=== PATIENT | female | born 1955 | race Caucasian/White ===

== ENCOUNTER → 2020-11-04 08:04 | Outpatient (BNVA) | payer OTHER, SELFPAY | PROVIDERS: PCP Internal Medicine; Visit Provider Internal Medicine Endocrinology, Diabetes & Metabolism | DX: E11.9 Type 2 diabetes mellitus without complications (principal); Z79.4 Long term (current) use of insulin; E04.2 Nontoxic multinodular goiter; E78.5 Hyperlipidemia, unspecified; I10 Essential (primary) hypertension; E66.01 Morbid (severe) obesity due to excess calories | CPT/HCPCS: 82947 ==

== ENCOUNTER 2020-12-05 07:59 | Outpatient (REF) | payer OTHER, SELFPAY ==
[2020-12-10 02:32] LABS: HPV mRNA E6/E7 rflx Not Detected (Not Detected)
== END 2020-12-05 08:00 | disposition home or self-care (01) ==
LOC: HO.LAB 07:59
PROVIDERS: PCP Internal Medicine; Visit Provider Advanced Practice Midwife
DX: Z01.419 Encounter for gynecological examination (general) (routine) without abnormal findings (principal)
CPT/HCPCS: 36415; 87624; 88142

== ENCOUNTER 2021-04-21 13:00 | Outpatient (REF) | payer OTHER, SELFPAY ==
--- NOTE | ~2021-04-21 | US_ITS ---
EXAMINATION: US THYROID CLINICAL INFORMATION: Nontoxic multinodular goiter. COMPARISON: Thyroid ultrasound 09/11/2019 and 11/25/2017. Ultrasound-guided thyroid biopsy 10/18/2014. TECHNIQUE: Linear transducer grayscale and color Doppler examination with attention to the region of the thyroid. FINDINGS: SIZE: Measurements of the thyroid lobes and nodules are given in sagittal, anteroposterior and transverse dimensions respectively. Right Thyroid Lobe: 3.7 x 1.4 x 1.9 cm, volume 4.9 mL. Previously 4.3 x 1.7 x 1.7 cm, volume 6.5 mL. Parenchyma: The gland echotexture is homogeneous. Thyroid vascularity is normal. Left Thyroid Lobe: 4.3 x 1.9 x 1.6 cm, volume 7.2 mL. Previously 4.9 x 1.9 x 1.8 cm, volume 8.8 mL. Parenchyma: The gland echotexture is homogeneous. Thyroid vascularity is normal. Isthmus: 0.4 cm in maximum AP dimension. Previously 0.4 cm. Estimated total number of nodules greater than or equal to 1 cm: 2. There are multiple small colloid cysts in both lobes. Hand Launderer nodules are described as follows: 1. Location: Right lower pole. Size: 1.1 x 0.6 x 0.9 cm, volume 0.3 mL. Previously: 1.2 x 0.6 x 1.0 cm, volume 0.4 mL. Nodule characteristics: Composition: Solid/almost completely solid (2). Echogenicity: Hypoechoic (2). Shape: Not taller than wide (0). Margins: Smooth (0). Echogenic Foci: Comet-tail artifacts (0). ACR TI-RADS total points: 4 ACR TI-RADS category: 4 Size from prior: No significant change. Appearance from prior: No significant change. 2. Location: Right mid pole. Size: 0.6 x 0.4 x 0.5 cm, volume 0.1 mL. Previously: 0.5 x 0.3 x 0.4 cm, volume 0.03 mL. Nodule characteristics: Composition: Mixed cystic and solid (1). Echogenicity: Hypoechoic (2). Shape: Not taller than wide (0). Margins: Smooth (0). Echogenic Foci: Comet-tail artifacts (0). ACR TI-RADS total points: 3. ACR TI-RADS category: 3 Size from prior: No significant change. Appearance from prior: No significant change. 3. Location: Left mid pole. Size: 1.6 x 0.9 x 1.0 cm, volume 0.7 mL. Previously: 1.2 x 0.9 x 1.1 cm, volume 0.6 mL. Nodule characteristics: Composition: Mixed cystic and solid (1). Echogenicity: Hypoechoic (2). Shape: Not taller than wide (0). Margins: Smooth (0). Echogenic Foci: None (0). ACR TI-RADS total points: 3 ACR TI-RADS category: 3 Size from prior: No significant change. Appearance from prior: No significant change. 4. Location: Left mid pole. Size: 0.5 x 0.3 x 0.3 cm, volume 0.02 mL. Previously: 0.4 x 0.5 x 0.3 cm, volume 0.03 mL. Nodule characteristics: Composition: Solid (2). Echogenicity: Hypoechoic (2). Shape: Not taller than wide (0). Margins: Smooth (0). Echogenic Foci: None (0). ACR TI-RADS total points: 4 ACR TI-RADS category: 4 Size from prior: No significant change. Appearance from prior: No significant change. NODES: No lymphadenopathy is seen in the tissue surrounding the thyroid gland. US/US thyroid IMPRESSION: 1. Thyroid size and nodularity similar to prior exam. 2. Largest nodule right 1.1 cm TI-RADS 4. Largest nodule left 1.6 cm TI-RADS 3. ACR TI-RADS RECOMMENDATION REFERENCE: Ultrasound-guided fine-needle aspiration, followup ultrasound, no further follow up. * TR3 (3 points): FNA if more than or equal to 2.5 cm in maximum dimension, followup ultrasound in 1, 3 and 5 years if 1.5 to 2.4 cm in maximum dimension. No follow up if below 1.5 cm. * TR4 (4-6 points): FNA if more than or equal to 1.5 cm in maximum dimension, followup ultrasound in 1, 2, 3 and 5 years if 1 to 1.4 cm in maximum dimension. No follow up if below 1 cm.
== END 2021-04-21 13:01 | disposition home or self-care (01) ==
LOC: HO.US 13:00
PROVIDERS: Visit Provider Internal Medicine Endocrinology, Diabetes & Metabolism
DX: E04.2 Nontoxic multinodular goiter (principal)
CPT/HCPCS: 76536

== ENCOUNTER 2021-04-22 09:03 | Outpatient (REF) | payer OTHER, SELFPAY ==
[2021-04-22 11:58] LABS: Alanine Aminotransferase 22 U/L (0-31); Albumin Level 3.6 g/dL (3.5-5.0); Alkaline Phosphatase 81 U/L (39-117); Anion Gap 17 (12-20); Aspartate Amino Transferase 32 U/L (5-31); Bilirubin Total 0.7 mg/dL (0.0-1.0); Blood Urea Nitrogen 21 mg/dL (9-16); Calcium 9.2 mg/dL (8.4-10.2); Carbon Dioxide 20 mmol/L (22-29); Chloride 101 mmol/L (96-108); Cholesterol 137 mg/dL; Estimated Glomerular Filt Rate 60; Glucose Fasting 196 mg/dL (60-99); HDL Cholesterol 40 mg/dL; LDL Cholesterol Calculated 75 mg/dl; Potassium 4.4 mmol/L (3.3-5.1); Sodium 134 mmol/L (135-145); Triglycerides 114 mg/dL
[2021-04-22 12:22] LABS: Free T4 (Free Thyroxine) 1.08 ng/dL (0.71-1.85); Thyroid Stimulating Hormone 1.91 uIU/mL (0.32-4.0)
[2021-04-22 12:35] LABS: Vitamin B12 279 pg/mL (200-900)
[2021-04-22 13:22] LABS: Creatinine Urine 229.81 mg/dL
[2021-04-23 08:36] LABS: LDL Cholesterol Direct 75 mg/dL (<100)
== END 2021-04-22 09:04 | disposition home or self-care (01) ==
LOC: HO.LAB 09:03
PROVIDERS: PCP Internal Medicine; Referring Provider Internal Medicine; Visit Provider Internal Medicine Endocrinology, Diabetes & Metabolism
DX: E11.65 Type 2 diabetes mellitus with hyperglycemia (principal); Z79.4 Long term (current) use of insulin; E04.2 Nontoxic multinodular goiter; E78.5 Hyperlipidemia, unspecified; I10 Essential (primary) hypertension; E66.01 Morbid (severe) obesity due to excess calories; Z68.42 Body mass index [BMI] 45.0-49.9, adult
CPT/HCPCS: 36415; 80053; 80061; 82043; 82607; 82947; 83721; 84439; 84443

== ENCOUNTER 2021-05-01 08:37 | Outpatient (REF) | payer OTHER, SELFPAY ==
--- NOTE | 2021-05-01 09:16 | PM.OP ---
Brief Operative Note Date of Service: 05/01/21 Pre-op diagnosis: NONTOXIC MULTINODULAR GOITER Post-op diagnosis: same Procedure: This procedure was explained to the patient. Alternatives, risks and benefits were discussed. Written consent was obtained. After sterile preparation of the skin, fine-needle aspiration biopsy of left mid pole thyroid nodule size 1.6 x 0.9 x 1.0 cm was performed under direct ultrasound guidance to confirm accurate needle placement. Three passes were performed with 27 gauge needles. Sample was submitted to cytology, initial cytology reading was adequate. 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 Patient tolerated procedure well. Aftercare instructions were provided. Impression: uncomplicated fine-needle aspiration biopsy of left mid pole thyroid nodule under direct ultrasound guidance. Surgeon: Jenae Almaraz MD Anesthesia: local (Lidocaine 1 % 1 ml) Was an Editorial Assistant used for this Procedure?: No Estimated blood loss (mL): 0 Condition: stable Disposition: same day
[2021-05-01] MEDS: Lidocaine HCl 1 % MPF 5 ML VIAL SUBCUT (10:18)
== END 2021-05-01 08:38 | disposition home or self-care (01) ==
LOC: HO.US 08:37
PROVIDERS: Visit Provider Internal Medicine Endocrinology, Diabetes & Metabolism
DX: E04.2 Nontoxic multinodular goiter (principal)
CPT/HCPCS: 10005; 88172; 88173; 88177

== ENCOUNTER → 2021-05-21 14:18 | Outpatient (BNVA) | payer OTHER, SELFPAY | PROVIDERS: PCP Internal Medicine; Visit Provider Internal Medicine Endocrinology, Diabetes & Metabolism | DX: E11.65 Type 2 diabetes mellitus with hyperglycemia (principal); E04.2 Nontoxic multinodular goiter; E78.5 Hyperlipidemia, unspecified; E66.01 Morbid (severe) obesity due to excess calories; I10 Essential (primary) hypertension; Z79.4 Long term (current) use of insulin | CPT/HCPCS: 82947 ==

== ENCOUNTER 2021-12-15 11:40 | Outpatient (REF) | payer OTHER, SELFPAY ==
[2021-12-15 12:08] LABS: MANUAL DIFF FLAG NO
[2021-12-15 12:14] LABS: Basophils Absolute Auto 0.1 X10*3/uL (0.0-0.2); Basophils Percent Auto 0.7 % (0-2); Eosinophils Absolute Auto 0.6 X10*3/uL (0.0-0.4); Eosinophils Percent Auto 5.4 % (0-4); Hematocrit 36.5 % (37.0-47.0); Imm Gran Abs Auto 0.04 X10*3/uL (0.00-0.03); Imm Gran Pct Auto 0.4 % (0.0-0.4); Lymphocytes Absolute Auto 2.7 X10*3/uL (1.2-4.9); Lymphocytes Percent Auto 25.9 % (20-40); Mean Corpuscular HGB Conc 32.9 g/dl (31.0-35.0); Mean Corpuscular Hemoglobin 29.1 pg (27.0-33.0); Mean Corpuscular Volume 88.4 fL (80.0-98.0); Mean Platelet Volume 9.2 fL (9.4-12.3); Monocytes Absolute Auto 0.6 X10*3/uL (0.1-1.2); Monocytes Percent Auto 5.5 % (2-11); Neutrophils Absolute Auto 6.4 x10*3/uL (2.0-8.3); Neutrophils Percent Auto 62.1 % (45-73); Platelet Count 461 X10*3/uL (160-400); Red Blood Count 4.13 X10*6/uL (4.20-5.50); Red Cell Distribution Width 13.9 % (11.0-16.0); White Blood Count 10.4 X10*3/uL (4.8-10.8)
[2021-12-15 12:33] LABS: Estimated Average Glucose 126 mg/dL
[2021-12-15 12:40] LABS: Alanine Aminotransferase 14 U/L (0-31); Albumin Level 3.8 g/dL (3.5-5.0); Alkaline Phosphatase 83 U/L (39-117); Anion Gap 14 (12-20); Aspartate Amino Transferase 20 U/L (5-31); Bilirubin Total 0.5 mg/dL (0.0-1.0); Blood Urea Nitrogen 17 mg/dL (9-16); Calcium 9.9 mg/dL (8.4-10.2); Carbon Dioxide 28 mmol/L (22-29); Chloride 102 mmol/L (96-108); Cholesterol 164 mg/dL; Estimated Glomerular Filt Rate > 60; Glucose Fasting 109 mg/dL (60-99); HDL Cholesterol 41 mg/dL; LDL Cholesterol Calculated 103 mg/dl; Potassium 4.2 mmol/L (3.3-5.1); Sodium 140 mmol/L (135-145); Total Protein 7.5 g/dL (6.5-8.0); Triglycerides 100 mg/dL
[2021-12-15 13:00] LABS: Thyroid Stimulating Hormone 2.02 uIU/mL (0.32-4.0)
[2021-12-15 16:07] LABS: Creatinine Urine 71.92 mg/dL; Microalbum/Creatinine Ratio Ur 126.5 ug/mg cr
== END 2021-12-15 11:41 | disposition home or self-care (01) ==
LOC: HO.LAB 11:40
PROVIDERS: PCP Internal Medicine; Visit Provider Internal Medicine
DX: Z00.00 Encounter for general adult medical examination without abnormal findings (principal); E11.65 Type 2 diabetes mellitus with hyperglycemia; Z13.0 Encounter for screening for diseases of the blood and blood-forming organs and certain disorders involving the immune mechanism
CPT/HCPCS: 36415; 80053; 80061; 82043; 83036; 84443; 85025

== ENCOUNTER 2021-12-29 12:28 | Outpatient (REF) | payer OTHER, SELFPAY ==
--- NOTE | ~2021-12-29 | XR_ITS ---
EXAMINATION: XR KNEES, BILATERAL CLINICAL INFORMATION: Pain in unspecified area of the knee. COMPARISON: Previous x-rays most recent 2018 and 2019 TECHNIQUE: Standing AP, lateral and sunrise view of both knees, FINDINGS: LEFT: Bone alignment is normal. No fracture or dislocation is seen. There is arthritis at the medial femoral tibial and patellofemoral joints with joint space narrowing and osteophyte formation. There is a small joint effusion. RIGHT: Bone alignment is normal. There is severe tricompartment arthritis with joint space narrowing and osteophyte formation. There is a joint effusion. There is an osteophyte at the quadriceps tendon insertion to the patella. XR/XR knee RT 2V IMPRESSION: Bilateral arthritis, right greater than left.
--- NOTE | ~2021-12-29 | XR_ITS ---
EXAMINATION: XR KNEES, BILATERAL CLINICAL INFORMATION: Pain in unspecified area of the knee. COMPARISON: Previous x-rays most recent 2018 and 2019 TECHNIQUE: Standing AP, lateral and sunrise view of both knees, FINDINGS: LEFT: Bone alignment is normal. No fracture or dislocation is seen. There is arthritis at the medial femoral tibial and patellofemoral joints with joint space narrowing and osteophyte formation. There is a small joint effusion. RIGHT: Bone alignment is normal. There is severe tricompartment arthritis with joint space narrowing and osteophyte formation. There is a joint effusion. There is an osteophyte at the quadriceps tendon insertion to the patella. XR/XR knee standing BI IMPRESSION: Bilateral arthritis, right greater than left.
--- NOTE | ~2021-12-29 | XR_ITS ---
EXAMINATION: XR KNEES, BILATERAL CLINICAL INFORMATION: Pain in unspecified area of the knee. COMPARISON: Previous x-rays most recent 2018 and 2019 TECHNIQUE: Standing AP, lateral and sunrise view of both knees, FINDINGS: LEFT: Bone alignment is normal. No fracture or dislocation is seen. There is arthritis at the medial femoral tibial and patellofemoral joints with joint space narrowing and osteophyte formation. There is a small joint effusion. RIGHT: Bone alignment is normal. There is severe tricompartment arthritis with joint space narrowing and osteophyte formation. There is a joint effusion. There is an osteophyte at the quadriceps tendon insertion to the patella. XR/XR knee LT 2V IMPRESSION: Bilateral arthritis, right greater than left.
== END 2021-12-29 12:29 | disposition home or self-care (01) ==
LOC: HO.HOSX 12:28
PROVIDERS: Visit Provider Orthopaedic Surgery
DX: M17.0 Bilateral primary osteoarthritis of knee (principal); E11.69 Type 2 diabetes mellitus with other specified complication; E66.01 Morbid (severe) obesity due to excess calories
CPT/HCPCS: 73560; 73565; J1100

== ENCOUNTER → 2022-01-07 08:08 | Outpatient (BNVA) | payer OTHER, SELFPAY | PROVIDERS: PCP Internal Medicine; Visit Provider Advanced Practice Midwife ==

== ENCOUNTER → 2022-02-03 14:23 | Outpatient (BNVA) | payer OTHER, SELFPAY | PROVIDERS: PCP Internal Medicine | DX: N32.81 Overactive bladder (principal); R32 Unspecified urinary incontinence | CPT/HCPCS: 51798 ==

== ENCOUNTER 2022-02-12 07:41 | Outpatient (REF) | payer OTHER, SELFPAY ==
--- NOTE | ~2022-02-12 | MM_ITS ---
EXAMINATION: MM SCREENING DIGITAL BREAST TOMOSYNTHESIS, BILATERAL CLINICAL INFORMATION: Screening. Asymptomatic. The lifetime risk of breast cancer based on the Tyrer-Cuzick Model is 12%. COMPARISON: Mammography: 12/31/2018, 12/14/2016, 12/07/2015 TECHNIQUE: Digital breast tomosynthesis is performed in both the craniocaudal and mediolateral oblique views along with computer-aided detection (CAD). Synthesized 2D images are generated from the tomosynthesis. Additional exaggerated left CC and left MLO views are provided. FINDINGS: There are scattered areas of fibroglandular density (ACR BI-RADS breast composition Category b). There are no significant masses, abnormal calcifications, or other abnormalities. Parenchymal pattern is similar to prior studies. No developing density. There is a dermal lesion overlying upper left breast on MLO view. MM/MM tomosynthesis screening BI IMPRESSION: No mammographic evidence of malignancy. ASSESSMENT: BI-RADS 2: Benign RECOMMENDATION: Routine annual mammography screening. This patient's information was entered into a reminder system with a target due date for their next mammogram.
== END 2022-02-12 07:42 | disposition home or self-care (01) ==
LOC: HO.MAMMO 07:41
PROVIDERS: PCP Internal Medicine; Visit Provider Advanced Practice Midwife
DX: Z12.31 Encounter for screening mammogram for malignant neoplasm of breast (principal)
CPT/HCPCS: 77063; 77067

== ENCOUNTER 2022-08-17 14:43 | Outpatient (REF) | payer OTHER, SELFPAY ==
--- NOTE | ~2022-08-17 | US_ITS ---
EXAMINATION: US THYROID CLINICAL INFORMATION: Nontoxic multinodular goiter. COMPARISON: Ultrasound soft tissue head/neck thyroid dated 04/21/2021 and 09/11/2019. TECHNIQUE: Linear transducer grayscale and color Doppler examination with attention to the region of the thyroid. FINDINGS: SIZE: Measurements of the thyroid lobes and nodules are given in sagittal, anteroposterior and transverse dimensions respectively. Right Thyroid Lobe: 4.4 x 2.2 x 0.2 cm, volume 10.6 mL. Previously 3.7 x 1.4 x 1.9 cm, volume 4.9 mL. Parenchyma: The gland echotexture is homogeneous. Thyroid vascularity is normal. Left Thyroid Lobe: 4.4 x 1.9 x 2.2 cm, volume 9.6 mL. Previously 4.3 x 1.9 x 1.6 cm, volume 7.2 mL. Parenchyma: The gland echotexture is homogeneous. Thyroid vascularity is normal. Isthmus: 0.4 cm in maximum AP dimension. Previously 0.4 cm. Estimated total number of nodules greater than or equal to 1 cm: 2. Animal [facility] Clerk nodules are described as follows: 1. Location: Left inferior. Size: 1.5 x 0.9 x 1.3 cm, volume 0.7 mL. Previously: 1.6 x 0.9 x 1.1 cm, volume 0.7 mL. Nodule characteristics: Composition: Mixed cystic and solid (1). Echogenicity: Cannot be determined (1). Shape: Not taller than wide (0). Margins: Smooth (0). Echogenic Foci: None (0). ACR TI-RADS total points: 2 Previous: 6 ACR TI-RADS category: 2 Previous: 5 Significant change in size (>/= 20% in 2 dimensions and minimal increase of 2 mm or 50% or greater increase in volume): None Change in features: None Change in ACR TI-RADS risk category: Improved 2. Location: Left inferior. Size: 0.6 x 0.4 x 0.4 cm, volume 0.05 mL. Previously: Not measured on the previous study. Nodule characteristics: Composition: Solid (2). Echogenicity: Hypoechoic (2). Shape: Not taller than wide (0). Margins: Ill-defined (0). Echogenic Foci: None (0). ACR TI-RADS total points: 4 ACR TI-RADS category: 4 3. Location: Right inferior. Size: 1.2 x 0.5 x 0.9 cm, volume 0.3 mL. Previously: 1.2 x 0.6 x 1.0 cm, volume 0.3 mL. Nodule characteristics: Composition: Solid/almost completely solid (2). Echogenicity: Hypoechoic (2). Shape: Not taller than wide (0). Margins: Smooth (0). Echogenic Foci: Punctate echogenic foci (3). ACR TI-RADS total points: 7 Previous: 5 ACR TI-RADS category: 5 Previous: 4 Significant change in size (>/= 20% in 2 dimensions and minimal increase of 2 mm or 50% or greater increase in volume): None Change in features: None Change in ACR TI-RADS risk category: Minimal change 4. Location: Right mid. Size: 0.5 x 0.4 x 0.5 cm, volume 0.06 mL. Previously: Not measured on the previous study. Nodule characteristics: Composition: Solid/almost completely solid (2). Echogenicity: Hyperechoic (1). Shape: Not taller than wide (0). Margins: Ill-defined (0). Echogenic Foci: None (0). ACR TI-RADS total points: 3 ACR TI-RADS category: 3 5. Location: Right mid medial. Size: 0.6 x 0.4 x 0.6 cm, volume 0.07 mL. Previously: Not measured on the previous study. Nodule characteristics: Composition: Solid/almost completely solid (2). Echogenicity: Hyperechoic (1). Shape: Not taller than wide (0). Margins: Smooth (0). Echogenic Foci: None (0). ACR TI-RADS total points: 3 ACR TI-RADS category: 3 NODES: There is a 1.4 x 0.5 x 1.1 cm lymph node lateral to upper right thyroid lobe. It has an echogenic medulla. US/US thyroid IMPRESSION: 1. Enlarged thyroid gland with multiple nodules which are stable. 2. Solitary right neck lymph node with an echogenic medulla, appears normal. ACR TI-RADS RECOMMENDATION REFERENCE: Ultrasound-guided fine-needle aspiration, followup ultrasound, no further follow up. * TR1 (0 point) and TR 2 (2 points): No FNA or follow up * TR3 (3 points): FNA if more than or equal to 2.5 cm in maximum dimension, followup ultrasound in 1, 3 and 5 years if 1.5 to 2.4 cm in maximum dimension. * TR4 (4-6 points): FNA if more than or equal to 1.5 cm in maximum dimension, followup ultrasound in 1, 2, 3 and 5 years if 1 to 1.4 cm in maximum dimension. * TR5 (more than or equal to 7 points): FNA if more than or equal to 1 cm in maximum dimension, followup ultrasound every year for 5 years if 0.5 to 0.9 cm in maximum dimension. * TR3, TR4 or TR5 nodules that are below the size threshold for follow up receive no follow up.
== END 2022-08-17 14:44 | disposition home or self-care (01) ==
LOC: HO.US 14:43
PROVIDERS: Visit Provider Internal Medicine Endocrinology, Diabetes & Metabolism
DX: E04.2 Nontoxic multinodular goiter (principal)
CPT/HCPCS: 76536

== ENCOUNTER 2022-09-02 09:29 | Outpatient (REF) | payer OTHER, SELFPAY ==
[2022-09-02 10:47] LABS: Estimated Average Glucose 108 mg/dL; Hemoglobin A1c % 5.4 %
[2022-09-02 11:12] LABS: Cholesterol 141 mg/dL; Glucose Fasting 77 mg/dL (60-99); HDL Cholesterol 37 mg/dL; LDL Cholesterol Calculated 83 mg/dl; Triglycerides 107 mg/dL
== END 2022-09-02 09:30 | disposition home or self-care (01) ==
LOC: HO.LAB 09:29
PROVIDERS: PCP Internal Medicine; Visit Provider Internal Medicine
DX: Z00.00 Encounter for general adult medical examination without abnormal findings (principal); E11.65 Type 2 diabetes mellitus with hyperglycemia
CPT/HCPCS: 36415; 80061; 82947; 83036

== ENCOUNTER → 2022-09-03 08:55 | Outpatient (BNVA) | payer OTHER, SELFPAY | PROVIDERS: PCP Internal Medicine; Visit Provider Internal Medicine Endocrinology, Diabetes & Metabolism | DX: E11.65 Type 2 diabetes mellitus with hyperglycemia (principal); E04.2 Nontoxic multinodular goiter | CPT/HCPCS: 82947 ==

== ENCOUNTER 2023-01-06 08:50 | Outpatient (REF) | payer OTHER, SELFPAY ==
[2023-01-06 10:35] LABS: MANUAL DIFF FLAG NO
[2023-01-06 10:43] LABS: Basophils Absolute Auto 0.1 X10*3/uL (0.0-0.2); Basophils Percent Auto 0.7 % (0-2); Eosinophils Absolute Auto 0.6 X10*3/uL (0.0-0.4); Eosinophils Percent Auto 6.1 % (0-4); Hematocrit 37.9 % (37.0-47.0); Hemoglobin 12.4 g/dl (12.0-16.0); Imm Gran Abs Auto 0.04 X10*3/uL (0.00-0.03); Imm Gran Pct Auto 0.4 % (0.0-0.4); Lymphocytes Percent Auto 18.9 % (20-40); Mean Corpuscular HGB Conc 32.7 g/dl (31.0-35.0); Mean Corpuscular Volume 85.6 fL (80.0-98.0); Mean Platelet Volume 10.9 fL (9.4-12.3); Monocytes Absolute Auto 0.4 X10*3/uL (0.1-1.2); Monocytes Percent Auto 4.2 % (2-11); Neutrophils Absolute Auto 7.2 x10*3/uL (2.0-8.3); Neutrophils Percent Auto 69.7 % (45-73); Platelet Count 155 X10*3/uL (160-400); Red Blood Count 4.43 X10*6/uL (4.20-5.50); Red Cell Distribution Width 13.7 % (11.0-16.0); White Blood Count 10.3 X10*3/uL (4.8-10.8)
[2023-01-06 11:37] LABS: Estimated Average Glucose 140 mg/dL; Hemoglobin A1C 150.9097 umol/L; Hemoglobin A1c % 6.5 %
[2023-01-06 11:52] LABS: Creatinine Urine 107.25 mg/dL; Microalbum/Creatinine Ratio Ur 20.5 ug/mg cr
[2023-01-06 12:04] LABS: Alanine Aminotransferase 22 U/L (0-31); Albumin Level 3.7 g/dL (3.5-5.0); Alkaline Phosphatase 81 U/L (39-117); Anion Gap 18 (12-20); Aspartate Amino Transferase 34 U/L (5-31); Bilirubin Total 0.6 mg/dL (0.0-1.0); Blood Urea Nitrogen 23 mg/dL (9-16); Calcium 9.5 mg/dL (8.4-10.2); Carbon Dioxide 24 mmol/L (22-29); Chloride 101 mmol/L (96-108); Estimated Glomerular Filt Rate 59; Glucose Fasting 154 mg/dL (60-99); Potassium 4.2 mmol/L (3.3-5.1); Sodium 139 mmol/L (135-145); Total Protein 6.9 g/dL (6.5-8.0)
[2023-01-06 15:57] LABS: Thyroid Stimulating Hormone 1.95 uIU/mL (0.32-4.0)
== END 2023-01-06 08:51 | disposition home or self-care (01) ==
LOC: HO.10HDL 08:50
PROVIDERS: Absent Provider Internal Medicine Endocrinology, Diabetes & Metabolism; Visit Provider Internal Medicine
DX: E11.69 Type 2 diabetes mellitus with other specified complication (principal); E03.9 Hypothyroidism, unspecified; E66.01 Morbid (severe) obesity due to excess calories; N28.9 Disorder of kidney and ureter, unspecified; D64.9 Anemia, unspecified; E11.65 Type 2 diabetes mellitus with hyperglycemia
CPT/HCPCS: 36415; 80053; 82043; 83036; 84443; 85025

== ENCOUNTER → 2023-01-07 07:49 | Outpatient (BNVA) | payer OTHER, SELFPAY | PROVIDERS: PCP Internal Medicine; Visit Provider Internal Medicine Endocrinology, Diabetes & Metabolism | DX: E11.65 Type 2 diabetes mellitus with hyperglycemia (principal); E04.2 Nontoxic multinodular goiter | CPT/HCPCS: 82947 ==

== ENCOUNTER → 2023-01-11 07:56 | Outpatient (BNVA) | payer OTHER, SELFPAY | PROVIDERS: PCP Internal Medicine; Visit Provider Advanced Practice Midwife | DX: Z13.89 Encounter for screening for other disorder (principal) ==

== ENCOUNTER 2023-02-19 07:20 | Outpatient (REF) | payer OTHER, SELFPAY ==
--- NOTE | ~2023-02-19 | MM_ITS ---
EXAMINATION: MM SCREENING DIGITAL BREAST TOMOSYNTHESIS, BILATERAL CLINICAL INFORMATION: Screening. Asymptomatic. Family history breast cancer, mother. The lifetime risk of breast cancer based on the Tyrer-Cuzick Model is 11%. COMPARISON: Mammography 02/12/2022, 12/31/2018, 12/14/2016. There is TECHNIQUE: Digital breast tomosynthesis is performed in both the craniocaudal and mediolateral oblique views along with computer-aided detection (CAD). Synthesized 2D images are generated from the tomosynthesis. FINDINGS: There are scattered areas of fibroglandular density (ACR BI-RADS breast composition Category b). Parenchymal pattern is similar to prior exams and there is no developing density or interval architectural abnormality. The axilla and skin contours are unremarkable. There are some scattered punctate benign round calcifications in each breast. Some loosely grouped round calcifications are present mid lower inner right breast since prior exams. Patient will be recalled in order to obtain magnification views to fully characterize probable incidental calcifications. MM/MM tomosynthesis screening BI IMPRESSION: Right: -Loosely grouped round calcifications mid lower inner quadrant. Left: -No significant changes from prior exam. ASSESSMENT: BI-RADS 0: Incomplete - Need Additional Imaging Evaluation RECOMMENDATION: 1. Additional views right breast (magnification CC, magnification LM). 2. Radiology department staff will contact the patient for additional imaging. This patient's information was entered into a reminder system with a target due date for their next mammogram.
== END 2023-02-19 07:21 | disposition home or self-care (01) ==
LOC: HO.MAMMO 07:20
PROVIDERS: PCP Internal Medicine; Visit Provider Internal Medicine
DX: Z12.31 Encounter for screening mammogram for malignant neoplasm of breast (principal)
CPT/HCPCS: 77063; 77067

== ENCOUNTER 2023-02-25 14:19 | Outpatient (REF) | payer OTHER, SELFPAY ==
--- NOTE | ~2023-02-25 | MM_ITS ---
EXAMINATION: MM DIAGNOSTIC DIGITAL MAMMOGRAPHY, RIGHT CLINICAL INFORMATION: Recall from screening for loosely grouped calcifications mid lower inner right breast. Family history breast cancer, mother. TC score 11%. COMPARISON: Prior mammography exams, most recent 02/19/2023. TECHNIQUE: Digital mammography is performed in the following views: Magnification right CC, magnification right ML. FINDINGS: There are scattered areas of fibroglandular density (ACR BI-RADS breast composition Category b). The magnification views show a few loosely grouped probable benign calcifications in the area for follow-up. Calcifications will be reassessed again in 6 months to include magnification views. Results are discussed with the patient at time of visit. MM/MM added views RT IMPRESSION: Probable benign calcifications mid lower inner right breast. ASSESSMENT: BI-RADS 3: Probably Benign RECOMMENDATION: Diagnostic right mammography in 6 months. This patient's information was entered into a reminder system with a target due date for their next mammogram.
== END 2023-02-25 14:20 | disposition home or self-care (01) ==
LOC: HO.MAMMO 14:19
PROVIDERS: PCP Internal Medicine; Visit Provider Advanced Practice Midwife
DX: R92.1 Mammographic calcification found on diagnostic imaging of breast (principal)
CPT/HCPCS: 77065

== ENCOUNTER → 2023-04-05 09:53 | Outpatient (BNVA) | payer OTHER, SELFPAY | PROVIDERS: PCP Internal Medicine; Visit Provider Nurse Practitioner Family ==

== ENCOUNTER 2023-06-07 06:12 | Outpatient (REF) | payer OTHER, SELFPAY | END 2023-06-07 06:13 | disposition home or self-care (01) | LOC: HO.LAB 06:12 | PROVIDERS: PCP Internal Medicine; Visit Provider Internal Medicine | DX: E03.9 Hypothyroidism, unspecified (principal); E11.65 Type 2 diabetes mellitus with hyperglycemia; I10 Essential (primary) hypertension; E78.5 Hyperlipidemia, unspecified | CPT/HCPCS: 36415; 80061; 82947; 83036; 84443 ==

== ENCOUNTER 2023-06-09 08:37 | Outpatient (AMB) | payer OTHER, SELFPAY ==
--- NOTE | 2023-06-09 08:43 | A.OFFPC_ITS ---
Vital Signs 06/09/23 08:44 Height 5 ft 2 in Weight 258 lb 4 oz BMI 47.2 BP 132/70 Blood Pressure Location Lt brachial Position Sitting Pulse 65 Pulse Source Pulse Oximeter Pulse Oximetry (%) 97 Oxygen Delivery Method Room Air Intake Visit Reasons: 3mth f/u Child Welfare Caseworker Required: No Accompanied by: Self / Same As Patient Allergies Sulfa (Sulfonamide Antibiotics) [Sulfa (Sulfonamides)] Allergy (Mild, Verified 06/09/23 08:45) RASH cephalexin [From KEFLEX] Allergy (Unknown, Verified 06/09/23 08:45) RASH clavulanic acid [Augmentin] Allergy (Unknown, Verified 06/09/23 08:45) vaginal irritation amoxicillin [From Augmentin] Adverse Reaction (Mild, Verified 06/09/23 08:45) VAGINAL IRRITATION Medication List - Last Reconciled 06/09/23 by Behzad Arzola MD amlodipine 10 mg PO DAILY ammonium lactate 12% appl topical aspirin (Adult Aspirin Regimen) 81 mg PO DAILY blood sugar diagnostic ([employer] Ver[employer] test strips) As directed 3 times a day blood-glucose meter ([employer] Verio Flex Meter) As directed hydrochlorothiazide 25 mg PO DAILY ibuprofen 800 mg PO TID insulin glargine 45 units (0.45 mL) subcut DAILY 30 days lancets ([employer] Delica Lancets) As directed 3 times a day lisinopril 20 mg PO DAILY metformin 1,000 mg PO BID omega-3 fatty acids 1,000 mg PO DAILY oxybutynin chloride ER 10 mg PO DAILY 90 days pen needle, diabetic Twice a day pravastatin 10 mg PO BEDTIME Tobacco use date assessed: 06/09/23 Fall risk assessment: No Falls in past year Last assessed Fall Risk: 06/09/23 Dental Screening Dental Screen Date: 06/09/23 Did you have a dental visit in the last 12 months?: No Did you have a dental problem in the last 6 months where you did not have access to dental care?: No Was dental information given to patient?: No HPI 3mth f/u HPI Details HTN DM and hyperlipidemia; stable; A1C fine 7.0 [facility] Medical History Diabetes type 2, controlled Diabetes type 2, uncontrolled Dyslipidemia Hypertension rn long term care (current) use of insulin Morbid obesity Non-toxic multinodular goiter OAB (overactive bladder) Obesity Osteoarthritis Type 2 diabetes mellitus with morbid obesity Urinary Incontinence Surgical History History of section Family History Father Lung cancer Mother Breast cancer Social History Household Members: Children Housing: House Alcohol intake: current Alcohol intake frequency: holidays/special occasions only Patient Tobacco Use Status: Never used Tobacco e-Cigarette/Vaping Use: Never Used Second Hand Smoke Exposure: No service: No Current occupational status: employed Cognitive needs: No Hearing needs: Yes Vision needs: Yes Questionnaire PHQ-9 Over the last 2 weeks, how often have you been bothered by any of the following problems? 1. Little interest or pleasure in doing things: not at all 2. Feeling down, depressed, or hopeless: not at all 3. Trouble falling or staying asleep, or sleeping too much: not at all 4. Feeling tired or having little energy: not at all 5. Poor appetite or overeating: not at all 6. Feeling bad about yourself - or that you are a failure or have let yourself or your family down: not at all 7. Trouble concentrating on things, such as reading the newspaper or watching television: not at all 8. Moving or speaking so slowly that other people could have noticed. Or the opposite - being so fidgety or restless that you have been moving around a lot more than usual: not at all 9. Thoughts that you would be better off or of hurting yourself in some w ay: not at all Total score: 0 Depression Screening Interpretation: Negative [id number] - PHQ-9 Billing: Yes Source: Developed by Drs. Destin Buck, Sara Lam, Gil Keating and colleagues, with an educational garcía from [employer]. Thrive Questionnaire Date Thrive assessed: 06/09/23 I am a: Patient What is your living situation today?: I have a steady place to live Within the past 12 months, did the food you bought not last and you didn't have the money to get more?: Never true Within the past 12 months, did you worry whether your food would run out before you got money to buy more?: Never true Do you have trouble paying for medicines?: No Do you have trouble getting transportation to medical appointments?: No Do you have trouble paying your heating and electricity bill?: No Do you have trouble taking care of your child, family member or friend?: No Do you have trouble with day-to-day activities such as bathing, preparing meals, shopping, managing finances, etc.?: No Are you currently unemployed and looking for a job?: No Are you interested in more education?: No Please select the resources that you would like help with: None Currently or been in a relationship where the following occur: no concerns reported AUDIT C Alcohol Use Questionnaire (AUDIT-C) 1. How often do you have a drink containing alcohol?: Monthly or less 2. How many drinks containing alcohol do you have on a typical day when you are drinking?: 1 or 2 3. How often do you have six or more drinks on one occasion?: Never Total Score: 1 Score Reviewed/Action Taken: Yes JET-7 AMB Questionnaire JET-7 Date JET - 7 assessed: 06/09/23 Feeling nervous, anxious, or on edge: 0 = Not at all Not being able to stop or control worryin = Not at all Worrying too much about different things: 0 = Not at all Trouble relaxin = Not at all Being so restless that it is hard to sit still: 0 = Not at all Becoming easily annoyed or irritable: 0 = Not at all Feeling afraid as if something awful might happen: 0 = Not at all Total JET-7 score (0-4 normal; 5-9 mild; 10-14 moderate; 15-21 severe): 0 Source: Developed by Drs. Destin Buck, Sara Lam, Gil Keating and colleagues, with an educational garcía from [employer]. JET-7 Assessment Billing JET-7 Assessment Tool: JET-7 Assessment 01311 Review of Systems Const Denies chills, Denies headache(s) and Denies weight loss ENT Denies headache(s) Card Denies chest pain, Denies syncope, Denies irregular heart rhythm and Denies dyspnea Resp Denies chest congestion, Denies cough and Denies dyspnea GI Denies abdominal pain, Denies change in stool character, Denies nausea and Denies vomiting Musc Denies deformity and Denies joint swelling Neuro Denies syncope and Denies headache(s) Physical exam (Primary Care) Vital Signs: Last Vital Signs Pulse 65 06/09/23 08:44 BP 132/70 06/09/23 08:44 Pulse Ox 97 06/09/23 08:44 Oxygen Delivery Method Room Air 06/09/23 08:44 BMI result Body Mass Index 47.2 morbid obesity BMI Assessment/Plan discussion: High BMI High, discussed plan: lifestyle, weight reduction, dietary and physical activity Tobacco/Smoking Status: Tobacco use Status Tobacco use date assessed 06/09/23 06/09/23 08:50 Patient Tobacco Use Status Never used Tobacco 06/09/23 08:50 e-Cigarette/Vaping Use Never Used 06/09/23 08:50 PHQ-9: PHQ-9 Score PHQ-9: Total score 0 06/09/23 08:50 Depression Screening Interpretation: Negative Thrive Assessment: Date of Thrive Assessment Date Thrive assessed 06/09/23 06/09/23 08:50 Currently or been in a relationship where the following occur: no concerns reported Const General: cooperative, comfortable and no acute distress Resp Effort & Inspection: normal respiratory effort Auscultation: clear to auscultation bilaterally Percussion: percussion normal Cardio Jugular venous distension: no JVD Rate: regular rate Rhythm: regular rhythm GI Inspection: Yes normal to inspection Assessment and Plan Assessment & Plan (1) Type 2 diabetes mellitus with morbid obesity: Code(s): E11.69 - Type 2 diabetes mellitus with other specified complication; E66.01 - Morbid (severe) obesity due to excess calories Plan: stable; same rx; do labs (2) Hypertension: Code(s): I10 - Essential (primary) hypertension Qualifiers: Hypertension type: essential hypertension Qualified Code(s): I10 - Essential (primary) hypertension Plan: stable; same rx (3) Dyslipidemia: Code(s): E78.5 - Hyperlipidemia, unspecified Plan: stable; same rx Coding Level of Care Code Est Pt Level 4 (89461) Diagnoses Type 2 diabetes mellitus with morbid obesity E11.69; E66.01 Hypertension I10 Hypertension type: essential hypertension Dyslipidemia E78.5 Additional Codes JET-7 Assessment Billing - JET-7 Assessment Tool: JET-7 Assessment [id number] ([id number])
[2023-06-09 08:44] VITALS: BP 132/70; PULSE 65; O2SAT 97; BMI 47.2
== END 2023-06-09 09:02 | disposition home or self-care (01) ==
PROVIDERS: PCP Internal Medicine; Visit Provider Internal Medicine
DX: E11.69 Type 2 diabetes mellitus with other specified complication (principal); E66.01 Morbid (severe) obesity due to excess calories; I10 Essential (primary) hypertension; Z68.42 Body mass index [BMI] 45.0-49.9, adult; E78.5 Hyperlipidemia, unspecified
CPT/HCPCS: 99214

== ENCOUNTER 2023-08-31 13:45 | Outpatient (REF) | payer OTHER, SELFPAY ==
--- NOTE | ~2023-08-31 | MM_ITS ---
EXAMINATION: MM DIAGNOSTIC DIGITAL BREAST TOMOSYNTHESIS, RIGHT CLINICAL INFORMATION: 6 month follow-up probably benign calcifications lower inner right breast, middle to anterior one third. COMPARISON: Mammography: 02/19/2023, and 02/25/2023. TECHNIQUE: Digital right breast tomosynthesis is performed in both the craniocaudal and mediolateral oblique views along with computer-aided detection (CAD). Synthesized 2D images are generated from the tomosynthesis. In addition, 2-D spot magnification right CC and mediolateral views were obtained. FINDINGS: There are scattered areas of fibroglandular density (ACR BI-RADS breast composition Category b). There are approximately 5 loosely grouped calcifications in the slightly lower medial right breast, mid to anterior one third, which have a punctate morphology and number approximately 6. There has been no aggressive change in the appearance. There are no additional new calcifications. These remain probably benign. No additional suspicious findings in the right breast. Parenchymal pattern is stable from priors. MM/MM tomosynthesis diagnostic RT IMPRESSION: There are no significant changes from the prior study. Probably benign right breast calcifications are unchanged. Recommend six-month interval follow-up diagnostic mammography right breast with standard magnification views when the patient is due for bilateral screening. ASSESSMENT: BI-RADS BI-RADS 3 - Probably benign finding(s) - 6 month follow-up suggested RECOMMENDATION: 6 Month F/U Results were provided to the patient at time of visit by the technologist. This patient's information was entered into a reminder system with a target due date for their next mammogram.
== END 2023-08-31 13:46 | disposition home or self-care (01) ==
LOC: HO.MAMMO 13:45
PROVIDERS: PCP Internal Medicine; Visit Provider Internal Medicine
DX: R92.1 Mammographic calcification found on diagnostic imaging of breast (principal)
CPT/HCPCS: 77061; 77065

== ENCOUNTER → 2023-08-31 14:00 | Outpatient (BNV) | payer OTHER, SELFPAY | PROVIDERS: PCP Internal Medicine; Visit Provider Radiology Diagnostic Radiology | DX: R92.1 Mammographic calcification found on diagnostic imaging of breast (principal) | CPT/HCPCS: 77061; 77065 ==

== ENCOUNTER 2023-09-10 07:58 | Outpatient (AMB) | payer OTHER, SELFPAY ==
[2023-09-10 08:35] VITALS: BP 144/62; PULSE 80; O2SAT 99; BMI 49.0
--- NOTE | 2023-09-10 08:35 | A.OFFPC_ITS ---
Vital Signs 09/10/23 08:35 Height 5 ft 2 in Weight 268 lb BMI 49.0 BP 144/62 H Blood Pressure Location Lt brachial Position Sitting Pulse 80 Pulse Source Pulse Oximeter Pulse Oximetry (%) 99 Oxygen Delivery Method Room Air Intake Visit Reasons: 3mth f/u Allergies Sulfa (Sulfonamide Antibiotics) [Sulfa (Sulfonamides)] Allergy (Mild, Verified 09/10/23 08:35) RASH cephalexin [From KEFLEX] Allergy (Unknown, Verified 09/10/23 08:35) RASH clavulanic acid [Augmentin] Allergy (Unknown, Verified 09/10/23 08:35) vaginal irritation amoxicillin [From Augmentin] Adverse Reaction (Mild, Verified 09/10/23 08:35) VAGINAL IRRITATION Medication List - Last Reconciled 09/10/23 by Behzad Arzola MD amlodipine 10 mg PO DAILY ammonium lactate 12% appl topical aspirin (Adult Aspirin Regimen) 81 mg PO DAILY blood sugar diagnostic (Next [employer] LivingTouch Verio test strips) As directed 3 times a day blood-glucose meter ([employer] Verio Flex Meter) As directed hydrochlorothiazide 25 mg PO DAILY ibuprofen 800 mg PO TID insulin glargine 45 units (0.45 mL) subcut DAILY 30 days lancets (Next Step LivingTouch Delica Lancets) As directed 3 times a day lisinopril 20 mg PO DAILY metformin 1,000 mg PO BID omega-3 fatty acids 1,000 mg PO DAILY oxybutynin chloride ER 10 mg PO DAILY 90 days pen needle, diabetic Twice a day pravastatin 10 mg PO BEDTIME Tobacco use date assessed: 06/09/23 Fall risk assessment: 1 Fall in past year Last assessed Fall Risk: 09/10/23 Dental Screening Dental Screen Date: 09/10/23 Did you have a dental visit in the last 12 months?: No Did you have a dental problem in the last 6 months where you did not have access to dental care?: No Was dental information given to patient?: Patient has dentist HPI 3mth f/u HPI Details DM HTN and hyperlip;has gained weight PFSH Medical History Urinary Incontinence OAB (overactive bladder) Type 2 diabetes mellitus with morbid obesity Obesity Diabetes type 2, uncontrolled Osteoarthritis Morbid obesity Hypertension Dyslipidemia Non-toxic multinodular goiter correction (current) use of insulin Diabetes type 2, controlled Surgical History History of section Family History Father Lung cancer Mother Breast cancer Social History Household Members: Children Housing: House Alcohol intake: current Alcohol intake frequency: holidays/special occasions only Patient Tobacco Use Status: Never used Tobacco e-Cigarette/Vaping Use: Never Used Second Hand Smoke Exposure: No service: No Current occupational status: employed Cognitive needs: Yes Hearing needs: Yes Vision needs: Yes Questionnaire PHQ-9 Over the last 2 weeks, how often have you been bothered by any of the following problems? 1. Little interest or pleasure in doing things: not at all 2. Feeling down, depressed, or hopeless: not at all 3. Trouble falling or staying asleep, or sleeping too much: not at all 4. Feeling tired or having little energy: not at all 5. Poor appetite or overeating: not at all 6. Feeling bad about yourself - or that you are a failure or have let yourself or your family down: not at all 7. Trouble concentrating on things, such as reading the newspaper or watching television: not at all 8. Moving or speaking so slowly that other people could have noticed. Or the opposite - being so fidgety or restless that you have been moving around a lot more than usual: not at all 9. Thoughts that you would be better off or of hurting yourself in some way: not at all Total score: 0 Depression Screening Interpretation: Negative Depression Screening Done: Yes 50220 - PHQ-9 Billing: Yes Source: Developed by Drs. Destin Buck, Sara Lam, Gil Keating and colleagues, with an educational garcía from [employer]. Thrive Questionnaire Date Thrive assessed: 06/09/23 JET-7 AMB Questionnaire JET-7 Date JET - 7 assessed: 06/09/23 Source: Developed by Drs. Destin Buck, Sara Lam, Gil Keating and colleagues, with an educational garcía from [employer]. Review of Systems Const Denies chills, Denies headache(s) and Denies weight loss ENT Denies headache(s) Card Denies chest pain, Denies syncope, Denies irregular heart rhythm and Denies dyspnea Resp Denies chest congestion, Denies cough and Denies dyspnea GI Denies abdominal pain, Denies change in stool character, Denies nausea and Denies vomiting Musc Denies deformity and Denies joint swelling Neuro Denies syncope and Denies headache(s) Physical exam (Primary Care) Vital Signs: Last Vital Signs Pulse 80 09/10/23 08:35 BP 144/62 H 09/10/23 08:35 Pulse Ox 99 09/10/23 08:35 Oxygen Delivery Method Room Air 09/10/23 08:35 BMI result Body Mass Index 49.0 Tobacco/Smoking Status: Tobacco use Status Tobacco use date assessed 06/09/23 09/10/23 08:36 Patient Tobacco Use Status Never used Tobacco 09/10/23 08:36 e-Cigarette/Vaping Use Never Used 09/10/23 08:36 PHQ-9: PHQ-9 Score PHQ-9: Total score 0 09/10/23 08:36 Depression Screening Interpretation: Negative Thrive Assessment: Date of Thrive Assessment Date Thrive assessed 06/09/23 09/10/23 08:36 Const General: cooperative, comfortable, no acute distress and alert Neck Neck: Yes no lymphadenopathy Thyroid: Thyroid normal Resp Effort & Inspection: normal respiratory effort Auscultation: clear to auscultation bilaterally Percussion: percussion normal Cardio Jugular venous distension: no JVD Palpation: normal PMI Rate: regular rate Rhythm: regular rhythm Heart sounds: S1 normal heart sound present and S2 normal heart sound present GI Inspection: Yes normal to inspection Palpation (GI): No hepatosplenomegaly present Skin General skin exam: no rashes or lesions noted Extrem General: Yes no clubbing, cyanosis or edema Assessment and Plan Assessment & Plan (1) Type 2 diabetes mellitus with morbid obesity: Code(s): E11.69 - Type 2 diabetes mellitus with other specified complication; E66.01 - Morbid (severe) obesity due to excess calories Plan: same rx; lose weight (2) Hypertension: Code(s): I10 - Essential (primary) hypertension Qualifiers: Hypertension type: essential hypertension Qualified Code(s): I10 - Essential (primary) hypertension Plan: stable; same rx (3) Dyslipidemia: Code(s): E78.5 - Hyperlipidemia, unspecified Plan: stable; same rx Coding Level of Care Code Est Pt Level 4 (62710) Diagnoses Type 2 diabetes mellitus with morbid obesity E11.69; E66.01 Essential hypertension I10 Hypertension type: essential hypertension Dyslipidemia E78.5
== END 2023-09-10 08:49 | disposition home or self-care (01) ==
PROVIDERS: PCP Internal Medicine; Visit Provider Internal Medicine
DX: E11.69 Type 2 diabetes mellitus with other specified complication (principal); E66.01 Morbid (severe) obesity due to excess calories; Z68.42 Body mass index [BMI] 45.0-49.9, adult; E78.5 Hyperlipidemia, unspecified
CPT/HCPCS: 99214

== ENCOUNTER 2023-09-10 08:59 | Outpatient (REF) | payer OTHER, SELFPAY ==
[2023-09-10 11:30] LABS: Estimated Average Glucose 217 mg/dL; Hemoglobin A1c % 9.2 % (<6.0)
[2023-09-10 12:15] LABS: Cholesterol 124 mg/dL (<200); Glucose Fasting 157 mg/dL (60-99); HDL Cholesterol 37 mg/dL (>40); LDL Cholesterol Calculated 69 mg/dL (<100); Triglycerides 94 mg/dL (<150)
== END 2023-09-10 09:00 | disposition home or self-care (01) ==
LOC: HO.LAB 08:59
PROVIDERS: PCP Internal Medicine; Visit Provider Internal Medicine
DX: E78.5 Hyperlipidemia, unspecified (principal); I10 Essential (primary) hypertension; E11.69 Type 2 diabetes mellitus with other specified complication; E11.65 Type 2 diabetes mellitus with hyperglycemia; E66.01 Morbid (severe) obesity due to excess calories
CPT/HCPCS: 36415; 80061; 82947; 83036

== ENCOUNTER 2023-12-15 08:52 | Outpatient (AMB) | payer OTHER, SELFPAY ==
[2023-12-15 08:55] VITALS: BP 148/70; PULSE 98; O2SAT 82; BMI 47.9
--- NOTE | 2023-12-15 08:55 | A.OFFPC_ITS ---
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 Required per policy Accompanied by: Self / Same As Patient Allergies Sulfa (Sulfonamide Antibiotics) [Sulfa (Sulfonamides)] Allergy (Mild, Verified 12/15/23 08:56) RASH cephalexin [From KEFLEX] Allergy (Unknown, Verified 12/15/23 08:56) RASH clavulanic acid [Augmentin] Allergy (Unknown, Verified 12/15/23 08:56) vaginal irritation amoxicillin [From Augmentin] Adverse Reaction (Mild, Verified 12/15/23 08:56) VAGINAL IRRITATION Medication List - Last Reconciled 12/15/23 by Behzad Arzola MD amlodipine 10 mg PO DAILY ammonium lactate 12% appl topical aspirin (Adult Aspirin Regimen) 81 mg PO DAILY blood sugar diagnostic ([employer] Verio test strips) As directed 3 times a day blood-glucose meter ([employer] Verio Flex Meter) As directed hydrochlorothiazide 25 mg PO DAILY ibuprofen 800 mg PO TID insulin glargine 45 units (0.45 mL) subcut DAILY 30 days lancets ([employer]Touch Delica Lancets) As directed 3 times a day lisinopril 20 mg PO DAILY metformin 1,000 mg PO BID omega-3 fatty acids 1,000 mg PO DAILY oxybutynin chloride ER 10 mg PO DAILY 90 days pen needle, diabetic Twice a day pravastatin 10 mg PO BEDTIME Tobacco use date assessed: 12/15/23 Fall risk assessment: No Falls in past year Last assessed Fall Risk: 12/15/23 Dental Screening Dental Screen Date: 12/15/23 Did you have a dental visit in the last 12 months?: No Did you have a dental problem in the last 6 months where you did not have access to dental care?: No Was dental information given to patient?: Patient has dentist HPI Annual exam HPI Details DM HTN and hyperlip; was seeing endo, but she was discharged; unfortunately her insurance will not cover some of the meds they put her on so she stopped them and A1C over 9 PFSH Medical History (Updated 12/15/23 @ 09:22 by Behzad Arzola MD) Physical exam Urinary Incontinence OAB (overactive bladder) Type 2 diabetes mellitus with morbid obesity Obesity Diabetes type 2, uncontrolled Osteoarthritis Morbid obesity Hypertension Dyslipidemia Non-toxic multinodular goiter 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 1. Little interest or pleasure in doing things: not at all 2. Feeling down, depressed, or hopeless: not at all 3. Trouble falling or staying asleep, or sleeping too much: not at all 4. Feeling tired or having little energy: not at all 5. Poor appetite or overeating: not at all 6. Feeling bad about yourself - or that you are a failure or have let yourself or your family down: not at all 7. Trouble concentrating on things, such as reading the newspaper or watching television: not at all 8. Moving or speaking so slowly that other people could have noticed. Or the opposite - being so fidgety or restless that you have been moving around a lot more than usual: not at all 9. Thoughts that you would be better off or of hurting yourself in some way: not at all Total score: 0 Depression Screening Interpretation: Negative Depression Screening Done: Yes 18722 - PHQ-9 Billing: Yes Source: Developed by Drs. Destin Buck, Sara Lam, Gil Keating and colleagues, with an educational garcía from [employer]. Thrive Questionnaire Date Thrive assessed: 12/15/23 I am a: Patient What is your living situation today?: I have a steady place to live Within the past 12 months, did the food you bought not last and you didn't have the money to get more?: Never true Within the past 12 months, did you worry whether your food would run out before you got money to buy more?: Never true Do you have trouble paying for medicines?: No Do you have trouble getting transportation to medical appointments?: No Do you have trouble paying your heating and electricity bill?: No Do you have trouble taking care of your child, family member or friend?: No Do you have trouble with day-to-day activities such as bathing, preparing meals, shopping, managing finances, etc.?: No Are you currently unemployed and looking for a job?: No Are you interested in more education?: No Please select the resources that you would like help with: None AUDIT C Alcohol Use Questionnaire (AUDIT-C) 1. How often do you have a drink containing alcohol?: Monthly or less 2. How many drinks containing alcohol do you have on a typical day when you are drinking?: 1 or 2 3. How often do you have six or more drinks on one occasion?: Never Total Score: 1 Score Reviewed/Action Taken: Yes JET-7 AMB Questionnaire JET-7 Date JET - 7 assessed: 12/15/23 Feeling nervous, anxious, or on edge: 0 = Not at all Not being able to stop or control worryin = Not at all Worrying too much about different things: 0 = Not at all Trouble relaxin = Not at all Being so restless that it is hard to sit still: 0 = Not at all Becoming easily annoyed or irritable: 0 = Not at all Feeling afraid as if something awful might happen: 0 = Not at all Total JET-7 score (0-4 normal; 5-9 mild; 10-14 moderate; 15-21 severe): 0 Source: Developed by Drs. Destin Buck, Sara Lam, Gil Keating and colleagues, with an educational garcía from [employer]. JET-7 Assessment Billing JET-7 Assessment Tool: JET-7 Assessment 02408 Review of Systems Const Denies chills, Denies fatigue, Denies headache(s) and Denies weight loss Eyes Denies change in vision, Denies diplopia and Denies eye pain ENT Denies vertigo, Denies dizziness, Denies headache(s) and Denies nasal discharge Card Denies chest pain, Denies rapid heart rate and Denies dyspnea on exertion Resp Denies chest congestion, Denies cough, Denies pain with cough and Denies dyspnea on exertion GI Denies abdominal pain, Denies hematochezia and Denies change in bowel habits Musc Denies myalgias, Denies arthralgias and Denies joint swelling Skin/Breast Denies lesions and Denies unusual bruising Neuro Denies vertigo, Denies dizziness, Denies headache(s) and Denies focal weakness Endo Denies fatigue Physical exam (Primary Care) Vital Signs: Last Vital Signs Pulse 98 12/15/23 08:55 BP 148/70 H 12/15/23 08:55 Pulse Ox 82 L 12/15/23 08:55 Oxygen Delivery Method Room Air 12/15/23 08:55 BMI result Body Mass Index 47.9 Tobacco/Smoking Status: Tobacco use Status Tobacco use date assessed 12/15/23 12/15/23 08:57 Patient Tobacco Use Status Never used Tobacco 12/15/23 08:57 e-Cigarette/Vaping Use Never Used 12/15/23 08:57 PHQ-9: PHQ-9 Score PHQ-9: Total score 0 12/15/23 08:57 Depression Screening Interpretation: Negative Thrive Assessment: Date of Thrive Assessment Date Thrive assessed 12/15/23 12/15/23 08:57 Const General: cooperative, healthy appearing and no acute distress Orientation/consciousness: oriented to person, oriented to place and oriented to time [facility] Head: Yes normal to inspection, Yes normocephalic and Yes atraumatic Mouth: Normal oral and palatal mucosa present and tongue normal Throat: Yes posterior oropharynx normal and Yes uvula midline Eyes General: appearance normal, both eyes and all related structures Neck Neck: Yes normal visual inspection, Yes full ROM and Yes no lymphadenopathy Thyroid: Thyroid normal Carotids: normal carotid upstroke Chest Chest palpation & inspection: normal inspection of the chest Resp Effort & Inspection: normal respiratory effort and able to speak in complete sentences Auscultation: clear to auscultation bilaterally Cardio Jugular venous distension: no JVD Palpation: normal PMI Rate: regular rate Rhythm: regular rhythm Heart sounds: S1 normal heart sound present and S2 normal heart sound present GI Inspection: Yes normal to inspection Palpation (GI): Soft to palpation and No hepatosplenomegaly present Auscultation: normal bowel sounds General: Yes no CVA tenderness Back/Spine/Pelvis Back: no CVA tenderness Skin General skin exam: no rashes or lesions noted Neuro General: oriented to person, oriented to place and oriented to time Extrem General: Yes normal to inspection and Yes full ROM Assessment and Plan Assessment & Plan (1) Physical exam: Code(s): Z00.00 - Encounter for general adult medical examination without abnormal findings Plan: do labs (2) Type 2 diabetes mellitus with morbid obesity: Code(s): E11.69 - Type 2 diabetes mellitus with other specified complication; E66.01 - Morbid (severe) obesity due to excess calories Plan: ref back to endo (3) Hypertension: Code(s): I10 - Essential (primary) hypertension Qualifiers: Hypertension type: essential hypertension Qualified Code(s): I10 - Essential (primary) hypertension Plan: stable; same rx (4) Dyslipidemia: Code(s): E78.5 - Hyperlipidemia, unspecified Plan: stable; same rx Coding Level of Care Code Est Pt Prev Care >65y(24233) Diagnoses Physical exam Z00.00 Type 2 diabetes mellitus with morbid obesity E11.69; E66.01 Essential hypertension I10 Hypertension type: essential hypertension Dyslipidemia E78.5 Additional Codes JET-7 Assessment Billing - JET-7 Assessment Tool: JET-7 Assessment 22144 ([id number])
== END 2023-12-15 09:21 | disposition home or self-care (01) ==
PROVIDERS: Visit Provider Internal Medicine
DX: Z00.00 Encounter for general adult medical examination without abnormal findings (principal); E11.69 Type 2 diabetes mellitus with other specified complication; E66.01 Morbid (severe) obesity due to excess calories; Z68.42 Body mass index [BMI] 45.0-49.9, adult; I10 Essential (primary) hypertension; E78.5 Hyperlipidemia, unspecified
CPT/HCPCS: 99397

== ENCOUNTER 2024-02-15 07:48 | Outpatient (AMB) | payer OTHER, SELFPAY ==
--- NOTE | 2024-02-15 07:55 | MHC.OFFVIS ---
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 Present (Laila) Allergies Sulfa (Sulfonamide Antibiotics) [Sulfa (Sulfonamides)] Allergy (Mild, Verified 02/15/24 07:57) RASH cephalexin [From KEFLEX] Allergy (Unknown, Verified 02/15/24 07:57) RASH clavulanic acid [Augmentin] Allergy (Unknown, Verified 02/15/24 07:57) vaginal irritation empagliflozin [From Jardiance] Adverse Reaction (Intermediate, Verified 02/15/24 08:04) Rash amoxicillin [From Augmentin] Adverse Reaction (Mild, Verified 02/15/24 07:57) VAGINAL IRRITATION Post menopausal: Yes HPI HPI Comments History of Present Illness Details She is a postmenopausal woman 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 She is doing well with no concerns. Attempting to eat a healthy diet with calcium and vitamin D, no regular exercise. Currently not sexually active, x19yrs. Denies any irritation. Last pap smear; 2020. Last mammogram; 2022. Colonoscopy is UTD. Denies family history ovarian or colon cancer. Family history breast cancer-mother. 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 Diabetes type 2, controlled Surgical History History of section Family History Father Lung cancer Mother Breast cancer Social History Household Members: Children Housing: House Alcohol intake: current Alcohol intake frequency: holidays/special occasions only Patient Tobacco Use Status: Never used Tobacco e-Cigarette/Vaping Use: Never Used Second Hand Smoke Exposure: No service: No Current occupational status: employed Cognitive needs: Yes Hearing needs: Yes Vision needs: Yes Female Reproductive History Menstrual Menopause type: natural Total pregnancies: 2 Full term: 2 Number of Living Children: 2 Date of last pap smear: 12/05/20 (neg pap and hpv) Date of Mammogram: 02/19/23 (Birad 0) Review of Systems Const All systems reviewed & are unremarkable except as noted in HPI and below Reports as per HPI Eyes Reports no additional complaints ENT Reports no additional complaints Card Reports no additional complaints Resp Reports no additional complaints GI Reports as per HPI and Reports no additional complaints Reports as per HPI Musc Reports no additional complaints Skin/Breast Reports as per HPI Neuro Reports no additional complaints Psych Reports no additional complaints Endo Reports no additional complaints [place]/Lymph Reports no additional complaints Aller/Immun Reports no additional complaints Physical Exam Vital Signs: Last Vital Signs BP 140/70 H 02/15/24 07:57 BMI result Body Mass Index 47.7 Const General: cooperative, healthy appearing, no acute distress, well developed and alert Orientation/consciousness: patient oriented x3 HEENT Head: Yes normal to inspection Eyes General: appearance normal, both eyes and all related structures Neck Neck: Yes normal visual inspection Thyroid: Thyroid normal Chest Chest palpation & inspection: normal inspection of the chest and other (no puckering, dimpling, peau de orange, retraction, discharge, masses) Breast/axilla inspection: normal inspection of the breasts Breast/axilla palpation: normal palpation of the breasts Resp Effort & Inspection: normal respiratory effort GI Inspection: Yes normal to inspection and Yes obesity Palpation (GI): Soft to palpation Rectal Exam - Female: deferred General: Yes bladder normal to palpation External Female Exam: normal external appearance and normal appearance of the urethra Speculum Exam - Vagina: normal appearance of the vagina, normal palpation and normal vaginal discharge Speculum Exam - Cervix: normal appearance of the cervix and normal palpation Bimanual exam- vagina & uterus: normal bimanual exam, normal palpation, uterine size normal, bladder normal to palpation, normal palpation and non-tender Bimanual Exam- Adnexa, other: no masses Skin General skin exam: no rashes or lesions noted Rashes: no rashes Neuro General: patient oriented x3 Cognition (Neuro): normal cognition Extrem General: Yes normal to inspection Psych Attitude: cooperative Thought process: Normal thought process present Assessment & Plan Assessment & Plan (1) Well woman exam with routine gynecological exam: Code(s): Z01.419 - Encounter for gynecological examination (general) (routine) without abnormal findings Plan: Discussed: Current recommendations for pap smears per ASCCP guidelines. Breast awareness, periodic self breast exams and yearly mammogram. Maintain a healthy lifestyle, well balanced diet including Calcium 1,200 mg and Vitamin D 600 IU daily, and routine exercise as tolerated. Contact the office with any postmenopausal bleeding. Patient verbalizes understanding and agrees to the plan of care. She was given opportunity to ask questions and all questions were answered to the best of my ability. 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 This note is constructed using voice recognition software. While every effort has been made to ensure accuracy, tourist home keeper errors may have been included. Coding Level of Care Code Est Pt Prev Care >65y(21371) Diagnoses Well woman exam with routine gynecological exam Z01.419
[2024-02-15 07:57] VITALS: BP 140/70; BMI 47.7
== END 2024-02-15 08:24 | disposition home or self-care (01) ==
PROVIDERS: PCP Internal Medicine; Visit Provider Advanced Practice Midwife
DX: Z01.419 Encounter for gynecological examination (general) (routine) without abnormal findings (principal)
CPT/HCPCS: 99397

== ENCOUNTER → 2024-02-15 07:48 | Outpatient (BNVA) | payer OTHER, SELFPAY | PROVIDERS: PCP Internal Medicine; Visit Provider Advanced Practice Midwife ==

== ENCOUNTER 2024-03-06 10:52 | Outpatient (REF) | payer OTHER, SELFPAY ==
--- NOTE | ~2024-03-06 | MM_ITS ---
EXAMINATION: MM DIAGNOSTIC DIGITAL BREAST TOMOSYNTHESIS, BILATERAL CLINICAL INFORMATION: 6 month follow-up probably benign calcifications right breast lower inner quadrant, middle to anterior one third. Patient also due for bilateral screening. COMPARISON: Mammography: 08/31/2023, 02/25/2023, 02/19/2023 (BI-RADS 0), and 02/12/2022. TECHNIQUE: Digital breast tomosynthesis is performed in both the craniocaudal and mediolateral oblique views along with computer-aided detection (CAD). Synthesized 2D images are generated from the tomosynthesis. In addition to standard views, full-field 3-D right mediolateral view was obtained, as well as 2-D spot magnification right CC and LM views. FINDINGS: There are scattered areas of fibroglandular density (ACR BI-RADS breast composition Category b). There are approximately 6-7 loosely grouped calcifications in the slightly lower medial right breast, mid to anterior one third, which have a rounded morphology with mild pleomorphism, without suspicious distribution. There are 1-2 more calcifications seen on the CC projection, with the new calcifications possibly previously obscured by motion. No significant change in number or morphology seen on the ML projections. No casting or linear forms seen. On the CC, there is mild pleomorphism, although the group is taking on more of a dystrophic appearance rather than aggressive appearance. These remain probably benign. One-year follow-up recommended. Otherwise, there are no suspicious masses, suspicious grouped calcifications, or areas of architectural distortion in either breast. The parenchymal pattern is stable from prior exams. There are no skin or axillary changes. MM/MM tomosynthesis diagnostic BI IMPRESSION: There are no findings suspicious for malignancy in either breast. Calcifications in the right breast lower inner quadrant remain probably benign, and 12 month follow-up diagnostic right mammography to include standard magnification views recommended when the patient returns for bilateral screening. ASSESSMENT: BI-RADS BI-RADS 3 - Probably benign finding(s) - 12 month follow-up suggested RECOMMENDATION: 12 month diagnostic follow up Results were provided to the patient at time of visit by the technologist. This patient's information was entered into a reminder system with a target due date for their next mammogram.
== END 2024-03-06 10:53 | disposition home or self-care (01) ==
LOC: HO.MAMMO 10:52
PROVIDERS: PCP Internal Medicine; Visit Provider Internal Medicine
DX: R92.1 Mammographic calcification found on diagnostic imaging of breast (principal)
CPT/HCPCS: 77062; 77066

== ENCOUNTER → 2024-03-06 11:00 | Outpatient (BNV) | payer OTHER, SELFPAY | PROVIDERS: PCP Internal Medicine; Visit Provider Radiology Diagnostic Radiology | DX: R92.1 Mammographic calcification found on diagnostic imaging of breast (principal) | CPT/HCPCS: 77062; 77066 ==

== ENCOUNTER 2024-03-17 08:18 | Outpatient (AMB) | payer OTHER, SELFPAY ==
--- NOTE | 2024-03-17 08:26 | A.OFFPC_ITS ---
Vital Signs 03/17/24 08:28 Height 5 ft 2 in Weight 258 lb 2 oz BMI 47.2 BP 120/68 Blood Pressure Location Lt brachial Position Sitting Pulse 72 Pulse Source Pulse Oximeter Pulse Oximetry (%) 97 Oxygen Delivery Method Room Air Intake Visit Reasons: 3mth f/u Intake Note: Patient is here to follow up on DM, HTN, Dyslipidemia. [employer] Required: No Call Out Clerk: Not Required per policy Accompanied by: Self / Same As Patient Allergies Sulfa (Sulfonamide Antibiotics) [Sulfa (Sulfonamides)] Allergy (Mild, Verified 03/17/24 08:27) RASH cephalexin [From KEFLEX] Allergy (Unknown, Verified 03/17/24 08:27) RASH clavulanic acid [Augmentin] Allergy (Unknown, Verified 03/17/24 08:27) vaginal irritation empagliflozin [From Jardiance] Adverse Reaction (Intermediate, Verified 03/17/24 08:27) Rash amoxicillin [From Augmentin] Adverse Reaction (Mild, Verified 03/17/24 08:27) VAGINAL IRRITATION Medication List - Last Reconciled 03/17/24 by Behzad Arzola MD amlodipine 10 mg PO DAILY ammonium lactate 12% appl topical aspirin (Adult Aspirin Regimen) 81 mg PO DAILY blood sugar diagnostic ([employer] Verio test strips) As directed 3 times a day blood-glucose meter ([employer] Verio Flex Meter) As directed hydrochlorothiazide 25 mg PO DAILY ibuprofen 800 mg PO TID insulin glargine 45 units (0.45 mL) subcut DAILY 30 days lancets ([employer] Delica Lancets) As directed 3 times a day lisinopril 20 mg PO DAILY metformin 1,000 mg PO BID omega-3 fatty acids 1,000 mg PO DAILY oxybutynin chloride ER 10 mg PO DAILY 90 days pen needle, diabetic Twice a day pravastatin 10 mg PO BEDTIME Tobacco use date assessed: 03/17/24 Fall risk assessment: No Falls in past year Last assessed Fall Risk: 03/17/24 Dental Screening Dental Screen Date: 12/15/23 HPI 3mth f/u HPI Details DM HTN and hyperlip on rx; compliant; A1C improving [facility] Medical History Physical exam Urinary Incontinence OAB (overactive bladder) Type 2 diabetes mellitus with morbid obesity Obesity Diabetes type 2, uncontrolled Osteoarthritis Morbid obesity Hypertension Dyslipidemia Non-toxic multinodular goiter assisted (current) use of insulin Diabetes type 2, controlled Surgical History History of section Family History Father Lung cancer Mother Breast cancer Social History Household Members: Children Housing: House Alcohol intake: current Alcohol intake frequency: holidays/special occasions only Patient Tobacco Use Status: Never used Tobacco e-Cigarette/Vaping Use: Never Used Second Hand Smoke Exposure: No service: No Current occupational status: employed Cognitive needs: Yes Hearing needs: Yes Vision needs: Yes Questionnaire Thrive Questionnaire Date Thrive assessed: 12/15/23 JET-7 AMB Questionnaire JET-7 Date JET - 7 assessed: 12/15/23 Source: Developed by Drs. Destin Buck, Sara Lam, Gil Keating and colleagues, with an educational garcía from [employer]. Review of Systems Const Denies chills, Denies headache(s) and Denies weight loss ENT Denies headache(s) Card Denies chest pain, Denies syncope, Denies irregular heart rhythm and Denies dyspnea Resp Denies chest congestion, Denies cough and Denies dyspnea GI Denies abdominal pain, Denies change in stool character, Denies nausea and Denies vomiting Musc Denies deformity and Denies joint swelling Neuro Denies syncope and Denies headache(s) Physical exam (Primary Care) Vital Signs: Last Vital Signs Pulse 72 03/17/24 08:28 BP 120/68 03/17/24 08:28 Pulse Ox 97 03/17/24 08:28 Oxygen Delivery Method Room Air 03/17/24 08:28 BMI result Body Mass Index 47.2 Tobacco/Smoking Status: Tobacco use Status Tobacco use date assessed 03/17/24 03/17/24 08:34 Patient Tobacco Use Status Never used Tobacco 03/17/24 08:34 e-Cigarette/Vaping Use Never Used 03/17/24 08:34 Thrive Assessment: Date of Thrive Assessment Date Thrive assessed 12/15/23 03/17/24 08:34 Const General: cooperative, comfortable, no acute distress and alert Neck Neck: Yes no lymphadenopathy Thyroid: Thyroid normal Resp Effort & Inspection: normal respiratory effort Auscultation: clear to auscultation bilaterally Percussion: percussion normal Cardio Jugular venous distension: no JVD Palpation: normal PMI Rate: regular rate Rhythm: regular rhythm Heart sounds: S1 normal heart sound present and S2 normal heart sound present GI Inspection: Yes normal to inspection Palpation (GI): No hepatosplenomegaly present Skin General skin exam: no rashes or lesions noted Extrem General: Yes no clubbing, cyanosis or edema Results AMB Hemoglobin A1c AMB Hemoglobin A1c 7.7 % Last Edit by KINJAL Jean on 03/17/24 08:38 Results Reviewed Results Reviewed: Laboratory Last Values Hgb A1c (Clinic) 7.7 % (4.0-6.0) H 03/17/24 08:26 Assessment and Plan Assessment & Plan (1) Type 2 diabetes mellitus with morbid obesity: Code(s): E11.69 - Type 2 diabetes mellitus with other specified complication; E66.01 - Morbid (severe) obesity due to excess calories Plan: improving; same rx (2) Hypertension: Code(s): I10 - Essential (primary) hypertension Qualifiers: Hypertension type: essential hypertension Qualified Code(s): I10 - Essential (primary) hypertension Plan: improving; same rx (3) Dyslipidemia: Code(s): E78.5 - Hyperlipidemia, unspecified Plan: stable; same rx Orders: Orders AMB Hemoglobin A1c Today E11.69 - Type 2 diabetes mellitus with other specified complication, E66.01 - Morbid (severe) obesity due to excess calories Lipid Panel Today Z13.220 - Encounter for screening for lipoid disorders Complete Blood Count Auto Diff Today Z13.0 - Encounter for screening for diseases of the blood and blood-forming organs and certain disorders involving the immune mechanism Hemoglobin A1c Today R73.9 - Hyperglycemia, unspecified Microalbumin, Random (w Creat) Today E11.69 - Type 2 diabetes mellitus with other specified complication, E66.01 - Morbid (severe) obesity due to excess calories [address]. Panel Fast Today Z13.9 - Encounter for screening, unspecified Thyroid Stimulating Hormone Today Z13.29 - Encounter for screening for other suspected endocrine disorder Coding Level of Care Code Est Pt Level 4 (57754) Diagnoses Type 2 diabetes mellitus with morbid obesity E11.69; E66.01 Essential hypertension I10 Hypertension type: essential hypertension Dyslipidemia E78.5
[2024-03-17 08:28] VITALS: BP 120/68; PULSE 72; O2SAT 97; BMI 47.2
== END 2024-03-17 08:50 | disposition home or self-care (01) ==
PROVIDERS: PCP Internal Medicine; Visit Provider Internal Medicine
DX: E11.69 Type 2 diabetes mellitus with other specified complication (principal); E66.01 Morbid (severe) obesity due to excess calories; Z68.42 Body mass index [BMI] 45.0-49.9, adult; I10 Essential (primary) hypertension
CPT/HCPCS: 83036; 99214

== ENCOUNTER 2024-03-30 09:43 | Outpatient (REF) | payer OTHER, SELFPAY ==
--- NOTE | ~2024-03-30 | US_ITS ---
EXAMINATION: US RETROPERITONEAL COMPLETE (RENAL) CLINICAL INFORMATION: Unspecified urinary incontinence. COMPARISON: None available. TECHNIQUE: Real-time imaging of the kidneys and bladder. FINDINGS: RIGHT KIDNEY: 13.3 x 6.2 x 6.3 cm (SAG x AP x TRV). The kidney is normal in size, contour, and echogenicity. Renal cortical thickness is normal. No calculi or focal parenchymal lesions. No hydronephrosis. LEFT KIDNEY: 9.6x 3.8 x 3.4 cm (SAG x AP x TRV). The renal parenchyma is thin measuring 7 mm and is echogenic compared to the contralateral kidney. Subcentimeter simple cysts are seen in the lower pole for which no imaging follow-up is recommended. No calculi or hydronephrosis. BLADDER: Well distended and normal. Bilateral ureteral jets are demonstrated. Prevoid bladder volume is 164.8 mL. Postvoid bladder volume is 0 mL. US/US retroperitoneal comp IMPRESSION: The urinary bladder appears normal. Atrophic left kidney without hydronephrosis.
== END 2024-03-30 09:44 | disposition home or self-care (01) ==
LOC: HO.US 09:43
PROVIDERS: PCP Internal Medicine; Visit Provider Nurse Practitioner Family
DX: R32 Unspecified urinary incontinence (principal); N32.81 Overactive bladder
CPT/HCPCS: 76770

== ENCOUNTER 2024-04-07 08:27 | Outpatient (AMB) | payer OTHER, SELFPAY ==
--- NOTE | 2024-04-07 08:31 | MHC.OFFVIS ---
Intake Visit Reasons: 1y/US(set) Intake Note: Patient is present for follow up OAB w/ ultrasound Imagin04/09/24 Urology Medications: Oxybutynin Blood Thinner: aspirin PVR: 0ml's Spray Operator Required: No Accompanied by: Self / Same As Patient Allergies Sulfa (Sulfonamide Antibiotics) [Sulfa (Sulfonamides)] Allergy (Mild, Verified 04/07/24 09:03) RASH cephalexin [From KEFLEX] Allergy (Unknown, Verified 04/07/24 09:03) RASH clavulanic acid [Augmentin] Allergy (Unknown, Verified 04/07/24 09:03) vaginal irritation empagliflozin [From Jardiance] Adverse Reaction (Intermediate, Verified 04/07/24 09:03) Rash amoxicillin [From Augmentin] Adverse Reaction (Mild, Verified 04/07/24 09:03) VAGINAL IRRITATION Medication List - Last Reconciled 04/07/24 by ANA Waldron- amlodipine 10 mg PO DAILY ammonium lactate 12% appl topical aspirin (Adult Aspirin Regimen) 81 mg PO DAILY blood sugar diagnostic ([employer]Touch Verio test strips) As directed 3 times a day blood-glucose meter ([employer] ShopTouch Verio Flex Meter) As directed hydrochlorothiazide 25 mg PO DAILY ibuprofen 800 mg PO TID insulin glargine 45 units (0.45 mL) subcut DAILY 30 days lancets ([employer] ShopTouch Delica Lancets) As directed 3 times a day lisinopril 20 mg PO DAILY metformin 1,000 mg PO BID mirabegron ER (Myrbetriq) 25 mg PO DAILY 30 days omega-3 fatty acids 1,000 mg PO DAILY pen needle, diabetic Twice a day pravastatin 10 mg PO BEDTIME HPI Comments Details: Kathryn is a pleasant 69-year-old female patient of Dr. Arzola. She presents to the office today for follow-up of her overactive bladder and urinary incontinence. She has a past medical history of type 2 diabetes, dyslipidemia, hypertension, obesity, and osteoarthritis. When asked she reports to be doing and feeling well. Recent retroperitoneal ultrasound results reviewed with the patient today. Bilateral kidneys with no lesions or hydronephrosis. Left kidney with subcentimeter simple cysts are seen in the lower pole for which no imaging follow-up is recommended per radiology report. The bladder is well distended and normal. Bladder ureteral jets are demonstrated. Pre void bladder volume is approximately 165 mL. Postvoid bladder volume is approximately 0 mL. The urinary bladder appears normal. Atrophic left kidney without hydronephrosis. She discusses compliance with 10 mg of oxybutynin daily however does continue with episodes of urinary incontinence if not near a bathroom. In office urinalysis results reviewed with the patient today. PVR 0 mL. She does suffer from bilateral lower leg edema. Discussed correlation of lower leg edema and nocturia. Discussed excess body weight increases abdominal pressure. This in turn increases bladder pressure mobility of the urethra and leads to stress incontinence. Discussed affects of diabetes on urinary symptoms as well as overall health and well-being.nWhen asked patient denies hematuria, dysuria, foul smelling urine, changes to urinary stream, flank pain, fever, and or chills. She reports to be drinking adequate amount of fluid daily. She denies any issues with constipation. She otherwise offers no other issues or concerns at this time. 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 Diabetes type 2, controlled Surgical History History of section Family History Father Lung cancer Mother Breast cancer Social History Household Members: Children Housing: House Alcohol intake: current Alcohol intake frequency: holidays/special occasions only Patient Tobacco Use Status: Never used Tobacco e-Cigarette/Vaping Use: Never Used Second Hand Smoke Exposure: No service: No Current occupational status: employed Cognitive needs: Yes Hearing needs: Yes Vision needs: Yes Review of Systems Const Reports as per HPI Eyes Reports no additional complaints ENT Reports no additional complaints Card Reports as per HPI Resp Reports no additional complaints GI Reports no additional complaints Reports as per HPI Musc Reports as per HPI Neuro Reports no additional complaints Psych Reports no additional complaints Endo Reports as per HPI [place]/Lymph Reports no additional complaints Aller/Immun Reports no additional complaints Physical Exam Const General: cooperative, healthy appearing, comfortable, no acute distress, well developed, alert and awake Nutritional Appearance: overweight Orientation/consciousness: patient oriented x3 Limitations: ambulation with cane HEENT Head: Yes normal to inspection, Yes normocephalic and Yes atraumatic Ears: hearing grossly normal bilaterally Eyes General: appearance normal, both eyes and all related structures Neck Neck: Yes normal visual inspection and Yes trachea midline Chest Chest palpation & inspection: normal inspection of the chest Resp Effort & Inspection: normal respiratory effort and able to speak in complete sentences Cardio Rate: regular rate GI Inspection: Yes normal to inspection General: Yes no CVA tenderness Back/Spine/Pelvis Back: no CVA tenderness Skin General skin exam: no rashes or lesions noted Neuro General: patient oriented x3 Extrem General: Yes normal to inspection Psych Appearance: grossly normal and well kempt Mental Status: mental status grossly normal Speech and movement: Normal speech and movement present and Clear speech present Affect: normal affect Attitude: cooperative Thought process: Normal thought process present Thought content: Normal thought content present Insight: Fair insight present (Psych) Judgement: Fair judgement present (Psych) Office Procedures Post Void Residual Post Residual Void Post Void Residual (PVR): 0 [id number] Void Residual by ultrasound Results AMB Urinalysis, Automated UA Leukoctes 0 Teresa/uL Last Edit by [employer] on 04/07/24 08:56 UA Nitrite Last Edit by [employer] on 04/07/24 08:56 UA Urobilinogen 0.2 mg/dL Last Edit by [employer] on 04/07/24 08:56 UA Protein 15 mg/dL Last Edit by [employer] on 04/07/24 08:56 UA pH 6.0 Last Edit by [employer] on 04/07/24 08:56 UA Blood 0 Marcos/uL Last Edit by [employer] on 04/07/24 08:56 UA Specific [place] 1.015 Last Edit by [employer] on 04/07/24 08:56 UA Ketone Negative Last Edit by [employer] on 04/07/24 08:56 UA Bilirubin 0 mg/dL Last Edit by [facility] [employer] on 04/07/24 08:56 UA Glucose 0 mg/dL Last Edit by [employer] on 04/07/24 08:56 Results Reviewed Results Reviewed: Laboratory Last Values Urine pH (Auto) 6.0 04/07/24 08:36 Specific [place] (Auto) 1.015 04/07/24 08:36 Urine Protein (Auto) 15 mg/dL 04/07/24 08:36 Glucose (UA)(Auto) 0 mg/dL 04/07/24 08:36 Urine Ketones (Auto) Negative 04/07/24 08:36 Urine Blood (Auto) 0 Marcos/uL 04/07/24 08:36 Urine Bilirubin (Auto) 0 mg/dL 04/07/24 08:36 Urine Urobilinogen (Auto) 0.2 mg/dL 04/07/24 08:36 Leukocyte Esterase (Auto) 0 Teresa/uL 04/07/24 08:36 Date of Service: 03/30/24 EXAMINATION: US RETROPERITONEAL COMPLETE (RENAL) FINDINGS: RIGHT KIDNEY: 13.3 x 6.2 x 6.3 cm (SAG x AP x TRV). The kidney is normal in size, contour, and echogenicity. Renal cortical thickness is normal. No calculi or focal parenchymal lesions. No hydronephrosis. LEFT KIDNEY: 9.6x 3.8 x 3.4 cm (SAG x AP x TRV). The renal parenchyma is thin measuring 7 mm and is echogenic compared to the contralateral kidney. Subcentimeter simple cysts are seen in the lower pole for which no imaging follow-up is recommended. No calculi or hydronephrosis. BLADDER: Well distended and normal. Bilateral ureteral jets are demonstrated. Prevoid bladder volume is 164.8 mL. Postvoid bladder volume is 0 mL. IMPRESSION: The urinary bladder appears normal. Atrophic left kidney without hydronephrosis. Assessment & Plan Assessment & Plan (1) Urinary Incontinence: Code(s): R32 - Unspecified urinary incontinence Category: Medical (2) OAB (overactive bladder): Code(s): N32.81 - Overactive bladder Category: Medical Plan In office urinalysis results reviewed with the patient today; as noted above Recent retroperitoneal ultrasound results reviewed with the patient today; as noted above Stop oxybutynin. Start Myrbetriq as discussed and prescribed. Discussed importance of limiting fluids 2-3 hours prior to bed to decrease episodes of nocturia Discussed elevation of bilateral lower extremities in the evening prior to bed and correlation of leg edema and nocturia. Discussed bladder triggers/irritants. Discussed importance of timed/scheduled voiding due to decreased mobility Follow-up in 3 months; if not sooner with any issues, questions, and or concerns. Orders: Orders AMB Urinalysis Automated 04/07/24 Z13.9 - Encounter for screening, unspecified AMB Post Void Residual by ultrasound 04/07/24 R32 - Unspecified urinary incontinence Medications: New mirabegron ER (Myrbetriq) 25 mg PO DAILY 30 tabs 1RF 30 days N30.10 - Interstitial cystitis (chronic) without hematuria, N32.81 - Overactive bladder, R35.1 - Nocturia, R39.15 - Urgency of urination Discontinued oxybutynin chloride ER Discontinued Reason: Doctor's Order 10 mg PO DAILY 90 days 90 tabs 4RF N32.81 - Overactive bladder Patient Instructions: The patient had an opportunity to ask questions regarding the treatment plan. All questions were answered. Physical exam, labs, and imaging were discussed and reviewed in detail. As well as risks, benefits, and discussion of treatment choices. No major barriers to understanding were identified. The patient expressed understanding and agreement with the above treatment plan. The patient was made aware they should contact our office by phone for worsening of their current condition, the appearance of new symptoms, or with any questions or concerns. Compliance is encouraged with any medications and follow up testing that is ordered. It is a privilege to be allowed the opportunity to participate in? your urological care.? Again, if you have any questions or concerns If you have any questions or concerns please do not hesitate to contact me. The office is [phone]. This note is constructed using voice recognition software. While every effort has been made to ensure accuracy demo specialist errors may have been included. Yours sincerely, SAMAN Waldron Coding Level of Care Code Est Pt Level 4 (01378) Diagnoses Urinary Incontinence R32 OAB (overactive bladder) N32.81 CPT Codes Post Residual Void - PVR CPT Code: 80408-Gsrd Void Residual by ultrasound ([id number])
== END 2024-04-07 09:05 | disposition home or self-care (01) ==
PROVIDERS: Visit Provider Nurse Practitioner Family
DX: R32 Unspecified urinary incontinence (principal); N32.81 Overactive bladder
CPT/HCPCS: 99214

== ENCOUNTER → 2024-04-07 08:27 | Outpatient (BNVA) | payer OTHER, SELFPAY | PROVIDERS: Visit Provider Nurse Practitioner Family | DX: N32.81 Overactive bladder (principal); R32 Unspecified urinary incontinence | CPT/HCPCS: 51798; 81003 ==

== ENCOUNTER 2024-06-30 09:37 | Outpatient (AMB) | payer OTHER, SELFPAY ==
[2024-06-30 09:53] VITALS: BP 148/64; PULSE 88; O2SAT 96; BMI 48.5
--- NOTE | 2024-06-30 09:53 | MHC.PC.OV ---
Vital Signs 06/30/24 09:53 Height 5 ft 2 in Weight 265 lb BMI 48.5 BP 148/64 H Blood Pressure Location Lt brachial Position Sitting Pulse 88 Pulse Source Pulse Oximeter Pulse Oximetry (%) 96 Oxygen Delivery Method Room Air Intake Visit Reasons: 3mth f/u Buckle Sewer Required: No Allergies Sulfa (Sulfonamide Antibiotics) [Sulfa (Sulfonamides)] Allergy (Mild, Verified 06/30/24 09:54) RASH cephalexin [From KEFLEX] Allergy (Unknown, Verified 06/30/24 09:54) RASH clavulanic acid [Augmentin] Allergy (Unknown, Verified 06/30/24 09:54) vaginal irritation empagliflozin [From Jardiance] Adverse Reaction (Intermediate, Verified 06/30/24 09:54) Rash amoxicillin [From Augmentin] Adverse Reaction (Mild, Verified 06/30/24 09:54) VAGINAL IRRITATION Tobacco use date assessed: 03/17/24 Fall risk assessment: No Falls in past year Last assessed Fall Risk: 06/30/24 Dental Screening Dental Screen Date: 12/15/23 HPI 3mth f/u HPI Details diabetes in poor control due to dietary indiscretion and occ skipping rx [facility] Medical History Physical exam Urinary Incontinence OAB (overactive bladder) Type 2 diabetes mellitus with morbid obesity Obesity Diabetes type 2, uncontrolled Osteoarthritis Morbid obesity Hypertension Dyslipidemia Non-toxic multinodular goiter 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 How often do you have a drink containing alcohol?: Monthly or less 2. How many drinks containing alcohol do you have on a typical day when you are drinking?: 1 or 2 3. How often do you have six or more drinks on one occasion?: Never Total Score: 1 Score Reviewed/Action Taken: Yes JET-7 AMB Questionnaire JET-7 Date JET - 7 assessed: 12/15/23 Source: Developed by Drs. Destin Buck, Sara Lam, Gil Keating and colleagues, with an educational garcía from [employer]. Review of Systems Const Denies chills, Denies headache(s) and Denies weight loss ENT Denies headache(s) Card Denies chest pain, Denies syncope, Denies irregular heart rhythm and Denies dyspnea Resp Denies chest congestion, Denies cough and Denies dyspnea GI Denies abdominal pain, Denies change in stool character, Denies nausea and Denies vomiting Musc Denies deformity and Denies joint swelling Neuro Denies syncope and Denies headache(s) Physical exam (Primary Care) Vital Signs: Last Vital Signs Pulse 88 06/30/24 09:53 BP 148/64 H 06/30/24 09:53 Pulse Ox 96 06/30/24 09:53 Oxygen Delivery Method Room Air 06/30/24 09:53 BMI result Body Mass Index 48.5 Tobacco/Smoking Status: Tobacco use Status Tobacco use date assessed 03/17/24 06/30/24 09:54 Patient Tobacco Use Status Never used Tobacco 06/30/24 09:54 e-Cigarette/Vaping Use Never Used 06/30/24 09:54 Thrive Assessment: Date of Thrive Assessment Date Thrive assessed 12/15/23 06/30/24 09:54 Const General: cooperative, comfortable, no acute distress and alert Neck Neck: Yes no lymphadenopathy Thyroid: Thyroid normal Resp Effort & Inspection: normal respiratory effort Auscultation: clear to auscultation bilaterally Percussion: percussion normal Cardio Jugular venous distension: no JVD Palpation: normal PMI Rate: regular rate Rhythm: regular rhythm Heart sounds: S1 normal heart sound present and S2 normal heart sound present GI Inspection: Yes normal to inspection Palpation (GI): No hepatosplenomegaly present Skin General skin exam: no rashes or lesions noted Extrem General: Yes no clubbing, cyanosis or edema Results AMB Hemoglobin A1c AMB Hemoglobin A1c 9.1 % Last Edit by KINJAL Rowe on 06/30/24 10:02 Results Reviewed Results Reviewed: Laboratory Last Values Hgb A1c (Clinic) 9.1 % (4.0-6.0) H 06/30/24 08:20 Assessment and Plan Assessment & Plan (1) Diabetes type 2, uncontrolled: Code(s): E11.65 - Type 2 diabetes mellitus with hyperglycemia Qualifiers: Glycemic state: with hyperglycemia Qualified Code(s): E11.65 - Type 2 diabetes mellitus with hyperglycemia Plan: to improve compliance Orders: Orders AMB Hemoglobin A1c Today E11.9 - Type 2 diabetes mellitus without complications Lipid Panel Today Z13.220 - Encounter for screening for lipoid disorders Complete Blood Count Auto Diff Today Z13.0 - Encounter for screening for diseases of the blood and blood-forming organs and certain disorders involving the immune mechanism Comprehensive [place]. Panel Fast Today Z13.9 - Encounter for screening, unspecified Hemoglobin A1c Today R73.9 - Hyperglycemia, unspecified Thyroid Stimulating Hormone Today Z13.29 - Encounter for screening for other suspected endocrine disorder Microalbumin, Random (w Creat) Today E11.69 - Type 2 diabetes mellitus with other specified complication, E66.01 - Morbid (severe) obesity due to excess calories Coding Level of Care Code Est Pt Level 3 (01275) Diagnoses Uncontrolled type 2 diabetes mellitus with hyperglycemia E11.65 Glycemic state: with hyperglycemia
== END 2024-06-30 10:10 | disposition home or self-care (01) ==
PROVIDERS: PCP Internal Medicine; Visit Provider Internal Medicine
DX: E11.9 Type 2 diabetes mellitus without complications (principal); E11.65 Type 2 diabetes mellitus with hyperglycemia
CPT/HCPCS: 83036; 99213

== ENCOUNTER 2024-08-03 10:21 | Outpatient (REF) | payer OTHER, SELFPAY ==
[2024-08-03 10:51] LABS: MANUAL DIFF FLAG NO
[2024-08-03 10:54] LABS: Basophils Absolute Auto 0.1 X10*3/uL (0.0-0.2); Basophils Percent Auto 0.7 % (0-2); Eosinophils Absolute Auto 0.6 X10*3/uL (0.0-0.4); Eosinophils Percent Auto 3.8 % (0-4); Hematocrit 38.5 % (37.0-47.0); Hemoglobin 12.7 g/dl (12.0-16.0); Imm Gran Abs Auto 0.08 X10*3/uL (0.00-0.03); Imm Gran Pct Auto 0.6 % (0.0-0.4); Lymphocytes Absolute Auto 3.7 X10*3/uL (1.2-4.9); Lymphocytes Percent Auto 25.5 % (20-40); Mean Corpuscular Hemoglobin 28.9 pg (27.0-33.0); Mean Corpuscular Volume 87.5 fL (80.0-98.0); Mean Platelet Volume 10.3 fL (9.4-12.3); Monocytes Absolute Auto 0.6 X10*3/uL (0.1-1.2); Monocytes Percent Auto 4.2 % (2-11); Neutrophils Absolute Auto 9.4 x10*3/uL (2.0-8.3); Neutrophils Percent Auto 65.2 % (45-73); Platelet Count 429 X10*3/uL (160-400); Red Cell Distribution Width 13.6 % (11.0-16.0); White Blood Count 14.4 X10*3/uL (4.8-10.8)
[2024-08-03 11:09] LABS: Estimated Average Glucose 214 mg/dL; Hemoglobin A1c % 9.1 % (<6.0)
[2024-08-03 11:34] LABS: Alanine Aminotransferase 23 U/L (0-31); Albumin Level 3.7 g/dL (3.5-5.0); Alkaline Phosphatase 90 U/L (39-117); Anion Gap 17 (12-20); Aspartate Amino Transferase 33 U/L (5-31); Bilirubin Total 0.6 mg/dL (0.0-1.0); Blood Urea Nitrogen 29 mg/dL (9-16); Calcium 10.2 mg/dL (8.4-10.2); Carbon Dioxide 24 mmol/L (22-29); Chloride 98 mmol/L (96-108); Cholesterol 145 mg/dL (<200); Estimated Glomerular Filt Rate 40; Glucose Fasting 272 mg/dL (60-99); HDL Cholesterol 37 mg/dL (>40); LDL Cholesterol Calculated 77 mg/dL (<100); Potassium 4.6 mmol/L (3.3-5.1); Sodium 134 mmol/L (135-145); Total Protein 7.7 g/dL (6.5-8.0); Triglycerides 158 mg/dL (<150)
[2024-08-03 11:36] LABS: Thyroid Stimulating Hormone 1.69 uIU/mL (0.32-4.0)
[2024-08-03 11:59] LABS: Creatinine Urine 145.29 mg/dL; Microalbum/Creatinine Ratio Ur 156.9 ug/mg cr (<30)
== END 2024-08-03 10:22 | disposition home or self-care (01) ==
LOC: HO.10HDL 10:21
PROVIDERS: Visit Provider Internal Medicine
DX: Z13.220 Encounter for screening for lipoid disorders (principal); Z13.29 Encounter for screening for other suspected endocrine disorder; Z13.0 Encounter for screening for diseases of the blood and blood-forming organs and certain disorders involving the immune mechanism; E11.65 Type 2 diabetes mellitus with hyperglycemia; E11.69 Type 2 diabetes mellitus with other specified complication; E66.01 Morbid (severe) obesity due to excess calories
CPT/HCPCS: 36415; 80053; 80061; 82043; 82570; 83036; 84443; 85025

== ENCOUNTER 2024-08-04 13:54 | Outpatient (AMB) | payer OTHER, SELFPAY ==
[2024-08-04 13:56] VITALS: BP 148/64; PULSE 92; BMI 47.9
--- NOTE | 2024-08-04 13:56 | A.OFFVIS_ITS ---
Vital Signs 08/04/24 13:56 08/04/24 14:37 Height 5 ft 2 in Weight 262 lb 2.074 oz BMI 47.9 BP 148/64 H 132/78 Blood Pressure Location Lt popliteal Position Sitting Pulse 92 Pulse Source Pulse Oximeter Intake Visit Reasons: DM Intake Note: Patient present today for Diabetes Management, last seen by Dr. Dhillon on 01/07/23. Last Diabetic Eye exam: May 2024 Last Podiatry Visit: 04/2024 Random Glucose: 276 mg/dl HgA1C: 9.1% 08/03/2024 Yard Assistant Required: No Accompanied by: Self / Same As Patient Allergies Sulfa (Sulfonamide Antibiotics) [Sulfa (Sulfonamides)] Allergy (Mild, Verified 08/04/24 14:03) RASH cephalexin [From KEFLEX] Allergy (Unknown, Verified 08/04/24 14:03) RASH clavulanic acid [Augmentin] Allergy (Unknown, Verified 08/04/24 14:03) vaginal irritation empagliflozin [From Jardiance] Adverse Reaction (Intermediate, Verified 08/04/24 14:03) Rash amoxicillin [From Augmentin] Adverse Reaction (Mild, Verified 08/04/24 14:03) VAGINAL IRRITATION HPI Comments Details: This is a 69 year old female with Type II DM diagnosed in 2006 presenting for diabetic management. She was last seen in endocrinology by Dr. Dhillon 01/07/23. 90 day average 222 per patient. She did not bring glucometer. Hemoglobin a1c 9.1% Current medication regimen: glargine 45 units daily, Metforomin 1000 mg BID. Jardiance discontinued due to yeast infections. Mounjaro caused GI side effects. Patient said she did very well on Ozempic, and her diabetes was controlled. Diet: seltzers, eats a lot of carbohydrates, eats proteins and vegetables as well Alcohol occasional. Nonsmoker. Hypoglycemia symptoms: none Hyperglycemia symptoms: Polydipsia Eye exam: up to date Microvascular complications: neuropathy, nephropathy (microalbumin and abnormal RFTs) Macrovascular complications: none Hypertension: treated with lisinopril 20 mg, HCTZ 25 mg. Hyperlipidemia: treated with Pravastatin 10 mg LDL at goal <100. ROS: Constitutional: No unexplained weight loss, fever, chills. Eyes: No vision changes, blurry vision, double vision Respiratory: No shortness of breath Cardiovascular: No chest pain Gastrointestinal: No anorexia, nausea, vomiting or diarrhea. No abdominal pain Neurologic: No headache, dizziness, syncope Endocrine: No cold or heat intolerance. No polyuria Physical exam: Constitutional: Alert, in no distress. Eyes: Pupils are equal, round and reactive to light. Extraocular muscles intact. Neck: Supple, Full range of motion. No lymphadenopathy. No palpable thyroid masses. Respiratory: Clear to auscultation. Cardiovascular: S1 S2 regular. I-II/ murmur. Neurologic: No focal neurological deficits. Right foot: Warm and well perfused. +edema. No open wounds. DP pulse 3+. Intact vibratory sensation. Intact sensation to monofilament. Left foot: Warm and well perfused. +edema. No open wounds., cyanosis or edema. DP pulse 3+. Intact vibratory sensation. Intact sensation to monofilament. 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 Diabetes type 2, controlled Surgical History History of section Family History Father Lung cancer Mother Breast cancer Social History Household Members: Children Housing: House Alcohol intake: current Alcohol intake frequency: holidays/special occasions only Patient Tobacco Use Status: Never used Tobacco e-Cigarette/Vaping Use: Never Used Second Hand Smoke Exposure: No service: No Current occupational status: employed Cognitive needs: Yes Hearing needs: Yes Vision needs: Yes Physical Exam Vital Signs: Last Vital Signs Pulse 92 08/04/24 13:56 BP 148/64 H 08/04/24 13:56 BMI result Body Mass Index 47.9 Results Reviewed Results Reviewed: Laboratory Last Values Glucose (Clinic) 276 mg/dL (60-115) H 08/04/24 14:05 Laboratory Tests 12/15/21 01/06/23 06/07/23 12:07 09:00 06:35 Creatinine 0.83 0.95 Estimated GFR > 60 59 Glucose (Clinic) Hemoglobin A1c % 7.0 Triglycerides Cholesterol LDL Cholesterol, Calc HDL Cholesterol TSH Urine Creatinine Urine Microalbumin Microalb/Creat Ratio 09/10/23 08/03/24 08/04/24 09:18 10:26 14:05 Creatinine 1.33 Estimated GFR 40 Glucose (Clinic) 276 H Hemoglobin A1c % 9.2 H 9.1 H Triglycerides 158 H Cholesterol 145 LDL Cholesterol, Calc 77 HDL Cholesterol 37 L TSH 1.69 Urine Creatinine 145.29 Urine Microalbumin 228.0 Microalb/Creat Ratio 156.9 H Assessment & Plan Assessment & Plan (1) Type 2 diabetes mellitus with morbid obesity: Code(s): E11.69 - Type 2 diabetes mellitus with other specified complication; E66.01 - Morbid (severe) obesity due to excess calories Category: Medical (2) Decreased renal function: Code(s): N28.9 - Disorder of kidney and ureter, unspecified Category: Medical (3) Microalbuminuria due to type 2 diabetes mellitus: Code(s): E11.29 - Type 2 diabetes mellitus with other diabetic kidney complication; R80.9 - Proteinuria, unspecified Category: Medical (4) Murmur: Code(s): R01.1 - Cardiac murmur, unspecified Category: Medical Plan In summary this is a 69-year-old female with uncontrolled type 2 diabetes. Submitted freestyle Dominick 3 which is medically necessary due to insulin dependence to monitor for hypo/hyperglycemia. Patient referred to Nephrology given recent decrease in renal function. She has microalbuminuria. Patient advised to increase fluids, avoid NSAIDs and repeat creatinine in a couple of weeks at the lab. Continue metformin 1000 mg twice daily and Lantus 45 units daily. Prescribed Ozempic 0.25 mg. Side effects reviewed with the patient. Discussed titration based on tolerability and response. Patient has taken Ozempic before. She will contact me via the patient portal after the 3rd dose to let me know if she is tolerating it before next prescription is due. She has an incidental murmur on exam. Denies chest pain or shortness of breath. Ordered echocardiogram for evaluation. Follow up in 3 months for diabetes. Orders: Orders Creatinine Today N28.9 - Disorder of kidney and ureter, unspecified CA echo transthoracic complete Today R01.1 - Cardiac murmur, unspecified Referrals Nephrology Referral E11.29 - Type 2 diabetes mellitus with other diabetic kidney complication, N28.9 - Disorder of kidney and ureter, unspecified, R80.9 - Proteinuria, unspecified Medications: New blood-glucose sensor (FreeStyle Dominick 3 Sensor device) apply new sensor every 14 days as directed 2 ea 11RF blood-glucose meter,continuous (FreeStyle Dominick 3 [place]) as directed 1 ea 0RF semaglutide (Ozempic) 0.25 mg (0.368 mL) subcut QWEEK 3 mL 0RF Coding Level of Care Code Est Pt Level 5 (17172) Complex EM visit Add On G2211 Diagnoses Type 2 diabetes mellitus with morbid obesity E11.69; E66.01 Decreased renal function N28.9 Microalbuminuria due to type 2 diabetes mellitus E11.29; R80.9 Murmur R01.1 Time Spent (min) 50 Comment Reviewing chart, direct patient care, completing documentation
[2024-08-04 14:08] LABS: Glucose, Whole Blood 276 mg/dL (60-115)
[2024-08-04 14:37] VITALS: BP 132/78
== END 2024-08-04 14:48 | disposition home or self-care (01) ==
PROVIDERS: PCP Internal Medicine; Visit Provider Physician Assistant Medical
DX: E11.69 Type 2 diabetes mellitus with other specified complication (principal); E66.01 Morbid (severe) obesity due to excess calories; N28.9 Disorder of kidney and ureter, unspecified; E11.29 Type 2 diabetes mellitus with other diabetic kidney complication; R80.9 Proteinuria, unspecified; R01.1 Cardiac murmur, unspecified
CPT/HCPCS: 99215

== ENCOUNTER → 2024-08-04 13:54 | Outpatient (BNVA) | payer OTHER, SELFPAY | PROVIDERS: PCP Internal Medicine; Visit Provider Physician Assistant Medical | DX: E11.69 Type 2 diabetes mellitus with other specified complication (principal); E66.01 Morbid (severe) obesity due to excess calories; N28.9 Disorder of kidney and ureter, unspecified; E11.29 Type 2 diabetes mellitus with other diabetic kidney complication; R80.9 Proteinuria, unspecified; R01.1 Cardiac murmur, unspecified; Z79.4 Long term (current) use of insulin | CPT/HCPCS: 82947 ==

== ENCOUNTER 2024-08-29 07:36 | Outpatient (AMB) | payer OTHER, SELFPAY ==
--- NOTE | 2024-08-29 07:37 | A.OFFVIS_ITS ---
Intake Visit Reasons: follow up Intake Note: Patient presents today for tele visit follow up on: incontinence and OAB Urology Medications: Tolterodine Blood Thinner: aspirin Flare Breaker Required: No Allergies Sulfa (Sulfonamide Antibiotics) [Sulfa (Sulfonamides)] Allergy (Mild, Verified 08/29/24 07:59) RASH cephalexin [From KEFLEX] Allergy (Unknown, Verified 08/29/24 07:59) RASH clavulanic acid [Augmentin] Allergy (Unknown, Verified 08/29/24 07:59) vaginal irritation empagliflozin [From Jardiance] Adverse Reaction (Intermediate, Verified 08/29/24 07:59) Rash amoxicillin [From Augmentin] Adverse Reaction (Mild, Verified 08/29/24 07:59) VAGINAL IRRITATION Medication List - Last Reconciled 08/29/24 by ANA Waldron-PHILLY amlodipine 10 mg PO DAILY ammonium lactate 12% appl topical aspirin (Adult Aspirin Regimen) 81 mg PO DAILY blood sugar diagnostic (OneTouch Verio test strips) As directed 3 times a day blood-glucose meter (OneTouch Verio Flex Meter) As directed blood-glucose meter,continuous (FreeStyle Dominick 3 [place]) as directed blood-glucose sensor (FreeStyle Dominick 3 Sensor device) apply new sensor every 14 days as directed hydrochlorothiazide 25 mg PO DAILY ibuprofen 800 mg PO TID insulin glargine 45 units (0.45 mL) subcut DAILY 30 days lancets (BG Network[employer]Touch Delica Lancets) As directed 3 times a day lisinopril 20 mg PO DAILY metformin 1,000 mg PO BID omega-3 fatty acids 1,000 mg PO DAILY pen needle, diabetic Twice a day pravastatin 10 mg PO BEDTIME semaglutide (Ozempic) 0.5 mg (0.736 mL) subcut QWEEK tolterodine ER 2 mg PO DAILY 30 days HPI Comments Details: Kathryn is a pleasant 69-year-old female patient of Dr. Arzola. She is being followed up on today via video telehealth for her overactive bladder and urinary incontinence. In discussion with the patient today she reports to be doing and feeling well. Of note, patient was seen approximately 3 months ago at which time her oxybutynin was discontinued and she was trialed on Myrbetriq. However due to insurance coverage Myrbetriq was unable to be improved therefore she was started on tolterodine 2 mg daily. She reports feeling tolterodine has been helpful with episodes of urinary urgency. She feels she is able to make it to the bathroom in time and has had less incontinent episodes. She does continue to report episodes of nocturia however feels they have lessened with tolterodine. Previous workup has included a retroperitoneal ultrasound noting bilateral kidneys with no lesions or hydronephrosis. Left kidney with subcentimeter simple cysts are seen in the lower pole for which no imaging follow-up is recommended per radiology report. The bladder is well distended and normal. Bladder ureteral jets are demonstrated. Pre void bladder volume is approximately 165 mL. Postvoid bladder volume is approximately 0 mL. The urinary bladder appears normal. Atrophic left kidney without hydronephrosis. She does suffer from bilateral lower leg edema. Discussed correlation of lower leg edema and nocturia. Discussed excess body weight increases abdominal pressure. This in turn increases bladder pressure mobility of the urethra and leads to stress incontinence. Discussed affects of diabetes on urinary symptoms as well as overall health and well-being. When asked patient denies hematuria, dysuria, foul smelling urine, changes to urinary stream, flank pain, fever, and or chills. She reports to be drinking adequate amount of fluid daily. She denies any issues with constipation. She otherwise offers no other issues or concerns at this time. 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 Diabetes type 2, controlled Surgical History History of section Family History Father Lung cancer Mother Breast cancer Social History Household Members: Children Housing: House Alcohol intake: current Alcohol intake frequency: holidays/special occasions only Patient Tobacco Use Status: Never used Tobacco e-Cigarette/Vaping Use: Never Used Second Hand Smoke Exposure: No service: No Current occupational status: employed Cognitive needs: Yes Hearing needs: Yes Vision needs: Yes Review of Systems Const Reports as per HPI Eyes Reports no additional complaints ENT Reports no additional complaints Card Reports as per HPI Resp Reports no additional complaints GI Reports no additional complaints Reports as per HPI Musc Reports as per HPI Neuro Reports no additional complaints Psych Reports no additional complaints Endo Reports as per HPI [place]/Lymph Reports no additional complaints Aller/Immun Reports no additional complaints Physical Exam Const General: cooperative, healthy appearing, comfortable, no acute distress, well developed, alert and awake Orientation/consciousness: patient oriented x3 Resp Effort & Inspection: normal respiratory effort and able to speak in complete sentences Neuro General: patient oriented x3 Psych Appearance: grossly normal and well kempt Mental Status: mental status grossly normal Speech and movement: Clear speech present Affect: normal affect Attitude: cooperative Thought process: Normal thought process present Thought content: Normal thought content present Insight: Fair insight present (Psych) Judgement: Fair judgement present (Psych) Telehealth Telehealth [facility]health [facility] Location of provider rendering services: practice address Location of patient: address on file Patient Identification confirmed using: Name, : Yes Telehealth method: video Patient verbally consented to treatment: Yes Patient verbally consented to billing insurance company: Yes Patient informed of any privacy concerns related to visit: Yes Minutes spent on Phone/Video with Pt.: 15 Assessment & Plan Assessment & Plan (1) Urinary Incontinence: Code(s): R32 - Unspecified urinary incontinence Category: Medical (2) OAB (overactive bladder): Code(s): N32.81 - Overactive bladder Category: Medical Plan Continue tolterodine; will increase to 2 mg b.i.d. daily. Discussed importance of limiting fluids 2-3 hours prior to bed to decrease episodes of nocturia Discussed elevation of bilateral lower extremities in the evening prior to bed and correlation of leg edema and nocturia. Discussed bladder triggers/irritants. Discussed importance of timed/scheduled voiding due to decreased mobility. Follow-up in 3 months; if not sooner with any issues, questions, and or concerns. Medications: Changed From tolterodine ER 2 mg PO DAILY 30 days 30 caps 1RF R39.15 - Urgency of urination To tolterodine ER 2 mg PO BID 180 caps 1RF 90 days R39.15 - Urgency of urination Patient Instructions: The patient had an opportunity to ask questions regarding the treatment plan. All questions were answered. Physical exam, labs, and imaging were discussed and reviewed in detail. As well as risks, benefits, and discussion of treatment choices. No major barriers to understanding were identified. The patient expressed understanding and agreement with the above treatment plan. The patient was made aware they should contact our office by phone for worsening of their current condition, the appearance of new symptoms, or with any questions or concerns. Compliance is encouraged with any medications and follow up testing that is ordered. It is a privilege to be allowed the opportunity to participate in? your urological care.? Again, if you have any questions or concerns If you have any questions or concerns please do not hesitate to contact me. The office is [phone]. This note is constructed using voice recognition software. While every effort has been made to ensure accuracy production manager errors may have been included. Yours sincerely, SAMAN Waldron Coding Level of Care Code Tele Est Pt Level 3 (76417) Diagnoses Urinary Incontinence R32 OAB (overactive bladder) N32.81
== END 2024-08-29 08:20 | disposition home or self-care (01) ==
LOC: HO.HUSH 07:36
PROVIDERS: PCP Internal Medicine; Visit Provider Nurse Practitioner Family
DX: R32 Unspecified urinary incontinence (principal); N32.81 Overactive bladder
CPT/HCPCS: 99213

== ENCOUNTER → 2024-08-29 07:36 | Outpatient (BNVA) | payer OTHER, SELFPAY | PROVIDERS: PCP Internal Medicine; Visit Provider Nurse Practitioner Family ==

== ENCOUNTER 2024-08-31 14:11 | Outpatient (AMB) | payer OTHER, SELFPAY ==
--- NOTE | 2024-08-31 13:47 | HO.NEPHOV_ITS ---
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: No Accompanied by: Self / Same As Patient Allergies Sulfa (Sulfonamide Antibiotics) [Sulfa (Sulfonamides)] Allergy (Mild, Verified 08/31/24 14:14) RASH cephalexin [From KEFLEX] Allergy (Unknown, Verified 08/31/24 14:14) RASH clavulanic acid [Augmentin] Allergy (Unknown, Verified 08/31/24 14:14) vaginal irritation empagliflozin [From Jardiance] Adverse Reaction (Intermediate, Verified 08/31/24 14:14) Rash amoxicillin [From Augmentin] Adverse Reaction (Mild, Verified 08/31/24 14:14) VAGINAL IRRITATION Medication List - Last Reconciled 08/31/24 by Sandra Casas, DNP, PLANT EQUIPMENT ENGINEER-BC amlodipine 10 mg PO DAILY ammonium lactate 12% appl topical aspirin (Adult Aspirin Regimen) 81 mg PO DAILY blood sugar diagnostic ([employer] Verio test strips) As directed 3 times a day blood-glucose meter ([employer] Verio Flex Meter) As directed blood-glucose meter,continuous (FreeStyle Dominick 3 [place]) as directed blood-glucose sensor (FreeStyle Dominick 3 Sensor device) apply new sensor every 14 days as directed hydrochlorothiazide 25 mg PO DAILY ibuprofen 800 mg PO TID insulin glargine 45 units (0.45 mL) subcut DAILY 30 days lancets ([employer] Delica Lancets) As directed 3 times a day metformin 1,000 mg PO BID omega-3 fatty acids 1,000 mg PO DAILY pen needle, diabetic Twice a day pravastatin 10 mg PO BEDTIME semaglutide (Ozempic) 0.5 mg (0.736 mL) subcut QWEEK tolterodine ER 2 mg PO BID 90 days HPI Comments Details: Pt is a 69 y/o female Medical Hx: DMII with microalbuminuria, HTN, HLD, morbid obesity, osteo arthritis, urge urinary incontinence (overactive bladder). alcohol: seldom- special occasionas tobacco: never Referred by her practical nurse clinical coordinator for atrophic left kidney and increased creatinine, microalbuminuria: She has an ultrasound March 2024 which showed an atrophic left kidney without hydronephrosis. Her creatinine was 0.December, increased to 1.33 in 08/03/24 GFR 40 on 08/03/24; previously 59 on 01/06/24. microalbumin/creatinine ratio 156.9 on 08/03/24 she denies personal history of kidney stones or history of other renal problems she denies known vascular disease pertinent family history: one brother with large renal stones, and had to have a kidney removed (unknown reason). both parents in 40s from (mother- breast, father lung cancer). another brother had a heart attack and in his late 40s/early 50s. both children have mental health struggles but are other she has never had a kidney stone no known vascular disease takes 800mg ibuprofen takes twice daily, sometimes 3x daily, for arthritis. For a few years. Feels this is necessary for QOL- joint injections have not worked well, and she has not been able to lose weight for surgery for her arthritis. Does take tylenol, does not help as much. She does add salt to her food that she cooks she notes she does eat a fair amount of canned foods that have added salt Her sugars have worsened recently, A1c sees endocrinology for diabetic control, most recent A1c 9.1% on 08/03/24. Takes ozempic. Ozempic has not yet helped with weight loss. Blood pressures generally controlled, does not take her BP measures at home takes amlodipine 10mg daily, hydrochlorothiazide 25mg daily, lisinopril 20mg daily. 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 arthritis hurts so she does not exercise much reports long-standing dyspnea when she exerts herself swelling in her ankles and feet for a few years now no pain with urination no difficulty emptying bladder no rash no other symptoms/concerns [facility] Medical History Murmur Decreased renal function Microalbuminuria due to type 2 diabetes mellitus Physical exam Urinary Incontinence OAB (overactive bladder) Type 2 diabetes mellitus with morbid obesity Obesity Diabetes type 2, uncontrolled Osteoarthritis Morbid obesity Hypertension Dyslipidemia Non-toxic multinodular goiter long term (current) use of insulin Diabetes type 2, controlled Surgical History History of section Family History Father Lung cancer Mother Breast cancer Social History Household Members: Children Housing: House Alcohol intake: current Alcohol intake frequency: holidays/special occasions only Patient Tobacco Use Status: Never used Tobacco e-Cigarette/Vaping Use: Never Used Second Hand Smoke Exposure: No service: No Current occupational status: employed Cognitive needs: Yes Hearing needs: Yes Vision needs: Yes Review of Systems Const Denies anorexia, Denies fever(s) and Denies weakness Card Denies no additional complaints and Reports dyspnea on exertion Resp Reports no additional complaints, Reports cough and Reports dyspnea on exertion GI Denies abdominal pain and Denies diarrhea Denies hematuria, Denies difficulty voiding, Denies nocturia, Denies dysuria and Reports urinary urgency Musc Denies tingling Skin/Breast Denies rash Neuro Denies focal weakness, Denies tingling, Denies tremor(s) and Denies weakness Physical Exam Vital Signs: Last Vital Signs Pulse 102 H 08/31/24 14:12 BP 112/54 L 08/31/24 14:12 Pulse Ox 96 08/31/24 14:12 Oxygen Delivery Method Room Air 08/31/24 14:12 BMI result Body Mass Index 49.0 Const Other: General: No acute distress, well-appearing. Neck: No lymphadenopathy, no thyromegaly. No JVD. Resp: Clear to auscultation bilaterally. Cardio: Regular rate, regular rhythm; Heart sounds: S1 normal heart sound present and S2 normal heart sound present. No JVD. +2 bilateral peripheral edema. +right-sided carotid bruit on exam. GI: soft, nontender, no guarding. : No CVA tenderness. Skin: no rashes or lesions noted Neuro: Alert, oriented to person, place, time. Moves all extremities spontaneously. No tremor. No asterixis. Orientation/consciousness: patient oriented x3 Neck Thyroid: Thyroid normal Carotids: bruit on the right Resp Effort & Inspection: normal respiratory effort Auscultation: clear to auscultation bilaterally Cardio Jugular venous distension: no JVD Rate: regular rate Rhythm: regular rhythm Heart sounds: S1 normal heart sound present, S2 normal heart sound present and Murmur heart sound present (mild systolic heart murmur ) General: Yes no CVA tenderness Back/Spine/Pelvis Back: no CVA tenderness Skin Lesions: no lesions Rashes: no rashes Neuro General: patient oriented x3 Extrem General: Yes edema (BLE edema- +1 to +2, reports longstanding. ) Results Reviewed Nephrology Results: Hgb 12.7 g/dl (12.0-16.0) 08/03/24 WBC 14.4 X10*3/uL (4.8-10.8) H 08/03/24 Plt Count 429 X10*3/uL (160-400) H 08/03/24 Sodium 134 mmol/L (135-145) L 08/03/24 Potassium 4.6 mmol/L (3.3-5.1) 08/03/24 Chloride 98 mmol/L (96-108) 08/03/24 Carbon Dioxide 24 mmol/L (22-29) 08/03/24 BUN 29 mg/dL (9-16) H 08/03/24 Creatinine 1.33 mg/dL (0.5-1.4) 08/03/24 Calcium 10.2 mg/dL (8.4-10.2) 08/03/24 Urine Creatinine 145.29 mg/dL 08/03/24 Assessment & Plan Assessment & Plan (1) Diabetes type 2, uncontrolled: Code(s): E11.65 - Type 2 diabetes mellitus with hyperglycemia Category: Medical Qualifiers: Glycemic state: with hyperglycemia Qualified Code(s): E11.65 - Type 2 diabetes mellitus with hyperglycemia (2) Carotid bruit: Code(s): R09.89 - Other specified symptoms and signs involving the circulatory and respiratory systems Category: Medical Qualifiers: Laterality: right Qualified Code(s): R09.89 - Other specified symptoms and signs involving the circulatory and respiratory systems Plan Creatinine increase likely secondary to hypoperfusion from combination of ibuprofen and MARCELINA-inhibitor, in addition to diuretic use. given pt is averse to discontinuing ibuprofen due to significant chronic pain with arthritis (other pain management options have been exhausted), will decrease lisinopril dose from 20mg daily to 10mg daily she will follow up in 1 month for blood pressure check, blood work and urine prior if renal function improves, will consider discontinuing lisinopril depending on blood pressure control if lisinopril reduction does not improve creatinine, will consider renal MRA for possible stenosis (particularly given unilateral atrophic kidney) advised should work on hydration, minimizing ibuprofen use should also work on avoiding added salt in diet, as this will help blood pressure control and overall renal health advised healthy diet, diabetic control and weight loss are also important in renal protection carotid bruit on exam today (right), will get carotid US advised follow up in 1 month Orders: Orders Creatinine Urine 1 Month E11.65 - Type 2 diabetes mellitus with hyperglycemia, N17.9 - Acute kidney failure, unspecified, N18.9 - Chronic kidney disease, unspecified Basic Metabolic Panel 1 Month N17.9 - Acute kidney failure, unspecified, N18.30 - Chronic kidney disease, stage 3 unspecified Total Protein Urine Random 1 Month E11.29 - Type 2 diabetes mellitus with other diabetic kidney complication, N17.9 - Acute kidney failure, unspecified, N18.9 - Chronic kidney disease, unspecified, R80.9 - Proteinuria, unspecified US carotid duplex BI Today R09.89 - Other specified symptoms and signs involving the circulatory and respiratory systems Medications: New lisinopril 10 mg PO DAILY 30 tabs 1RF Coding Level of Care Code New Pt Level 4 (19067) Diagnoses Uncontrolled type 2 diabetes mellitus with hyperglycemia E11.65 Glycemic state: with hyperglycemia Bruit of right carotid artery R09.89 Laterality: right
[2024-08-31 14:12] VITALS: BP 112/54; PULSE 102; O2SAT 96; BMI 49.0
== END 2024-08-31 14:42 | disposition home or self-care (01) ==
PROVIDERS: PCP Internal Medicine; Referring Provider Physician Assistant Medical; Visit Provider Internal Medicine Hypertension Specialist
DX: E11.65 Type 2 diabetes mellitus with hyperglycemia (principal); R09.89 Other specified symptoms and signs involving the circulatory and respiratory systems; N26.1 Atrophy of kidney (terminal)
CPT/HCPCS: 99204

== ENCOUNTER → 2024-08-31 14:11 | Outpatient (BNVA) | payer OTHER, SELFPAY | PROVIDERS: PCP Internal Medicine; Referring Provider Physician Assistant Medical; Visit Provider Internal Medicine Hypertension Specialist ==

== ENCOUNTER 2024-09-28 09:57 | Outpatient (REF) | payer OTHER, SELFPAY ==
--- NOTE | ~2024-09-28 | US_ITS ---
EXAMINATION: US EXTRACRANIAL CAROTID DUPLEX, BILATERAL CLINICAL INFORMATION: Signs and symptoms including secretory and respiratory systems. COMPARISON: None TECHNIQUE: Real-time ultrasound and Doppler techniques (integrating B-mode 2-D vascular images, Doppler spectral analysis and color-flow Doppler imaging) were utilized to interrogate the extracranial carotid arteries, the vertebral arteries and proximal subclavian arteries bilaterally. The degree of stenosis is determined by criteria similar to NASCET. FINDINGS: Right Side: 1. There is mild atherosclerotic plaque seen in the bifurcation/proximal ICA region. 2. The common carotid artery PSV proximally is 123 cm/s and distally 124 cm/s. 3. The proximal internal carotid artery velocities are 118 cm/s systolic and 26 cm/s diastolic. 4. The proximal external carotid artery PSV is 172 cm/s. 5. The vertebral artery shows antegrade flow. 6. The subclavian artery waveforms are normal. Left Side: 1. There is mild atherosclerotic plaque seen in the bifurcation/proximal ICA region. 2. The common carotid artery PSV proximally is 151 cm/s and distally 108 cm/s. 3. The proximal internal carotid artery velocities are 148 cm/s systolic and 33 cm/s diastolic. 4. The proximal external carotid artery PSV is 123 cm/s. 5. The vertebral artery shows antegrade flow. 6. The subclavian artery waveforms are normal. 7. A small normal-appearing lymph node with a fatty phuc measuring 1.5 x 0.7 x 0.8 cm seen adjacent to the left ECA. US/US carotid duplex BI IMPRESSION: 1. RIGHT: Minimal, non-hemodynamically significant stenosis of the proximal right internal carotid artery corresponding to a 0-49% stenosis by velocity criteria. 2. LEFT: Moderate, hemodynamically significant stenosis of the proximal left internal carotid artery corresponding to a 50-79% stenosis by velocity criteria. Electronically signed by: Joshua Coronel MD 10/10/2024 12:54 PM [facility]
== END 2024-09-28 09:58 | disposition home or self-care (01) ==
LOC: HO.US 09:57
PROVIDERS: PCP Internal Medicine; Visit Provider Nurse Practitioner Family
DX: R09.89 Other specified symptoms and signs involving the circulatory and respiratory systems (principal)
CPT/HCPCS: 93880

== ENCOUNTER 2024-10-02 07:17 | Outpatient (REF) | payer OTHER, SELFPAY ==
[2024-10-02 07:46] LABS: MANUAL DIFF FLAG NO
[2024-10-02 08:26] LABS: Basophils Absolute Auto 0.1 X10*3/uL (0.0-0.2); Basophils Percent Auto 0.9 % (0-2); Eosinophils Absolute Auto 0.8 X10*3/uL (0.0-0.4); Eosinophils Percent Auto 6.7 % (0-4); Imm Gran Abs Auto 0.05 X10*3/uL (0.00-0.03); Imm Gran Pct Auto 0.4 % (0.0-0.4); Lymphocytes Absolute Auto 2.5 X10*3/uL (1.2-4.9); Lymphocytes Percent Auto 22.2 % (20-40); Mean Corpuscular HGB Conc 32.4 g/dl (31.0-35.0); Mean Corpuscular Hemoglobin 28.2 pg (27.0-33.0); Mean Corpuscular Volume 87.1 fL (80.0-98.0); Monocytes Absolute Auto 0.6 X10*3/uL (0.1-1.2); Monocytes Percent Auto 5.2 % (2-11); Neutrophils Absolute Auto 7.4 x10*3/uL (2.0-8.3); Neutrophils Percent Auto 64.6 % (45-73); Platelet Count 428 X10*3/uL (160-400); Red Blood Count 4.25 X10*6/uL (4.20-5.50); White Blood Count 11.4 X10*3/uL (4.8-10.8)
[2024-10-02 08:31] LABS: Estimated Average Glucose 180 mg/dL; Hemoglobin A1C 192.9132 umol/L; Hemoglobin A1c % 7.9 % (<6.0); Total Hemoglobin (HGBA1C) 3095.0714 umol/L
[2024-10-02 08:54] LABS: Alanine Aminotransferase 16 U/L (0-31); Albumin Level 3.6 g/dL (3.5-5.0); Alkaline Phosphatase 82 U/L (39-117); Anion Gap 17 (12-20); Aspartate Amino Transferase 34 U/L (5-31); Bilirubin Total 0.6 mg/dL (0.0-1.0); Blood Urea Nitrogen 24 mg/dL (9-16); Calcium 9.8 mg/dL (8.4-10.2); Carbon Dioxide 26 mmol/L (22-29); Chloride 100 mmol/L (96-108); Cholesterol 126 mg/dL (<200); Estimated Glomerular Filt Rate 49; Glucose Fasting 177 mg/dL (60-99); Glucose Random 176 mg/dL (60-115); HDL Cholesterol 39 mg/dL (>40); LDL Cholesterol Calculated 68 mg/dL (<100); Potassium 4.3 mmol/L (3.3-5.1); Sodium 139 mmol/L (135-145); Total Protein 7.4 g/dL (6.5-8.0); Triglycerides 96 mg/dL (<150)
[2024-10-02 09:09] LABS: Thyroid Stimulating Hormone 1.82 uIU/mL (0.32-4.0)
== END 2024-10-02 07:18 | disposition home or self-care (01) ==
LOC: HO.LAB 07:17
PROVIDERS: PCP Internal Medicine; Visit Provider Nurse Practitioner Family
DX: R73.9 Hyperglycemia, unspecified (principal); Z13.29 Encounter for screening for other suspected endocrine disorder; Z13.220 Encounter for screening for lipoid disorders; Z13.0 Encounter for screening for diseases of the blood and blood-forming organs and certain disorders involving the immune mechanism; Z13.9 Encounter for screening, unspecified; N17.9 Acute kidney failure, unspecified; N18.30 Chronic kidney disease, stage 3 unspecified
CPT/HCPCS: 36415; 80048; 80053; 80061; 83036; 84443; 85025

== ENCOUNTER 2024-10-04 09:23 | Outpatient (AMB) | payer OTHER, SELFPAY ==
--- NOTE | 2024-10-04 09:33 | HO.NEPHOV ---
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 Required: No Accompanied by: Self / Same As Patient Allergies Sulfa (Sulfonamide Antibiotics) [Sulfa (Sulfonamides)] Allergy (Mild, Verified 10/04/24 09:34) RASH cephalexin [From KEFLEX] Allergy (Unknown, Verified 10/04/24 09:34) RASH clavulanic acid [Augmentin] Allergy (Unknown, Verified 10/04/24 09:34) vaginal irritation empagliflozin [From Jardiance] Adverse Reaction (Intermediate, Verified 10/04/24 09:34) Rash amoxicillin [From Augmentin] Adverse Reaction (Mild, Verified 10/04/24 09:34) VAGINAL IRRITATION Medication List - Last Reconciled 10/04/24 by Sandra Casas, DNP, CONSULTING PSYCHIATRIST-BC amlodipine 10 mg PO DAILY ammonium lactate 12% appl topical aspirin (Adult Aspirin Regimen) 81 mg PO DAILY blood sugar diagnostic ([employer] Verio test strips) As directed 3 times a day blood-glucose meter ([employer] Verio Flex Meter) As directed blood-glucose meter,continuous (FreeStyle Dominick 3 [place]) as directed blood-glucose sensor (FreeStyle Dominick 3 Sensor device) apply new sensor every 14 days as directed hydrochlorothiazide 25 mg PO DAILY ibuprofen 800 mg PO TID insulin glargine 45 units (0.45 mL) subcut DAILY 30 days lancets ([employer] Delica Lancets) As directed 3 times a day lisinopril 10 mg PO DAILY metformin 1,000 mg PO BID omega-3 fatty acids 1,000 mg PO DAILY pen needle, diabetic Twice a day pravastatin 10 mg PO BEDTIME semaglutide (Ozempic) 0.5 mg (0.736 mL) subcut QWEEK HPI Comments Details: Pt is a 69 y/o female Medical Hx: DMII with microalbuminuria, HTN, HLD, morbid obesity, osteoarthritis, urge urinary incontinence (overactive bladder). 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 Her creatinine was 0.December, increased to 1.33 in 08/03/24 GFR 40 on 08/03/24; previously 59 on 01/06/24. microalbumin/creatinine ratio 156.9 on 08/03/24 she denies personal history of kidney stones or history of other renal problems she denies known vascular disease pertinent family history: one brother with large renal stones, and had to have a kidney removed (unknown reason). both parents in 40s from (mother- breast, father lung cancer). another brother had a heart attack and in his late 40s/early 50s. both children have mental health struggles but are other she has never had a kidney stone no known vascular disease takes 800mg ibuprofen takes twice daily, sometimes 3x daily, for arthritis. For a few years. Feels this is necessary for QOL- joint injections have not worked well, and she has not been able to lose weight for surgery for her arthritis. Does take tylenol, does not help as much. She does not add salt to her food that she cooks, but states eats canned soups, delhi meats and other foods with salt added; working on this A1c 9.1% on 08/03/24. Takes ozempic. Ozempic has not yet helped with weight loss. Blood pressures generally controlled, does not take her BP measures at home takes amlodipine 10mg daily, hydrochlorothiazide 25mg daily, lisinopril 20mg daily. 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 Pt continues with hctz 25mg daily and amlodipine 10mg daily she continues to have chronic BLE swelling she continues to struggle with fluid intake but has has some improvement continues to struggle with avoiding foods with added salt but working on this A1c has improved from 9.1 to 7.9 on 10/02/24 she was not able to give a urine sample with recent blood work she will get before next [facility] Medical History Murmur Decreased renal function Microalbuminuria due to type 2 diabetes mellitus Physical exam Urinary Incontinence OAB (overactive bladder) Type 2 diabetes mellitus with morbid obesity Obesity Diabetes type 2, uncontrolled Osteoarthritis Morbid obesity Hypertension Dyslipidemia Non-toxic multinodular goiter 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 Diabetes type 2, controlled Surgical History History of section Family History Father Lung cancer Mother Breast cancer Social History Household Members: Children Housing: House Alcohol intake: current Alcohol intake frequency: holidays/special occasions only Patient Tobacco Use Status: Never used Tobacco e-Cigarette/Vaping Use: Never Used Second Hand Smoke Exposure: No service: No Current occupational status: employed Cognitive needs: Yes Hearing needs: Yes Vision needs: Yes Review of Systems Const Denies anorexia, Denies fever(s) and Denies weakness Card Denies no additional complaints and Reports dyspnea on exertion Resp Reports no additional complaints, Reports cough and Reports dyspnea on exertion GI Denies abdominal pain and Denies diarrhea Denies hematuria, Denies difficulty voiding, Denies nocturia, Denies dysuria and Reports urinary urgency Musc Denies tingling Skin/Breast Denies rash Neuro Denies focal weakness, Denies tingling, Denies tremor(s) and Denies weakness Physical Exam Vital Signs: Last Vital Signs Pulse 88 10/04/24 09:35 BP 168/68 H 10/04/24 09:35 Pulse Ox 96 10/04/24 09:35 Oxygen Delivery Method Room Air 10/04/24 09:35 BMI result Body Mass Index 48.2 Const Orientation/consciousness: patient oriented x3 Neck Thyroid: Thyroid normal Carotids: bruit on the right Resp Effort & Inspection: normal respiratory effort Auscultation: clear to auscultation bilaterally Cardio Jugular venous distension: no JVD Rate: regular rate Rhythm: regular rhythm Heart sounds: S1 normal heart sound present, S2 normal heart sound present and Murmur heart sound present (mild systolic heart murmur ) General: Yes no CVA tenderness Back/Spine/Pelvis Back: no CVA tenderness Skin Lesions: no lesions Rashes: no rashes Neuro General: patient oriented x3 Extrem General: Yes edema (BLE edema- +2, reports longstanding. ) Results Reviewed Nephrology Results: Hgb 12.0 g/dl (12.0-16.0) 10/02/24 WBC 11.4 X10*3/uL (4.8-10.8) H 10/02/24 Plt Count 428 X10*3/uL (160-400) H 10/02/24 Sodium 139 mmol/L (135-145) 10/02/24 Potassium 4.3 mmol/L (3.3-5.1) 10/02/24 Chloride 100 mmol/L (96-108) 10/02/24 Carbon Dioxide 26 mmol/L (22-29) 10/02/24 BUN 24 mg/dL (9-16) H 10/02/24 Creatinine 1.11 mg/dL (0.5-1.4) 10/02/24 Calcium 9.8 mg/dL (8.4-10.2) 10/02/24 Urine Creatinine 145.29 mg/dL 08/03/24 Assessment & Plan Assessment & Plan (1) Diabetes type 2, uncontrolled: Code(s): E11.65 - Type 2 diabetes mellitus with hyperglycemia Category: Medical Qualifiers: Glycemic state: with hyperglycemia Qualified Code(s): E11.65 - Type 2 diabetes mellitus with hyperglycemia (2) Microalbuminuria due to type 2 diabetes mellitus: Code(s): E11.29 - Type 2 diabetes mellitus with other diabetic kidney complication; R80.9 - Proteinuria, unspecified Category: Medical (3) Atrophic kidney: Code(s): N26.1 - Atrophy of kidney (terminal) Category: Medical Plan Creatinine increase likely secondary to hypoperfusion from combination of ibuprofen and MARCELINA-inhibitor, in addition to diuretic use; creatinine has improved with reduction in lisinopril. proteinuria and DMII, will continue 10mg lisinopril daily blood pressure is poorly controlled today will add carvedilol 6.25mg BID to regimen, advised continue other blood pressure medications as ordered (amlodipine 10mg daily, lisinopril 10mg daily and hctz 25mg daily). Goal will be to eventually taper off amlodipine once blood pressure improves given BLE swelling Patient is good candidate for Jardiance, should consider this in future Patient continues to take ibuprofen 800mg 2x daily for significant, chronic arthritis pain; discussed risks of taking this medication in conjunction with lisinopril and hctz- pt understands risks and feels she cannot tolerate pain without ibuprofen so she will continue with use at this time. Strongly encouraged adequate hydration as this will reduce risks of ibuprofen to a degree. Continue to work on regular exercise and weight loss Continue to work on reducing dietary salt intake US of carotid results still pending, pt notified will discuss at next appt once results back. advised follow up in 1 month Medications: New carvedilol must administer with a meal/food 6.25 mg PO BID 30 tabs 1RF Coding Level of Care Code Est Pt Level 4 (59755) Diagnoses Uncontrolled type 2 diabetes mellitus with hyperglycemia E11.65 Glycemic state: with hyperglycemia Microalbuminuria due to type 2 diabetes mellitus E11.29; R80.9 Atrophic kidney N26.1 Time Spent (min) 30
[2024-10-04 09:35] VITALS: BP 168/68; PULSE 88; O2SAT 96; BMI 48.2
== END 2024-10-04 10:02 | disposition home or self-care (01) ==
LOC: HO.HKA 09:23
PROVIDERS: PCP Internal Medicine; Visit Provider Nurse Practitioner Family
DX: E11.29 Type 2 diabetes mellitus with other diabetic kidney complication (principal); R80.9 Proteinuria, unspecified; N26.1 Atrophy of kidney (terminal); E11.65 Type 2 diabetes mellitus with hyperglycemia
CPT/HCPCS: 99214

== ENCOUNTER 2024-11-01 09:24 | Outpatient (AMB) | payer OTHER, SELFPAY ==
--- NOTE | 2024-11-01 08:35 | HO.NEPHOV_ITS ---
Vital Signs 11/01/24 09:49 11/01/24 09:55 Height 5 ft 2 in Weight 260 lb 6 oz BMI 47.6 BP 144/50 H 126/62 Blood Pressure Location Rt brachial Rt brachial Position Sitting Sitting Pulse 73 Pulse Source Pulse Oximeter Pulse Oximetry (%) 97 Oxygen Delivery Method Room Air Intake Visit Reasons: Carotid bruit/ LVM Benefits Representative Required: No Accompanied by: Self / Same As Patient Allergies Sulfa (Sulfonamide Antibiotics) [Sulfa (Sulfonamides)] Allergy (Mild, Verified 11/01/24 09:49) RASH cephalexin [From KEFLEX] Allergy (Unknown, Verified 11/01/24 09:49) RASH clavulanic acid [Augmentin] Allergy (Unknown, Verified 11/01/24 09:49) vaginal irritation empagliflozin [From Jardiance] Adverse Reaction (Intermediate, Verified 11/01/24 09:49) Rash amoxicillin [From Augmentin] Adverse Reaction (Mild, Verified 11/01/24 09:49) VAGINAL IRRITATION Medication List - Last Reconciled 11/01/24 by Sandra Casas, HOLLY, CHEF CONCIERGE-BC amlodipine 10 mg PO DAILY ammonium lactate 12% appl topical aspirin (Adult Aspirin Regimen) 81 mg PO DAILY blood sugar diagnostic (FluTrends InternationalTouch Verio test strips) As directed 3 times a day blood-glucose meter (FluTrends InternationalTouch Verio Flex Meter) As directed blood-glucose meter,continuous (FreeStyle Dominick 3 [place]) as directed blood-glucose sensor (FreeStyle Dominick 3 Sensor device) apply new sensor every 14 days as directed carvedilol 6.25 mg PO BID hydrochlorothiazide 25 mg PO DAILY ibuprofen 800 mg PO TID insulin glargine 45 units (0.45 mL) subcut DAILY 30 days lancets (FluTrends InternationalTouch Delica Lancets) As directed 3 times a day lisinopril 10 mg PO DAILY metformin 1,000 mg PO BID omega-3 fatty acids 1,000 mg PO DAILY pen needle, diabetic Twice a day pravastatin 10 mg PO BEDTIME semaglutide (Ozempic) 0.5 mg (0.736 mL) subcut QWEEK HPI Comments Details: Pt is a 69 y/o female Medical Hx: DMII with microalbuminuria, HTN, HLD, morbid obesity, osteoarthritis, urge urinary incontinence (overactive bladder). alcohol: seldom- special occasions tobacco: never Referred by her doll dresser for atrophic left kidney and increased creatinine, microalbuminuria: She has an ultrasound March 2024 which showed an atrophic left kidney without hydronephrosis. Her creatinine was 0.December, increased to 1.33 in 08/03/24 GFR 40 on 08/03/24; previously 59 on 01/06/24. microalbumin/creatinine ratio 156.9 on 08/03/24 she denies personal history of kidney stones or history of other renal problems she denies known vascular disease pertinent family history: one brother with large renal stones, and had to have a kidney removed (unknown reason). both parents in 40s from (mother- breast, father lung cancer). another brother had a heart attack and in his late 40s/early 50s. both children have mental health struggles but are other she has never had a kidney stone no known vascular disease takes 800mg ibuprofen takes twice daily, sometimes 3x daily, for arthritis. For a few years. Feels this is necessary for QOL- joint injections have not worked well, and she has not been able to lose weight for surgery for her arthritis. Does take tylenol, does not help as much. She does not add salt to her food that she cooks, but states eats canned soups, delhi meats and other foods with salt added; working on this A1c 9.1% on 08/03/24. Takes ozempic. Ozempic has not yet helped with weight loss. Blood pressures generally controlled, does not take her BP measures at home takes amlodipine 10mg daily, hydrochlorothiazide 25mg daily, lisinopril 20mg daily. 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 Pt continues with hctz 25mg daily and amlodipine 10mg daily she continues to have chronic BLE swelling she continues to struggle with fluid intake but has has some improvement continues to struggle with avoiding foods with added salt but working on this A1c has improved from 9.1 to 7.9 on 10/02/24 11/01/24 pt taking lisinopril 10mg daily, hctz 25mg daily, amlodipine 10mg daily, carvedilol 6.25mg BID (carvedilol was added last appt due to elevated blood pressure) she has not been able to get a blood pressure cuff yet due to finances but will get this when she can denies new symptoms/concerns states sugars have been doing better on ozempic and she is continuing to lose weight slowly. She sees her doll dresser next week. [facility] Medical History Murmur Decreased renal function Microalbuminuria due to type 2 diabetes mellitus Physical exam Urinary Incontinence OAB (overactive bladder) Type 2 diabetes mellitus with morbid obesity Obesity Diabetes type 2, uncontrolled Osteoarthritis Morbid obesity Hypertension Dyslipidemia Non-toxic multinodular goiter FDC (current) use of insulin Diabetes type 2, controlled Surgical History History of section Family History Father Lung cancer Mother Breast cancer Social History Household Members: Children Housing: House Alcohol intake: current Alcohol intake frequency: holidays/special occasions only Patient Tobacco Use Status: Never used Tobacco e-Cigarette/Vaping Use: Never Used Second Hand Smoke Exposure: No service: No Current occupational status: employed Cognitive needs: Yes Hearing needs: Yes Vision needs: Yes Review of Systems Const Denies anorexia, Denies fatigue, Denies fever(s) and Denies weakness Card Denies no additional complaints and Reports dyspnea on exertion (chronic, unchanged) Resp Reports no additional complaints, Denies cough and Reports dyspnea on exertion (chronic, unchanged) GI Denies abdominal pain and Denies diarrhea Denies hematuria, Denies difficulty voiding, Denies nocturia, Denies dysuria and Reports urinary urgency (chronic, unchanged) Musc Denies tingling Skin/Breast Denies rash Neuro Denies focal weakness, Denies tingling, Denies tremor(s) and Denies weakness Endo Denies fatigue Physical Exam Const Orientation/consciousness: patient oriented x3 Neck Thyroid: Thyroid normal Carotids: bruit on the right Resp Effort & Inspection: normal respiratory effort Auscultation: clear to auscultation bilaterally Cardio Jugular venous distension: no JVD Rate: regular rate Rhythm: regular rhythm Heart sounds: S1 normal heart sound present, S2 normal heart sound present and Murmur heart sound present (mild systolic heart murmur ) GI Palpation (GI): Soft to palpation and nontender General: Yes no CVA tenderness Back/Spine/Pelvis Back: no CVA tenderness Skin Lesions: no lesions Rashes: no rashes Neuro General: patient oriented x3 Extrem General: Yes edema (BLE edema +1, reports longstanding but feels it is slightly better recently) Results Reviewed Nephrology Results: Hgb 12.0 g/dl (12.0-16.0) 10/02/24 WBC 11.4 X10*3/uL (4.8-10.8) H 10/02/24 Plt Count 428 X10*3/uL (160-400) H 10/02/24 Sodium 139 mmol/L (135-145) 10/02/24 Potassium 4.3 mmol/L (3.3-5.1) 10/02/24 Chloride 100 mmol/L (96-108) 10/02/24 Carbon Dioxide 26 mmol/L (22-29) 10/02/24 BUN 24 mg/dL (9-16) H 10/02/24 Creatinine 1.11 mg/dL (0.5-1.4) 10/02/24 Calcium 9.8 mg/dL (8.4-10.2) 10/02/24 Urine Creatinine 145.29 mg/dL 08/03/24 Assessment & Plan Assessment & Plan (1) Diabetes type 2, uncontrolled: Code(s): E11.65 - Type 2 diabetes mellitus with hyperglycemia Category: Medical Qualifiers: Glycemic state: with hyperglycemia Qualified Code(s): E11.65 - Type 2 diabetes mellitus with hyperglycemia (2) Microalbuminuria due to type 2 diabetes mellitus: Code(s): E11.29 - Type 2 diabetes mellitus with other diabetic kidney complication; R80.9 - Proteinuria, unspecified Category: Medical (3) Atrophic kidney: Code(s): N26.1 - Atrophy of kidney (terminal) Category: Medical (4) Hypertension: Code(s): I10 - Essential (primary) hypertension Category: Medical Qualifiers: Hypertension type: essential hypertension Qualified Code(s): I10 - Essential (primary) hypertension (5) CKD (chronic kidney disease): Code(s): N18.9 - Chronic kidney disease, unspecified Category: Medical Qualifiers: Chronic kidney disease stage: stage 3 (moderate) Chronic kidney disease stage 3 subtype: stage 3a (GFR 45-59) Qualified Code(s): N18.31 - Chronic kidney disease, stage 3a Plan 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 Goal will be to eventually taper off amlodipine once blood pressure improves given BLE swelling Patient is good candidate for Jardiance, should consider this in future Patient continues to take ibuprofen 800mg 2x daily for significant, chronic ar thritis pain; discussed risks of taking this medication in conjunction with lisinopril and hctz- pt understands risks and feels she cannot tolerate pain without ibuprofen so she will continue with use at this time. Strongly encouraged adequate hydration as this will reduce risks of ibuprofen to a degree. Continue to work on regular exercise and weight loss Continue to work on reducing dietary salt intake continue to work on improving diabetic control US carotids showed 50-79% stenosis on left side, referred to vascular for evaluation/monitoring. advised follow up in 3 months, she will get lab work prior to check renal function. Advised still due for urine studies from previous visit as well. Orders: Orders Basic Metabolic Panel 3 Months I10 - Essential (primary) hypertension, N18.30 - Chronic kidney disease, stage 3 unspecified, N18.9 - Chronic kidney disease, unspecified Protein Creatinine Ratio, Ur 3 Months E11.65 - Type 2 diabetes mellitus with hyperglycemia, I10 - Essential (primary) hypertension, N18.9 - Chronic kidney disease, unspecified Medications: Refilled carvedilol must administer with a meal/food 6.25 mg PO BID 180 tabs 1RF Coding Level of Care Code Est Pt Level 3 (56198) Diagnoses Uncontrolled type 2 diabetes mellitus with hyperglycemia E11.65 Glycemic state: with hyperglycemia Microalbuminuria due to type 2 diabetes mellitus E11.29; R80.9 Atrophic kidney N26.1 Essential hypertension I10 Hypertension type: essential hypertension Stage 3a chronic kidney disease N18.31 Chronic kidney disease stage: stage 3 (moderate) Chronic kidney disease stage 3 subtype: stage 3a (GFR 45-59) Time Spent (min) 20 Comment time spent assessing, counseling, documentation, chart review: 20 minutes.
[2024-11-01 09:49] VITALS: BP 144/50; PULSE 73; O2SAT 97; BMI 47.6
[2024-11-01 09:55] VITALS: BP 126/62
== END 2024-11-01 10:01 | disposition home or self-care (01) ==
PROVIDERS: PCP Internal Medicine; Visit Provider Nurse Practitioner Family
DX: E11.22 Type 2 diabetes mellitus with diabetic chronic kidney disease (principal); N18.31 Chronic kidney disease, stage 3a; N26.1 Atrophy of kidney (terminal); R80.9 Proteinuria, unspecified; I10 Essential (primary) hypertension; E11.65 Type 2 diabetes mellitus with hyperglycemia
CPT/HCPCS: 99213

== ENCOUNTER 2024-11-03 08:27 | Outpatient (AMB) | payer OTHER, SELFPAY ==
--- NOTE | 2024-11-03 08:34 | A.OFFVIS_ITS ---
Vital Signs 11/03/24 08:38 11/03/24 09:08 Height 5 ft 2 in Weight 264 lb 1.82 oz BMI 48.3 BP 144/62 H 132/60 Blood Pressure Location Rt brachial Position Sitting Pulse 78 Pulse Source Pulse Oximeter Intake Visit Reasons: Diabetes/LVM Intake Note: Patient present today to follow up on Type 2 Diabetes Mellitus. Last Diabetic Eye exam: May 2024 Last Podiatry Visit: Has an appt 11/27/24 Random Glucose: 113 mg/dl HgA1C: 7.9% 10/02/24 Water Softener Servicer And Installer Required: No Accompanied by: Self / Same As Patient Allergies Sulfa (Sulfonamide Antibiotics) [Sulfa (Sulfonamides)] Allergy (Mild, Verified 11/03/24 08:39) RASH cephalexin [From KEFLEX] Allergy (Unknown, Verified 11/03/24 08:39) RASH clavulanic acid [Augmentin] Allergy (Unknown, Verified 11/03/24 08:39) vaginal irritation empagliflozin [From Jardiance] Adverse Reaction (Intermediate, Verified 11/03/24 08:39) Rash amoxicillin [From Augmentin] Adverse Reaction (Mild, Verified 11/03/24 08:39) VAGINAL IRRITATION tolterodine Adverse Reaction (Unknown, Verified 11/03/24 08:39) Hives, rash Medication List - Last Reconciled 11/03/24 by GERARDO Zuleta amlodipine 10 mg PO DAILY ammonium lactate 12% appl topical aspirin (Adult Aspirin Regimen) 81 mg PO DAILY blood sugar diagnostic (OneTouch Verio test strips) As directed 3 times a day blood-glucose meter (Web WonksTouch Verio Flex Meter) As directed blood-glucose meter,continuous (FreeStyle Dominick 3 [place]) as directed blood-glucose sensor (FreeStyle Dominick 3 Sensor device) apply new sensor every 14 days as directed carvedilol 6.25 mg PO BID hydrochlorothiazide 25 mg PO DAILY ibuprofen 800 mg PO TID insulin glargine 35 units subcut DAILY lancets (Web WonksTouch Delica Lancets) As directed 3 times a day lisinopril 10 mg PO DAILY metformin 1,000 mg PO BID omega-3 fatty acids 1,000 mg PO DAILY pen needle, diabetic Twice a day pravastatin 10 mg PO BEDTIME semaglutide (Ozempic) 1 mg (0.75 mL) subcut QWEEK HPI Comments Details: This is a 69 year old female with Type II DM diagnosed in 2006 presenting for diabetic management. Hemoglobin a1c 7.9% 10/02/2024 down from 9.1%. Current medication regimen: glargine 45 units twice daily, Metforomin 1000 mg BID and Ozempic 0.5 mg weekly. Jardiance discontinued due to yeast infections. Mounjaro caused GI side effects. Reviewed CGM data for the past 14 days: 93% target range 1% low 6% high 0% very high 0% very low Average glucose 136 GMI 6.9% per patient Diet: seltzers, she decreased carbohydrates, eats proteins and vegetables as well Alcohol occasional. Nonsmoker. Hypoglycemia symptoms: She reports 1 low reading within the past month at 6am. Hyperglycemia symptoms: none Eye exam: up to date Microvascular complications: neuropathy, nephropathy (microalbumin and CKD). Macrovascular complications: none Hypertension: treated with amlodipine 10 mg, hydrochlorothiazide 25 mg, lisinopril 10 mg, carvedilol 6.25 mg twice daily. Followed by Nephrology. Hyperlipidemia: treated with Pravastatin 10 mg LDL at goal <100. ROS: Constitutional: No unexplained weight loss, fever, chills. Eyes: No vision changes, blurry vision, double vision Respiratory: No shortness of breath Cardiovascular: No chest pain Gastrointestinal: No anorexia, nausea, vomiting or diarrhea. No abdominal pain Neurologic: No headache, dizziness, syncope Endocrine: No cold or heat intolerance. No polyuria or polydipsia Physical exam: Constitutional: Alert, in no distress. Eyes: Pupils are equal, round and reactive to light. Extraocular muscles intact. Neck: Supple, Full range of motion. No lymphadenopathy. No palpable thyroid masses. Respiratory: Clear to auscultation. Cardiovascular: S1 S2 regular. I-II/ murmur. Neurologic: No focal neurological deficits. Right foot: Warm and well perfused. +edema. No open wounds. nt. Left foot: Warm and well perfused. +edema. No open wounds. [facility] Medical History Murmur Decreased renal function Microalbuminuria due to type 2 diabetes mellitus Physical exam Urinary Incontinence OAB (overactive bladder) Type 2 diabetes mellitus with morbid obesity Obesity Diabetes type 2, uncontrolled Osteoarthritis Morbid obesity Hypertension Dyslipidemia Non-toxic multinodular goiter halfway (current) use of insulin Diabetes type 2, controlled Surgical History History of section Family History Father Lung cancer Mother Breast cancer Social History Household Members: Children Housing: House Alcohol intake: current Alcohol intake frequency: holidays/special occasions only Patient Tobacco Use Status: Never used Tobacco e-Cigarette/Vaping Use: Never Used Second Hand Smoke Exposure: No service: No Current occupational status: employed Cognitive needs: Yes Hearing needs: Yes Vision needs: Yes Results Reviewed Results Reviewed: Laboratory Tests 08/03/24 10/02/24 10:26 07:42 Creatinine 1.11 Estimated GFR 49 Hemoglobin A1c % 9.1 H 7.9 H Triglycerides 96 Cholesterol 126 LDL Cholesterol, Calc 68 HDL Cholesterol 39 L TSH 1.82 Urine Creatinine 145.29 Urine Microalbumin 228.0 Microalb/Creat Ratio 156.9 H Assessment & Plan Assessment & Plan (1) Type 2 diabetes mellitus with morbid obesity: Code(s): E11.69 - Type 2 diabetes mellitus with other specified complication; E66.01 - Morbid (severe) obesity due to excess calories Category: Medical (2) Decreased renal function: Code(s): N28.9 - Disorder of kidney and ureter, unspecified Category: Medical (3) Microalbuminuria due to type 2 diabetes mellitus: Code(s): E11.29 - Type 2 diabetes mellitus with other diabetic kidney complication; R80.9 - Proteinuria, unspecified Category: Medical (4) Murmur: Code(s): R01.1 - Cardiac murmur, unspecified Category: Medical Plan In summary this is a 69-year-old female with uncontrolled type 2 diabetes with macrovascular complications. She is compliant with glucose monitoring. She was instructed to bring her CGM to all appointments. Diabetes controlled per CGM data. Increase Ozempic to 1 mg weekly to help with weight control and decrease insulin requirement. She will decrease insulin glargine to 35 units every evening. Continue metformin a 1000 mg twice daily. Patient instructed to call if she experiences blood sugars out of target range after making adjustments, particularly if she is having frequent low sugars, to further adjust insulin. Patient referred to Nephrology given recent decrease in renal function. She has microalbuminuria. Patient advised to increase fluids, avoid NSAIDs and repeat creatinine in a couple of weeks at the lab. Her blood pressure is mildly elevated today, but it was normal at her recent follow up appointment with Nephrology. If you experience low blood sugar, treat this by eating a chewable fruit candy like skittles or jelly beans (about 8 pieces), 4 ounces (1/2 cup) of fruit juice (not diet), 1 tablespoon of honey or 4 glucose tablets. If your blood sugar is under 50, take double the amount of one of the above. Recheck your blood sugar in 15 minutes. She has a murmur on exam. Denies chest pain or shortness of breath. I ordered an echocardiogram in July, but she never heard about scheduling it. Re- odered echocardiogram. I instructed her to call me or send me a message if she does not hear about scheduling in the next 2 weeks. Follow up in 2 months for diabetes. Orders: Orders CA echo transthoracic complete Today R01.1 - Cardiac murmur, unspecified Medications: New semaglutide (Ozempic) 1 mg (0.75 mL) subcut QWEEK 3 mL 2RF Discontinued semaglutide (Ozempic) Discontinued Reason: Doctor's Order 0.5 mg (0.736 mL) subcut QWEEK 3 mL 2RF Patient Instructions: Increase Ozempic to 1 mg once weekly and decrease insulin glargine to 35 units weekly. If your sugars are going out of target range on this dose, particularly frequent low sugars, please contact the office. Coding Level of Care Code Est Pt Level 4 (97703) Complex EM visit Add On G2211 Diagnoses Type 2 diabetes mellitus with morbid obesity E11.69; E66.01 Decreased renal function N28.9 Microalbuminuria due to type 2 diabetes mellitus E11.29; R80.9 Murmur R01.1
[2024-11-03 08:38] VITALS: BP 144/62; PULSE 78; BMI 48.3
[2024-11-03 08:49] LABS: Glucose, Whole Blood 113 mg/dL (60-115)
[2024-11-03 09:08] VITALS: BP 132/60
--- OUTSIDE RECORDS SUMMARY | 2024-11-08 05:29 | XMS_ITS | Patient Health Record ---
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 Name Role Phone Ness GALVEZ, Behzad Primary Care Provider Unavaila Edilson Ricketts Unavailable [phone] Allergies Allergen (clinical drug ingredient) Drug/Non Drug Allergy documented on EMR Reaction Allergy Type Onset Date Status amoxicillin / clavulanate Augmentin rash Drug Allergy Active sulfamethoxazole / trimethoprim Bactrim rash Drug Allergy Active Keflex rash Drug Allergy Active empagliflozin Jardiance Yeast Infection Drug Allergy Active Substance with sulfonamide structure and antibacterial mechanism of action (substance) Sulfa Antibiotics rash Drug Allergy Active Results Component Value Reference Range Notes HEMOGLOBIN A1C (GLYCOHEMOGLO BIN) Reviewed date:11/10/2023 08:35:57 AM Interpretation: Performing Lab: Notes/Report: HEMOGLOBIN A1C % (HH) 9.0 HEMOGLOBIN A1C (GLYCOHEMOGLO BIN) Reviewed date:05/17/2024 08:51:21 AM Interpretation: Performing Lab: Notes/Report: HEMOGLOBIN A1C % (HH) 7.6 HEMOGLOBIN A1C (GLYCOHEMOGLO BIN) Reviewed date:08/17/2024 09:04:10 AM Interpretation: Performing Lab: Notes/Report: TOTAL HEMOGLOBIN (HGBA1C) 9.0 Reason For Referral No Information Medications Medication SIG (Take, Route, Frequency, Duration) Notes Start Date End Date Status Vitamin D3 Active Tolterodine Tartrate ER 2 MG TAKE 1 CAPSULE BY MOUTH EVERY DAY Oral for 90 Days Active Ammonium Lactate 12 % 1 application Externally to feet except for between the toes Twice a day for 30 days Active Extra Depth Orthopedic Shoes (1 Pair) with Customized Heat Molded Multidensity Innersoles (3 Pair) as directed Dx: IDDM (E10.9), Hammertoe Foot Deformity (M20.41,M20.42), Preulcerative Skin Lesion(s) (L85.1) Active Lisinopril 20 MG 1 tablet Orally Once a day Active metFORMIN HCl Active Multivitamin Active Pravastatin Sodium 10 MG Oral for 30 Active hydroCHLOROthiazide Active ibuprofen Active Lantus 30 units Acti ve Fluticasone Furoate Not-Taking Jardiance Not-Taking Lantus 60 units Not- Taking oxyBUTYnin Chloride 10 mg 1 tablet Orall y Once a day Not-Taking Fluticasone Propionate 50 MCG/ACT 1 spray in each nostril Nasally Once a day Not-Taking Pioglitazone HCl Not -Taking Ozempic Not-Taking Fish Oil 1000 MG 1 capsule Orally Onc e a day Not-Taking Victoza 1.8 mg Not-T aking Ozempic (0.25 or 0.5 MG/DOSE) Active Aspir-81 Active amLODIPine Besylate 10 MG 1 tablet Orall y Once a day Active Flonase Active Mounjaro Not-Taking Immunizations Vaccine Route Administration Date Status Comme nts COVID-19 Pfizer BioNTech Vaccine Unknown 01/22/2021 Administered 1st 02/28/2021 COVID-19 Pfizer BioNTech Vaccine Unknown 09/26/2021 Administered Influenza Unknown 06/20/2016 Administered Influenza Unknown 07/18/2017 Administered Influenza Unknown 08/08/2018 Administered Influenza Unknown 08/23/2020 Administered Pneumococcal Unknown 06/20/2016 Administered Social History Tobacco Use: Social History Observation Description Date Details (start date - stop date) Never Smoker NA - NA Tobacco Use/Smoking Question Answer Notes Are you a: nonsmoker Additional Findings: Tobacco Non-User Current no n-smoker Alcohol Screen Question Answer Notes Did you have a drink containing alcohol in the p ast year? No Points 0 Interpretation Negative Tobacco use other than smoking: Question Answer Notes Are you an other tobacco user? No Problems Problem Type SNOMED Code ICD Code Onset Dates Problem Status W/U Status Risk Notes Problem Acquired hammer toe of right foot (07613611796956 05) Other hammer toe(s) (acquired), right foot (M20.41) Active confirmed Response to treatment,I mprovement Problem Acquired hammer toe of left foot (04358934642744 03) Other hammer toe(s) (acquired), left foot (M20.42) Active confirmed Response to treatment,I mprovement Problem Type 1 diabetes mellitus without complication (485736720) Type 1 diabetes mellitus without complication (E10.9) Active confirmed Vital Signs Height 5ft 2in in 08/17/2024 Weight 255 lbs 08/17/2024 BMI 46.64 kg/m2 08/17/2024 Procedures Procedure Date Ordered Date Performed Result Body Sit e 70200-OFBJNKR NAIL, 6 OR MORE 11/10/2023 N/A 78886-Tnrtusrw Plate 11/10/2023 N/A 33522-Mesgjqzu Plate Each Additional 11/10/2023 N/A 83160-UMJG SKIN LESIONS, OVER 4 11/10/2023 N/A 18322-DVWDPQS NAIL, 6 OR MORE 02/16/2024 N/A 12599-Bkmbuoqa Plate 02/16/2024 N/A 20267-Evlrajdz Plate Each Additional 02/16/2024 N/A 24732-YJRN SKIN LESIONS, OVER 4 02/16/2024 N/A 80206-YLAKUCF NAIL, 6 OR MORE 05/17/2024 N/A 26368-Npnidjbw Plate 05/17/2024 N/A 64094-Zrjbhqtg Plate Each Additional 05/17/2024 N/A 66851-WUXZ SKIN LESIONS, OVER 4 05/17/2024 N/A 43134-KGJCPCB NAIL, 6 OR MORE 08/17/2024 N/A 32939-Qnrzzerq Plate 08/17/2024 N/A 19146-Ztfitsgi Plate Each Additional 08/17/2024 N/A 12644-ICSB SKIN LESIONS, OVER 4 08/17/2024 N/A Encounters Encounter Location Date Provider Diagnosis [facility] [address] [address] 11/10/2023 Edilson Luis Type 1 diabetes mellitus without complication E10.9 ; Pain in right toe(s) M79.674 ; Tinea unguium B35.1 ; Pain in left toe(s) M79.675 ; Ingrowing nail L60.0 ; Other hammer toe(s) (acquired), right foot M20.41 and Other hammer toe(s) (acquired), left foot M20.[address] [address] 02/16/2024 Edilson Janelle Type 1 diabetes mellitus without complication E10.9 ; Pain in right toe(s) M79.674 ; Tinea unguium B35.1 ; Pain in left toe(s) M79.675 ; Ingrowing nail L60.0 ; Other hammer toe(s) (acquired), right foot M20.41 and Other hammer toe(s) (acquired), left foot M20.[address] [address] 05/17/2024 Edilsonjanette SainiJanelle Pain in right toe(s) M79.674 ; Tinea unguium B35.1 ; Pain in left toe(s) M79.675 ; Type 1 diabetes mellitus without complication E10.9 ; Ingrown nail L60.0 ; Other hammer toe(s) (acquired), right foot M20.41 and Other hammer toe(s) (acquired), left foot M20.[address] [address] 08/17/2024 Edilsonjanette SainiJanelle Pain in right toe(s) M79.674 ; Tinea unguium B35.1 ; Pain in left toe(s) M79.675 ; Type 1 diabetes mellitus without complication E10.9 ; Ingrown nail L60.0 and Xerosis of skin L85.3 Assessments Encounter Date Diagnosis (ICD Code) Assessment Notes Treatment Notes Treatment Clinical Notes Section Notes 11/10/2023 Type 1 diabetes mellitus without complication (ICD-10 - E10.9) 02/16/2024 Type 1 diabetes mellitus without complication (ICD-10 - E10.9) 05/17/2024 Tinea unguium (ICD-10 - B35.1) 05/17/2024 Pain in right toe(s) (ICD-10 - M79.674) 08/17/2024 Tinea unguium (ICD-10 - B35.1) 08/17/2024 Pain in right toe(s) (ICD-10 - M79.674) 08/17/2024 Pain in left toe(s) (ICD-10 - M79.675) 05/17/2024 Pain in left toe(s) (ICD-10 - M79.675) 11/10/2023 Pain in right toe(s) (ICD-10 - M79.674) 02/16/2024 Pain in right toe(s) (ICD-10 - M79.674) 11/10/2023 Tinea unguium (ICD-10 - B35.1) 11/10/2023 Pain in left toe(s) (ICD-10 - M79.675) 02/16/2024 Tinea unguium (ICD-10 - B35.1) 02/16/2024 Pain in left toe(s) (ICD-10 - M79.675) 05/17/2024 Type 1 diabetes mellitus without complication (ICD-10 - E10.9) 08/17/2024 Type 1 diabetes mellitus without complication (ICD-10 - E10.9) 08/17/2024 Ingrown nail (ICD-10 - L60.0) 05/17/2024 Ingrown nail (ICD-10 - L60.0) 11/10/2023 Ingrowing nail (ICD-10 - L60.0) 02/16/2024 Ingrowing nail (ICD-10 - L60.0) 08/17/2024 Xerosis of skin (ICD-10 - L85.3) 05/17/2024 Other hammer toe(s) (acquired), right foot (ICD-10 - M20.41) Response to treatment,Impro vement 05/17/2024 Other hammer toe(s) (acquired), left foot (ICD-10 - M20.42) Response to treatment,Impro vement 11/10/2023 Other hammer toe(s) (acquired), right foot (ICD-10 - M20.41) Patient Educated with: DIABETIC FOOT CARE INSTRUCTIONS.p df (DIABETIC FOOT CARE INSTRUCTIONS.p df) 02/16/2024 Other hammer toe(s) (acquired), right foot (ICD-10 - M20.41) Patient Educated with: DIABETIC FOOT CARE INSTRUCTIONS.p df (DIABETIC FOOT CARE INSTRUCTIONS.p df) 02/16/2024 Other hammer toe(s) (acquired), left foot (ICD-10 - M20.42) 11/10/2023 Other hammer toe(s) (acquired), left foot (ICD-10 - M20.42) Plan Of Treatment Pending Test Test Name Order Date X ray : Foot, left 2V 04/04/2015 Glucose Fasting 04/04/2015 03885-KEGZRHW NAIL, 6 OR MORE 07/09/2015 43599-ZOPUZHO NAIL, 6 OR MORE 09/27/2015 24521-AZRPYQF NAIL, 6 OR MORE 01/03/2016 25813-ONIAZKI NAIL, 6 OR MORE 04/15/2016 92233-PRGFWPD NAIL, 6 OR MORE 07/15/2016 78829-GOCYCNK NAIL, 6 OR MORE 10/14/2016 68821-NCYMOCP NAIL, 6 OR MORE 01/25/2017 69076-XUCXPCA NAIL, 6 OR MORE 04/21/2017 38258-MJUANON NAIL, 6 OR MORE 04/04/2015 34681-UZEDVLZ NAIL, 6 OR MORE 07/28/2017 49107-CTLPUDJ NAIL, 6 OR MORE 10/27/2017 78893-FVRNETU NAIL, 6 OR MORE 01/26/2018 09831-IOHXHWX NAIL, 6 OR MORE 04/27/2018 75939-TTAJPVO NAIL, 6 OR MORE 11/02/2018 66656-HJYCQXR NAIL, 6 OR MORE 2019 21778-UKBHIQX NAIL, 6 OR MORE 08/03/2018 30082-UMAWDRF NAIL, 6 OR MORE 05/03/2019 13181-MWGXEEB NAIL, 6 OR MORE 08/16/2019 30679-KWAUTEZ NAIL, 6 OR MORE 11/15/2019 64305-NYZQADP NAIL, 6 OR MORE 12/02/2020 95644-FMDQYQH NAIL, 6 OR MORE 04/21/2021 95142-PGIKNSC NAIL, 6 OR MORE 08/13/2021 97995-PTVVCYD NAIL, 6 OR MORE 11/10/2021 20076-PURCSHG NAIL, 6 OR MORE 09/02/2020 86521-OCHNLOZ NAIL, 6 OR MORE 02/09/2022 00055-HUBYWYI NAIL, 6 OR MORE 05/11/2022 90485-KCSHHPZ NAIL, 6 OR MORE 09/24/2022 40891-GZLMGBQ NAIL, 6 OR MORE 01/25/2023 64211-VTHUDVQ NAIL, 6 OR MORE 07/14/2023 41459-ETERHRO NAIL, 6 OR MORE 11/10/2023 35427-AGXEYJL NAIL, 6 OR MORE 02/16/2024 49461-ENTSQLK NAIL, 6 OR MORE 05/17/2024 87223-RYTUJTG NAIL, OR MORE 08/17/2024 53887-Cekkvyjk Plate 08/17/2024 08892-Mrtumtip Plate 05/17/2024 79631-Rcrdqvlx Plate 02/16/2024 76891-Igonfmku Plate 11/10/2023 41456-Lxxqvaec Plate 07/14/2023 81427-Dbfkuiuj Plate 01/25/2023 41516-Ijfniybe Plate 09/24/2022 54710-Douijodj Plate 05/11/2022 92156-Fhukiuuc Plate 11/02/2018 26233-Nulibrrh Plate 02/09/2022 02033-Rnpntrzi Plate 09/02/2020 12607-Ctpuxojw Plate 11/10/2021 98310-Zhgnjleo Plate 08/13/2021 27881-Ohuzunhe Plate 04/21/2021 79901-Mkkdfmyu Plate 12/02/2020 70615-Gljobiuv Plate 11/15/2019 05227-Uwlcqglu Plate 08/16/2019 38951-Dkjsqmgv Plate 05/03/2019 84953-Wtifhvir Plate 2019 15604-Lmdbrbya Plate 10/27/2017 54466-Brqgjgbq Plate 08/03/2018 88701-Yymnjggv Plate 04/27/2018 05006-Kfnguhtg Plate 01/26/2018 56987-Pbzuwowl Plate 07/28/2017 89508-Tlgxiwbr Plate 01/25/2017 70471-Qjsugfax Plate 04/21/2017 70887-Dbuubakx Plate 10/14/2016 66640-Kwxtcxjh Plate 07/15/2016 45187-Dmdssiud Plate 04/15/2016 04978-Gxzcmfvx Plate 01/03/2016 98405-Snzhvdnv Plate 09/27/2015 51144-Eqdmvyth Plate 07/09/2015 01001-Zqpmjlcu Plate 04/04/2015 09825-Uxahzjkr Plate Each Additional 09/2015 99612-Fdglfkvg Plate Each Additional 04240-Udvoqvey Plate Each Additional 03/2016 23514-Vhlfpvmc Plate Each Additional 49905-Zhalinyx Plate Each Additional 59475-Eldppzsv Plate Each Additional 94643-Tqcqccqo Plate Each Additional 01801-Yiufirkk Plate Each Additional 19647-Uibowwav Plate Each Additional 03/2018 67352-Wzgurhyq Plate Each Additional 04/2019 45055-Cmzlmfir Plate Each Additional 03/2019 26843-Sjffwgpl Plate Each Additional 03/2018 95705-Esiwiknn Plate Each Additional 94644-Zrdwggwf Plate Each Additional 41378-Frooryva Plate Each Additional 02/2021 88359-Zdwopuyl Plate Each Additional 75345-Swpjzxjm Plate Each Additional 00010-Nonepfkb Plate Each Additional 28229-Krutlauv Plate Each Additional 03/2020 97329-Qsdmdiwy Plate Each Additional 61560-Fpxfnzlb Plate Each Additional 39392-Dysqituh Plate Each Additional 50586-Engdemfz Plate Each Additional 57098-Wifxckly Plate Each Additional 50639-Bunqzgnw Plate Each Additional 73069-Iitrgjzl Plate Each Additional 33517-Rupelrbx Plate Each Additional 61855-Cwsosurm Plate Each Additional 07225-YJBJ SKIN LESIONS, OVER 4 08/17/20 24 67271-IWCI SKIN LESIONS, OVER 4 05/17/20 24 06190-PDUP SKIN LESIONS, OVER 4 02/16/20 24 03920-URHC SKIN LESIONS, OVER 4 11/10/20 23 55383-VWHG SKIN LESIONS, OVER 4 07/14/20 23 84983-NQPB SKIN LESIONS, OVER 4 01/25/20 23 69086-QPOU SKIN LESIONS, OVER 4 09/24/20 22 63503-YDGW SKIN LESIONS, OVER 4 05/11/20 22 01769-CVYQ SKIN LESIONS, OVER 4 11/10/20 21 29427-ECRG SKIN LESIONS, OVER 4 08/13/20 21 08603-XFCG SKIN LESIONS, 2 TO 4 04/21/20 21 96784-IIUI SKIN LESIONS, 2 TO 4 12/02/19 21 21451-PAVH SKIN LESIONS, 2 TO 4 04/04/20 15 54665,R7306-EIE TENDON SHEATH/LIGAMENT 0 06/14/2015 Next Appt Details Provider Name:Edilson Luis , 11/27/2024 08:30:00 AM, [address] [facility], [address], [place], [address], Insurance Providers Payer Name Payer Address Payer Phone Subscriber Number Group Number Insured Name Patient Relationship to Insured Coverage Start Date Coverage End Date [facility] [address] [place] [address] [id number] Kathryn Arzola Self - patient is the insured Medical (General) History Medical History History ICD Code Diabetic Hypertension Allergic rhinitis Hypercholesterolemia Surgical History Surgery Date(Month/Year) section Hospitalization History Reason Date(Month/Year) Colonoscopy 08/07/19 [facility] Stitches in head 02/2019
--- OUTSIDE RECORDS SUMMARY | 2024-11-08 05:29 | XMS_ITS ---
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 Name Role Phone Behzad Arzola MD Primary Care Provider Unavaila Edilson Ricketts Unavailable [phone] Allergies Allergen (clinical drug ingredient) Drug/Non Drug Allergy documented on EMR Reaction Allergy Type Onset Date Status amoxicillin / clavulanate Augmentin rash Drug Allergy Active sulfamethoxazole / trimethoprim Bactrim rash Drug Allergy Active Keflex rash Drug Allergy Active empagliflozin Jardiance Yeast Infection Drug Allergy Active Substance with sulfonamide structure and antibacterial mechanism of action (substance) Sulfa Antibiotics rash Drug Allergy Active REASON FOR VISIT At Risk Footcare, Painful Nail(s) aggrevated by shoes and causing difficulty standing/walking., Ingrown nail(s), Toe Irritation Medications Medication SIG (Take, Route, Frequency, Duration) Notes Start Date End Date Status Multivitamin Active metFORMIN HCl Active Ammonium Lactate 12 % APPLY 1 APPLICATIO N TO AFFECTED AREA EXTERNALLY TWICE A DAY FOR 30 DAYS for 90 Active Vitamin D3 Active Pravastatin Sodium 10 MG Oral for 30 Active ibuprofen Active hydroCHLOROthiazide Active Flonase Active Lisinopril 20 MG 1 tablet Orally Once a day Active Lantus 30 units Acti ve Extra Depth Orthopedic Shoes (1 Pair) with Customized Heat Molded Multidensity Innersoles (3 Pair) as directed Dx: IDDM (E10.9), Hammertoe Foot Deformity (M20.41,M20.42), Preulcerative Skin Lesion(s) (L85.1) Active Fluticasone Propionate 50 MCG/ACT 1 spray in each nostril Nasally Once a day Not-Taking amLODIPine Besylate 10 MG 1 tablet Orall y Once a day Active Aspir-81 Active Fluticasone Furoate Not-Taking Fish Oil 1000 MG 1 capsule Orally Onc e a day Not-Taking oxyBUTYnin Chloride 10 mg 1 tablet Orall y Once a day Not-Taking Lantus 60 units Not- Taking Jardiance Not-Taking Victoza 1.8 mg Not-T aking Ozempic Not-Taking Pioglitazone HCl Not -Taking Mounjaro Not-Taking Social History Tobacco Use: Social History Observation [...] Are you an other tobacco user? No Vital Signs Height 5ft 2in in 02/16/2024 Weight 260 lbs 02/16/2024 BMI 47.55 kg/m2 02/16/2024 Procedures Procedure Date Ordered Date Performed Result Body Sit e 27385-NTEHRYJ NAIL, 6 OR MORE 02/16/2024 N/A 35360-Cmlmubor Plate 02/16/2024 N/A 80445-Acwaccro Plate Each Additional 02/16/2024 N/A 28039-ABDM SKIN LESIONS, OVER 4 02/16/2024 N/A Encounters Encounter Location Date Provider Diagnosis [facility] [place] [address] [place] [id number] 02/16/2024 Edilson Luis Type 1 diabetes mellitus without complication E10.9 ; Pain in right toe(s) M79.674 ; Tinea unguium B35.1 ; Pain in left toe(s) M79.675 ; Ingrowing nail L60.0 ; Other hammer toe(s) (acquired), right foot M20.41 and Other hammer toe(s) (acquired), left foot M20.42 Assessments Encounter Date Diagnosis (ICD Code) Assessment Notes Treatment Notes Treatment Clinical Notes Section Notes 02/16/2024 Type 1 diabetes mellitus without complication (ICD-10 - E10.9) 02/16/2024 Pain in right toe(s) (ICD-10 - M79.674) 02/16/2024 Tinea unguium (ICD-10 - B35.1) 02/16/2024 Pain in left toe(s) (ICD-10 - M79.675) 02/16/2024 Ingrowing nail (ICD-10 - L60.0) 02/16/2024 Other hammer toe(s) (acquired), right foot (ICD-10 - M20.41) Patient Educated with: DIABETIC FOOT CARE INSTRUCTIONS.p df (DIABETIC FOOT CARE INSTRUCTIONS.p df) 02/16/2024 Other hammer toe(s) (acquired), left foot (ICD-10 - M20.42) Plan Of Treatment Medication Medication Name Sig Start Date Stop Date Notes Extra Depth Orthopedic Shoes (1 Pair) with Customized Heat Molded Multidensity Innersoles (3 Pair) as directed Dx: IDDM (E10.9), Hammertoe Foot Deformity (M20.41,M20.42), Preulcerative Skin Lesion(s) (L85.1) Treatment Notes Assessment Notes Other hammer toe(s) (acquired), right fo ot Patient Educated with: DIABETIC FOOT CARE INSTRUCTIONS.pdf (DIABETIC FOOT CARE INSTRUCTIONS.pdf) Pending Test Test Name Order Date 79872-WSKANYZ NAIL, 6 OR MORE 02/16/2024 16742-Hnncttme Plate 02/16/2024 06793-Tuxtrtxp Plate Each Additional 66473-XFWM SKIN LESIONS, OVER 4 02/16/20 24 Next Appt Details Follow Up: prn, Reason: Provider Name:Edilson Luis , 11/27/2024 08:30:00 AM, [address] [facility], [address], [place], [address], Procedure Notes * Category Sub-Category Detail Notes Nail Avulsion Procedure A fine sterile e levator was placed between the eponychium, nail fold, and nail plate to separate the the structures. A sterile nail splitter, and/or sterile #316 blade, was then used to longitudinally section the nail along its entire length through the eponychium to the area under the nail fold. The offending portion of each nail was from the nail bed with a rolling action and then removed with a hemostat. No underlying bone was identified. A bacitracin sterile dressing was applied. Local wound aftercare instructions were discussed and dispensed. The patient was informed of both conservative and future surgical procedures to prevent recurrence (33463/32), DIABETES: Pt was advised as to the risk of delayed or nonhealing due to diabetes. Pt is to call the office with any questions, concerns, or complications, DIABETES: Matricectomy deferred due to diabetes risk Anesthesia was deferred - PT AB SOLUTELY REFUSES - tolerant to pain without issue/complication, was accomplished with ETHYL CHLORIDE topically per Pt preference Location Lateral nail borders , TA, T5 Debride Nail 6-10 Nail debridement Nail debridem ent performed extensively to reduce/remove overall nail length, girth, thickness, subungual debris, and necrotic tissue, by manual and electrical means through the use of a nail nipper and/or dremel, to more viable healthy nail plate or bed tissue 1-5. Silver nitrate used for any petechial bleeding as necessary. Patient chooses, no pharmaceutical tx (20560) Keratoma Treatment Parring or Cutting o f Benign Hyperkeratotic Lesion(s) 19315 ( >4 Lesions) - The Benign hyperkeratotic lesions, as described above were pared, and/or cut utilizing a sterile #15 blade, tissue nippers, and/or dremel Progress Notes * Kathryn MCCORMICK KDOB:[birth year] (69 yo F)Acc No.[id number]:02/16/2024 Progress Note Patient:?Kathryn Mccormick K Provider:?Edilson Luis DPM :1955???Age:69 Y???Sex:Female D ate:02/16/2024 Address:[address] [place], [place] [id number] Pcp:Behzad Arzola MD Subjective: * Chief Complaints: * ???At Risk FootcarePainful N ail(s) aggrevated by shoes and causing difficulty standing/walking.Ingrown nail(s)Toe Irritation * HPI: ???At Risk footcare:?Pt States Last PCP Visit:?Date?12/17/2023 ???Toe pain:?Location:?B/L feet.?Duration:?several years.?Course:?worse.?Aggrevated by:?shoes, any pressure.?Treatments:?change in shoes.? * ROS:?General/Constitutional:?Nausea?denies.?Vomiting?denies.?Hunger Thirst?denies.?Loss appetite?denies.?Chills?denies.?Fatigue?denies.?Fever?denies.?Night Sweats?denies.?Unexplained weight loss?denies.?Ophthalmologic:?Blurred vision?denies.?Red eye?denies.?HEENTM:?Dentures?denies.?Dizziness?denies.?Glasses/contacts?denies.?Retinopathy?de nies.?Blurred/double vision?denies.?TMJ?denies.?Discharge/drainage?denies.?Implants?denies.?Hard of hearing denies.?Difficulty chewing/swallowing/speaking?denies.?Nose bleeds?denies.?Sore mouth?denies.?Swollen glands?denies.?Respiratory:?On Oxygen?denies.?Pneumonia/pleurisy?denies.?Bronchitis?denies.?Emphysema?denies.?C oughing?denies.?Cough blood?denies.?Shortness of breath?denies.?Wheezing?denies.?Cardiovascular:?Pacemaker?denies.?MVP?denies.?WPW?denies.?CHF?denies.?Heart attack?denies.?Septal defect?denies.?Rapid beat?denies.?Chest pain ?denies.?Atrial Fib.?denies.?Murmur/Palpitations?denies.?Gastrointestinal:?Hemorrhoids?denies.?Stomach/Abdominal pain?denies.?Dark blood stool?denies.?Irritable bowel ?denies.?Constipation?denies.?Diarrhea?denies.?Vomiting?denies.?Hematology:?Swelling?admits.?Bruising?admits, on aspirin.?Bleeding problem?admits, on anticoagulants.?Genitourinary:?Blood urine?denies.?Frequent/Painfu/urination/bladder control?admits.?Kidney stones?denies.?Infection (UTI)?denies.?Nephropathy?denies.?Musculoskeletal:?Hammertoes?admits.?Bunions?denies.?Scoliosis/kyphosis?denies.?Muscle cramps / walking?denies.?Generalized aches and pains?denies.?Weakness?denies.?Integ.:?Thakkar?denies.?Scars?denies.?Corns/calluses?admits.?Ingrown nails?admits.?Painful nails?admits.?Rashes?denies.?Neurologic:?Difficulty sleeping?denies.?Bipolar?denies.?Brain disorder?denies.?Balance trouble?denies.?Confusion?denies.?Fainting/blackouts?denies.?Headache?denies.?Tr emors?denies.? * Medical History:? * Surgical History:? s ection * Hospitalization/Major Diagno stic Procedure:?[facility] Stitches in head 02/2019Colonoscopy 08/07/19 * Family History:?Mother: dece ased, diagnosed with Other malignant neoplasm of unspecified site, Family history of arthritis.?Father: , diagnosed with Other malignant neoplasm of unspecified site. Siblings: kidney/liver disease, heart attack, diagnosed with Unspecified essential hypertension, Other malignant neoplasm of unspecified site.?Spouse: .? * Social History:?Tobacco Use:?Tobacco Use/Smoking?Are you a:?nonsmoker ?Additional Findings: Tobacco Non-User?Current non-smoker ?Tobacco use other than smoking?Are you an other tobacco user??No ???Drugs/Alcohol:?Drugs?Have you used drugs other than those for medical reasons in the past 12 months??No ?Alcohol Screen?Did you have a drink containing alcohol in the past year??No ?Points?0 ?Interpretation?Negative ???Miscellaneous:?Caffeine: yes, frequency:, 2-3 cups per day. ?Children: yes, Two. ?Exercise: yes, walking. ?Marital status: . ?Occupation: [employer]. * Medications:?TakingAspir-81 amLODIPine Besylate 10 MG Tablet 1 tablet Orally Once a dayFlonase hydroCHLOROthiazide ibuprofen Lantus 30 units Lisinopril 20 MG Tablet 1 tablet Orally Once a daymetFORMIN HCl Multivitamin Pravastatin Sodium 10 MG Tablet Oral Vitamin D3 Ammonium Lactate 12 % Cream APPLY 1 APPLICATION TO AFFECTED AREA EXTERNALLY TWICE A DAY FOR 30 DAYS Extra Depth Orthopedic Shoes (1 Pair) with Customized Heat Molded Multidensity Innersoles (3 Pair) as directed Dx: IDDM (E10.9), Hammertoe Foot Deformity (M20.41,M20.42), Preulcerative Skin Lesion(s) (L85.1)Taking Aspir-81 Taking amLODIPine Besylate 10 MG Tablet 1 tablet Orally Once a dayTaking Flonase Taking hydroCHLOROthiazide Taking ibuprofen Taking Lantus 30 units Taking Lisinopril 20 MG Tablet 1 tablet Orally Once a dayTaking metFORMIN HCl Taking Multivitamin Taking Pravastatin Sodium 10 MG Tablet Oral Taking Vitamin D3 Taking Ammonium Lactate 12 % Cream APPLY 1 APPLICATION TO AFFECTED AREA EXTERNALLY TWICE A DAY FOR 30 DAYS Taking Extra Depth Orthopedic Shoes (1 Pair) with Customized Heat Molded Multidensity Innersoles (3 Pair) as directed Dx: IDDM (E10.9), Hammertoe Foot Deformity (M20.41,M20.42), Preulcerative Skin Lesion(s) (L85.1)Not- Taking/PRNMounjaro Pioglitazone HCl Ozempic Fish Oil 1000 MG Capsule 1 capsule Orally Once a dayVictoza 1.8 mg Jardiance Lantus 60 units oxyBUTYnin Chloride 10 mg Tablet 1 tablet Orally Once a dayFluticasone Propionate 50 MCG/ACT Suspension 1 spray in each nostril Nasally Once a dayFluticasone Furoate Medication List reviewed and reconciled with the patientNot-Taking/PRN Mounjaro Not-Taking/PRN Pioglitazone HCl Not- Taking/PRN Ozempic Not-Taking/PRN Fish Oil 1000 MG Capsule 1 capsule Orally Once a dayNot-Taking/PRN Victoza 1.8 mg Not-Taking/PRN Jardiance Not-Taking/PRN Lantus 60 units Not-Taking/PRN oxyBUTYnin Chloride 10 mg Tablet 1 tablet Orally Once a dayNot-Taking/PRN Fluticasone Propionate 50 MCG/ACT Suspension 1 spray in each nostril Nasally Once a dayNot-Taking/PRN Fluticasone Furoate Medication List reviewed and reconciled with the patient * Allergies:?Augmentin: rashBa ctrim: rashKeflex: rashJardiance: Yeast InfectionSulfa Antibiotics: rashyes[Allergies Verified] Objective: * Vitals:?Ht: 5ft 2in, Wt:260, BMI:47.55, Shoe size: 8.5-9, BS: 156, Ht-cm: 157.48 cm, Wt-k.93 kg. * Examination: ???Nails: ?NAILS are:?Elongated, overgrown, dystrophic, lytic, greater than 3mm thick, discolored and friable with crumbly malodorous subungual debris, with pain on palpation, 1-5 B/L.?Ingrown Nail: ?INSPECTION:?Reveals incurvation, pain on palpation, groove hypertrophy, Lateral nail border, TA, T5.?Dermatologic: ?SKIN FINDINGS:?Skin exam reveals Keratotic lesion(s) located at, SUB MTH (s), 1, B/L , SUB MTH (s), 5, B/L , Heel(s), B/L.?Orthopedic: ?MUSCLE STRENGTH:?5/5 all groups in a symmetrical fashion , B/L.?GAIT ABNORMALITY:?apropulsive , cane-assisted.?FOOT MORPHOLOGY:? Pes Planus structure, No Charcot collapse/destruction noted at MTJ.?DIGITAL DEFORMITIES:?Digital contracture, PIPJ, 2-5 B/L, incompl-reducible to push-up test, no over, nor underlapping,?with evidence of shoe producing skin irritation.?FOOTWEAR:?worn, OT were inspected and noted to be severely worn , in poor condition not giving proper support at the present time, shoe gear properties exacerbate patient's foot/toe deformity .?Neurological: ?SENSORY:?Neurological exam reveals intact sensorium, pain sensation normal, vibration sensation intact, pinprick sensation is normal in the lower extremities, 5.07 monofilament test performed at plantar aspects of 5 varied sites per foot shows sensation, normal, B/L, Pt denies, anesthesia, burning, paresthesia, tingling, B/L.?Vascular: ?DP PULSES:?2/4, B/L.?PT PULSES:?2/4, B/L.?CAPILLARY FILL TIME:?immediate, all digits, B/L.?SKIN TEMPERTURE GRADIENT OF THE LOWER EXTERMITIES:?normal, warm to cool, proximal to distal, B/L.?HAIR GROWTH/TEXTURE/ELASTICITY/TURGOR:?normal, B/L.?PIGMENTATION:?normal, B/L.?EDEMA:?3/4, non-pitting, without aching pain, B/L, Leg(s), Ankle(s), Feet.?Ophthalmology Referral: ?DIABETES EYE EXAM?General Examination: ?GENERAL APPEARANCE:?Reveals a pleasant, alert, well nourished, well- developed, well hydrated individual, who demonstrates proper attention to hygiene/body habitus, and is in no acute distress, Pt serves as own historian for office visit today.?ORIENTED:?person, place, and time.?FOOT EXAM:?Footwear Evaluation? Assessment: * Assessment: 1.?Type 1 diabetes mellitus without complication - E10.9?2.?Pain in right toe(s) - M79.674?3.?Tinea unguium - B35.1 (Primary)?4.?Pain in left toe(s) - M79.675?5.?Ingrowing nail - L60.0, Lateral nail border, TA, T5?6.?Other hammer toe(s) (acquired), right foot - M20.41, Chronic problem, Worse (4),Rx Management (4)?7.?Other hammer toe(s) (acquired), left foot - M20.42, Chronic problem, Worse (4),Rx Management (4)? Plan: * Treatment: 2.?Type 1 diabetes mellitus without complication?Procedure: 39793-BUCP SKIN LESIONS, OVER 4 3.?Ingrowing nail?Procedure: 61111-Tcyjzhkt Plate ?Procedure: 39749-Dvrumclz Plate Each Additional 4.?Other hammer toe(s) (acqu ired), right foot? Start Extra Depth Orthopedic Shoes (1 Pair) with Customized Heat Molded Multidensity Innersoles (3 Pair), as directed, Dx: IDDM (E10.9), Hammertoe Foot Deformity (M20.41,M20.42), Preulcerative Skin Lesion(s) (L85.1), 1, Refills 0.?? Notes: Patient Educated with: DIABETIC FOOT CARE INSTRUCTIONS.pdf (DIABETIC FOOT CARE INSTRUCTIONS.pdf)?? * Procedures:?Debride Nail 6-10:?Nail debridement?Nail debridement performed extensively to reduce/remove overall nail length, girth, thickness, subungual debris, and necrotic tissue, by manual and electrical means through the use of a nail nipper and/or dremel, to more viable healthy nail plate or bed tissue 1-5. Silver nitrate used for any petechial bleeding as necessary. Patient chooses, no pharmaceutical tx (33896).?Keratoma Treatment:?Parring or Cutting of Benign Hyperkeratotic Lesion(s)?99344 ( >4 Lesions) - The Benign hyperkeratotic lesions, as described above were pared, and/or cut utilizing a sterile #15 blade, tissue nippers, and/or dremel.?Nail Avulsion:?Location?Lateral nail borders, TA, T5.?Anesthesia?was deferred - PT ABSOLUTELY REFUSES - tolerant to pain without issue/complication, was accomplished with ETHYL CHLORIDE topically per Pt preference.?Procedure?A fine sterile elevator was placed between the eponychium, nail fold, and nail plate to separate the the structures. A sterile nail splitter, and/or sterile #316 blade, was then used to longitudinally section the nail along its entire length through the eponychium to the area under the nail fold. The offending portion of each nail was from the nail bed with a rolling action and then removed with a hemostat. No underlying bone was identified. A bacitracin sterile dressing was applied. Local wound aftercare instructions were discussed and dispensed. The patient was informed of both conservative and future surgical procedures to prevent recurrence (97532/32), DIABETES: Pt was advised as to the risk of delayed or nonhealing due to diabetes. Pt is to call the office with any questions, concerns, or complications, DIABETES: Matricectomy deferred due to diabetes risk.? * Procedure Codes:?05382 DEBRI DE NAIL, 6 OR MORE, Modifiers: XS 09971 Avulsion Plate, Modifiers: XS , [id number] Avulsion Plate Each Additional, Modifiers: XS , [id number] TRIM SKIN LESIONS, OVER 4, Modifiers: XS * Preventive Medicine:? ??Counseling:?Discussion:?-14: Office or other outpatient visit for the evaluation and management of an established patient, which required a medically appropriate history and/or examination and MODERATE level of DECISION MAKING for: 1 OR MORE CHRONIC PROBLEM(S) THATS WORSENING, 2 STABLE CHRONIC PROBLEMS, A NEWLY DIAGNOSED PROBLEM WITH UNCERTAIN PROGNOSIS, AN ACUTE COMPLICATED INJURY WITH MULTIPLE TREATMENT OPTIONS, OR AN ACUTE PROBLEM WITH ACCOMPANYING SYSTEMIC SYMPTOMS, THAT POSE(S) A MODERATE RISK OF MORBIDITY. THIS CONDITION MAY ALSO INCLUDE RX DRUG MANAGEMENT, OR A DECISON FOR MINOR SURGERY. The visit on the day of the encounter encompassed interpreting the data and educating the patient as to the nature of their condition, treatment options available according to their individual PMH, meds, allergies, and overall health/living conditions, as well as any potential risks or complications that may occur from a failure to adhere to, and participate in, the recommended course of therapy. The discussion included a complete verbal, and/or written explanation of the examination results, any x-rays taken, the proposed diagnosis, and outline of the treatment plan. A schedule for future care needs was also explained. The patient verbalized an understanding of the instructions at this time and agreed to be an active participant in their treatment. If the patient should think of any questions or concerns after the visit, I have encouraged the patient to call the office.?Digital Surgery:?Digital surgery was discussed with the patient, We elected to try conservative treatment at the present time, due to the patients medical history and increased asssociated post-operative risks.?Digital Treatment:?HT- I explained to the patient the possible etiologies of Hammertoes, including genetics/foot type/shoegear/activity level/exercise routine and the risks/benefits of all the different treatment options for their pain including: No treatment at all, Rest, Ice, New/supportive/wider/deeper Shoegear, Digital Padding/Strapping/Taping/Bracing/Gel protective sleeves, Foot/Ankle AFO Bracing, Stretching exercises, Deep Tissue Massage, Arch support/shoe inserts with splay metatarsal padding, and Custom orthoses. I insisted that any digital devices be removed daily and not worn overnight for safety. The patient is to carefully examine the toes daily for any skin irritation while using any splinting or padding device. The advantages and disadvantages of each option were discussed and the patients questions re: shoegear, padding, custom vs prefabricated inserts, activity level, and consistency in home treatment regimens for optimal success were answered to their verbally confirmed satisfaction.?Shoe Gear Counseling:?SHOE Rx - The patient was counseled in great detail on their muscoloskeletal foot and toe deformities which coincided with the dermatological presentations visualized on exam. We discussed how their deformities put the integrity of their feet at risk for potential pedal complications which makes the accomidative diabetic shoes and cutomizable inserts medically necessary. We discussed the different shoe and insert treatment types and options, as well as the important advantages for adhering to regularly wearing these accomidative devices daily. The patient was made aware of the fact that a failure to abide by these recommedations may be deleterious to their foot health as they are able to prevent many pedal complications such as skin irritation, skin ulceration, infection, and even loss of toe/foot/leg/or life. Time was also spent with the patient dispensing and discussing proper diabetic footcare techniques including daily skin moisturization, daily foot inspection for any interruption in skin integrity including open lesions, or sign of infection such as redness/malodor/drainage/swelling. Also discussed and recommended were procedures regarding daily shoe inspection for the presence of internal foreign bodies as well as any visualized irregular shoe or insert wear. Patient questions re: shoes, inserts, and self foot inspections were answered to their satisfaction as the patient verbally confirmed a full understanding of the above information. A Rx for Extra Depth Orthopedic Shoes with 3 pair of custom heat-molded inserts was dispensed.? ??Screening/Special Tests:?Fall Risk?Assessment:?Performed ?Plan of Care:?Documented ?Screening:?No falls in the past year ?FALLS: Screening for Future Fall Risk?Have you had any falls with injury in the past year??No * Follow Up:?prn * Images: * Sign off status: Completed Addendum: * ? true * Provider:?Edilson Luis DPM Date:?2023 Generated for Yaz rose/Tomy/Rohan on:?11/08/2024 05:29 AM EST History and Physical Notes * HPI (History of Present Illness) Category Sub-Category Detail Notes Category Not es Toe pain Location: B/L feet Duration: several years Course: worse Aggravated by: shoes, any pressure Treatments: change in shoes At Risk footcare Pt States Last PCP Visit: Date: 4 Examination Category Sub-Category Detail Notes Category Not es Ingrown Nail INSPECTION: Reveals incurvat ion, pain on palpation, groove hypertrophy, Lateral nail border, TA, T5 Neurological SENSORY: Neurological exa m reveals intact sensorium, pain sensation normal, vibration sensation intact, pinprick sensation is normal in the lower extremities, 5.07 monofilament test performed at plantar aspects of 5 varied sites per foot shows sensation, normal, B/L, Pt denies, anesthesia, burning, paresthesia, tingling, B/L Dermatologic SKIN FINDINGS: Skin exam reveal s Keratotic lesion(s) located at, SUB MTH (s), 1, B/L , SUB MTH (s), 5, B/L , Heel(s), B/L Orthopedic GAIT ABNORMALITY: apropulsive , cane-assi sted FOOT MORPHOLOGY: Pes Planus structure , No Charcot collapse/destruction noted at MTJ FOOTWEAR: worn, OT were inspec carleen and noted to be severely worn , in poor condition not giving proper support at the present time, shoe gear properties exacerbate patient's foot/toe deformity DIGITAL DEFORMITIES: Digital contracture , PIPJ, 2-5 B/L, incompl-reducible to push-up test, no over, nor underlapping, with evidence of shoe producing skin irritation MUSCLE STRENGTH: 5/5 all groups in a symmetrical fashion , B/L General Examination GENERAL APPEARANCE: Reveals a pleasant, alert, well nourished, well-developed, well hydrated individual, who demonstrates proper attention to hygiene/body habitus, and is in no acute distress, Pt serves as own historian for office visit today FOOT EXAM: Lower Extremity Neurological Exa m performed:: Yes ORIENTED: person, place, and t yas Footwear Evaluation Footwear Evaluation performe d:: Yes Ophthalmology Referral DIABETES EYE EXAM Diabetic Retinopa thy Screening:: No Vascular DP PULSES(B): 2/4, B/L PT PULSES(B): 2/4, B/L CAPILLARY FILL TIME: immediate, all digi ts, B/L TEMPERTURE GRADIENT(C): normal, warm to cool, proximal to distal, B/L TROPHIC CONDITION-TEXTURE/ELASTICITY/TURGOR/HAIR GROWTH(B): normal, B/L EDEMA(C): 3/4, non-pitting, wi thout aching pain, B/L, Leg(s), Ankle(s), Feet PIGMENTATION: normal, B/L Nails NAILS are: Elongated, overg rown, dystrophic, lytic, greater than 3mm thick, discolored and friable with crumbly malodorous subungual debris, with pain on palpation, 1-5 B/L
--- OUTSIDE RECORDS SUMMARY | 2024-11-08 05:29 | XMS_ITS ---
[facility] Address [address] [place] [address] Care Team Providers Care Pumper Head Name Role Phone Behzad Arzola MD Primary Care Provider Unavaila Edilson Ricketts Unavailable [phone] Allergies Allergen (clinical drug ingredient) Drug/Non Drug [...] Duration) Notes Start Date End Date Status Fish Oil 1000 MG 1 capsule Orally Onc e a day Not-Taking Ozempic Not-Taking Pioglitazone HCl Not -Taking Mounjaro Not-Taking Tolterodine Tartrate ER 2 MG TAKE 1 CAPSULE BY MOUTH EVERY DAY Oral for 90 Days Active Ammonium Lactate 12 % APPLY 1 APPLICATIO N TO AFFECTED AREA EXTERNALLY TWICE A DAY FOR 30 DAYS for 90 Active Vitamin D3 Active Pravastatin Sodium 10 MG Oral for 30 Active Multivitamin Active Extra Depth Orthopedic Shoes (1 Pair) with Customized Heat Molded Multidensity Innersoles (3 Pair) as directed Dx: IDDM (E10.9), Hammertoe Foot Deformity (M20.41,M20.42), Preulcerative Skin Lesion(s) (L85.1) Active metFORMIN HCl Active Lisinopril 20 MG 1 tablet Orally Once a day Active Lantus 30 units Acti ve ibuprofen Active hydroCHLOROthiazide Active Aspir-81 Active Fluticasone Propionate 50 MCG/ACT 1 spray in each nostril Nasally Once a day Not-Taking Flonase Active amLODIPine Besylate 10 MG 1 tablet Orall y Once a day Active Fluticasone Furoate Not-Taking oxyBUTYnin Chloride 10 mg 1 tablet Orall y Once a day Not-Taking Lantus 60 units Not- Taking Jardiance Not-Taking Victoza 1.8 mg Not-T aking Social History Tobacco Use: Social History Observation [...] No Vital Signs Height 5ft 2in in 05/17/2024 Weight 260 lbs 05/17/2024 BMI 47.55 kg/m2 05/17/2024 Procedures Procedure Date Ordered Date Performed Result Body Sit e 49095-SFMYCLU NAIL, 6 OR MORE 05/17/2024 N/A 03341-Xxdqhzqv Plate 05/17/2024 N/A 56833-Tzixocpc Plate Each Additional 05/17/2024 N/A 52941-RWTD SKIN LESIONS, OVER 4 05/17/2024 N/A Encounters Encounter Location Date Provider Diagnosis [facility] [place] [address] [place] [id number] 05/17/2024 Edilson Janelle Pain in right toe(s) M79.674 ; Tinea unguium B35.1 ; Pain in left toe(s) M79.675 ; Type 1 diabetes mellitus without complication E10.9 ; Ingrown nail L60.0 ; Other hammer toe(s) (acquired), right foot M20.41 and Other hammer toe(s) (acquired), left foot M20.42 Assessments Encounter Date Diagnosis (ICD Code) Assessment Notes Treatment Notes Treatment Clinical Notes Section Notes 05/17/2024 Pain in right toe(s) (ICD-10 - M79.674) 05/17/2024 Tinea unguium (ICD-10 - B35.1) 05/17/2024 Pain in left toe(s) (ICD-10 - M79.675) 05/17/2024 Type 1 diabetes mellitus without complication (ICD-10 - E10.9) 05/17/2024 Ingrown nail (ICD-10 - L60.0) 05/17/2024 Other hammer toe(s) (acquired), right foot (ICD-10 - M20.41) Response to treatment,Impro vement 05/17/2024 Other hammer toe(s) (acquired), left foot (ICD-10 - M20.42) Response to treatment,Impro vement Plan Of Treatment Pending Test Test Name Order Date 91021-TQIQXXD NAIL, 6 OR MORE 05/17/2024 23864-Oukrubnr Plate 05/17/2024 86749-Nmebkrjy Plate Each Additional 52776-DRMP SKIN LESIONS, OVER 4 05/17/20 24 Next Appt Details Follow Up: prn, Reason: Provider Name:Edilson V Janelle , 11/27/2024 08:30:00 AM, [address] [facility], [address], [place], [address], Procedure Notes * Category Sub-Category Detail Notes [...] and future surgical procedures to prevent recurrence (84343/32), DIABETES: Pt was advised as to the [...] as necessary. Patient chooses, no pharmaceutical tx (53499) Keratoma Treatment Parring or Cutting o f Benign Hyperkeratotic Lesion(s) 84642 ( >4 Lesions) - The Benign hyperkeratotic lesions, as described above were pared, and/or cut utilizing a sterile #15 blade, tissue nippers, and/or dremel Progress Notes * Kathryn MCCORMICK KDOB:[birth year] (69 yo F)Acc No.[id number]:05/17/2024 Progress Note Patient:?Kathryn Mccormick K Provider:?Edilson Luis DPM :1955???Age:69 Y???Sex:Female D ate:05/17/2024 Address:[address] [place] [id number] Pcp:Behzad Arzola MD Subjective: * Chief Complaints: * ???At Risk FootcarePainful N ail(s) aggrevated by shoes and causing difficulty standing/walking.Ingrown nail(s)Toe Irritation * HPI: ???At Risk footcare:?Pt States Last PCP Visit:?Date?03/17/2024 States has an appt with PCP soon - May ???Toe pain:?Treatments:?Rx shoes .? * ROS:?General/Constitutional:?Nausea?denies.?Vomiting?denies.?Hunger Thirst?denies.?Loss appetite?denies.?Chills?denies.?Fatigue?denies.?Fever?denies.?Night Sweats?denies.?Unexplained weight loss?denies.?Ophthalmologic:?Blurred vision?denies.?Red eye?denies.?HEENTM:?Dentures?denies.?Dizziness?denies.?Glasses/contacts?denies.?Retinopathy?de nies.?Blurred/double vision?denies.?TMJ?denies.?Discharge/drainage?denies.?Implants?denies.?Hard of hearing denies.?Difficulty chewing/swallowing/speaking?denies.?Nose bleeds?denies.?Sore mouth?denies.?Swollen glands?denies.?Respiratory:?On Oxygen?denies.?Pneumonia/pleurisy?denies.?Bronchitis?denies.?Emphysema?denies.?C oughing?denies.?Cough blood?denies.?Shortness of breath?denies.?Wheezing?denies.?Cardiovascular:?Pacemaker?denies.?MVP?denies.?WPW?denies.?CHF?denies.?Heart attack?denies.?Septal defect?denies.?Rapid beat?denies.?Chest pain ?denies.?Atrial Fib.?denies.?Murmur/Palpitations?denies.?Gastrointestinal:?Hemorrhoids?denies.?Stomach/Abdominal pain?denies.?Dark blood stool?denies.?Irritable bowel ?denies.?Constipation?denies.?Diarrhea?denies.?Vomiting?denies.?Hematology:?Swelling?admits.?Bruising?admits, on aspirin.?Bleeding problem?admits, on anticoagulants.?Genitourinary:?Blood urine?denies.?Frequent/Painfu/urination/bladder control?admits.?Kidney stones?denies.?Infection (UTI)?denies.?Nephropathy?denies.?Musculoskeletal:?Hammertoes?admits.?Bunions?denies.?Scoliosis/kyphosis?denies.?Muscle cramps / walking?denies.?Generalized aches and pains?denies.?Weakness?denies.?Integ.:?Thkakar?denies.?Scars?denies.?Corns/calluses?admits.?Ingrown nails?admits.?Painful nails?admits.?Rashes?denies.?Neurologic:?Difficulty sleeping?denies.?Bipolar?denies.?Brain disorder?denies.?Balance trouble?denies.?Confusion?denies.?Fainting/blackouts?denies.?Headache?denies.?Tr emors?denies.? * Medical History:? * Surgical History:? s ection * [place]Major Diagno [place]ic [place] [place] 08/07/19 * Family History:?Mother: dece ased, diagnosed with Family history of arthritis, Other malignant neoplasm of unspecified site.?Father: , diagnosed with Other malignant neoplasm of [...] ?Exercise: yes, walking. ?Marital status: . ?Occupation: [employer]. * Medications:?TakingAspir-81 amLODIPine Besylate 10 MG Tablet [...] Hammertoe Foot Deformity (M20.41,M20.42), Preulcerative Skin Lesion(s) (L85.1)Tolterodine Tartrate ER 2 MG Capsule Extended Release 24 Hour TAKE 1 CAPSULE BY MOUTH EVERY DAY Oral Taking Aspir-81 Taking amLODIPine Besylate 10 MG Tablet [...] Foot Deformity (M20.41,M20.42), Preulcerative Skin Lesion(s) (L85.1)Taking Tolterodine Tartrate ER 2 MG Capsule Extended Release 24 Hour TAKE 1 CAPSULE BY MOUTH EVERY DAY Oral Not-Taking/PRNMounjaro Pioglitazone HCl Ozempic Fish Oil 1000 MG Capsule 1 capsule Orally Once a dayVictoza 1.8 mg Jardiance Lantus 60 units oxyBUTYnin Chloride 10 mg Tablet 1 tablet Orally Once a dayFluticasone Propionate 50 MCG/ACT Suspension 1 spray in each nostril Nasally Once a dayFluticasone Furoate Medication List reviewed and reconciled with the patientNot-Taking/PRN Mounjaro Not-Taking/PRN Pioglitazone HCl Not-Taking/PRN Ozempic Not-Taking/PRN Fish Oil 1000 MG Capsule 1 capsule Orally Once a dayNot- Taking/PRN Victoza 1.8 mg Not-Taking/PRN Jardiance Not-Taking/PRN Lantus 60 units Not- Taking/PRN oxyBUTYnin Chloride 10 mg Tablet 1 tablet Orally Once a dayNot-Taking/PRN Fluticasone Propionate 50 MCG/ACT Suspension 1 spray in each nostril Nasally Once a dayNot-Taking/PRN Fluticasone Furoate Medication List reviewed and reconciled with the patient * Allergies:?Augmentin: rashBa ctrim: rashKeflex: rashJardiance: Yeast InfectionSulfa Antibiotics: rashyes[Allergies Verified] Objective: * Vitals:?Ht: 5ft 2in, Wt:260, BMI:47.55, Shoe size: 8.5-9, BS: 195, Ht-cm: 157.48 cm, Wt-k.93 kg. * ???Past Orders: ???Lab:HEMOGLOBIN A1C (GLYCO HEMOGLOBIN) (Order Date - 05/17/2024) (Collection Date - 05/17/2024) ? Value Reference Range ?HEMOGLOBIN A1C % (HH) 7.6 * Examination: ???Nails: ?NAILS are:?Elongated, overgrown, dystrophic, lytic, greater than 3mm thick, discolored and friable with crumbly malodorous subungual debris, with pain on palpation, 1-5 B/L.?Ingrown Nail: ?INSPECTION:?Reveals incurvation, pain on palpation, groove hypertrophy, Lateral nail border, TA, T5.?Orthopedic: ?DIGITAL DEFORMITIES:?Digital contracture, PIPJ, 2-5 B/L, incompl-reducible to push-up test, no over, nor underlapping.?FOOTWEAR:?good condition, exhibit proper fit and accommodation for pedal deformities. OT were inspected and noted to be worn, but in good condition giving proper support at the present time.?Dermatologic: ?SKIN FINDINGS:?Skin exam reveals Keratotic lesion(s) located at, SUB MTH (s), 1, B/L , SUB MTH (s), 5, B/L , Heel(s), B/L.? Assessment: * Assessment: 1.?Tinea unguium - B35.1?2.? Pain in right toe(s) - M79.674?3.?Pain in left toe(s) - M79.675?4.?Type 1 diabetes mellitus without complication - E10.9?5.?Ingrown nail - L60.0, Lateral nail border, TA, T5?6.?Other hammer toe(s) (acquired), right foot - M20.41, Chronic problem, Stable (1=3,2=4), Response to treatment,Improvement?7.?Other hammer toe(s) (acquired), left foot - M20.42, Chronic problem, Stable (1=3,2=4), Response to treatment,Improvement? Plan: * Treatment: 2.?Type 1 diabetes mellitus without complication?Procedure: 81087-PWGF SKIN LESIONS, OVER 4 3.?Ingrown nail?Procedure: 10789-Licwedgz Plate ?Procedure: 29452-Fablinoz Plate Each Additional * Procedures:?Debride Nail 6-10:?Nail debridement?Nail debridement performed extensively to reduce/remove overall nail length, girth, thickness, subungual debris, and necrotic tissue, by manual and electrical means through the use of a nail nipper and/or dremel, to more viable healthy nail plate or bed tissue 1-5. Silver nitrate used for any petechial bleeding as necessary. Patient chooses, no pharmaceutical tx (68037).?Keratoma Treatment:?Parring or Cutting of Benign Hyperkeratotic Lesion(s)?98818 ( >4 Lesions) - The Benign hyperkeratotic [...] and future surgical procedures to prevent recurrence (51513/32), DIABETES: Pt was advised as to the risk of delayed or nonhealing due to diabetes. Pt is to call the office with any questions, concerns, or complications, DIABETES: Matricectomy deferred due to diabetes risk.? * Procedure Codes:?98378 DEBRI DE NAIL, 6 OR MORE, Modifiers: XS 38757 Avulsion Plate, Modifiers: XS , [id number] Avulsion Plate Each Additional, Modifiers: XS , [id number] TRIM SKIN LESIONS, OVER 4, Modifiers: XS * Preventive Medicine:? ??Counseling:?Discussion:?-13: Office or other outpatient visit for the evaluation and management of an established patient, which required a medically appropriate history and/or examination and LOW level of DECISION MAKING for: 1 STABLE ACUTE UNCOMPLICATED PROBLEM, 2 OR MORE MINOR PROBLEMS, OR 1 STABLE CHRONIC PROBLEM, THAT POSE(S) A LOW RISK FOR MORBIDITY/MORTALITY. The visit on the day of the [...] have encouraged the patient to call the office.?Shoe Gear Counseling:?A thorough inspection of the patients Rxed shoegear and inserts was performed and findings communicated. We reviewed the many important medical advantages for adhering to regularly wearing these shoe and insert accomidative devices daily as well as reviewed the fact that a failure in accepting these recommedations may be deleterious, unable to prevent, and disadvantagely result in, many pedal complications such as skin irritation, skin ulceration, infection, and even loss of toe/foot/leg/or even their life. Time was also spent reviewing the proper footcare techniques including daily skin moisturization, daily foot inspection for any interruption in skin integrity, open lesions, or sign of infection such as redness/malodor/drainage/swelling as well as daily shoe inspection for the presence of internal foreign bodies and shoe as well as insert wear. Patient questions re: shoes, inserts, and self foot inspections were answered to their satisfaction as the patient verbally confirmed a full understanding of the above information.? * Follow Up:?prn * Images: * Sign off status: Completed Addendum: * ? true * Provider:?Edilson Luis DPM Date:?2023 Generated for Yaz rose/Tomy/Donalditting on:?11/08/2024 05:29 AM EST History and Physical Notes * HPI (History of Present Illness) Category Sub-Category Detail Notes Category Not es Toe pain Treatments: Rx shoes At Risk footcare Pt States Last PCP Visit: Date: 03/17/2024 States has an appt with PCP - May Examination Category Sub-Category Detail Notes Category Not es Ingrown Nail INSPECTION: Reveals incurvat ion, pain on palpation, groove hypertrophy, Lateral nail border, TA, T5 Dermatologic SKIN FINDINGS: Skin exam reveal s Keratotic lesion(s) located at, SUB MTH (s), 1, B/L , SUB MTH (s), 5, B/L , Heel(s), B/L Orthopedic FOOTWEAR: good condition, exhibit proper fit and accommodation for pedal deformities. OT were inspected and noted to be worn, but in good condition giving proper support at the present time DIGITAL DEFORMITIES: Digital contracture , PIPJ, 2-5 B/L, incompl-reducible to push-up test, no over, nor underlapping Nails NAILS are: Elongated, overg rown, dystrophic, lytic, greater than 3mm thick, discolored and friable with crumbly malodorous subungual debris, with pain on palpation, 1-5 B/L
--- OUTSIDE RECORDS SUMMARY | 2024-11-08 05:29 | XMS_ITS ---
[facility] Address [address] [place] [address] Care Team Providers Care Manager Private Name Role Phone Behzad Arzola MD Primary Care Provider Unavaila Edilson Ricketts Unavailable [phone] Allergies Allergen (clinical drug ingredient) Drug/Non Drug [...] shoes and causing difficulty standing/walking., Ingrown nail(s), Skin problem(s) Medications Medication SIG (Take, Route, Frequency, Duration) Notes Start Date End Date Status Jardiance Not-Taking Lantus 60 units Not- Taking oxyBUTYnin Chloride 10 mg 1 tablet Orall y Once a day Not-Taking Fluticasone Propionate 50 MCG/ACT 1 spray in each nostril Nasally Once a day Not-Taking Fluticasone Furoate Not-Taking Pioglitazone HCl Not -Taking Ozempic Not-Taking Fish Oil 1000 MG 1 capsule Orally Onc e a day Not-Taking Victoza 1.8 mg Not-T aking Mounjaro Not-Taking Vitamin D3 Active Tolterodine Tartrate ER 2 MG TAKE 1 CAPSULE BY MOUTH EVERY DAY Oral for 90 Days Active Extra Depth Orthopedic Shoes (1 Pair) with Customized Heat Molded Multidensity Innersoles (3 Pair) as directed Dx: IDDM (E10.9), Hammertoe Foot Deformity (M20.41,M20.42), Preulcerative Skin Lesion(s) (L85.1) Active Multivitamin Active Pravastatin Sodium 10 MG Oral for 30 Active hydroCHLOROthiazide Active ibuprofen Active Lantus 30 units Acti ve Lisinopril 20 MG 1 tablet Orally Once a day Active metFORMIN HCl Active Ozempic (0.25 or 0.5 MG/DOSE) Active Aspir-81 Active Ammonium Lactate 12 % 1 application Externally to feet except for between the toes Twice a day for 30 days Active amLODIPine Besylate 10 MG 1 tablet Orall y Once a day Active Flonase Active Social History Tobacco Use: Social History Observation [...] No Vital Signs Height 5ft 2in in 08/17/2024 Weight 255 lbs 08/17/2024 BMI 46.64 kg/m2 08/17/2024 Procedures Procedure Date Ordered Date Performed Result Body Sit e 36657-QCFPRLG NAIL, 6 OR MORE 08/17/2024 N/A 55306-Xuwjnpdo Plate 08/17/2024 N/A 98720-Hpgfuqlr Plate Each Additional 08/17/2024 N/A 59973-PJFA SKIN LESIONS, OVER 4 08/17/2024 N/A Encounters Encounter Location Date Provider Diagnosis [facility] [address] [address] 08/17/2024 Edilson Janelle Pain in right toe(s) M79.674 ; Tinea unguium B35.1 ; Pain in left toe(s) M79.675 ; Type 1 diabetes mellitus without complication E10.9 ; Ingrown nail L60.0 and Xerosis of skin L85.3 Assessments Encounter Date Diagnosis (ICD Code) Assessment Notes Treatment Notes Treatment Clinical Notes Section Notes 08/17/2024 Pain in right toe(s) (ICD-10 - M79.674) 08/17/2024 Tinea unguium (ICD-10 - B35.1) 08/17/2024 Pain in left toe(s) (ICD-10 - M79.675) 08/17/2024 Type 1 diabetes mellitus without complication (ICD-10 - E10.9) 08/17/2024 Ingrown nail (ICD-10 - L60.0) 08/17/2024 Xerosis of skin (ICD-10 - L85.3) Plan Of Treatment Medication Medication Name Sig Start Date Stop Date Notes Ammonium Lactate 12 % 1 application Exte rnally to feet except for between the toes Twice a day for 30 days Pending Test Test Name Order Date 40629-XARUWZU NAIL, 6 OR MORE 08/17/2024 65599-Phcyxwdw Plate 08/17/2024 44691-Fweymmot Plate Each Additional 15381-SUHY SKIN LESIONS, OVER 4 08/17/20 24 Next Appt Details Follow Up: prn, Reason: Provider Name:Edilson Luis , 11/27/2024 08:30:00 AM, [address] [facility], [address], [place], [address], Procedure Notes * Category Sub-Category [...] and future surgical procedures to prevent recurrence (77270/32), DIABETES: Pt was advised as to the [...] TA, T5 Debride Nail 6-10 Nail debridement Performance o f this nail treatment by a nonprofessional would put this patients foot and overall health at risk. Therefore, nail debridement was performed extensively to reduce/remove overall nail length, girth, thickness, subungual debris, and necrotic tissue, by manual and/or electrical means through the use of a nail nipper and/or dremel-type cutter grinder operator, to a more viable healthy nail plate or bed tissue 6-10. Silver nitrate used for any petechial bleeding as necessary. Definitive antifungal treatment options have been reviewed and discussed with the patient. The patient chooses, no pharmaceutical tx - 43511 Keratoma Treatment Parring or Cutting o f Benign Hyperkeratotic Lesion(s) (-57) More than 4 Lesions - The Benign hyperkeratotic lesions, as described above were pared, and/or cut utilizing a sterile 15 blade, tissue nippers, and/or dremel - 67179 Progress Notes * Kathryn MCCORMICK KDOB:[birth year] (69 yo F)Acc No.[id number]:08/17/2024 Progress Note Patient:?Kathryn Mccormick K Provider:?Edilson Luis DPM :1955???Age:69 Y???Sex:Female D ate:08/17/2024 Address:[address] [place], [place] [id number] Pcp:Behzad Arzola MD Subjective: * Chief Complaints: * ???At Risk FootcarePainful N ail(s) aggrevated by shoes and causing difficulty standing/walking.Ingrown nail(s)Skin problem(s) * HPI: ???At Risk footcare:?Pt States Last PCP Visit:?Date?06/29/2024 ???Skin problems:?Nature:?dryness , scaling.?Location:?B/L .?Duration:?several days.?Course:?worse.? * ROS:?General/Constitutional:?Nausea?denies.?Vomiting?denies.?Hunger Thirst?denies.?Loss appetite?denies.?Chills?denies.?Fatigue?denies.?Fever?denies.?Night Sweats?denies.?Unexplained weight loss?denies.?Ophthalmologic:?Blurred [...] History:? s ection * Hospitalization/Major Diagno stic Procedure:?[facility] Stitches in head 02/2019Colonoscopy 08/07/19 * Family [...] ?Exercise: yes, walking. ?Marital status: . ?Occupation: [employer]. * Medications:?TakingOzempic ( 0.25 or 0.5 MG/DOSE) Aspir-81 amLODIPine Besylate 10 MG Tablet 1 tablet Orally Once a dayFlonase hydroCHLOROthiazide ibuprofen Lantus 30 units Lisinopril 20 MG Tablet 1 tablet Orally Once a daymetFORMIN HCl Multivitamin Pravastatin Sodium 10 MG Tablet Oral Vitamin D3 Tolterodine Tartrate ER 2 MG Capsule Extended Release 24 Hour TAKE 1 CAPSULE BY MOUTH EVERY DAY Oral Extra Depth Orthopedic Shoes (1 Pair) with Customized Heat Molded Multidensity Innersoles (3 Pair) as directed Dx: IDDM (E10.9), Hammertoe Foot Deformity (M20.41,M20.42), Preulcerative Skin Lesion(s) (L85.1)Taking Ozempic (0.25 or 0.5 MG/DOSE) Taking Aspir-81 Taking amLODIPine Besylate 10 MG Tablet 1 tablet Orally Once a dayTaking Flonase Taking hydroCHLOROthiazide Taking ibuprofen Taking Lantus 30 units Taking Lisinopril 20 MG Tablet 1 tablet Orally Once a dayTaking metFORMIN HCl Taking Multivitamin Taking Pravastatin Sodium 10 MG Tablet Oral Taking Vitamin D3 Taking Tolterodine Tartrate ER 2 MG Capsule Extended Release 24 Hour TAKE 1 CAPSULE BY MOUTH EVERY DAY Oral Taking Extra Depth Orthopedic Shoes (1 Pair) [...] rashyes[Allergies Verified] Objective: * Vitals:?Ht: 5ft 2in, Wt:255, BMI:46.64, Shoe size: 8.5-9, BS: 140, Ht-cm: 157.48 cm, Wt-k.67 kg. * ???Past Orders: ???Lab:HEMOGLOBIN A1C (GLYCO HEMOGLOBIN) (Order Date - 08/17/2024) (Collection Date - 08/17/2024) ? Value Reference Range ?TOTAL HEMOGLOBIN (HGBA1C) 9.0 * Examination: ???Nails: ?NAILS are:?Elongated, overgrown, dystrophic, lytic, greater than 3mm thick, discolored and friable with crumbly malodorous subungual debris, with pain on palpation, 1-5 B/L.?Ingrown Nail: ?INSPECTION:?Reveals incurvation, pain on palpation, groove hypertrophy, Lateral nail border, TA, T5.?Dermatologic: ?SKIN FINDINGS:?Skin exam reveals Keratotic lesion(s) located at, SUB MTH (s), 1, B/L , SUB MTH (s), 5, B/L , Heel(s), B/L , Skin shows sign(s) of, dryness, scaling, in a stocking fashion, no fissure(s) present, B/L.? Assessment: * Assessment: 1.?Tinea unguium - B35.1?2.? Pain in right toe(s) - M79.674?3.?Pain in left toe(s) - M79.675?4.?Type 1 diabetes mellitus without complication - E10.9?5.?Ingrown nail - L60.0, Lateral nail border, TA, T5?6.?Xerosis of skin - L85.3, Acute problem, Uncomplicated (3),Rx Management (4)? Plan: * Treatment: 2.?Type 1 diabetes mellitus without complication?Procedure: 62710-USUK SKIN LESIONS, OVER 4 3.?Ingrown nail?Procedure: 42227-Ivjwuyum Plate ?Procedure: 87923-Flebzgpi Plate Each Additional 4.?Xerosis of skin? Start Ammonium Lactate Cream, 12 %, 1 application, Externally to feet except for between the toes, Twice a day, 30 days, 140, Refills 2.?? * Procedures:?Debride Nail 6-10:?Nail debridement?Performance of this nail treatment by a nonprofessional would put this patients foot and overall health at risk. Therefore, nail debridement was performed extensively to reduce/remove overall nail length, girth, thickness, subungual debris, and necrotic tissue, by manual and/or electrical means through the use of a nail nipper and/or dremel-type cutter grinder operator, to a more viable healthy nail plate or bed tissue 6-10. Silver nitrate used for any petechial bleeding as necessary. Definitive antifungal treatment options have been reviewed and discussed with the patient. The patient chooses, no pharmaceutical tx - 67731.?Keratoma Treatment:?Parring or Cutting of Benign Hyperkeratotic Lesion(s)?(-57) More than 4 Lesions - The Benign hyperkeratotic lesions, as described above were pared, and/or cut utilizing a sterile 15 blade, tissue nippers, and/or dremel - 94761.?Nail Avulsion:?Location?Lateral nail borders, TA, T5.?Anesthesia?was deferred - [...] and future surgical procedures to prevent recurrence (34310/32), DIABETES: Pt was advised as to the risk of delayed or nonhealing due to diabetes. Pt is to call the office with any questions, concerns, or complications, DIABETES: Matricectomy deferred due to diabetes risk.? * Procedure Codes:?90557 DEBRI DE NAIL, 6 OR MORE, Modifiers: XS 56627 Avulsion Plate, Modifiers: XS , [id number] Avulsion Plate Each Additional, Modifiers: XS , [id number] TRIM SKIN LESIONS, OVER 4, Modifiers: XS [...] have encouraged the patient to call the office.?Xerosis:?The patient was counseled on the diagnosis, potential etiologies, and treatment options for their skin condition. We discussed the risks and benefits of each option from performing no treatment, to utilizing OTC topical skin creams/ointments, to utilizing prescription topical creams/ointments, to utilizing customized compounded topical medications and use of nocturnal occlusion with any/all previously detailed therapies. We discussed the advantages and disadvantages of each possible treatment and importance for adherence to all the recommended therapies for optimum success and avoid potential complications such as open sore/infection/possible hospitalization. We discussed the potential effectiveness of each topical preparation as well as each ones possible side effects and/or patient medication interactions. Patient questions re: use, dosage, successful outcomes, and application consistency were reviewed and the patient verbalized that all answers were clearly understood. The patient has decided to apply Rx skin creams to their feet save the interspaces while paying special attention to the heels. Such was sent to their pharmacy at the time of visit.? * Follow Up:?prn * Images: * Sign off status: Completed true * Provider:?Edilson Luis DPM Date:?2023 Generated for Yaz rose/Tomy/Donalditting on:?11/08/2024 05:28 AM EST History and Physical Notes * HPI (History of Present Illness) Category Sub-Category Detail Notes Category Not es Skin problems Nature: dryness , scaling Location: B/L Duration: several days Course: worse At Risk footcare Pt States Last PCP Visit: Date: Examination Category Sub-Category Detail Notes Category Not es Ingrown Nail INSPECTION: Reveals incurvat ion, pain on palpation, groove hypertrophy, Lateral nail border, TA, T5 Dermatologic SKIN FINDINGS: Skin exam reveal s Keratotic lesion(s) located at, SUB MTH (s), 1, B/L , SUB MTH (s), 5, B/L , Heel(s), B/L , Skin shows sign(s) of, dryness, scaling, in a stocking fashion, no fissure(s) present, B/L Nails NAILS are: Elongated, overg rown, dystrophic, lytic, greater than 3mm thick, discolored and friable with crumbly malodorous subungual debris, with pain on palpation, 1-5 B/L
== END 2024-11-03 09:09 | disposition home or self-care (01) ==
PROVIDERS: PCP Internal Medicine; Visit Provider Physician Assistant Medical
DX: E11.69 Type 2 diabetes mellitus with other specified complication (principal); E66.01 Morbid (severe) obesity due to excess calories; N28.9 Disorder of kidney and ureter, unspecified; E11.29 Type 2 diabetes mellitus with other diabetic kidney complication; R80.9 Proteinuria, unspecified; R01.1 Cardiac murmur, unspecified

== ENCOUNTER → 2024-11-03 08:27 | Outpatient (BNVA) | payer OTHER, SELFPAY | PROVIDERS: PCP Internal Medicine; Visit Provider Physician Assistant Medical | DX: E11.69 Type 2 diabetes mellitus with other specified complication (principal); E11.29 Type 2 diabetes mellitus with other diabetic kidney complication; E66.01 Morbid (severe) obesity due to excess calories; R80.9 Proteinuria, unspecified; R00.1 Bradycardia, unspecified; R01.1 Cardiac murmur, unspecified; Z68.42 Body mass index [BMI] 45.0-49.9, adult; Z79.84 Long term (current) use of oral hypoglycemic drugs; Z79.899 Other long term (current) drug therapy | CPT/HCPCS: 82947 ==

== ENCOUNTER 2024-11-07 09:22 | Outpatient (AMB) | payer OTHER, SELFPAY ==
[2024-11-07 09:26] VITALS: BP 128/62; BMI 48.3
--- NOTE | 2024-11-07 09:26 | MHC.OFFVIS ---
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 Pt states no blurred vision, loss of balance or dizziness. 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 She had actually been seen by the nephrology team who noted a carotid bruit. She subsequently underwent carotid ultrasound. She has been asymptomatic from this. She denies any lateralizing signs or symptoms speech disturbances or visual field deficits. Of note she is being maintained on an aspirin and statin. She now presents for evaluation with carotid ultrasound. [facility] Medical History Murmur Decreased renal function Microalbuminuria due to type 2 diabetes mellitus Physical exam Urinary Incontinence OAB (overactive bladder) Type 2 diabetes mellitus with morbid obesity Obesity Diabetes type 2, uncontrolled Osteoarthritis Morbid obesity Hypertension Dyslipidemia Non-toxic multinodular goiter MCFP (current) use of insulin Diabetes type 2, controlled Surgical History History of section Family History Father Lung cancer Mother Breast cancer Social History Household Members: Children Housing: House Alcohol intake: current Alcohol intake frequency: holidays/special occasions only Patient Tobacco Use Status: Never used Tobacco e-Cigarette/Vaping Use: Never Used Second Hand Smoke Exposure: No service: No Current occupational status: employed Cognitive needs: Yes Hearing needs: Yes Vision needs: Yes Review of Systems Const All systems reviewed & are unremarkable except as noted in HPI and below Reports no additional complaints ENT Reports Normal hearing present Card Denies chest pain, Denies chest pain at rest, Denies chest pain with activity and Denies pedal edema Resp Denies cough GI Denies abdominal pain Musc Denies abnormal gait, Denies muscle cramps and Denies radiating pain into limb Skin/Breast Denies skin ulcer and Denies wounds Neuro Reports Normal hearing present and Denies abnormal gait Psych Reports no additional complaints Physical Exam Vital Signs: Last Vital Signs BP 128/62 11/07/24 09:26 BMI result Body Mass Index 48.3 Const General: cooperative, healthy appearing and comfortable Orientation/consciousness: oriented to person, oriented to place and oriented to time HEENT Head: Yes normal to inspection Neck Neck: Yes normal visual inspection Carotids: no bruits Chest Chest palpation & inspection: normal inspection of the chest Resp Effort & Inspection: normal respiratory effort and able to speak in complete sentences Auscultation: clear to auscultation bilaterally, no crackles, no rales, no rhonchi and no wheezes Cardio Rate: regular rate Rhythm: regular rhythm Heart sounds: S1 normal heart sound present and S2 normal heart sound present Bruits: no carotid bruits Peripheral pulses: Peripheral pulses 2+ throughout GI Inspection: Yes normal to inspection Skin Wounds: no wounds Hair: normal Neuro General: oriented to person, oriented to place and oriented to time Cranial nerves: Yes CN's II-XII intact bilaterally and Yes Normal hearing present Cognition (Neuro): normal cognition Motor exam (neuro): 5/5 motor strength present throughout Extrem Other: venous exam: No significant superficial varicosities or spider telangiectasias, minimal edema General: No clubbing, No cyanosis and No edema Psych Appearance: grossly normal Mental Status: mental status grossly normal Speech and movement: Normal speech and movement present Results Reviewed Results Reviewed: Noninvasive carotid testing dated 09/28/2024 demonstrates right-sided stenosis 0-49% left-sided 50-79% stenosis left side peak systolic of 140 written report and images reviewed Assessment & Plan Assessment & Plan (1) Carotid stenosis: Code(s): I65.29 - Occlusion and stenosis of unspecified carotid artery Category: Medical Qualifiers: Laterality: bilateral Qualified Code(s): I65.23 - Occlusion and stenosis of bilateral carotid arteries Plan: In short patient has asymptomatic carotid disease. We have reviewed signs and symptoms of a stroke. We also discussed risk factor modification inclusive a healthy diet low in cholesterol. The patient will follow up with us with surveillance ultrasound of the carotids 1 year. Should there be any changes or signs or symptoms of a stroke we will be happy to see them back sooner. Thank you for allowing us to participate in this patient's care. If there are any questions or concerns please do not hesitate to contact us. Orders: Orders US carotid duplex BI 1 Year I65.23 - Occlusion and stenosis of bilateral carotid arteries Coding Level of Care Code Est Pt Level 4 (42503) Complex EM visit Add On G2211 Diagnoses Bilateral carotid artery stenosis I65.23 Laterality: bilateral
== END 2024-11-07 10:10 | disposition home or self-care (01) ==
PROVIDERS: PCP Internal Medicine; Visit Provider Surgery Vascular Surgery
DX: I65.23 Occlusion and stenosis of bilateral carotid arteries (principal)
CPT/HCPCS: 99214

== ENCOUNTER 2024-12-22 12:58 | Outpatient (AMB) | payer OTHER, SELFPAY ==
[2024-12-22 13:09] VITALS: BP 160/48; PULSE 75; TEMP 36.3; O2SAT 97; BMI 48.1
--- NOTE | 2024-12-22 13:09 | A.OFFPC_ITS ---
Vital Signs 12/22/24 13:09 Height 5 ft 2 in Weight 263 lb 2 oz BMI 48.1 BP 160/48 H Blood Pressure Location Lt brachial Position Sitting Pulse 75 Pulse Source Pulse Oximeter Temp 97.3 F Temp Source Temporal Artery Scan Pulse Oximetry (%) 97 Oxygen Delivery Method Room Air Intake Visit Reasons: Annual Exam Rheumatology Nurse Required: No Accompanied by: Self / Same As Patient Allergies Sulfa (Sulfonamide Antibiotics) [Sulfa (Sulfonamides)] Allergy (Mild, Verified 12/22/24 13:15) RASH cephalexin [From KEFLEX] Allergy (Unknown, Verified 12/22/24 13:15) RASH clavulanic acid [Augmentin] Allergy (Unknown, Verified 12/22/24 13:15) vaginal irritation empagliflozin [From Jardiance] Adverse Reaction (Intermediate, Verified 12/22/24 13:15) Rash amoxicillin [From Augmentin] Adverse Reaction (Mild, Verified 12/22/24 13:15) VAGINAL IRRITATION tolterodine Adverse Reaction (Unknown, Verified 12/22/24 13:15) Hives, rash Medication List - Last Reconciled 12/25/24 by Behzad Arzola MD amlodipine 10 mg PO DAILY ammonium lactate 12% appl topical aspirin (Adult Aspirin Regimen) 81 mg PO DAILY azithromycin take 500 mg today (day 1), then 250 mg for 4 days (days 2-5) PO blood sugar diagnostic (4TechTouch Verio test strips) As directed 3 times a day blood-glucose meter (OneTouch Verio Flex Meter) As directed blood-glucose meter,continuous (FreeStyle Dominick 3 [place]) as directed blood-glucose sensor (FreeStyle Dominick 3 Sensor device) apply new sensor every 14 days as directed carvedilol 6.25 mg PO BID hydrochlorothiazide 25 mg PO DAILY ibuprofen 800 mg PO TID insulin glargine 35 units subcut DAILY lancets (4TechTouch Delica Lancets) As directed 3 times a day lisinopril 10 mg PO DAILY metformin 1,000 mg PO BID omega-3 fatty acids 1,000 mg PO DAILY pen needle, diabetic Twice a day pravastatin 10 mg PO BEDTIME semaglutide (Ozempic) 1 mg (0.75 mL) subcut QWEEK Tobacco use date assessed: 03/17/24 Fall risk assessment: No Falls in past year Last assessed Fall Risk: 12/22/24 Dental Screening Dental Screen Date: 12/22/24 Did you have a dental visit in the last 12 months?: Yes Did you have a dental problem in the last 6 months where you did not have access to dental care?: No Was dental information given to patient?: Patient has dentist HPI Annual Exam HPI Details DM and HTN in poor control; sees endo [facility] Medical History Murmur Decreased renal function Microalbuminuria due to type 2 diabetes mellitus Physical exam Urinary Incontinence OAB (overactive bladder) Type 2 diabetes mellitus with morbid obesity Obesity Diabetes type 2, uncontrolled Osteoarthritis Morbid obesity Hypertension Dyslipidemia Non-toxic multinodular goiter half-way (current) use of insulin Diabetes type 2, controlled Surgical History History of section Family History Father Lung cancer Mother Breast cancer Social History Household Members: Children Housing: House Alcohol intake: current Alcohol intake frequency: holidays/special occasions only Patient Tobacco Use Status: Never used Tobacco e-Cigarette/Vaping Use: Never Used Second Hand Smoke Exposure: No service: No Current occupational status: employed Cognitive needs: Yes Hearing needs: Yes Vision needs: Yes Questionnaire PHQ-9 Over the last 2 weeks, how often have you been bothered by any of the following problems? 1. Little interest or pleasure in doing things: not at all 2. Feeling down, depressed, or hopeless: not at all 3. Trouble falling or staying asleep, or sleeping too much: not at all 4. Feeling tired or having little energy: several days 5. Poor appetite or overeating: several days 6. Feeling bad about yourself - or that you are a failure or have let yourself or your family down: not at all 7. Trouble concentrating on things, such as reading the newspaper or watching television: not at all 8. Moving or speaking so slowly that other people could have noticed. Or the opposite - being so fidgety or restless that you have been moving around a lot more than usual: not at all 9. Thoughts that you would be better off or of hurting yourself in some way: not at all Total score: 2 17396 - PHQ-9 Billing: Yes Source: Developed by Drs. Destin Buck, Sara Lam, Gil Keating and colleagues, with an educational garcía from [employer]. Thrive Questionnaire Date Thrive assessed: 12/22/24 I am a: Patient What is your living situation today?: I have a steady place to live Within the past 12 months, did the food you bought not last and you didn't have the money to get more?: Sometimes True Within the past 12 months, did you worry whether your food would run out before you got money to buy more?: Never true Do you have trouble paying for medicines?: No Do you have trouble getting transportation to medical appointments?: No Do you have trouble paying your heating and electricity bill?: No Do you have trouble taking care of your child, family member or friend?: No Do you have trouble with day-to-day activities such as bathing, preparing meals, shopping, managing finances, etc.?: No Are you currently unemployed and looking for a job?: No Are you interested in more education?: No Please select the resources that you would like help with: None Currently or been in a relationship where the following occur: No concerns reported THRIVE Score: 1 AUDIT C Alcohol Use Questionnaire (AUDIT-C) 1. How often do you have a drink containing alcohol?: Monthly or less 2. How many drinks containing alcohol do you have on a typical day when you are drinking?: 1 or 2 3. How often do you have six or more drinks on one occasion?: Never Total Score: 1 JET-7 AMB Questionnaire JET-7 Date JET - 7 assessed: 12/22/24 Feeling nervous, anxious, or on edge: 0 = Not at all Not being able to stop or control worryin = Not at all Worrying too much about different things: 0 = Not at all Trouble relaxin = Not at all Being so restless that it is hard to sit still: 0 = Not at all Becoming easily annoyed or irritable: 0 = Not at all Feeling afraid as if something awful might happen: 0 = Not at all Total JET-7 score (0-4 normal; 5-9 mild; 10-14 moderate; 15-21 severe): 0 Source: Developed by Drs. Destin Buck, Sara Lam, Gil Keating and colleagues, with an educational garcía from [employer]. JET-7 Assessment Billing JET-7 Assessment Tool: JET-7 Assessment 81481 Review of Systems Const Denies chills, Denies headache(s) and Denies weight loss ENT Denies headache(s) Card Denies chest pain, Denies syncope, Denies irregular heart rhythm and Denies dyspnea Resp Denies chest congestion, Denies cough and Denies dyspnea GI Denies abdominal pain, Denies change in stool character, Denies nausea and Denies vomiting Musc Denies deformity and Denies joint swelling Neuro Denies syncope and Denies headache(s) Physical exam (Primary Care) Vital Signs: Last Vital Signs Temp 97.3 F 12/22/24 13:09 Pulse 75 12/22/24 13:09 BP 160/48 H 12/22/24 13:09 Pulse Ox 97 12/22/24 13:09 Oxygen Delivery Method Room Air 12/22/24 13:09 BMI result Body Mass Index 48.1 Tobacco/Smoking Status: Tobacco use Status Tobacco use date assessed 03/17/24 12/22/24 13:14 Patient Tobacco Use Status Never used Tobacco 12/22/24 13:14 e-Cigarette/Vaping Use Never Used 12/22/24 13:14 PHQ-9: PHQ-9 Score PHQ-9: Total score 2 12/22/24 13:16 Thrive Assessment: Date of Thrive Assessment Date Thrive assessed 12/22/24 12/22/24 13:16 Currently or been in a relationship where the following occur: No concerns reported Const General: cooperative, comfortable, no acute distress and alert Neck Neck: Yes no lymphadenopathy Thyroid: Thyroid normal Resp Effort & Inspection: normal respiratory effort Auscultation: clear to auscultation bilaterally Percussion: percussion normal Cardio Jugular venous distension: no JVD Palpation: normal PMI Rate: regular rate Rhythm: regular rhythm Heart sounds: S1 normal heart sound present and S2 normal heart sound present GI Inspection: Yes normal to inspection Palpation (GI): No hepatosplenomegaly present Skin General skin exam: no rashes or lesions noted Extrem General: Yes no clubbing, cyanosis or edema Coding Level of Care Code Est Pt Level 3 (06705) Diagnoses Uncontrolled type 2 diabetes mellitus with hyperglycemia E11.65 Glycemic state: with hyperglycemia Additional Codes EJT-7 Assessment Billing - JET-7 Assessment Tool: JET-7 Assessment 62323 ([id number]) PHQ-9 - 32154 - PHQ-9 Billing: Yes ([id number]) Assessment & Plan Assessment & Plan (1) Diabetes type 2, uncontrolled: Code(s): E11.65 - Type 2 diabetes mellitus with hyperglycemia Category: Medical Qualifiers: Glycemic state: with hyperglycemia Qualified Code(s): E11.65 - Type 2 diabetes mellitus with hyperglycemia Plan: cont to f/u with endo Orders: Orders AMB Hemoglobin A1c 12/22/24 E11.69 - Type 2 diabetes mellitus with other specified complication, E66.01 - Morbid (severe) obesity due to excess calories Medications: New azithromycin take 500 mg today (day 1), then 250 mg for 4 days (days 2-5) PO 6 tabs 0RF
== END 2024-12-22 13:29 | disposition home or self-care (01) ==
PROVIDERS: PCP Internal Medicine; Visit Provider Internal Medicine
DX: E11.65 Type 2 diabetes mellitus with hyperglycemia (principal)

== ENCOUNTER → 2024-12-22 12:58 | Outpatient (BNVA) | payer OTHER, SELFPAY | PROVIDERS: PCP Internal Medicine; Visit Provider Internal Medicine | DX: E11.65 Type 2 diabetes mellitus with hyperglycemia (principal); I10 Essential (primary) hypertension | CPT/HCPCS: 96127 ==

== ENCOUNTER → 2025-01-05 08:29 | Outpatient (AMB) | payer OTHER, SELFPAY ==
--- NOTE | 2025-01-05 08:41 | A.OFFVIS_ITS ---
Vital Signs 01/05/25 08:42 Height 5 ft 2 in Weight 260 lb 2.327 oz BMI 47.6 BP 132/76 Blood Pressure Location Rt brachial Position Sitting Pulse 77 Pulse Source Pulse Oximeter Intake Visit Reasons: Type II diabetes Intake Note: Patient presents today for a follow-up on Type 2 Diabetes Mellitus: Last Diabetic eye exam was on: May 2024 Last Podiatry exam was on: 11/27/2024 Most recent HbA1c: 7.1%, 01/05/2025 Random Glucose- 154 mg/dL, Today Staple Laster Required: No Accompanied by: Self / Same As Patient Allergies Sulfa (Sulfonamide Antibiotics) [Sulfa (Sulfonamides)] Allergy (Mild, Verified 01/05/25 08:44) RASH cephalexin [From KEFLEX] Allergy (Unknown, Verified 01/05/25 08:44) RASH clavulanic acid [Augmentin] Allergy (Unknown, Verified 01/05/25 08:44) vaginal irritation empagliflozin [From Jardiance] Adverse Reaction (Intermediate, Verified 01/05/25 08:44) Rash amoxicillin [From Augmentin] Adverse Reaction (Mild, Verified 01/05/25 08:44) VAGINAL IRRITATION tolterodine Adverse Reaction (Unknown, Verified 01/05/25 08:44) Hives, rash HPI Comments Details: This is a 69 year old female with Type II DM diagnosed in 2006 presenting for diabetic management. Hemoglobin a1c 7.1% today 01/05/2025 down from 7.9% 10/02/2024 down from 9.1%. Current medication regimen: insulin glargine 35 units twice daily, Metforomin 1000 mg BID and Ozempic 1 mg weekly. Jardiance discontinued due to yeast infections. Mounjaro caused GI side effects. Reviewed CGM data for the past 14 days: 66% target range 31% high 3% very high 0% very low Average glucose 136 GMI 7.4% There is a pattern of postprandial hyperglycemia. Diet: She admits to dietary indiscretion for the last couple of months with the holidays and call their weather. She was drinking Snapple occasionally and noticed it spikes her sugars. She has also been snacking at night. Alcohol occasional. Nonsmoker. Hypoglycemia symptoms: She reports 1 low reading within the past month at 6am. Hyperglycemia symptoms: none Eye exam: June 2024 Microvascular complications: neuropathy, nephropathy (microalbumin and CKD). Macrovascular complications: none Hypertension: treated with amlodipine 10 mg, hydrochlorothiazide 25 mg, lisinopril 10 mg, carvedilol 6.25 mg twice daily. Followed by Nephrology. Hyperlipidemia: treated with Pravastatin 10 mg LDL at goal <100. Patient has to reschedule her echocardiogram which was ordered for evaluation of a mild heart murmur. She denies chest pain or shortness of breath. ALT was mildly elevated at 34 on her labs from September. She has no GI complaints. We discussed ordering a liver ultrasound with elastography to screen for hepatic steatosis and fibrosis of the liver. We discussed this is more common in patients with diabetes and hyperlipidemia. We discuss it can lead to scarring of the liver and cirrhosis in the future. The patient will consider having this test done this year, but she would like to wait to order until her next visit and have the echocardiogram done 1st. ROS: Constitutional: No unexplained weight loss, fever, chills. Eyes: No vision changes, blurry vision, double vision Respiratory: No shortness of breath Cardiovascular: No chest pain Gastrointestinal: No anorexia, nausea, vomiting or diarrhea. No abdominal pain Neurologic: No headache, dizziness, syncope Endocrine: No cold or heat intolerance. No polyuria or polydipsia Physical exam: Constitutional: Alert, in no distress. Eyes: Pupils are equal, round and reactive to light. Extraocular muscles intact. Neck: Supple, Full range of motion. No lymphadenopathy. No palpable thyroid masses. Respiratory: Clear to auscultation. Cardiovascular: S1 S2 regular. II// murmur. Neurologic: No focal neurological deficits. She declined a foot exam today, but she saw her dag coater in October. 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 Diabetes type 2, controlled Surgical History History of section Family History Father Lung cancer Mother Breast cancer Social History Household Members: Children Housing: House Alcohol intake: current Alcohol intake frequency: holidays/special occasions only Patient Tobacco Use Status: Never used Tobacco e-Cigarette/Vaping Use: Never Used Second Hand Smoke Exposure: No service: No Current occupational status: employed Cognitive needs: Yes Hearing needs: Yes Vision needs: Yes Physical Exam Vital Signs: Last Vital Signs Pulse 77 01/05/25 08:42 BP 132/76 01/05/25 08:42 BMI result Body Mass Index 47.6 Office Procedures Glucose Monitoring Details Details: See [facility] 10002 - Glucose monitoring, continuous-physician I&R Procedure code (CPT) selection complete Results AMB Hemoglobin A1c AMB Hemoglobin A1c 7.1 % Last Edit by KINJAL Hu on 01/05/25 09:03 Assessment & Plan Assessment & Plan (1) Type 2 diabetes mellitus with morbid obesity: Code(s): E11.69 - Type 2 diabetes mellitus with other specified complication; E66.01 - Morbid (severe) obesity due to excess calories Category: Medical (2) Decreased renal function: Code(s): N28.9 - Disorder of kidney and ureter, unspecified Category: Medical (3) Microalbuminuria due to type 2 diabetes mellitus: Code(s): E11.29 - Type 2 diabetes mellitus with other diabetic kidney complication; R80.9 - Proteinuria, unspecified Category: Medical (4) Murmur: Code(s): R01.1 - Cardiac murmur, unspecified Category: Medical Plan In summary this is a 69-year-old female with suboptimally controlled type 2 diabetes. She is compliant with glucose monitoring. She was instructed to bring her CGM to all appointments. Increase Ozempic to 2 mg weekly. Continue insulin glargine 35 units every evening. Continue metformin 1000 mg twice daily. We reviewed complications of diabetes and diabetic diet. Avoid juices and soda. Follow low carbohydrate, low sugar diet. Exercise encouraged. If you experience low blood sugar, treat this by eating a chewable fruit candy like skittles or jelly beans (about 8 pieces), 4 ounces (1/2 cup) of fruit juice (not diet), 1 tablespoon of honey or 4 glucose tablets. If your blood sugar is under 55, take double the amount of one of the above. Recheck your blood sugar in 15 minutes. She will reschedule the echocardiogram. Follow up in 3 months for type 2 diabetes. Orders: Orders AMB Hemoglobin A1c Today E11.29 - Type 2 diabetes mellitus with other diabetic kidney complication, R80.9 - Proteinuria, unspecified AMB Glucose Monitoring Today E11.9 - Type 2 diabetes mellitus without complications Medications: New semaglutide (Ozempic) 2 mg (0.75 mL) subcut QWEEK 3 mL 3RF glucose (Dex4 Glucose) until blood sugar is >70 16 grams (4 x 4 gram) PO Q15M PRN 10 tabs 3RF hypoglycemia (hipoglucemia) pen needle, diabetic (BD Samantha 2nd Gen Pen Needle) Use as directed to administer insulin subcutaneously once daily 100 ea 3RF Discontinued semaglutide (Ozempic) Discontinued Reason: Doctor's Order 1 mg (0.75 mL) subcut QWEEK 3 mL 2RF Coding Level of Care Code Est Pt Level 4 (10226) Diagnoses Type 2 diabetes mellitus with morbid obesity E11.69; E66.01 Decreased renal function N28.9 Microalbuminuria due to type 2 diabetes mellitus E11.29; R80.9 Murmur R01.1 CPT Codes Details - CPT: 80632 - Glucose monitoring, continuous-physician I&R ([id number])
--- OUTSIDE RECORDS SUMMARY | 2025-01-05 08:52 | XMS_ITS ---
Author Organization [facility] Address [address] [place] [address] Care Team Providers Care Rice Drier Name Role Phone Behzad Arzola MD Primary Care Provider Unavaila Edilson Ricketts Unavailable [phone] Allergies Allergen (clinical drug ingredient) Drug/Non Drug [...] Ordered Date Performed Result Body Sit e 71221-LGCOWCK NAIL, 6 OR MORE 05/17/2024 N/A 07046-Kmxmiwqz Plate 05/17/2024 N/A 71273-Hkqarffx Plate Each Additional 05/17/2024 N/A 03635-GOOI SKIN LESIONS, OVER 4 05/17/2024 N/A Encounters Encounter Location Date Provider Diagnosis [facility] [place] [address] [place] [id number] 05/17/2024 Edilson Janelle Pain in right toe(s) [...] Treatment Pending Test Test Name Order Date 48635-ZGTBEDI NAIL, 6 OR MORE 05/17/2024 32137-Oisdnqzy Plate 05/17/2024 22964-Audbxaql Plate Each Additional 39100-PIJB SKIN LESIONS, OVER 4 05/17/20 24 Next Appt Details Follow Up: prn, Reason: Provider Name:Edilson V Janelle , 03/05/2025 08:45:00 AM, [address] [facility], [address], [place], [address], Procedure Notes * Category Sub-Category [...] and future surgical procedures to prevent recurrence (94313/32), DIABETES: Pt was advised as to the [...] as necessary. Patient chooses, no pharmaceutical tx (39418) Keratoma Treatment Parring or Cutting o f Benign Hyperkeratotic Lesion(s) 24478 ( >4 Lesions) - The Benign hyperkeratotic lesions, as described above were pared, and/or cut utilizing a sterile #15 blade, tissue nippers, and/or dremel Progress Notes * Kathryn MCCORMICK KDOB:[birth year] (69 yo F)Acc No.[id number]:05/17/2024 Progress Note Patient:?Kathryn Mccormick K Provider:?Edilson Luis DPM :1955???Age:69 Y???Sex:Female D ate:05/17/2024 Address:[address] [place] [phone] Pcp:Behzad Arzola MD Subjective: * Chief Complaints: [...] History:? s ection * Hospitalization/Major Diagno stic Procedure:?[facility] Stitches in head 02/2019Colonoscopy 08/07/19 * Family [...] ?Exercise: yes, walking. ?Marital status: . ?Occupation: [employer]. * Medications:?TakingAspir-81 amLODIPine Besylate 10 MG Tablet [...] Treatment: 2.?Type 1 diabetes mellitus without complication?Procedure: 65479-XBFY SKIN LESIONS, OVER 4 3.?Ingrown nail?Procedure: 07982-Mcwmvrxl Plate ?Procedure: 31525-Pitlbjxb Plate Each Additional * Procedures:?Debride Nail 6-10:?Nail debridement?Nail debridement performed extensively to reduce/remove overall nail length, girth, thickness, subungual debris, and necrotic tissue, by manual and electrical means through the use of a nail nipper and/or dremel, to more viable healthy nail plate or bed tissue 1-5. Silver nitrate used for any petechial bleeding as necessary. Patient chooses, no pharmaceutical tx (36784).?Keratoma Treatment:?Parring or Cutting of Benign Hyperkeratotic Lesion(s)?32338 ( >4 Lesions) - The Benign hyperkeratotic [...] and future surgical procedures to prevent recurrence (17150/32), DIABETES: Pt was advised as to the risk of delayed or nonhealing due to diabetes. Pt is to call the office with any questions, concerns, or complications, DIABETES: Matricectomy deferred due to diabetes risk.? * Procedure Codes:?51841 DEBRI DE NAIL, 6 OR MORE, Modifiers: XS 58578 Avulsion Plate, Modifiers: XS , [id number] Avulsion Plate Each Additional, Modifiers: XS , [id number] TRIM SKIN LESIONS, OVER 4, Modifiers: XS [...] Luis DPM Date:?2023 Generated for Yaz rose/Tomy/Donalditting on:?01/05/2025 08:52 AM EST History and Physical Notes * [...]
--- OUTSIDE RECORDS SUMMARY | 2025-01-05 08:53 | XMS_ITS ---
Author Organization [facility] Address [address] [place] [address] Care Team Providers Care Application Release Manager Name Role Phone Behzad Arzola MD Primary Care Provider Unavaila Edilson Ricketts Unavailable [phone] Allergies Allergen (clinical drug ingredient) Drug/Non Drug [...] Ordered Date Performed Result Body Sit e 88476-JKBFKEK NAIL, 6 OR MORE 08/17/2024 N/A 54430-Ikbyygzw Plate 08/17/2024 N/A 62580-Phoyisnn Plate Each Additional 08/17/2024 N/A 57655-PPKJ SKIN LESIONS, OVER 4 08/17/2024 N/A Encounters Encounter Location Date Provider Diagnosis [facility] [address] [address] 08/17/2024 Edilson Janelle Pain in right toe(s) [...] days Pending Test Test Name Order Date 49477-TLAUUMA NAIL, 6 OR MORE 08/17/2024 79255-Airrhwwr Plate 08/17/2024 63919-Uwftkcsa Plate Each Additional 42267-BVQR SKIN LESIONS, OVER 4 08/17/20 24 Next Appt Details Follow Up: prn, Reason: Provider Name:Edilson Luis , 03/05/2025 08:45:00 AM, [address] [facility], [address], [place], [address], Procedure Notes * Category Sub-Category [...] and future surgical procedures to prevent recurrence (61735/32), DIABETES: Pt was advised as to the [...] use of a nail nipper and/or dremel-type refractory grinder operator, to a more viable healthy nail plate or bed tissue 6-10. Silver nitrate used for any petechial bleeding as necessary. Definitive antifungal treatment options have been reviewed and discussed with the patient. The patient chooses, no pharmaceutical tx - 93859 Keratoma Treatment Parring or Cutting o f Benign Hyperkeratotic Lesion(s) (-57) More than 4 Lesions - The Benign hyperkeratotic lesions, as described above were pared, and/or cut utilizing a sterile 15 blade, tissue nippers, and/or dremel - 51123 Progress Notes * Kathryn MCCORMICK KDOB:[birth year] (69 yo F)Acc No.[id number]:08/17/2024 Progress Note Patient:?Kathryn Mccormick K Provider:?Edilson Luis DPM :1955???Age:69 Y???Sex:Female D ate:08/17/2024 Address:[address] [place], [place] [phone] Pcp:Behzad Arzola MD Subjective: * Chief Complaints: [...] History:? s ection * Hospitalization/Major Diagno stic Procedure:?[facility] [place] Stitches in head 02/2019Colonoscopy 08/07/19 * Family [...] ?Exercise: yes, walking. ?Marital status: . ?Occupation: [employer]. * Medications:?TakingOzempic ( 0.25 or 0.5 MG/DOSE) [...] Treatment: 2.?Type 1 diabetes mellitus without complication?Procedure: 20354-LGQE SKIN LESIONS, OVER 4 3.?Ingrown nail?Procedure: 82311-Nkghdcgm Plate ?Procedure: 27102-Thgtjeza Plate Each Additional 4.?Xerosis of skin? Start [...] use of a nail nipper and/or dremel-type refractory grinder operator, to a more viable healthy nail plate or bed tissue 6-10. Silver nitrate used for any petechial bleeding as necessary. Definitive antifungal treatment options have been reviewed and discussed with the patient. The patient chooses, no pharmaceutical tx - 73764.?Keratoma Treatment:?Parring or Cutting of Benign Hyperkeratotic Lesion(s)?(-57) More than 4 Lesions - The Benign hyperkeratotic lesions, as described above were pared, and/or cut utilizing a sterile 15 blade, tissue nippers, and/or dremel - 64642.?Nail Avulsion:?Location?Lateral nail borders, TA, T5.?Anesthesia?was deferred - [...] and future surgical procedures to prevent recurrence (71474/32), DIABETES: Pt was advised as to the risk of delayed or nonhealing due to diabetes. Pt is to call the office with any questions, concerns, or complications, DIABETES: Matricectomy deferred due to diabetes risk.? * Procedure Codes:?76246 DEBRI DE NAIL, 6 OR MORE, Modifiers: XS 42768 Avulsion Plate, Modifiers: XS , [id number] Avulsion Plate Each Additional, Modifiers: XS , [id number] TRIM SKIN LESIONS, OVER 4, Modifiers: XS [...] DPM Date:?2023 Generated for Yaz rose/Tomy/Donalditting on:?01/05/2025 08:53 AM EST History and Physical Notes * [...]
--- OUTSIDE RECORDS SUMMARY | 2025-01-05 08:53 | XMS_ITS | Patient Health Record ---
Author Organization [facility] Address [address] [place] [address] Care Team Providers Care Phd Internship Name Role Phone Ness GALVEZ, Behzad Primary Care Provider UnavailEdilson Cyr Unavailable [phone] Allergies Allergen (clinical drug ingredient) Drug/Non Drug [...] Range Notes HEMOGLOBIN A1C (GLYCOHEMOGLO BIN) Reviewed date:05/17/2024 08:51:21 AM Interpretation: Performing Lab: Notes/Report: HEMOGLOBIN A1C % (HH) 7.6 HEMOGLOBIN A1C (GLYCOHEMOGLO BIN) Reviewed date:08/17/2024 09:04:10 AM Interpretation: Performing Lab: Notes/Report: TOTAL HEMOGLOBIN (HGBA1C) 9.0 HEMOGLOBIN A1C (GLYCOHEMOGLO BIN) Reviewed date:11/27/2024 08:39:01 AM Interpretation: Performing Lab: Notes/Report: TOTAL HEMOGLOBIN (HGBA1C) 7.6 Reason For Referral No Information Medications Medication SIG (Take, Route, Frequency, Duration) Notes Start Date End Date Status Extra Depth Orthopedic Shoes (1 Pair) with Customized Heat Molded Multidensity Innersoles (3 Pair) as directed Dx: IDDM (E10.9), Hammertoe Foot Deformity (M20.41,M20.42), Preulcerative Skin Lesion(s) (L85.1) Active Ammonium Lactate 12 % 1 application Externally to feet except for between the toes Twice a day for 30 days Active Pravastatin Sodium 10 MG Oral for 30 Active Vitamin D3 Active Mounjaro Not-Taking Pioglitazone HCl Not -Taking Carvedilol 6.25 MG TAKE 1 TABLET BY MOUTH TWICE A DAY. MUST ADMINISTER WITH A MEAL/FOOD Oral for 90 Days Active Tolterodine Tartrate ER 2 MG TAKE 1 CAPSULE BY MOUTH EVERY DAY Oral for 90 Days Not-Taking Ozempic Not-Taking Fish Oil 1000 MG 1 capsule Orally Onc e a day Not-Taking Victoza 1.8 mg Not-T aking Aspir-81 Active oxyBUTYnin Chloride 10 mg 1 tablet Orall y Once a day Not-Taking amLODIPine Besylate 10 MG 1 tablet Orall y Once a day Active Fluticasone Propionate 50 MCG/ACT 1 spray in each nostril Nasally Once a day Not-Taking Jardiance Not-Taking Ozempic (0.25 or 0.5 MG/DOSE) Active Lantus 60 units Not- Taking ibuprofen Active Lantus 30 units Acti ve Flonase Active Fluticasone Furoate Not-Taking hydroCHLOROthiazide Active Multivitamin Active Lisinopril 10 MG 1 tablet Orally Once a day Active metFORMIN HCl Active Immunizations Vaccine Route Administration Date Status Comme [...] Problem Acquired hammer toe of right foot (86763297064040 05) Other hammer toe(s) (acquired), right foot (M20.41) Active confirmed Response to treatment,I mprovement Problem Acquired hammer toe of left foot (18185334106104 03) Other hammer toe(s) (acquired), left foot (M20.42) Active confirmed Response to treatment,I mprovement Problem Type 1 diabetes mellitus without complication (181628605) Type 1 diabetes mellitus without complication (E10.9) Active confirmed Vital Signs Blood pressure diastolic 62 mm Hg 11/27/2024 Height 5ft2in in 11/27/2024 Blood pressure systolic 126 mm Hg 11/27/2024 Weight 260 lbs 11/27/2024 BMI 47.55 kg/m2 11/27/2024 Procedures Procedure Date Ordered Date Performed Result Body Sit e 88398-QKFOGBM NAIL, 6 OR MORE 02/16/2024 N/A 06560-Toghyfwr Plate 02/16/2024 N/A 93507-Kgdprxoh Plate Each Additional 02/16/2024 N/A 12588-XBWB SKIN LESIONS, OVER 4 02/16/2024 N/A 20665-ECOVJTD NAIL, 6 OR MORE 05/17/2024 N/A 59724-Wvvnhanv Plate 05/17/2024 N/A 25259-Wdmfkxyj Plate Each Additional 05/17/2024 N/A 09453-IOFF SKIN LESIONS, OVER 4 05/17/2024 N/A 26439-YMCHJUV NAIL, 6 OR MORE 08/17/2024 N/A 72417-Wkkuslin Plate 08/17/2024 N/A 90202-Roshfxyi Plate Each Additional 08/17/2024 N/A 63773-KRHJ SKIN LESIONS, OVER 4 08/17/2024 N/A 54499-DCAGYWD NAIL, 6 OR MORE 11/27/2024 N/A 23597-Jziendln Plate 11/27/2024 N/A 45982-Jdodywyj Plate Each Additional 11/27/2024 N/A 33012-IASV SKIN LESIONS, OVER 4 11/27/2024 N/A Encounters Encounter Location Date Provider Diagnosis [facility] [address] [address] 02/16/2024 Edilson Luis Type 1 diabetes mellitus without complication E10.9 ; Pain in right toe(s) M79.674 ; Tinea unguium B35.1 ; Pain in left toe(s) M79.675 ; Ingrowing nail L60.0 ; Other hammer toe(s) (acquired), right foot M20.41 and Other hammer toe(s) (acquired), left foot M20.[address] [address] 05/17/2024 Edilson Janelle Pain in right toe(s) M79.674 ; Tinea unguium B35.1 ; Pain in left toe(s) M79.675 ; Type 1 diabetes mellitus without complication E10.9 ; Ingrown nail L60.0 ; Other hammer toe(s) (acquired), right foot M20.41 and Other hammer toe(s) (acquired), left foot M20.[address] [address] 08/17/2024 Edilson Janelle Pain in right toe(s) M79.674 ; Tinea unguium B35.1 ; Pain in left toe(s) M79.675 ; Type 1 diabetes mellitus without complication E10.9 ; Ingrown nail L60.0 and Xerosis of skin L85.[address] [address] 11/27/2024 Edilson Janelle Pain in right toe(s) M79.674 [...] Pain in right toe(s) (ICD-10 - M79.674) 11/27/2024 Tinea unguium (ICD-10 - B35.1) 11/27/2024 Pain in right toe(s) (ICD-10 - M79.674) 11/27/2024 Pain in left toe(s) (ICD-10 - M79.675) 08/17/2024 Pain in left toe(s) (ICD-10 - M79.675) 05/17/2024 Pain in left toe(s) (ICD-10 - M79.675) 02/16/2024 Pain in right toe(s) (ICD-10 - M79.674) 02/16/2024 Tinea unguium (ICD-10 - B35.1) 02/16/2024 Pain in left toe(s) (ICD-10 - M79.675) 05/17/2024 Type 1 diabetes mellitus without complication (ICD-10 - E10.9) 08/17/2024 Type 1 diabetes mellitus without complication (ICD-10 - E10.9) 11/27/2024 Type 1 diabetes mellitus without complication (ICD-10 - E10.9) 11/27/2024 Ingrown nail (ICD-10 - L60.0) 08/17/2024 Ingrown nail (ICD-10 - L60.0) 05/17/2024 Ingrown nail (ICD-10 - L60.0) 02/16/2024 Ingrowing nail (ICD-10 - L60.0) 08/17/2024 Xerosis of skin (ICD-10 - L85.3) 05/17/2024 Other hammer toe(s) (acquired), right foot (ICD-10 - M20.41) Response to treatment,Impro vement 11/27/2024 Xerosis of skin (ICD-10 - L85.3) 05/17/2024 Other hammer toe(s) (acquired), left foot (ICD-10 - M20.42) Response to treatment,Impro vement 02/16/2024 Other hammer toe(s) (acquired), right foot (ICD-10 - M20.41) Patient Educated with: DIABETIC FOOT CARE INSTRUCTIONS.p df (DIABETIC FOOT CARE INSTRUCTIONS.p df) 02/16/2024 Other hammer toe(s) (acquired), left foot (ICD-10 - M20.42) Plan Of Treatment Pending Test Test Name Order Date X ray : Foot, left 2V 04/04/2015 Glucose Fasting 04/04/2015 70768-TVZARWA NAIL, 6 OR MORE 07/09/2015 47515-UORRFQI NAIL, 6 OR MORE 09/27/2015 62544-LGUOVYI NAIL, 6 OR MORE 01/03/2016 40719-OJQTCJD NAIL, 6 OR MORE 04/15/2016 69427-WVYZRYB NAIL, 6 OR MORE 07/15/2016 11891-NWSJLVX NAIL, 6 OR MORE 10/14/2016 31238-BQKRNBD NAIL, 6 OR MORE 01/25/2017 85210-DERPIYY NAIL, 6 OR MORE 04/21/2017 88491-DEAPCAV NAIL, 6 OR MORE 04/04/2015 35320-IJRQDFB NAIL, 6 OR MORE 07/28/2017 15163-VNIGCEP NAIL, 6 OR MORE 10/27/2017 36267-EMMQJZE NAIL, 6 OR MORE 01/26/2018 89379-JUYCYCD NAIL, 6 OR MORE 04/27/2018 53333-LNOGFTK NAIL, 6 OR MORE 11/02/2018 48403-ADVRHMN NAIL, 6 OR MORE 2019 61541-WJFDAKG NAIL, 6 OR MORE 08/03/2018 10982-UJAPDDH NAIL, 6 OR MORE 05/03/2019 71476-WFNGHJG NAIL, 6 OR MORE 08/16/2019 41841-ADQBLVH NAIL, 6 OR MORE 11/15/2019 91099-ZGPADDC NAIL, 6 OR MORE 12/02/2020 37897-XWIOIZW NAIL, 6 OR MORE 04/21/2021 02985-VZCDMKC NAIL, 6 OR MORE 08/13/2021 83375-MMBOBFM NAIL, 6 OR MORE 11/10/2021 50992-HDOEGOO NAIL, 6 OR MORE 09/02/2020 13395-ZPDWFIA NAIL, 6 OR MORE 02/09/2022 58986-KJGGQKZ NAIL, 6 OR MORE 05/11/2022 05181-IIALSLX NAIL, 6 OR MORE 09/24/2022 32555-BHNIEAW NAIL, 6 OR MORE 01/25/2023 97588-JLIVGFY NAIL, 6 OR MORE 07/14/2023 72324-INQREAU NAIL, 6 OR MORE 11/10/2023 47362-BFIBZRW NAIL, OR MORE 02/16/2024 02284-KGFOBMJ NAIL, 6 OR MORE 05/17/2024 86994-RBHTVEJ NAIL, 6 OR MORE 08/17/2024 82706-IDNCFPQ NAIL, 6 OR MORE 11/27/2024 56653-Dvumeaqb Plate 11/27/2024 81000-Whtmtwpb Plate 11/02/2018 45590-Peyjksne Plate 08/17/2024 97397-Demrahgw Plate 05/17/2024 64285-Ebydhwwe Plate 02/16/2024 83608-Dqwftfcw Plate 11/10/2023 13423-Inewcbgj Plate 07/14/2023 95532-Vxsrievr Plate 01/25/2023 18999-Toanvqto Plate 09/24/2022 40221-Bthiogtm Plate 05/11/2022 70140-Rmumiryl Plate 02/09/2022 38122-Ydqbbfvs Plate 09/02/2020 05222-Pthetbbw Plate 11/10/2021 18227-Vwxhqylo Plate 08/13/2021 07585-Lrgpibgs Plate 04/21/2021 29869-Uupshejx Plate 12/02/2020 25489-Biiqnqkq Plate 11/15/2019 36885-Nvwrclie Plate 08/16/2019 56879-Mdqgtiuw Plate 05/03/2019 72803-Klpmabkt Plate 2019 73935-Jijpdjlh Plate 10/27/2017 73837-Phlssmcb Plate 08/03/2018 72869-Uipkmaib Plate 04/27/2018 61580-Odenjoef Plate 01/26/2018 89394-Gyxdxibk Plate 07/28/2017 18972-Kikptbms Plate 01/25/2017 24937-Bugmgejx Plate 04/21/2017 33198-Caehjbsx Plate 10/14/2016 63408-Ebhsrsge Plate 07/15/2016 44866-Njfwenwe Plate 04/15/2016 23213-Xcxscbqq Plate 01/03/2016 63773-Ibtddulu Plate 09/27/2015 22203-Xomjjfgz Plate 07/09/2015 03341-Agsvaxqf Plate 04/04/2015 61692-Gwwqoikm Plate Each Additional 09/2015 65457-Pjmlppve Plate Each Additional 89438-Xpixijta Plate Each Additional 03/2016 31236-Xnwmiumq Plate Each Additional 35297-Pakgeraa Plate Each Additional 95613-Haityxrz Plate Each Additional 28598-Yrrjmshg Plate Each Additional 72460-Wqdcabxx Plate Each Additional 95743-Gssbdemj Plate Each Additional 03/2018 67814-Gypfatkk Plate Each Additional 04/2019 72418-Qmgakpbq Plate Each Additional 03/2019 41421-Ppgjfoyq Plate Each Additional 03/2018 03030-Vxvpgzjw Plate Each Additional 23803-Vnocaduq Plate Each Additional 76229-Zzoblcsg Plate Each Additional 02/2021 92299-Zuqellby Plate Each Additional 99042-Urwlunxq Plate Each Additional 81141-Eursgbru Plate Each Additional 30952-Liogimjp Plate Each Additional 03/2020 65025-Buayfihl Plate Each Additional 74783-Yxmqrdaj Plate Each Additional 37200-Lmbuwvnv Plate Each Additional 64512-Ikszioqs Plate Each Additional 48861-Nrcwijde Plate Each Additional 45662-Kljfsnvd Plate Each Additional 27630-Tcspfees Plate Each Additional 62640-Nzolyiro Plate Each Additional 21213-Slxtkttd Plate Each Additional 95153-Iqshwezz Plate Each Additional 34895-LFGC SKIN LESIONS, OVER 4 11/27/20 24 26443-PYSB SKIN LESIONS, OVER 4 08/17/20 24 47271-WQRB SKIN LESIONS, OVER 4 05/17/20 24 65560-XLOZ SKIN LESIONS, OVER 4 02/16/20 24 90212-SDGL SKIN LESIONS, OVER 4 11/10/20 23 87972-MXTJ SKIN LESIONS, OVER 4 07/14/20 23 86466-DQDK SKIN LESIONS, OVER 4 01/25/20 23 84228-CHYV SKIN LESIONS, OVER 4 09/24/20 22 87198-LGWA SKIN LESIONS, OVER 4 06/13/20 22 90310-KZET SKIN LESIONS, OVER 4 11/10/20 21 92601-JCZW SKIN LESIONS, OVER 4 08/13/20 21 52906-TJHQ SKIN LESIONS, 2 TO 4 04/21/20 21 22923-VKWG SKIN LESIONS, 2 TO 4 12/02/19 21 42290-EJEK SKIN LESIONS, 2 TO 4 04/04/20 15 52574,M5243-TEV TENDON SHEATH/LIGAMENT 0 06/14/2015 Next Appt Details Provider Name:Edilson Jonah Luis , 03/05/2025 08:45:00 AM, [address] [facility], [address], [place], [address], Insurance Providers Payer Name Payer Address Payer Phone Subscriber Number Group Number Insured Name Patient Relationship to Insured Coverage Start Date Coverage End Date [facility] [address] [place] [address] [phone] [id number] Kathryn Arzola Self - patient is the insured Medical (General) History Medical History History ICD Code Diabetic Hypertension Allergic rhinitis Hypercholesterolemia Surgical History Surgery Date(Month/Year) section Hospitalization History Reason Date(Month/Year) [place] [facility] [place]
--- OUTSIDE RECORDS SUMMARY | 2025-01-05 08:53 | XMS_ITS ---
Author Organization [facility] Address [address] [place] [address] Care Team Providers Care Fisher Trawl Line Name Role Phone Behzad Arzola MD Primary Care Provider Unavaila Edilson Ricketts Unavailable [phone] Allergies Allergen (clinical drug ingredient) Drug/Non Drug [...] Duration) Notes Start Date End Date Status oxyBUTYnin Chloride 10 mg 1 tablet Orall y Once a day Not-Taking Fluticasone Propionate 50 MCG/ACT 1 spray in each nostril Nasally Once a day Not-Taking Jardiance Not-Taking Lantus 60 units Not- Taking Fluticasone Furoate Not-Taking Victoza 1.8 mg Not-T aking Mounjaro Not-Taking Pioglitazone HCl Not -Taking Ozempic Not-Taking Fish Oil 1000 MG 1 capsule Orally Onc e a day Not-Taking Extra Depth Orthopedic Shoes (1 Pair) with Customized Heat Molded Multidensity Innersoles (3 Pair) as directed Dx: IDDM (E10.9), Hammertoe Foot Deformity (M20.41,M20.42), Preulcerative Skin Lesion(s) (L85.1) Active Ammonium Lactate 12 % 1 application Externally to feet except for between the toes Twice a day for 30 days Active Vitamin D3 Active Carvedilol 6.25 MG TAKE 1 TABLET BY MOUTH TWICE A DAY. MUST ADMINISTER WITH A MEAL/FOOD Oral for 90 Days Active Tolterodine Tartrate ER 2 MG TAKE 1 CAPSULE BY MOUTH EVERY DAY Oral for 90 Days Not-Taking Pravastatin Sodium 10 MG Oral for 30 Active Lantus 30 units Acti ve Multivitamin Active Lisinopril 10 MG 1 tablet Orally Once a day Active metFORMIN HCl Active Aspir-81 Active amLODIPine Besylate 10 MG 1 tablet Orall y Once a day Active ibuprofen Active Flonase Active hydroCHLOROthiazide Active Ozempic (0.25 or 0.5 MG/DOSE) Active Social History Tobacco Use: Social History Observation Description Date Details (start date - stop date) Never Smoker NA - NA Tobacco Use/Smoking Question Answer Notes Are you a: nonsmoker Additional Findings: Tobacco Non-User Current no n-smoker Tobacco use other than smoking: Question Answer Notes Are you an other tobacco user? No Vital Signs Height 5ft2in in 11/27/2024 Weight 260 lbs 11/27/2024 BMI 47.55 kg/m2 11/27/2024 Blood pressure systolic 126 mm Hg 11/27/20 24 Blood pressure diastolic 62 mm Hg 024 Procedures Procedure Date Ordered Date Performed Result Body Sit e 47032-KTYVVEE NAIL, 6 OR MORE 11/27/2024 N/A 96055-Psogkjim Plate 11/27/2024 N/A 77809-Hdlmorwq Plate Each Additional 11/27/2024 N/A 92103-YBOY SKIN LESIONS, OVER 4 11/27/2024 N/A Encounters Encounter Location Date Provider Diagnosis [facility] [address] [address] 11/27/2024 Edilson Gonzalezier Pain in right toe(s) M79.674 ; Tinea unguium B35.1 ; Pain in left toe(s) M79.675 ; Type 1 diabetes mellitus without complication E10.9 ; Ingrown nail L60.0 and Xerosis of skin L85.3 Assessments Encounter Date Diagnosis (ICD Code) Assessment Notes Treatment Notes Treatment Clinical Notes Section Notes 11/27/2024 Pain in right toe(s) (ICD-10 - M79.674) 11/27/2024 Tinea unguium (ICD-10 - B35.1) 11/27/2024 Pain in left toe(s) (ICD-10 - M79.675) 11/27/2024 Type 1 diabetes mellitus without complication (ICD-10 - E10.9) 11/27/2024 Ingrown nail (ICD-10 - L60.0) 11/27/2024 Xerosis of skin (ICD-10 - L85.3) Plan Of Treatment Pending Test Test Name Order Date 67773-CZTHLQF NAIL, 6 OR MORE 11/27/2024 03848-Hmlerxaa Plate 11/27/2024 90990-Uxupjkhs Plate Each Additional 30211-ZRZJ SKIN LESIONS, OVER 4 11/27/20 24 Next Appt Details Follow Up: prn, Reason: Provider Name:Edilson Luis , 03/05/2025 08:45:00 AM, [address] [facility], [address], [place], [address], Procedure Notes * Category Sub-Category Detail Notes [...] and future surgical procedures to prevent recurrence (12064/32), DIABETES: Pt was advised as to the [...] TA, T5 Debride Nail 6-10 Nail debridement Due to the cl inical pathology outlined in the exam findings, performance of this nail treatment is medically necessary as its management by an unskilled/untrained nonprofessional would put this patients foot and overall health at risk. Therefore, debridement to affected nail(s), as described in exam ( TA, T1, T2, T3, T4, T5, T6, T7, T8, T9), was performed exclusively by the physician of record to reduce/remove overall nail length, girth, thickness, subungual debris, and necrotic tissue, by manual and/or electrical means through the use of a nail nipper and/or dremel-type thread grinder tool, to a more viable healthy nail plate or bed tissue 6-10 nails in total. Silver nitrate was used for any petechial bleeding as necessary. Definitive antifungal treatment options, both pharmaceutical and surgical, have been reviewed and discussed with the patient. The patient solely prefers the use of intermittent/as needed professional debridement services for their nail condition and understands the need for additional periodic treatments to maintain effectiveness in symptomatic relief - 40879 Keratoma Treatment Parring or Cutting o f Benign Hyperkeratotic Lesion(s) (-57) More than 4 Lesions - Due to the a t risk nature of the patients medical condition as documented in the exam findings, performance of this keratoderma treatment is medically necessary as its management by an unskilled/untrained nonprofessional would put this patients foot and overall health at risk. Therefore, the benign hyperkeratotic lesions, ( 8) in total, locations as stated and described in the exam ( SUB MTH (s), 1, B/L , SUB MTH (s), 5, B/L , Plantar, Heel(s), B/L ), were pared, and/or cut utilizing a sterile 15 blade, tissue nippers, and/or power dremel instrumentation by the physician of record - 04883 Progress Notes * Kathryn ARZOLA KDOB:[birth year] (69 yo F)Acc No.[id number]:11/27/2024 Progress Note Patient:?Merry ARZOLAcja Cassie Provider:?Edilson Luis DPM :1955???Age:69 Y???Sex:Female D ate:11/27/2024 Address:[address] [place] [phone] Pcp:Behzad Arzola MD Subjective: * Chief Complaints: * ???At Risk FootcarePainful N ail(s) aggrevated by shoes and causing difficulty standing/walking.Ingrown nail(s)Skin problem(s) * HPI: ???At Risk footcare:?Pt States Last PCP Visit:?Date?06/29/2024 ???Skin problems:?Treatments:?medication ( AM Lactin ), states adherence to recommended treatment application.? * ROS:?General/Constitutional:?Nausea?denies.?Vomiting?denies.?Hunger Thirst?denies.?Loss appetite?denies.?Chills?denies.?Fatigue?denies.?Fever?denies.?Night Sweats?denies.?Unexplained weight loss?denies.?Ophthalmologic:?Blurred [...] s ection * Hospitalization/Major Diagno stic Procedure:?[facility] [place] Stitches in head 02/2019Colonoscopy 08/07/19 * Family History:?Mother: dece ased, diagnosed with Other malignant neoplasm of unspecified site, Family history of arthritis.?Father: , diagnosed with Other malignant neoplasm of unspecified site. Siblings: kidney/liver disease, heart attack, diagnosed with Other malignant neoplasm of unspecified site, Unspecified essential hypertension.?Spouse: .? * Social History:?Tobacco Use:?Tobacco Use/Smoking?Are you a:?nonsmoker ?Additional Findings: Tobacco Non-User?Current non-smoker ?Tobacco use other than smoking?Are you an other tobacco user??No * Medications:?TakingOzempic ( 0.25 or 0.5 MG/DOSE) Aspir-81 amLODIPine Besylate 10 MG Tablet 1 tablet Orally Once a day Flonase hydroCHLOROthiazide ibuprofen Lantus 30 units Lisinopril 10 MG Tablet 1 tablet Orally Once a day metFORMIN HCl Multivitamin Pravastatin Sodium 10 MG Tablet Oral Vitamin D3 Extra Depth Orthopedic Shoes (1 Pair) with Customized Heat Molded Multidensity Innersoles (3 Pair) as directed Dx: IDDM (E10.9), Hammertoe Foot Deformity (M20.41,M20.42), Preulcerative Skin Lesion(s) (L85.1) Ammonium Lactate 12 % Cream 1 application Externally to feet except for between the toes Twice a day Carvedilol 6.25 MG Tablet TAKE 1 TABLET BY MOUTH TWICE A DAY. MUST ADMINISTER WITH A MEAL/FOOD Oral Taking Ozempic (0.25 or 0.5 MG/DOSE) Taking Aspir-81 Taking amLODIPine Besylate 10 MG Tablet 1 tablet Orally Once a day Taking Flonase Taking hydroCHLOROthiazide Taking ibuprofen Taking Lantus 30 units Taking Lisinopril 10 MG Tablet 1 tablet Orally Once a day Taking metFORMIN HCl Taking Multivitamin Taking Pravastatin Sodium 10 MG Tablet Oral Taking Vitamin D3 Taking Extra Depth Orthopedic Shoes (1 Pair) with Customized Heat Molded Multidensity Innersoles (3 Pair) as directed Dx: IDDM (E10.9), Hammertoe Foot Deformity (M20.41,M20.42), Preulcerative Skin Lesion(s) (L85.1) Taking Ammonium Lactate 12 % Cream 1 application Externally to feet except for between the toes Twice a day Taking Carvedilol 6.25 MG Tablet TAKE 1 TABLET BY MOUTH TWICE A DAY. MUST ADMINISTER WITH A MEAL/FOOD Oral Not-Taking/PRNTolterodine Tartrate ER 2 MG Capsule Extended Release 24 Hour TAKE 1 CAPSULE BY MOUTH EVERY DAY Oral Mounjaro Pioglitazone HCl Ozempic Fish Oil 1000 MG Capsule 1 capsule Orally Once a day Victoza 1.8 mg Jardiance Lantus 60 units oxyBUTYnin Chloride 10 mg Tablet 1 tablet Orally Once a day Fluticasone Propionate 50 MCG/ACT Suspension 1 spray in each nostril Nasally Once a day Fluticasone Furoate Medication List reviewed and reconciled with the patientNot-Taking/PRN Tolterodine Tartrate ER 2 MG Capsule Extended Release 24 Hour TAKE 1 CAPSULE BY MOUTH EVERY DAY Oral Not-Taking/PRN Mounjaro Not-Taking/PRN Pioglitazone HCl Not-Taking/PRN Ozempic Not-Taking/PRN Fish Oil 1000 MG Capsule 1 capsule Orally Once a day Not-Taking/PRN Victoza 1.8 mg Not-Taking/PRN Jardiance Not-Taking/PRN Lantus 60 units Not-Taking/PRN oxyBUTYnin Chloride 10 mg Tablet 1 tablet Orally Once a day Not-Taking/PRN Fluticasone Propionate 50 MCG/ACT Suspension 1 spray in each nostril Nasally Once a day Not-Taking/PRN Fluticasone Furoate Medication List reviewed and reconciled with the patient * Allergies:?Augmentin: rashBa ctrim: rashKeflex: rashJardiance: Yeast InfectionSulfa Antibiotics: rashyes[Allergies Verified] Objective: * Vitals:?Ht: 5ft2in, Wt:260, BMI:47.55, Shoe size: 8.5-9, BP:126/62mm Hg, BS: 126, Ht-cm: 157.48 cm, Wt-k.93 kg. * ???Past Orders: ???Lab:HEMOGLOBIN A1C (GLYCO HEMOGLOBIN) (Order Date - 09/29/2024) (Collection Date & Time - 09/29/2024 08:38 AM) ? Value Reference Range ?TOTAL HEMOGLOBIN (HGBA1C) 7.6 * Examination: ???Nails: ?NAILS are:?Elongated, overgrown, dystrophic, lytic, greater than 3mm thick, discolored and friable with crumbly malodorous subungual debris, with pain on palpation, TA, T1, T2, T3, T4, T5, T6, T7, T8, T9.?Ingrown Nail: ?INSPECTION:?Reveals incurvation, pain on palpation, groove hypertrophy, Lateral nail border, TA, T5.?Dermatologic: ?SKIN FINDINGS:?Skin exam reveals Keratotic lesion(s) located at, SUB MTH (s), 1, B/L , SUB MTH (s), 5, B/L , Plantar, Heel(s), B/L , Skin shows approximately 80-90 percent LESS, sign(s) of, dryness, scaling, in a stocking fashion, no fissure(s) present, B/L.? Assessment: * Assessment: 1.?Tinea unguium - B35.1 (Pr imary)???2.?Pain in right toe(s) - M79.674???3.?Pain in left toe(s) - M79.675???4.?Type 1 diabetes mellitus without complication - E10.9???5.?Ingrown nail - L60.0???Specify :Lateral nail border, TA, T5???6.?Xerosis of skin - L85.3???Specify :Acute problem, Stable Response to treatment - Improvement??? Plan: * Treatment: 2.?Type 1 diabetes mellitus without complication?Procedure: 91491-EXAC SKIN LESIONS, OVER 4 3.?Ingrown nail?Procedure: 41945-Hxbbboib Plate ?Procedure: 54497-Bkzfukbk Plate Each Additional * Procedures:?Debride Nail 6-10:?Nail debridement?Due to the clinical pathology outlined in the exam findings, performance of this nail treatment is medically necessary as its management by an unskilled/untrained nonprofessional would put this patients foot and overall health at risk. Therefore, debridement to affected nail(s), as described in exam (?TA, T1, T2, T3, T4, T5, T6, T7, T8, T9), was performed exclusively by the physician of record to reduce/remove overall nail length, girth, thickness, subungual debris, and necrotic tissue, by manual and/or electrical means through the use of a nail nipper and/or dremel-type thread grinder tool, to a more viable healthy nail plate or bed tissue 6- 10 nails in total. Silver nitrate was used for any petechial bleeding as necessary. Definitive antifungal treatment options, both pharmaceutical and surgical, have been reviewed and discussed with the patient. The patient solely prefers the use of intermittent/as needed professional debridement services for their nail condition and understands the need for additional periodic treatments to maintain effectiveness in symptomatic relief - 40184.?Keratoma Treatment:?Parring or Cutting of Benign Hyperkeratotic Lesion(s)?(-57) More than 4 Lesions - Due to the at risk nature of the patients medical condition as documented in the exam findings, performance of this keratoderma treatment is medically necessary as its management by an unskilled/untrained nonprofessional would put this patients foot and overall health at risk. Therefore, the benign hyperkeratotic lesions, ( 8) in total, locations as stated and described in the exam (?SUB MTH (s),?1,?B/L?,?SUB MTH (s),?5,?B/L?,?Plantar,?Heel(s),?B/L?), were pared, and/or cut utilizing a sterile 15 blade, tissue nippers, and/or power dremel instrumentation by the physician of record - 76397.?Nail Avulsion:?Location?Lateral nail borders, TA, T5.?Anesthesia?was deferred - [...] and future surgical procedures to prevent recurrence (68426/32), DIABETES: Pt was advised as to the risk of delayed or nonhealing due to diabetes. Pt is to call the office with any questions, concerns, or complications, DIABETES: Matricectomy deferred due to diabetes risk.? * Procedure Codes:?44288 DEBRI DE NAIL, 6 OR MORE, Modifiers: XS 50536 Avulsion Plate, Modifiers: XS , [id number] Avulsion Plate Each Additional, Modifiers: XS , [id number] TRIM SKIN LESIONS, OVER 4, Modifiers: XS * Preventive Medicine:? ??Counseling:?Discussion:?-12: Office or other outpatient visit for the evaluation and management of an established patient, which required a medically appropriate history and/or examination and STRAIGHTFORWARD level of MEDICAL DECISION MAKING, 1 SELF-LIMITED OR MINOR PROBLEM, MINIMAL- NO AMOUNT/COMPLEXITY OF DATA TO BE REVIEWED/ANALYZED, AND MINIMAL RISK OF COMPLICATION/MORBIDITY. The visit on the day of the [...] have encouraged the patient to call the office.?Xerosis:?Given recent successful results to treatment, The patient is to cont the rx cream as directed.? * Follow Up:?prn * Images: * Sign off status: Completed true * Provider:?Edilson Luis DPM Date:?2023 Generated for Yaz rose/Tomy/Rohan on:?01/05/2025 08:53 AM EST History and Physical Notes * HPI (History of Present Illness) Category Sub-Category Detail Notes Category Not es Skin problems Treatments: medication ( AM Lactin ), states adherence to recommended treatment application At Risk footcare Pt States Last PCP Visit: Date: 06/29/2024 Examination Category Sub-Category Detail Notes Category Not es Ingrown Nail INSPECTION: Reveals incurvat ion, pain on palpation, groove hypertrophy, Lateral nail border, TA, T5 Dermatologic SKIN FINDINGS: Skin exam reveal s Keratotic lesion(s) located at, SUB MTH (s), 1, B/L , SUB MTH (s), 5, B/L , Plantar, Heel(s), B/L , Skin shows approximately 80-90 percent LESS, sign(s) of, dryness, scaling, in a stocking fashion, no fissure(s) present, B/L Nails NAILS are: Elongated, overg rown, dystrophic, lytic, greater than 3mm thick, discolored and friable with crumbly malodorous subungual debris, with pain on palpation, TA, T1, T2, T3, T4, T5, T6, T7, T8, T9
[2025-01-05 09:12] LABS: Glucose, Whole Blood 154 mg/dL (60-115)
== END | disposition home or self-care (01) ==
PROVIDERS: PCP Internal Medicine; Visit Provider Physician Assistant Medical

== ENCOUNTER → 2025-01-05 08:29 | Outpatient (BNVA) | payer OTHER, SELFPAY | PROVIDERS: PCP Internal Medicine; Visit Provider Physician Assistant Medical | DX: E11.69 Type 2 diabetes mellitus with other specified complication (principal); R80.9 Proteinuria, unspecified; E66.01 Morbid (severe) obesity due to excess calories; N28.9 Disorder of kidney and ureter, unspecified; R01.1 Cardiac murmur, unspecified; Z68.42 Body mass index [BMI] 45.0-49.9, adult | CPT/HCPCS: 82947; 83036 ==

== ENCOUNTER 2025-01-30 09:04 | Outpatient (REF) | payer OTHER, SELFPAY ==
--- OUTSIDE RECORDS SUMMARY | 2025-01-30 10:01 | XMS_ITS ---
Author Organization [facility] Address [address] [place] [address] Care Team Providers Care Utility Gelatin Maker Name Role Phone Behzad Arzola MD Primary Care Provider Unavaila Edilson Ricketts Unavailable [phone] Allergies Allergen (clinical drug ingredient) Drug/Non Drug [...] Ordered Date Performed Result Body Sit e 72906-YAWRFOI NAIL, 6 OR MORE 05/17/2024 N/A 50401-Uwurmkno Plate 05/17/2024 N/A 30575-Sqxfulgz Plate Each Additional 05/17/2024 N/A 64790-VKJN SKIN LESIONS, OVER 4 05/17/2024 N/A Encounters Encounter Location Date Provider Diagnosis [facility] [place] [address] [place] [address] 05/17/2024 Edilson Janelle Pain in right toe(s) [...] Treatment Pending Test Test Name Order Date 07651-CBISEYG NAIL, 6 OR MORE 05/17/2024 46996-Tngvkpmh Plate 05/17/2024 28857-Vwzntilr Plate Each Additional 52668-RESY SKIN LESIONS, OVER 4 05/17/20 24 Next Appt Details Follow Up: prn, Reason: Provider Name:Edilson V Janelle , 03/05/2025 08:45:00 AM, [address] [facility], [address], [place], [address], Procedure Notes * Category Sub-Category [...] and future surgical procedures to prevent recurrence (07150/32), DIABETES: Pt was advised as to the [...] as necessary. Patient chooses, no pharmaceutical tx (79452) Keratoma Treatment Parring or Cutting o f Benign Hyperkeratotic Lesion(s) 18044 ( >4 Lesions) - The Benign hyperkeratotic lesions, as described above were pared, and/or cut utilizing a sterile #15 blade, tissue nippers, and/or dremel Progress Notes * Kathryn MCCORMICK KDOB:[birth year] (69 yo F)Acc No.[id number]:05/17/2024 Progress Note Patient:?Kathryn Mccormick K Provider:?Edilson Luis DPM :1955???Age:69 Y???Sex:Female D ate:05/17/2024 Address:[address] [place] [phone] Pcp:Behzad Arzola MD Subjective: * Chief Complaints: [...] History:? s ection * Hospitalization/Major Diagno stic Procedure:?[facility] [place] Stitches in head 02/2019Colonoscopy 08/07/19 * Family [...] ?Exercise: yes, walking. ?Marital status: . ?Occupation: [employer]. * Medications:?TakingAspir-81 amLODIPine Besylate 10 MG Tablet [...] Treatment: 2.?Type 1 diabetes mellitus without complication?Procedure: 51241-CIZZ SKIN LESIONS, OVER 4 3.?Ingrown nail?Procedure: 19845-Zwteorxf Plate ?Procedure: 32013-Sfpcdxkr Plate Each Additional * Procedures:?Debride Nail 6-10:?Nail debridement?Nail debridement performed extensively to reduce/remove overall nail length, girth, thickness, subungual debris, and necrotic tissue, by manual and electrical means through the use of a nail nipper and/or dremel, to more viable healthy nail plate or bed tissue 1-5. Silver nitrate used for any petechial bleeding as necessary. Patient chooses, no pharmaceutical tx (31162).?Keratoma Treatment:?Parring or Cutting of Benign Hyperkeratotic Lesion(s)?46289 ( >4 Lesions) - The Benign hyperkeratotic [...] and future surgical procedures to prevent recurrence (33493/32), DIABETES: Pt was advised as to the risk of delayed or nonhealing due to diabetes. Pt is to call the office with any questions, concerns, or complications, DIABETES: Matricectomy deferred due to diabetes risk.? * Procedure Codes:?93372 DEBRI DE NAIL, 6 OR MORE, Modifiers: XS 10293 Avulsion Plate, Modifiers: XS , [id number] Avulsion Plate Each Additional, Modifiers: XS , [id number] TRIM SKIN LESIONS, OVER 4, Modifiers: XS [...] Luis DPM Date:?2023 Generated for Yaz rose/Tomy/Donalditting on:?01/30/2025 10:00 AM EST History and Physical Notes * [...]
--- OUTSIDE RECORDS SUMMARY | 2025-01-30 10:01 | XMS_ITS ---
Author Organization [facility] Address [address] [place] [address] Care Team Providers Care Boring Machine Operator Double End Name Role Phone Behzad Arzola MD Primary Care Provider Unavaila Edilson Ricketts Unavailable [phone] Allergies Allergen (clinical drug ingredient) Drug/Non Drug [...] Ordered Date Performed Result Body Sit e 15525-MGTPXJA NAIL, 6 OR MORE 11/27/2024 N/A 47042-Vrtnejow Plate 11/27/2024 N/A 47723-Wxoymviu Plate Each Additional 11/27/2024 N/A 47602-HMKA SKIN LESIONS, OVER 4 11/27/2024 N/A Encounters Encounter Location Date Provider Diagnosis [facility] [address] [address] 11/27/2024 Edilson Gonzalezier Pain in right toe(s) [...] Treatment Pending Test Test Name Order Date 12904-ANXIFUR NAIL, 6 OR MORE 11/27/2024 88228-Uhlunyan Plate 11/27/2024 81360-Mjlvhgro Plate Each Additional 76962-XYIK SKIN LESIONS, OVER 4 11/27/20 24 Next Appt Details Follow Up: prn, Reason: Provider Name:Edilson Luis , 03/05/2025 08:45:00 AM, [address] [facility], [address], [place], [address], Procedure Notes * Category Sub-Category Detail Notes [...] and future surgical procedures to prevent recurrence (81133/32), DIABETES: Pt was advised as to the [...] use of a nail nipper and/or dremel-type precision jig grinder, to a more viable healthy nail plate [...] to maintain effectiveness in symptomatic relief - 41422 Keratoma Treatment Parring or Cutting o f [...] instrumentation by the physician of record - 23605 Progress Notes * Kathryn ARZOLA KDOB:[birth year] (69 yo F)Acc No.[id number]:11/27/2024 Progress Note Patient:?Merry ARZOLAcja Cassie Provider:?Edilson Luis DPM :1955???Age:69 Y???Sex:Female D ate:11/27/2024 Address:[address] [place] [phone] Pcp:Behzad Arzola MD Subjective: * Chief Complaints: [...] History:? s ection * Hospitalization/Major Diagno stic Procedure:?[facility] [place] Stitches in head 02/2019Colonoscopy 08/07/19 * Family [...] Treatment: 2.?Type 1 diabetes mellitus without complication?Procedure: 81554-MIDQ SKIN LESIONS, OVER 4 3.?Ingrown nail?Procedure: 93390-Pqqanxew Plate ?Procedure: 45416-Ycxvrdcg Plate Each Additional * Procedures:?Debride Nail 6-10:?Nail [...] use of a nail nipper and/or dremel-type precision jig grinder, to a more viable healthy nail plate [...] to maintain effectiveness in symptomatic relief - 23624.?Keratoma Treatment:?Parring or Cutting of Benign Hyperkeratotic Lesion(s)?(-57) [...] instrumentation by the physician of record - 66721.?Nail Avulsion:?Location?Lateral nail borders, TA, T5.?Anesthesia?was deferred - [...] and future surgical procedures to prevent recurrence (84234/32), DIABETES: Pt was advised as to the risk of delayed or nonhealing due to diabetes. Pt is to call the office with any questions, concerns, or complications, DIABETES: Matricectomy deferred due to diabetes risk.? * Procedure Codes:?01618 DEBRI DE NAIL, 6 OR MORE, Modifiers: XS 94100 Avulsion Plate, Modifiers: XS , [id number] Avulsion Plate Each Additional, Modifiers: XS , [id number] TRIM SKIN LESIONS, OVER 4, Modifiers: XS [...] * Sign off status: Completed true * Provider:Mina Luis DPM Date:?2023 Generated for Yaz rose/Tomy/Rohan on:?01/30/2025 10:00 AM EST History and Physical [...]
--- OUTSIDE RECORDS SUMMARY | 2025-01-30 10:01 | XMS_ITS ---
[facility] Organization [facility] Address [address] [place] [address] Care Team Providers Care House Designer Name Role Phone Behzad Arzola MD Primary Care Provider Unavaila Edilson Ricketts Unavailable [phone] Allergies Allergen (clinical drug ingredient) Drug/Non Drug [...] Ordered Date Performed Result Body Sit e 03115-CGJORXH NAIL, 6 OR MORE 08/17/2024 N/A 30609-Nqqqnabg Plate 08/17/2024 N/A 81139-Jgmvvhhs Plate Each Additional 08/17/2024 N/A 82801-ZBWP SKIN LESIONS, OVER 4 08/17/2024 N/A Encounters Encounter Location Date Provider Diagnosis [facility] [place] [address] [address] 08/17/2024 Edilson Janelle Pain in right toe(s) [...] days Pending Test Test Name Order Date 50331-NYUHZSF NAIL, 6 OR MORE 08/17/2024 67017-Xkqozaqz Plate 08/17/2024 98690-Nkfbiqgd Plate Each Additional 18689-GSOI SKIN LESIONS, OVER 4 08/17/20 24 Next Appt Details Follow Up: prn, Reason: Provider Name:Edilson Luis , 03/05/2025 08:45:00 AM, [address] [facility], [address], [place], [address], Procedure Notes * Category Sub-Category [...] and future surgical procedures to prevent recurrence (94098/32), DIABETES: Pt was advised as to the [...] use of a nail nipper and/or dremel-type beef grinder, to a more viable healthy nail plate or bed tissue 6-10. Silver nitrate used for any petechial bleeding as necessary. Definitive antifungal treatment options have been reviewed and discussed with the patient. The patient chooses, no pharmaceutical tx - 69000 Keratoma Treatment Parring or Cutting o f Benign Hyperkeratotic Lesion(s) (-57) More than 4 Lesions - The Benign hyperkeratotic lesions, as described above were pared, and/or cut utilizing a sterile 15 blade, tissue nippers, and/or dremel - 92432 Progress Notes * Kathryn MCCORMICK KDOB:[birth year] (69 yo F)Acc No.[id number]:08/17/2024 Progress Note Patient:?Kathryn Mccormick K Provider:?Edilson Luis DPM :1955???Age:69 Y???Sex:Female D ate:08/17/2024 Address:[address] [place], [place] [address] Pcp:Behzad Arzola MD Subjective: * Chief Complaints: [...] History:? s ection * Hospitalization/Major Diagno stic Procedure:?[facility] [place] in head 02/2019Colonoscopy 08/07/19 * Family [...] ?Exercise: yes, walking. ?Marital status: . ?Occupation: [employer] * Medications:?TakingOzempic ( 0.25 or 0.5 MG/DOSE) [...] Treatment: 2.?Type 1 diabetes mellitus without complication?Procedure: 04699-KVFY SKIN LESIONS, OVER 4 3.?Ingrown nail?Procedure: 25935-Udohqyoc Plate ?Procedure: 78544-Kothqlok Plate Each Additional 4.?Xerosis of skin? Start [...] use of a nail nipper and/or dremel-type beef grinder, to a more viable healthy nail plate or bed tissue 6-10. Silver nitrate used for any petechial bleeding as necessary. Definitive antifungal treatment options have been reviewed and discussed with the patient. The patient chooses, no pharmaceutical tx - 99271.?Keratoma Treatment:?Parring or Cutting of Benign Hyperkeratotic Lesion(s)?(-57) More than 4 Lesions - The Benign hyperkeratotic lesions, as described above were pared, and/or cut utilizing a sterile 15 blade, tissue nippers, and/or dremel - 90977.?Nail Avulsion:?Location?Lateral nail borders, TA, T5.?Anesthesia?was deferred - [...] and future surgical procedures to prevent recurrence (41017/32), DIABETES: Pt was advised as to the risk of delayed or nonhealing due to diabetes. Pt is to call the office with any questions, concerns, or complications, DIABETES: Matricectomy deferred due to diabetes risk.? * Procedure Codes:?48839 DEBRI DE NAIL, 6 OR MORE, Modifiers: XS 95719 Avulsion Plate, Modifiers: XS , [id number] Avulsion Plate Each Additional, Modifiers: XS , [id number] TRIM SKIN LESIONS, OVER 4, Modifiers: XS [...]
[2025-01-30 10:20] LABS: Anion Gap 15 (12-20); Blood Urea Nitrogen 30 mg/dL (9-16); Calcium 10.3 mg/dL (8.4-10.2); Carbon Dioxide 26 mmol/L (22-29); Chloride 103 mmol/L (96-108); Estimated Glomerular Filt Rate 49; Glucose Random 107 mg/dL (60-115); Potassium 4.6 mmol/L (3.3-5.1); Sodium 139 mmol/L (135-145)
[2025-01-30 10:33] LABS: Creatinine Urine 101.51 mg/dL; Protein/Creatinine Ratio, Ur 0.11 (<0.2); Total Protein Urine Random 11 mg/dL (<12)
== END 2025-01-30 09:05 | disposition home or self-care (01) ==
LOC: HO.LAB 09:04
PROVIDERS: PCP Internal Medicine; Visit Provider Nurse Practitioner Family
DX: N18.30 Chronic kidney disease, stage 3 unspecified (principal); N18.9 Chronic kidney disease, unspecified; I12.9 Hypertensive chronic kidney disease with stage 1 through stage 4 chronic kidney disease, or unspecified chronic kidney disease; E11.65 Type 2 diabetes mellitus with hyperglycemia
CPT/HCPCS: 36415; 80048; 82570; 84156

== ENCOUNTER 2025-02-01 09:22 | Outpatient (AMB) | payer OTHER, SELFPAY ==
[2025-02-01 09:23] VITALS: BP 160/58; PULSE 80; O2SAT 95; BMI 47.7
--- NOTE | 2025-02-01 09:23 | HO.NEPHOV ---
Vital Signs 02/01/25 09:23 02/01/25 09:43 Height 5 ft 2 in Weight 261 lb BMI 47.7 BP 160/58 H 130/60 Blood Pressure Location Rt brachial Rt brachial Position Sitting Sitting Pulse 80 Pulse Source Pulse Oximeter Pulse Oximetry (%) 95 Oxygen Delivery Method Room Air Intake Visit Reasons: Atrophic kidney/ 3 MO FU per Sandra/Sadaf Recycling Crew Supervisor Required: No Accompanied by: Self / Same As Patient Allergies Sulfa (Sulfonamide Antibiotics) [Sulfa (Sulfonamides)] Allergy (Mild, Verified 02/01/25 09:26) RASH cephalexin [From KEFLEX] Allergy (Unknown, Verified 02/01/25 09:26) RASH clavulanic acid [Augmentin] Allergy (Unknown, Verified 02/01/25 09:) vaginal irritation empagliflozin [From Jardiance] Adverse Reaction (Intermediate, Verified 02/01/25:) Rash amoxicillin [From Augmentin] Adverse Reaction (Mild, Verified 02/01/25 09:) VAGINAL IRRITATION tolterodine Adverse Reaction (Unknown, Verified 02/01/25 09:26) Hives, rash Medication List - Last Reconciled 02/01/25 by Olman Trujillo MD amlodipine 10 mg PO DAILY ammonium lactate 12% appl topical aspirin (Adult Aspirin Regimen) 81 mg PO DAILY azithromycin take 500 mg today (day 1), then 250 mg for 4 days (days 2-5) PO blood sugar diagnostic (Movius Interactiveuch Verio test strips) As directed 3 times a day blood-glucose meter (SkyRide TechnologyTouch Verio Flex Meter) As directed blood-glucose meter,continuous (FreeStyle Dominick 3 [place]) as directed blood-glucose sensor (FreeStyle Dominick 3 Sensor device) apply new sensor every 14 days as directed carvedilol 6.25 mg PO BID glucose (Dex4 Glucose) 16 grams (4 x 4 gram) PO Q15M PRN hydrochlorothiazide 25 mg PO DAILY ibuprofen 800 mg PO BID insulin glargine 35 units subcut DAILY lancets (Movius Interactiveuch Delica Lancets) As directed 3 times a day lisinopril 10 mg PO DAILY metformin 1,000 mg PO BID omega-3 fatty acids 1,000 mg PO DAILY pen needle, diabetic (BD Samantha 2nd Gen Pen Needle) Use as directed to administer insulin subcutaneously once daily pravastatin 10 mg PO BEDTIME semaglutide (Ozempic) 2 mg (0.75 mL) subcut QWEEK HPI Comments Details: Pt is a 69 y/o female Medical Hx: DMII with microalbuminuria, HTN, HLD, morbid obesity, osteoarthritis, urge urinary incontinence (overactive bladder). alcohol: seldom- special occasions tobacco: never Referred by her citrix engineer for atrophic left kidney and increased creatinine, microalbuminuria: She has an ultrasound March 2024 which showed an atrophic left kidney without hydronephrosis. Her creatinine was 0.December, increased to 1.33 in 08/03/24 GFR 40 on 08/03/24; previously 59 on 01/06/24. microalbumin/creatinine ratio 156.9 on 08/03/24 she denies personal history of kidney stones or history of other renal problems she denies known vascular disease pertinent family history: one brother with large renal stones, and had to have a kidney removed (unknown reason). both parents in 40s from (mother- breast, father lung cancer). another brother had a heart attack and in his late 40s/early 50s. both children have mental health struggles but are other she has never had a kidney stone no known vascular disease takes 800mg ibuprofen takes twice daily, sometimes 3x daily, for arthritis. For a few years. Feels this is necessary for QOL- joint injections have not worked well, and she has not been able to lose weight for surgery for her arthritis. Does take tylenol, does not help as much. She does not add salt to her food that she cooks, but states eats canned soups, delhi meats and other foods with salt added; working on this A1c 9.1% on 08/03/24. Takes ozempic. Ozempic has not yet helped with weight loss. Blood pressures generally controlled, does not take her BP measures at home takes amlodipine 10mg daily, hydrochlorothiazide 25mg daily, lisinopril 20mg daily. 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 Pt continues with hctz 25mg daily and amlodipine 10mg daily she continues to have chronic BLE swelling she continues to struggle with fluid intake but has has some improvement continues to struggle with avoiding foods with added salt but working on this A1c has improved from 9.1 to 7.9 on 10/02/24 11/01/24 pt taking lisinopril 10mg daily, hctz 25mg daily, amlodipine 10mg daily, carvedilol 6.25mg BID (carvedilol was added last appt due to elevated blood pressure) she has not been able to get a blood pressure cuff yet due to finances but will get this when she can denies new symptoms/concerns states sugars have been doing better on ozempic and she is continuing to lose weight slowly. She sees her citrix engineer next week. 02/01/25 Twelve doing well. She is taking vitamin-D 5000 units a day. She is currently on a Ozempic. No significant weight change. Home blood pressure has been acceptable Unfortunately she takes ibuprofen twice a day on a regular basis. [facility] Medical History Murmur Decreased renal function Microalbuminuria due to type 2 diabetes mellitus Physical exam Urinary Incontinence OAB (overactive bladder) Type 2 diabetes mellitus with morbid obesity Obesity Diabetes type 2, uncontrolled Osteoarthritis Morbid obesity Hypertension Dyslipidemia Non-toxic multinodular goiter nursing home (current) use of insulin Diabetes type 2, controlled Surgical History History of section Family History Father Lung cancer Mother Breast cancer Social History Household Members: Children Housing: House Alcohol intake: current Alcohol intake frequency: holidays/special occasions only Patient Tobacco Use Status: Never used Tobacco e-Cigarette/Vaping Use: Never Used Second Hand Smoke Exposure: No service: No Current occupational status: employed Cognitive needs: Yes Hearing needs: Yes Vision needs: Yes Physical Exam Vital Signs: Last Vital Signs Pulse 80 02/01/25 09:23 BP 130/60 02/01/25 09:43 Pulse Ox 95 02/01/25 09:23 Oxygen Delivery Method Room Air 02/01/25 09:23 BMI result Body Mass Index 47.7 Const Orientation/consciousness: patient oriented x3 Neck Thyroid: Thyroid normal Carotids: bruit on the right Resp Effort & Inspection: normal respiratory effort Auscultation: clear to auscultation bilaterally Cardio Jugular venous distension: no JVD Rate: regular rate Rhythm: regular rhythm Heart sounds: S1 normal heart sound present, S2 normal heart sound present and Murmur heart sound present (mild systolic heart murmur ) GI Palpation (GI): Soft to palpation and nontender General: Yes no CVA tenderness Back/Spine/Pelvis Back: no CVA tenderness Skin Lesions: no lesions Rashes: no rashes Neuro General: patient oriented x3 Extrem General: Yes edema (BLE edema +1, reports longstanding but feels it is slightly better recently) Results Reviewed Results Reviewed: RIGHT KIDNEY: 13.3 x 6.2 x 6.3 cm (SAG x AP x TRV). The kidney is normal in size, contour, and echogenicity. Renal cortical thickness is normal. No calculi or focal parenchymal lesions. No hydronephrosis. LEFT KIDNEY: 9.6x 3.8 x 3.4 cm (SAG x AP x TRV). The renal parenchyma is thin measuring 7 mm and is echogenic compared to the contralateral kidney. Subcentimeter simple cysts are seen in the lower pole for which no imaging follow-up is recommended. No calculi or hydronephrosis. Nephrology Results: Sodium 139 mmol/L (135-145) 01/30/25 Potassium 4.6 mmol/L (3.3-5.1) 01/30/25 Chloride 103 mmol/L (96-108) 01/30/25 Carbon Dioxide 26 mmol/L (22-29) 01/30/25 BUN 30 mg/dL (9-16) H 01/30/25 Creatinine 1.11 mg/dL (0.5-1.4) 01/30/25 Calcium 10.3 mg/dL (8.4-10.2) H 01/30/25 Urine Creatinine 101.51 mg/dL 01/30/25 Protein/Creatinin Ratio 0.11 (<0.2) 01/30/25 Assessment & Plan Assessment & Plan (1) Diabetes type 2, uncontrolled: Code(s): E11.65 - Type 2 diabetes mellitus with hyperglycemia Category: Medical Qualifiers: Glycemic state: with hyperglycemia Qualified Code(s): E11.65 - Type 2 diabetes mellitus with hyperglycemia (2) Microalbuminuria due to type 2 diabetes mellitus: Code(s): E11.29 - Type 2 diabetes mellitus with other diabetic kidney complication; R80.9 - Proteinuria, unspecified Category: Medical (3) Atrophic kidney: Code(s): N26.1 - Atrophy of kidney (terminal) Category: Medical (4) Hypertension: Code(s): I10 - Essential (primary) hypertension Category: Medical Qualifiers: Hypertension type: essential hypertension Qualified Code(s): I10 - Essential (primary) hypertension (5) CKD (chronic kidney disease): Code(s): N18.9 - Chronic kidney disease, unspecified Category: Medical Qualifiers: Chronic kidney disease stage: stage 3 (moderate) Chronic kidney disease stage 3 subtype: stage 3a (GFR 45-59) Qualified Code(s): N18.31 - Chronic kidney disease, stage 3a Plan 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 She is at a risk of ongoing renal injury especially in combination with lisinopril and diuretics. Mild hypercalcemia. This is probably due to excessive vitamin-D intake. Encouraged her to cut down on vitamin-D intake from 5000 units every day to 5000 units once a week. Shall recheck serum calcium and intact PTH prior to next visit Orders: Orders Basic Metabolic Panel 4 Months Olman Trujillo MD N18.31 - Chronic kidney disease, stage 3a Phosphorus 4 Months Olman Trujillo MD N18.31 - Chronic kidney disease, stage 3a Parathyroid Hormone Intact 4 Months Olman Trujillo MD N18.31 - Chronic kidney disease, stage 3a Medications: Changed From ibuprofen 800 mg PO TID 90 tabs 8RF To ibuprofen 800 mg PO BID Behzad Arzola MD Coding Level of Care Code Est Pt Level 4 (72658) Diagnoses Uncontrolled type 2 diabetes mellitus with hyperglycemia E11.65 Glycemic state: with hyperglycemia Microalbuminuria due to type 2 diabetes mellitus E11.29; R80.9 Atrophic kidney N26.1 Essential hypertension I10 Hypertension type: essential hypertension Stage 3a chronic kidney disease N18.31 Chronic kidney disease stage: stage 3 (moderate) Chronic kidney disease stage 3 subtype: stage 3a (GFR 45-59)
[2025-02-01 09:43] VITALS: BP 130/60
--- OUTSIDE RECORDS SUMMARY | 2025-02-01 10:26 | XMS_ITS ---
Author Organization [facility] Address [address] [place] [address] Care Team Providers Care Betting Agency Manager Name Role Phone Behzad Arzola MD Primary Care Provider Unavaila Edilson Ricketts Unavailable [phone] Allergies Allergen (clinical drug ingredient) Drug/Non Drug [...] Ordered Date Performed Result Body Sit e 15476-UTMIXQM NAIL, 6 OR MORE 08/17/2024 N/A 73204-Rdhbikyy Plate 08/17/2024 N/A 53542-Bzkllbrz Plate Each Additional 08/17/2024 N/A 25543-YWPM SKIN LESIONS, OVER 4 08/17/2024 N/A Encounters Encounter Location Date Provider Diagnosis [facility] [place] [address] [address] 08/17/2024 Edilson Janelle Pain in right toe(s) [...] days Pending Test Test Name Order Date 76073-SIFIPCR NAIL, 6 OR MORE 08/17/2024 37730-Cokmhrmh Plate 08/17/2024 85952-Ndagygsl Plate Each Additional 86488-PHYY SKIN LESIONS, OVER 4 08/17/20 24 Next Appt Details Follow Up: prn, Reason: Provider Name:Edilson Luis , 03/05/2025 08:45:00 AM, [address] [facility], [address], [place], [address], Procedure Notes * Category Sub-Category [...] and future surgical procedures to prevent recurrence (49409/32), DIABETES: Pt was advised as to the [...] use of a nail nipper and/or dremel-type grinder dresser, to a more viable healthy nail plate or bed tissue 6-10. Silver nitrate used for any petechial bleeding as necessary. Definitive antifungal treatment options have been reviewed and discussed with the patient. The patient chooses, no pharmaceutical tx - 83751 Keratoma Treatment Parring or Cutting o f Benign Hyperkeratotic Lesion(s) (-57) More than 4 Lesions - The Benign hyperkeratotic lesions, as described above were pared, and/or cut utilizing a sterile 15 blade, tissue nippers, and/or dremel - 10650 Progress Notes * Kathryn MCCORMICK KDOB:[birth year] (69 yo F)Acc No.[id number]:08/17/2024 Progress Note Patient:?Kathryn Mccormick K Provider:?Edilson Luis DPM :1955???Age:69 Y???Sex:Female D ate:08/17/2024 Address:[address] [place], [place] [id number] Pcp:Behzad Arzola MD Subjective: * Chief Complaints: [...] History:? s ection * Hospitalization/Major Diagno stic Procedure:?[facility] [place] Stitches in head 02/2019Colonoscopy 08/07/19 * Family [...] ?Exercise: yes, walking. ?Marital status: . ?Occupation: [email or web address]. * Medications:?TakingOzempic ( 0.25 or 0.5 MG/DOSE) [...] Treatment: 2.?Type 1 diabetes mellitus without complication?Procedure: 07219-EYHY SKIN LESIONS, OVER 4 3.?Ingrown nail?Procedure: 90746-Grzhmxej Plate ?Procedure: 10732-Zpgidihj Plate Each Additional 4.?Xerosis of skin? Start [...] use of a nail nipper and/or dremel-type grinder dresser, to a more viable healthy nail plate or bed tissue 6-10. Silver nitrate used for any petechial bleeding as necessary. Definitive antifungal treatment options have been reviewed and discussed with the patient. The patient chooses, no pharmaceutical tx - 68051.?Keratoma Treatment:?Parring or Cutting of Benign Hyperkeratotic Lesion(s)?(-57) More than 4 Lesions - The Benign hyperkeratotic lesions, as described above were pared, and/or cut utilizing a sterile 15 blade, tissue nippers, and/or dremel - 33024.?Nail Avulsion:?Location?Lateral nail borders, TA, T5.?Anesthesia?was deferred - [...] and future surgical procedures to prevent recurrence (00637/32), DIABETES: Pt was advised as to the risk of delayed or nonhealing due to diabetes. Pt is to call the office with any questions, concerns, or complications, DIABETES: Matricectomy deferred due to diabetes risk.? * Procedure Codes:?43447 DEBRI DE NAIL, 6 OR MORE, Modifiers: XS 67620 Avulsion Plate, Modifiers: XS , [id number] Avulsion Plate Each Additional, Modifiers: XS , [id number] TRIM SKIN LESIONS, OVER 4, Modifiers: XS [...] Luis DPM Date:?2023 Generated for Yaz rose/Tomy/Donalditting on:?2025 10:26 AM EST History and Physical Notes * [...]
--- OUTSIDE RECORDS SUMMARY | 2025-02-01 10:26 | XMS_ITS ---
Author Organization [facility] Address [address] [place] [address] Care Team Providers Care Biomedical Equipment Support Specialist Name Role Phone Behzad Arzola MD Primary Care Provider Unavaila Edilson Ricketts Unavailable [phone] Allergies Allergen (clinical drug ingredient) Drug/Non Drug [...] Ordered Date Performed Result Body Sit e 67029-EELPYYM NAIL, 6 OR MORE 05/17/2024 N/A 75033-Jgqmqmkw Plate 05/17/2024 N/A 59765-Jpizeyac Plate Each Additional 05/17/2024 N/A 28084-QBVK SKIN LESIONS, OVER 4 05/17/2024 N/A Encounters Encounter Location Date Provider Diagnosis [facility] [place] [address] [place] [phone] 05/17/2024 Edilson Janelle Pain in right toe(s) [...] Treatment Pending Test Test Name Order Date 04448-LBRSNSS NAIL, 6 OR MORE 05/17/2024 12208-Zbkxfjqz Plate 05/17/2024 28434-Xuwpbchw Plate Each Additional 55913-HLYL SKIN LESIONS, OVER 4 05/17/20 24 Next Appt Details Follow Up: prn, Reason: Provider Name:Edilson V Janelle , 03/05/2025 08:45:00 AM, [address] [facility], [address], [place], [address], Procedure Notes * Category Sub-Category [...] and future surgical procedures to prevent recurrence (28033/32), DIABETES: Pt was advised as to the [...] as necessary. Patient chooses, no pharmaceutical tx (25937) Keratoma Treatment Parring or Cutting o f Benign Hyperkeratotic Lesion(s) 49776 ( >4 Lesions) - The Benign hyperkeratotic lesions, as described above were pared, and/or cut utilizing a sterile #15 blade, tissue nippers, and/or dremel Progress Notes * Kathryn MCCORMICK KDOB:[birth year] (69 yo F)Acc No.[id number]:05/17/2024 Progress Note Patient:?Kathryn Mccormick K Provider:?Edilson Luis DPM :1955???Age:69 Y???Sex:Female D ate:05/17/2024 Address:[address] [place] [id number] Pcp:Behzad Arzola MD Subjective: * Chief Complaints: [...] History:? s ection * Hospitalization/Major Diagno stic [place] [place]on[place] 08/07/19 * Family [...] ?Exercise: yes, walking. ?Marital status: . ?Occupation: [employer]. * Medications:?TakingAspir-81 amLODIPine Besylate 10 MG Tablet [...] Treatment: 2.?Type 1 diabetes mellitus without complication?Procedure: 58186-SSXR SKIN LESIONS, OVER 4 3.?Ingrown nail?Procedure: 31727-Icvjmstk Plate ?Procedure: 89866-Cejbbkxm Plate Each Additional * Procedures:?Debride Nail 6-10:?Nail debridement?Nail debridement performed extensively to reduce/remove overall nail length, girth, thickness, subungual debris, and necrotic tissue, by manual and electrical means through the use of a nail nipper and/or dremel, to more viable healthy nail plate or bed tissue 1-5. Silver nitrate used for any petechial bleeding as necessary. Patient chooses, no pharmaceutical tx (54240).?Keratoma Treatment:?Parring or Cutting of Benign Hyperkeratotic Lesion(s)?79415 ( >4 Lesions) - The Benign hyperkeratotic [...] and future surgical procedures to prevent recurrence (49852/32), DIABETES: Pt was advised as to the risk of delayed or nonhealing due to diabetes. Pt is to call the office with any questions, concerns, or complications, DIABETES: Matricectomy deferred due to diabetes risk.? * Procedure Codes:?67167 DEBRI DE NAIL, 6 OR MORE, Modifiers: XS 17919 Avulsion Plate, Modifiers: XS , [id number] Avulsion Plate Each Additional, Modifiers: XS , [id number] TRIM SKIN LESIONS, OVER 4, Modifiers: XS [...] Provider:?Edilson Luis DPM Date:?2023 Generated for Yaz rose/Tomy/Michaelsmitting on:?2025 10:26 AM EST History and Physical [...]
--- OUTSIDE RECORDS SUMMARY | 2025-02-01 10:26 | XMS_ITS ---
Author Organization [facility] Address [address] [place] [address] Care Team Providers Care Electronic Components Assembler Name Role Phone Behzad Arzola MD Primary Care Provider Unavaila Edilson Ricketts Unavailable [phone] Allergies Allergen (clinical drug ingredient) Drug/Non Drug [...] Ordered Date Performed Result Body Sit e 33610-OHAVMGE NAIL, 6 OR MORE 11/27/2024 N/A 18994-Gldzlkxo Plate 11/27/2024 N/A 72347-Grmpnkeo Plate Each Additional 11/27/2024 N/A 03177-ZDSG SKIN LESIONS, OVER 4 11/27/2024 N/A Encounters Encounter Location Date Provider Diagnosis [facility] [address] [address] 11/27/2024 Edilson Gonzalezier Pain in right toe(s) [...] Treatment Pending Test Test Name Order Date 75338-EMBTKCF NAIL, 6 OR MORE 11/27/2024 15157-Azpnqbus Plate 11/27/2024 39045-Wvqbohyt Plate Each Additional 25683-IABA SKIN LESIONS, OVER 4 11/27/20 24 Next Appt Details Follow Up: prn, Reason: Provider Name:Edilson Luis , 03/05/2025 08:45:00 AM, [address] [facility], [address], [place], [address], Procedure Notes * Category Sub-Category Detail Notes [...] and future surgical procedures to prevent recurrence (39384/32), DIABETES: Pt was advised as to the [...] of a nail nipper and/or dremel-type grinder operator, to a more viable healthy [...] to maintain effectiveness in symptomatic relief - 38965 Keratoma Treatment Parring or Cutting o f [...] instrumentation by the physician of record - 41075 Progress Notes * Kathryn ARZOLA KDOB:[birth year] (69 yo F)Acc No.[id number]:11/27/2024 Progress Note Patient:?Merry ARZOLAcja Cassie Provider:?Edilson Luis DPM :1955???Age:69 Y???Sex:Female D ate:11/27/2024 Address:[address] [place] [id number] Pcp:Behzad Arzola MD Subjective: * Chief Complaints: [...] History:? s ection * Hospitalization/Major Diagno stic Procedure:?[facility] Stitches in head [...] Treatment: 2.?Type 1 diabetes mellitus without complication?Procedure: 32876-ADSK SKIN LESIONS, OVER 4 3.?Ingrown nail?Procedure: 52939-Ilrdzzsu Plate ?Procedure: 12458-Glqgjtui Plate Each Additional * Procedures:?Debride Nail 6-10:?Nail [...] of a nail nipper and/or dremel-type grinder operator, to a more viable healthy [...] to maintain effectiveness in symptomatic relief - 28082.?Keratoma Treatment:?Parring or Cutting of Benign Hyperkeratotic Lesion(s)?(-57) [...] instrumentation by the physician of record - 36796.?Nail Avulsion:?Location?Lateral nail borders, TA, T5.?Anesthesia?was deferred - [...] and future surgical procedures to prevent recurrence (88981/32), DIABETES: Pt was advised as to the risk of delayed or nonhealing due to diabetes. Pt is to call the office with any questions, concerns, or complications, DIABETES: Matricectomy deferred due to diabetes risk.? * Procedure Codes:?98066 DEBRI DE NAIL, 6 OR MORE, Modifiers: XS 86975 Avulsion Plate, Modifiers: XS , [id number] Avulsion Plate Each Additional, Modifiers: XS , [id number] TRIM SKIN LESIONS, OVER 4, Modifiers: XS [...] Luis DPM Date:?2023 Generated for Yaz rose/Tomy/Rohan on:?2025 10:26 AM EST History and Physical [...]
--- OUTSIDE RECORDS SUMMARY | 2025-02-01 10:26 | XMS_ITS | Patient Health Record ---
Author Organization [facility] Address [address] [place] [address] Care Team Providers Care Warning Analyst Name Role Phone Ness GALVEZ, Behzad Primary Care Provider UnavailEdilson Cyr Unavailable [phone] Allergies Allergen (clinical drug ingredient) Drug/Non Drug [...] Problem Acquired hammer toe of right foot (13815541488896 05) Other hammer toe(s) (acquired), right foot (M20.41) Active confirmed Response to treatment,I mprovement Problem Acquired hammer toe of left foot (52340751232869 03) Other hammer toe(s) (acquired), left foot (M20.42) Active confirmed Response to treatment,I mprovement Problem Type 1 diabetes mellitus without complication (816248844) Type 1 diabetes mellitus without complication (E10.9) Active confirmed Vital Signs Blood pressure diastolic 62 mm Hg 11/27/2024 Height 5ft2in in 11/27/2024 Blood pressure systolic 126 mm Hg 11/27/2024 Weight 260 lbs 11/27/2024 BMI 47.55 kg/m2 11/27/2024 Procedures Procedure Date Ordered Date Performed Result Body Sit e 37343-SFWUZKT NAIL, 6 OR MORE 02/16/2024 N/A 60804-Ixrkraqg Plate 02/16/2024 N/A 51594-Vcluzsuj Plate Each Additional 02/16/2024 N/A 76033-PEIK SKIN LESIONS, OVER 4 02/16/2024 N/A 85931-PYHAHNV NAIL, 6 OR MORE 05/17/2024 N/A 23015-Qtabckui Plate 05/17/2024 N/A 43929-Avbrceqj Plate Each Additional 05/17/2024 N/A 31941-QYNZ SKIN LESIONS, OVER 4 05/17/2024 N/A 57448-PDLUMIG NAIL, 6 OR MORE 08/17/2024 N/A 91147-Qrarlqwh Plate 08/17/2024 N/A 79145-Apslpjtl Plate Each Additional 08/17/2024 N/A 39074-ZXQD SKIN LESIONS, OVER 4 08/17/2024 N/A 09137-LITFARI NAIL, 6 OR MORE 11/27/2024 N/A 89325-Wmmsytmv Plate 11/27/2024 N/A 53088-Zusxlouh Plate Each Additional 11/27/2024 N/A 91436-RWBK SKIN LESIONS, OVER 4 11/27/2024 N/A Encounters Encounter Location Date Provider Diagnosis [facility] [address] [address] 02/16/2024 Edilson Luis Type 1 diabetes mellitus without complication E10.9 ; Pain in right toe(s) M79.674 ; Tinea unguium B35.1 ; Pain in left toe(s) M79.675 ; Ingrowing nail L60.0 ; Other hammer toe(s) (acquired), right foot M20.41 and Other hammer toe(s) (acquired), left foot M20.[address] [address] 05/17/2024 Edilson Janelle Pain in right toe(s) M79.674 ; Tinea unguium B35.1 ; Pain in left toe(s) M79.675 ; Type 1 diabetes mellitus without complication E10.9 ; Ingrown nail L60.0 ; Other hammer toe(s) (acquired), right foot M20.41 and Other hammer toe(s) (acquired), left foot M20.[address] [address] 08/17/2024 Edilson Janelle Pain in right toe(s) M79.674 ; Tinea unguium B35.1 ; Pain in left toe(s) M79.675 ; Type 1 diabetes mellitus without complication E10.9 ; Ingrown nail L60.0 and Xerosis of skin L85.[address] [address] 11/27/2024 Edilson Janelle Pain in right toe(s) [...] Foot, left 2V 04/04/2015 Glucose Fasting 04/04/2015 21984-ITCRCHJ NAIL, 6 OR MORE 07/09/2015 14799-QAYCTDO NAIL, 6 OR MORE 09/27/2015 02747-GWCYYBP NAIL, 6 OR MORE 01/03/2016 41898-QXGGRIC NAIL, 6 OR MORE 04/15/2016 69683-YHHBAGX NAIL, 6 OR MORE 07/15/2016 63023-RIBMVYB NAIL, 6 OR MORE 10/14/2016 47901-ACBIEOE NAIL, 6 OR MORE 01/25/2017 04152-HZMBKRL NAIL, 6 OR MORE 04/21/2017 91593-NMBDNSV NAIL, 6 OR MORE 04/04/2015 10773-IDJDUJQ NAIL, 6 OR MORE 07/28/2017 92638-WOGKJVA NAIL, 6 OR MORE 10/27/2017 68779-DHHEDXP NAIL, 6 OR MORE 01/26/2018 37874-LKWOHVE NAIL, 6 OR MORE 04/27/2018 86150-BVYGMNB NAIL, 6 OR MORE 11/02/2018 96519-QCSIIAM NAIL, 6 OR MORE 2019 29554-TGZMDPT NAIL, 6 OR MORE 08/03/2018 60629-ZWHANWQ NAIL, 6 OR MORE 05/03/2019 57966-KBOAGYK NAIL, 6 OR MORE 08/16/2019 94811-BARQFFZ NAIL, 6 OR MORE 11/15/2019 55017-IQIGURQ NAIL, 6 OR MORE 12/02/2020 60203-MMADPSE NAIL, 6 OR MORE 04/21/2021 39702-XUSVYPH NAIL, 6 OR MORE 08/13/2021 79084-IXLZQDM NAIL, 6 OR MORE 11/10/2021 50033-SUBJDGO NAIL, 6 OR MORE 09/02/2020 84379-BBRSEYZ NAIL, 6 OR MORE 02/09/2022 12418-RRSSZDN NAIL, 6 OR MORE 05/11/2022 79275-HAGADLX NAIL, 6 OR MORE 09/24/2022 74386-LUQFPOL NAIL, 6 OR MORE 01/25/2023 80485-NFYXRAO NAIL, 6 OR MORE 07/14/2023 62322-KXMCGSG NAIL, 6 OR MORE 11/10/2023 14028-KEDKHUT NAIL, OR MORE 02/16/2024 05865-QCVIUFP NAIL, 6 OR MORE 05/17/2024 19476-DGHWVNB NAIL, 6 OR MORE 08/17/2024 90375-WHXSKWB NAIL, 6 OR MORE 11/27/2024 02980-Yppvbcef Plate 11/27/2024 03785-Sdviaqif Plate 11/02/2018 15316-Ucfvbphl Plate 08/17/2024 25890-Rwgzhoxq Plate 05/17/2024 85656-Vtvoyqyw Plate 02/16/2024 07474-Qnsnmxjg Plate 11/10/2023 07064-Cqpfghyp Plate 07/14/2023 16390-Ufqdmkqq Plate 01/25/2023 30911-Sirquoji Plate 09/24/2022 40701-Jdzlfkqz Plate 05/11/2022 84809-Sontzpaa Plate 02/09/2022 61648-Pouigvmt Plate 09/02/2020 01916-Nmjqzftv Plate 11/10/2021 95913-Rvddrfaj Plate 08/13/2021 19082-Fsctkbnf Plate 04/21/2021 16291-Hvpehwae Plate 12/02/2020 76511-Zbnnpbek Plate 11/15/2019 22666-Esekgapn Plate 08/16/2019 70338-Tsajlxwj Plate 05/03/2019 64301-Izhezxbr Plate 2019 78373-Otdhewmi Plate 10/27/2017 30266-Znqhblba Plate 08/03/2018 72153-Dypkngjy Plate 04/27/2018 66752-Ekebrlhl Plate 01/26/2018 50496-Zwpkfllt Plate 07/28/2017 26671-Nyfhwbye Plate 01/25/2017 83943-Ctrdoovf Plate 04/21/2017 75099-Yakskzxb Plate 10/14/2016 26558-Idnbojxp Plate 07/15/2016 55279-Wkblmdba Plate 04/15/2016 39653-Tlasjcoh Plate 01/03/2016 06767-Kxdjymok Plate 09/27/2015 47395-Euugbxgf Plate 07/09/2015 95217-Snzfmpkm Plate 04/04/2015 20415-Ldsntgqe Plate Each Additional 09/2015 44291-Qrbwihuh Plate Each Additional 75788-Ofnmcosy Plate Each Additional 03/2016 83610-Vjrhnakd Plate Each Additional 29457-Hziltzkn Plate Each Additional 61655-Jbyhnrjj Plate Each Additional 63334-Tbjeayxk Plate Each Additional 00879-Dnamednx Plate Each Additional 78921-Xxaksfoe Plate Each Additional 03/2018 51590-Yovmrsit Plate Each Additional 04/2019 38469-Xitnttbh Plate Each Additional 03/2019 05510-Rjymbbec Plate Each Additional 03/2018 31116-Qfapmljh Plate Each Additional 25944-Fsgwzkpc Plate Each Additional 71695-Rfxexwdg Plate Each Additional 02/2021 89601-Bozweffy Plate Each Additional 49364-Xqcmkcmv Plate Each Additional 63292-Ofoeqrzw Plate Each Additional 02594-Xadkwdme Plate Each Additional 03/2020 54586-Espemmnl Plate Each Additional 62506-Ftpzlhgg Plate Each Additional 15100-Fywijbcc Plate Each Additional 25004-Pfmiptyr Plate Each Additional 14118-Bohrdffb Plate Each Additional 83468-Qktuznyr Plate Each Additional 34399-Zxvpbahb Plate Each Additional 51643-Prkpibfy Plate Each Additional 57324-Cgneoknf Plate Each Additional 79006-Comayijd Plate Each Additional 76209-SGBQ SKIN LESIONS, OVER 4 11/27/20 24 71653-QMEX SKIN LESIONS, OVER 4 08/17/20 24 12362-DXKM SKIN LESIONS, OVER 4 05/17/20 24 14137-PVNS SKIN LESIONS, OVER 4 02/16/20 24 16807-UVEV SKIN LESIONS, OVER 4 11/10/20 23 69099-NNNF SKIN LESIONS, OVER 4 07/14/20 23 66658-WFUE SKIN LESIONS, OVER 4 01/25/20 23 13130-NYOS SKIN LESIONS, OVER 4 09/24/20 22 18549-LUBX SKIN LESIONS, OVER 4 06/13/20 22 51723-CLXK SKIN LESIONS, OVER 4 11/10/20 21 31907-DBZF SKIN LESIONS, OVER 4 08/13/20 21 74003-PGRJ SKIN LESIONS, 2 TO 4 04/21/20 21 53046-CNKU SKIN LESIONS, 2 TO 4 12/02/19 21 95808-DVQQ SKIN LESIONS, 2 TO 4 04/04/20 15 82065,I3556-KMD TENDON SHEATH/LIGAMENT 0 06/14/2015 Next Appt Details Provider Name:Edilson Jonah Luis , 03/05/2025 08:45:00 AM, [address] [facility], [address], [place], [address], Insurance Providers Payer Name Payer Address Payer Phone Subscriber Number Group Number Insured Name Patient Relationship to Insured Coverage Start Date Coverage End Date [facility] [address] [place] [address] [phone] [id number] Kathryn Arzola Self - patient is the insured Medical (General) History Medical History History ICD Code Diabetic Hypertension Allergic rhinitis Hypercholesterolemia Surgical History Surgery Date(Month/Year) section Hospitalization History Reason Date(Month/Year) Colonoscopy 08/07/19 [facility] Stitches in head 02/2019
== END 2025-02-01 09:49 | disposition home or self-care (01) ==
PROVIDERS: PCP Internal Medicine; Visit Provider Internal Medicine Hypertension Specialist
DX: E11.65 Type 2 diabetes mellitus with hyperglycemia (principal); E11.29 Type 2 diabetes mellitus with other diabetic kidney complication; R80.9 Proteinuria, unspecified; N26.1 Atrophy of kidney (terminal); I10 Essential (primary) hypertension; N18.31 Chronic kidney disease, stage 3a
CPT/HCPCS: 99214

== ENCOUNTER 2025-03-07 11:18 | Outpatient (REF) | payer OTHER, SELFPAY ==
--- NOTE | ~2025-03-07 | MM_ITS ---
EXAMINATION: MM DIAGNOSTIC DIGITAL BREAST TOMOSYNTHESIS, BILATERAL CLINICAL INFORMATION: Two-year follow-up for grouped calcifications in the lower inner right breast COMPARISON: Mammography: Comparison is made with relevant prior exams. TECHNIQUE: Digital breast mammography with tomosynthesis is performed in both the craniocaudal and mediolateral oblique views along with computer-aided detection (CAD). FINDINGS: There are scattered areas of fibroglandular density (ACR BI-RADS breast composition Category b). Previously seen grouped amorphous calcifications in the lower inner right breast are not significantly changed on magnification views dating back for 2 years and therefore benign. There are no significant masses, abnormal calcifications, or other abnormalities. Results are provided to the patient at time of visit by the technologist. MM/MM tomosynthesis diagnostic BI IMPRESSION: There are no significant changes from prior study. ASSESSMENT: BI-RADS BI-RADS 2 - Benign Findings RECOMMENDATION: 1 year F/U This patient's information was entered into a reminder system with a target due date for their next mammogram. Electronically signed by: Corine Ibarra DO 03/07/2025 12:42 PM EDT
--- OUTSIDE RECORDS SUMMARY | 2025-03-07 13:23 | XMS_ITS ---
Author Organization [facility] Address [address] [place] [address] Care Team Providers Care Corporate Development Analyst Name Role Phone Behzad Arzola MD Primary Care Provider Unavaila Edilson Ricketts Unavailable [phone] Allergies Allergen (clinical drug ingredient) Drug/Non Drug [...] Ordered Date Performed Result Body Sit e 02630-GBONJAU NAIL, 6 OR MORE 11/27/2024 N/A 41157-Uqomewuq Plate 11/27/2024 N/A 35708-Wagaoyrl Plate Each Additional 11/27/2024 N/A 98414-OZWY SKIN LESIONS, OVER 4 11/27/2024 N/A Encounters Encounter Location Date Provider Diagnosis [facility] [address] [address] 11/27/2024 Edilson Gonzalezier Pain in right toe(s) [...] Treatment Pending Test Test Name Order Date 95353-KHIZTPC NAIL, 6 OR MORE 11/27/2024 75356-Lcmegpnc Plate 11/27/2024 96638-Tgwylofa Plate Each Additional 61621-HSEI SKIN LESIONS, OVER 4 11/27/20 24 Next Appt Details Follow Up: prn, Reason: Provider Name:Edilson Luis , 06/06/2025 09:00:00 AM, [address] [facility], [address], [place], [address], Procedure Notes * Category Sub-Category Detail Notes [...] and future surgical procedures to prevent recurrence (58195/32), DIABETES: Pt was advised as to the [...] of a nail nipper and/or dremel-type grinder setup operator, to a more viable healthy nail [...] to maintain effectiveness in symptomatic relief - 07368 Keratoma Treatment Parring or Cutting o f [...] instrumentation by the physician of record - 14669 Progress Notes * Kathryn ARZOLA KDOB:[birth year] (69 yo F)Acc No.[id number]:11/27/2024 Progress Note Patient:?Merry ARZOLAcja Cassie Provider:?Edilson Luis DPM :1955???Age:69 Y???Sex:Female D ate:11/27/2024 Address:[address] [place] [address] Pcp:Behzad Arzola MD Subjective: * Chief Complaints: [...] History:? s ection * Hospitalization/Major Diagno stic Procedure:?[facility] Stitches in head 02/2019Colonoscopy 08/07/19 * Family [...] Treatment: 2.?Type 1 diabetes mellitus without complication?Procedure: 98027-RYCK SKIN LESIONS, OVER 4 3.?Ingrown nail?Procedure: 00123-Fnlwqapy Plate ?Procedure: 08944-Tdqsubbl Plate Each Additional * Procedures:?Debride Nail 6-10:?Nail [...] of a nail nipper and/or dremel-type grinder setup operator, to a more viable healthy nail [...] to maintain effectiveness in symptomatic relief - 38614.?Keratoma Treatment:?Parring or Cutting of Benign Hyperkeratotic Lesion(s)?(-57) [...] instrumentation by the physician of record - 03101.?Nail Avulsion:?Location?Lateral nail borders, TA, T5.?Anesthesia?was deferred - [...] and future surgical procedures to prevent recurrence (11545/32), DIABETES: Pt was advised as to the risk of delayed or nonhealing due to diabetes. Pt is to call the office with any questions, concerns, or complications, DIABETES: Matricectomy deferred due to diabetes risk.? * Procedure Codes:?38662 DEBRI DE NAIL, 6 OR MORE, Modifiers: XS 65334 Avulsion Plate, Modifiers: XS , [id number] Avulsion Plate Each Additional, Modifiers: XS , [id number] TRIM SKIN LESIONS, OVER 4, Modifiers: XS [...] Luis DPM Date:?2023 Generated for Yaz rose/Tomy/Rohan on:?03/07/2025 01:23 PM EDT History and Physical Notes * HPI (History [...]
--- OUTSIDE RECORDS SUMMARY | 2025-03-07 13:23 | XMS_ITS ---
Author Organization [facility] Address [address] [place] [address] Care Team Providers Care Criminal Defense Lawyer Name Role Phone Behzad Arzola MD Primary Care Provider Unavaila Edilson Ricketts Unavailable [phone] Allergies Allergen (clinical drug ingredient) Drug/Non Drug [...] Active REASON FOR VISIT At Risk Footcare, Ingrown nail(s), Toe Irritation Medications Medication SIG (Take, Route, Frequency, Duration) Notes Start Date End Date Status Fish Oil 1000 MG 1 capsule Orally Onc e a day Not-Taking Ozempic Not-Taking Pioglitazone HCl Not -Taking Jardiance Not-Taking Victoza 1.8 mg Not-T aking Mounjaro Not-Taking Tolterodine Tartrate ER 2 MG TAKE 1 CAPSULE BY MOUTH EVERY DAY Oral for 90 Days Not-Taking Carvedilol 6.25 MG TAKE 1 TABLET BY MOUTH TWICE A DAY. MUST ADMINISTER WITH A MEAL/FOOD Oral for 90 Days Active Ammonium Lactate 12 % 1 application Externally to feet except for between the toes Twice a day for 30 days Active Vitamin D3 Active Lisinopril 10 MG 1 tablet Orally Once a day Active Lantus 30 units Acti ve Pravastatin Sodium 10 MG Oral for 30 Active Multivitamin Active metFORMIN HCl Active ibuprofen Active hydroCHLOROthiazide Active Flonase Active amLODIPine Besylate 10 MG 1 tablet Orall y Once a day Active Aspir-81 Active Fluticasone Furoate Not-Taking Extra Depth Orthopedic Shoes (1 Pair) with Customized Heat Molded Multidensity Innersoles (3 Pair) as directed Dx: NIDDM/Polyneuropathy (E11.42), Hammertoe Foot Deformity (M20.41,M20.42), Preulcerative Skin Lesion(s) (L85.1 03/05/2025 Active Fluticasone Propionate 50 MCG/ACT 1 spray in each nostril Nasally Once a day Not-Taking Ozempic (2 MG/DOSE) Active oxyBUTYnin Chloride 10 mg 1 tablet Orall y Once a day Not-Taking Lantus 60 units Not- Taking Social History Tobacco Use: Social History Observation Description Date Details (start date - stop date) Never Smoker NA - NA Alcohol Screen Question Answer Notes Did you have a drink containing alcohol in the p ast year? No Points 0 Interpretation Negative Tobacco use other than smoking: Question Answer Notes Are you an other tobacco user? No Tobacco Control (Standard) Question Answer Notes Tobacco use: Nonsmoker Additional Findings: Tobacco non-user Current no nsmoker Problems Problem Type SNOMED Code ICD Code Onset Dates Problem Status W/U Status Risk Notes Problem Polyneuropathy due to type 2 diabetes mellitus (531668642) Type 2 diabetes mellitus with diabetic polyneuropathy (E11.42) Active confirmed Vital Signs Height 5ft 2in in 03/05/2025 Weight 255 lbs 03/05/2025 BMI 46.64 kg/m2 03/05/2025 Blood pressure systolic 126 mm Hg 03/05/20 25 Blood pressure diastolic 68 mm Hg 025 Procedures Procedure Date Ordered Date Performed Result Body Sit e 02235-GAGHHJJ NAIL, 6 OR MORE 03/05/2025 N/A 12034-Twmuctxm Plate 03/05/2025 N/A 96364-Uczfqinr Plate Each Additional 03/05/2025 N/A 94777-UTEK SKIN LESIONS, OVER 4 03/05/2025 N/A Encounters Encounter Location Date Provider Diagnosis [facility] [address] [address] 03/05/2025 Edilson Luis Tinea unguium B35.1 ; Type 2 diabetes mellitus with diabetic polyneuropathy E11.42 ; Ingrowing nail L60.0 ; Other hammer toe(s) (acquired), right foot M20.41 and Other hammer toe(s) (acquired), left foot M20.42 Assessments Encounter Date Diagnosis (ICD Code) Assessment Notes Treatment Notes Treatment Clinical Notes Section Notes 03/05/2025 Tinea unguium (ICD-10 - B35.1) 03/05/2025 Type 2 diabetes mellitus with diabetic polyneuropathy (ICD-10 - E11.42) 03/05/2025 Ingrowing nail (ICD-10 - L60.0) 03/05/2025 Other hammer toe(s) (acquired), right foot (ICD-10 - M20.41) Patient Educated with: DIABETIC FOOT CARE INSTRUCTIONS. pdf (DIABETIC FOOT CARE INSTRUCTIONS. pdf) 03/05/2025 Other hammer toe(s) (acquired), left foot (ICD-10 - M20.42) Plan Of Treatment Medication Medication Name Sig Start Date Stop Date Notes Extra Depth Orthopedic Shoes (1 Pair) with Customized Heat Molded Multidensity Innersoles (3 Pair) as directed Dx: NIDDM/Polyneuropathy (E11.42), Hammertoe Foot Deformity (M20.41,M20.42), Preulcerative Skin Lesion(s) (L85.1 03/05/2025 Treatment Notes Assessment Notes Other hammer toe(s) (acquired), right fo ot Patient Educated with: DIABETIC FOOT CARE INSTRUCTIONS.pdf (DIABETIC FOOT CARE INSTRUCTIONS.pdf) Pending Test Test Name Order Date 38417-IXEAMCK NAIL, 6 OR MORE 03/05/2025 82632-Ayuhscdu Plate 03/05/2025 64495-Vlnkvfwq Plate Each Additional 05/2025 55155-TMXR SKIN LESIONS, OVER 4 03/05/20 25 Next Appt Details Follow Up: prn, Reason: Provider Name:Edilson Luis , 06/06/2025 09:00:00 AM, [address] , [address], [place], [address], Procedure Notes * Category Sub-Category Detail Notes [...] and future surgical procedures to prevent recurrence (36031/32), DIABETES: Pt was advised as to the risk of delayed or nonhealing due to diabetes. Pt is to call the office with any questions, concerns, or complications, DIABETES: Matricectomy deferred due to diabetes risk Anesthesia was deferred - NEURO BESSIE: patient has medically documented neuropathic condition affecting sensation Location Lateral nail borders , TA, T5 [...] T3, T4, T5, T6, T7, T8, T9 ), was performed exclusively by the physician of record to reduce/remove overall nail length, girth, thickness, subungual debris, and necrotic tissue, by manual and/or electrical means through the use of a nail nipper and/or dremel-type broach grinder, to a more viable healthy nail [...] to maintain effectiveness in symptomatic relief - 11408 Keratoma Treatment Parring or Cutting o f [...] at risk. Therefore, the benign hyperkeratotic lesions, (6) in total, locations as stated and described in the exam ( SUB MTH (s), 1, B/L , SUB MTH (s), 5, B/L , Plantar, Heel(s), B/L ), were pared, and/or cut utilizing a sterile 15 blade, tissue nippers, and/or power dremel instrumentation by the physician of [facility] - 26942 Progress Notes * Kathryn MCCORMICK KDOB:[birth year] (70 yo F)Acc No.[id number]:03/05/2025 Progress Note Patient:?Kathryn MCCORMICK K Provider:?Edilson Luis DPM :1955???Age:70 Y???Sex:Female D ate:03/05/2025 Address:[address] [place], [place] [address] Pcp:Behzad Arzola MD Subjective: * Chief Complaints: * ???At Risk FootcareIngrown n ail(s)Toe Irritation * HPI: ???At Risk footcare:?Pt States Last PCP Visit:?Date?12/19/2024 ???Toe pain:?Location:?B/L feet.?Duration:?several years.?Course:?worse.?Aggravated by:?shoes, any pressure.?Treatments:?change in shoes.? * ROS:?General/Constitutional:?Nausea?denies.?Vomiting?denies.?Hunger Thirst?denies.?Loss appetite?denies.?Chills?denies.?Fatigue?denies.?Fever?denies.?Night Sweats?denies.?Unexplained weight loss?denies.?Ophthalmologic:?Blurred vision?denies.?Red eye?denies.?HEENTM:?Dentures?denies.?Dizziness?denies.?Glasses/contacts?denies.?Retinopathy?den ies.?Blurred/double vision?denies.?TMJ?denies.?Discharge/drainage?denies.?Implants?denies.?Hard of hearing denies.?Difficulty chewing/swallowing/speaking?denies.?Nose bleeds?denies.?Sore mouth?denies.?Swollen glands?denies.?Respiratory:?On O xygen?denies.?Pneumonia/pleurisy?denies.?Bronchitis?denies.?Emphysema?denies.?Co ughing?denies.?Cough blood?denies.?Shortness of breath?denies.?Wheezing?denies.?Cardiovascular:?Pacemaker?denies.?MVP?denies.?WPW?denies.?CHF?denies.?Heart attack?denies.?Septal defect?denies.?Rapid beat?denies.?Chest pain ?denies.?Atrial Fib.?denies.?Murmur/Palpitations?denies.?Gastrointestinal:?Hemorrhoids?denies.?Stomach/Abdominal pain?denies.?Dark blood stool?denies.?Irritable bowel ?denies.?Constipation?denies.?Diarrhea?denies.?Vomiting?denies.?Hematology:?Swelling?admits.?Bruising?admits, on aspirin.?Bleeding problem?admits, on anticoagulants.?Genitourinary:?Blood urine?denies.?Frequent/Painfu/urination/bladder control?admits.?Kidney stones?denies.?Infection (UTI)?denies.?Nephropathy?denies.?Musculoskeletal:?Hammertoes?admits.?Bunions?denies.?Scoliosis/kyphosis?denies.?Muscle cramps / walking?denies.?Generalized aches and pains?denies.?Weakness?denies.?Integ.:?Thakkar?denies.?Scars?denies.?Corns/calluses?admits.?Ingrown nails?admits.?Painful nails?denies.?Rashes?denies.?Neurologic:?Difficulty sleeping?denies.?Bipolar?denies.?Brain disorder?denies.?Balance t rouble?denies.?Confusion?denies.?Fainting/blackouts?denies.?Headache?denies.?Vignesh mors?denies.? * Medical History:? * Surgical History:? s ection * Hospitalization/Major Diagno stic Procedure:?[facility] [place] Stitches in head 02/2019Colonoscopy 08/07/19 * Family History:?Mother: dece ased, diagnosed with Other malignant neoplasm of unspecified site, Family history of arthritis.?Father: , diagnosed with Other malignant neoplasm of unspecified site. Siblings: kidney/liver disease, heart attack, diagnosed with Other malignant neoplasm of unspecified site, Unspecified essential hypertension.?Spouse: .? * Social History:?Tobacco Use:?Tobacco use other than smoking?Are you an other tobacco user??No ?Tobacco Control (Standard)?Tobacco use:?Nonsmoker ?Additional Findings: Tobacco non-user?Current nonsmoker ???Drugs/Alcohol:?Drugs?Have you used drugs other than those for medical reasons in the past 12 months??No ?Alcohol Screen?Did you have a drink containing alcohol in the past year??No ?Points?0 ?Interpretation?Negative ???Miscellaneous:?Caffeine: yes, frequency:, 2-3 cups per day. ?Children: yes, Two. ?Exercise: yes, walking. ?Marital status: . ?Occupation: [employer]. * Medications:?TakingOzempic ( 2 MG/DOSE) Aspir-81 amLODIPine Besylate 10 MG Tablet 1 tablet Orally Once a day Flonase hydroCHLOROthiazide ibuprofen Lantus 30 units Lisinopril 10 MG Tablet 1 tablet Orally Once a day metFORMIN HCl Multivitamin Pravastatin Sodium 10 MG Tablet Oral Vitamin D3 Ammonium Lactate 12 % Cream 1 application Externally to feet except for between the toes Twice a day Carvedilol 6.25 MG Tablet TAKE 1 TABLET BY MOUTH TWICE A DAY. MUST ADMINISTER WITH A MEAL/FOOD Oral Taking Ozempic (2 MG/DOSE) Taking Aspir-81 Taking amLODIPine Besylate 10 MG Tablet 1 tablet Orally Once a day Taking Flonase Taking hydroCHLOROthiazide Taking ibuprofen Taking Lantus 30 units Taking Lisinopril 10 MG Tablet 1 tablet Orally Once a day Taking metFORMIN HCl Taking Multivitamin Taking Pravastatin Sodium 10 MG Tablet Oral Taking Vitamin D3 Taking Ammonium Lactate 12 % Cream 1 [...] Capsule 1 capsule Orally Once a day Not- Taking/PRN Victoza 1.8 mg Not-Taking/PRN Jardiance Not-Taking/PRN [...] 5ft 2in, Wt:255, BMI:46.64, Shoe size: 8.5-9, BP:126/68mm Hg, BS: 115, Ht-cm: 157.48 cm, Wt-k.67 kg. * ???Past Orders: ???Lab:HEMOGLOBIN A1C (GLYCO HEMOGLOBIN) (Order Date - 12/03/2024) (Collection Date & Time - 12/04/2024 08:56 AM) ? Value Reference Range ?HEMOGLOBIN A1C % (HH) 7.6 * Examination: ???Ophthalmology Referral: ?DIABETES EYE EXAM?Procedure Performed:?Yes ?Date of Exam Performed?07/06/2024 ?Diabetic Retinopathy Screening:?Yes ?Retinal Screening Performed:?Yes ?Findings of Diabetic Eye Exam:?no retinopathy?Neurological: ?SENSORY:?Neurological exam demonstrates, reduced light touch sensation, reduced sharp/dull pin prick discrimination , B/L, 5.07 monofilament test performed at plantar aspects of 5 varied sites per foot shows sensation, reduced , at Forefoot, B/L.?Nails: ?NAILS are:?Elongated, overgrown, dystrophic, lytic, greater than 3mm thick, discolored and friable with crumbly malodorous subungual debris, ?TA, T1, T2, T3, T4, T5, T6, T7, T8, T9.?Dermatologic: ?SKIN FINDINGS:?Skin exam reveals Keratotic lesion(s) located at, SUB MTH (s), 1, B/L , SUB MTH (s), 5, B/L , Plantar, Heel(s), B/L.?Ingrown Nail: ?INSPECTION:?Reveals incurvation, pain on palpation, groove hypertrophy, Lateral nail border, TA, T5.?Orthopedic: ?MUSCLE STRENGTH:?5/5 all groups in a symmetrical fashion , B/L , 5/5 all groups in a symmetrical fashion, B/L.?GAIT ABNORMALITY:?apropulsive , cane-assisted.?FOOT MORPHOLOGY:? Pes Planus structure, No Charcot collapse/destruction noted at MTJ.?DIGITAL DEFORMITIES:?Digital contracture, PIPJ, 2-5 B/L, incompl-reducible to push-up test, no over, nor underlapping,?with evidence of shoe producing skin irritation.?FOOTWEAR EVALUATION:?worn, OT were inspected and noted to be severely worn , in poor condition not giving proper support at the present time, shoe gear properties exacerbate patient's foot/toe deformity .?Vascular: ?DP PULSES (B):?2/4, B/L.?PT PULSES (B):? 2/4, B/L.?CAPILLARY FILL TIME:? immediate, all digits, B/L.?TROPHIC CONDITION-TEXTURE/ELASTICITY/TURGOR/HAIR GROWTH (B):? normal, B/L.?TEMPERTURE GRADIENT (C):? normal, warm to cool, proximal to distal, B/L.?PIGMENTATION:? normal, B/L.?EDEMA (C):? 3/4, non-pitting, without aching pain, B/L, Leg(s), Ankle(s), Feet.?General Examination: ?GENERAL APPEARANCE:?Reveals a pleasant, alert, well nourished, well- developed, well hydrated individual, who demonstrates proper attention to hygiene/body habitus, and is in no acute distress, Pt serves as own historian for office visit today.?ORIENTED:?person, place, and time.?FOOT EXAM:?Lower Extremity Neurological Exam performed:?Yes ?Visual exam of foot performed:?Yes ?Date?03/05/2025 ?Footwear Evaluation?Footwear Evaluation performed:?Yes??? Assessment: * Assessment: 1.?Type 2 diabetes mellitus with diabetic polyneuropathy - E11.42 (Primary)???2.?Tinea unguium - B35.1???3.?Ingrowing nail - L60.0???Specify :Lateral nail border, TA, T5???4.?Other hammer toe(s) (acquired), right foot - M20.41???Specify :Chronic problem, Worse (4),Rx Management (4)???5.?Other hammer toe(s) (acquired), left foot - M20.42???Specify :Chronic problem, Worse (4),Rx Management (4)??? Plan: * Treatment: 2.?Ingrowing nail?Procedure: 78089-Uqnovsnl Plate ?Procedure: 74276-Hwbqajon Plate Each Additional 3.?Other hammer toe(s) (acqu ired), right foot? Start Extra Depth Orthopedic Shoes (1 Pair) with Customized Heat Molded Multidensity Innersoles (3 Pair), as directed, Dx: NIDDM/Polyneuropathy (E11.42), Hammertoe Foot Deformity (M20.41,M20.42), Preulcerative Skin Lesion(s) (L85.1, 1, Refills 0.?? Notes: Patient Educated with: DIABETIC FOOT CARE INSTRUCTIONS.pdf (DIABETIC FOOT CARE INSTRUCTIONS.pdf)?? * Procedures:?Debride Nail 6-10:?Nail debridement?Due to the clinical pathology outlined in the exam findings, performance of this nail treatment is medically necessary as its management by an unskilled/untrained nonprofessional would put this patients foot and overall health at risk. Therefore, debridement to affected nail(s), as described in exam ( TA, T1, T2, T3, T4, T5, T6, T7, T8, T9 ), was performed exclusively by the physician of record to reduce/remove overall nail length, girth, thickness, subungual debris, and necrotic tissue, by manual and/or electrical means through the use of a nail nipper and/or dremel-type broach grinder, to a more viable healthy nail [...] to maintain effectiveness in symptomatic relief - 06363.?Keratoma Treatment:?Parring or Cutting of Benign Hyperkeratotic Lesion(s)?(-57) More than 4 Lesions - Due to the at risk nature of the patients medical condition as documented in the exam findings, performance of this keratoderma treatment is medically necessary as its management by an unskilled/untrained nonprofessional would put this patients foot and overall health at risk. Therefore, the benign hyperkeratotic lesions, (6) in total, locations as stated and described in the exam (?SUB MTH (s),?1,?B/L?,?SUB MTH (s),?5,?B/L?,?Plantar,?Heel(s),?B/L?), were pared, and/or cut utilizing a sterile 15 blade, tissue nippers, and/or power dremel instrumentation by the physician of record - 40385.?Nail Avulsion:?Location?Lateral nail borders, TA, T5.?Anesthesia?was deferred - NEUROPATHY: patient has medically documented neuropathic condition affecting sensation.?Procedure?A fine sterile elevator was placed between the [...] and future surgical procedures to prevent recurrence (44221/32), DIABETES: Pt was advised as to the risk of delayed or nonhealing due to diabetes. Pt is to call the office with any questions, concerns, or complications, DIABETES: Matricectomy deferred due to diabetes risk.? * Procedure Codes:?20617 Avuls ion Plate, Modifiers: XS , [id number] Avulsion Plate Each Additional, Modifiers: XS , [id number] TRIM SKIN LESIONS, OVER 4, Modifiers: XS 65080 DEBRIDE NAIL, 6 OR MORE, Modifiers: XS * Preventive Medicine:? ??Counseling:?Discussion:?-14: Office [...] have encouraged the patient to call the office.?Diabetic Footcare:?The patient was advised against future self nail/callus care due to inherent risks for infection, loss of limb/life given diabetes, neuropathy.?Digital Surgery:?Digital surgery was discussed with the patient, [...] custom heat-molded inserts was dispensed.? ??Screening/Special Tests:?Fall Risk?Screening:?No falls in the past year ?FALLS: Screening for Future Fall Risk?Have you had any falls with injury in the past year??No * Follow Up:?prn * Images: * Sign off status: Completed true * Provider:?Edilson Luis DPM Date:?2024 Generated for Yaz rose/Tomy/Rohan on:?03/07/2025 01:23 PM EDT History and Physical Notes * HPI (History of Present Illness) Category Sub-Category Detail Notes Category Not es Toe pain Location: B/L feet Duration: several years Course: worse Aggravated by: shoes, any pressure Treatments: change in shoes At Risk footcare Pt States Last PCP Visit: Date: 5 Examination Category Sub-Category Detail Notes Category Not es Ingrown Nail INSPECTION: Reveals incurvat ion, pain on palpation, groove hypertrophy, Lateral nail border, TA, T5 Neurological SENSORY: Neurological exa m demonstrates, reduced light touch sensation, reduced sharp/dull pin prick discrimination , B/L, 5.07 monofilament test performed at plantar aspects of 5 varied sites per foot shows sensation, reduced , at Forefoot, B/L Dermatologic SKIN FINDINGS: Skin exam reveal s Keratotic lesion(s) located at, SUB MTH (s), 1, B/L , SUB MTH (s), 5, B/L , Plantar, Heel(s), B/L Orthopedic GAIT ABNORMALITY: apropulsive , cane-assi sted FOOT MORPHOLOGY: Pes Planus structure , No Charcot collapse/destruction noted at INJ FOOTWEAR EVALUATION: worn, OT were inspe cted and noted to be severely worn , in poor condition not giving proper support at the present time, shoe gear properties exacerbate patient's foot/toe deformity DIGITAL DEFORMITIES: Digital contracture , PIPJ, 2-5 B/L, incompl-reducible to push-up test, no over, nor underlapping, with evidence of shoe producing skin irritation MUSCLE STRENGTH: 5/5 all groups in a symmetrical fashion , B/L , 5/5 all groups in a symmetrical fashion, B/L General Examination GENERAL APPEARANCE: Reveals a pleasant, alert, well nourished, well-developed, well hydrated individual, who demonstrates proper attention to hygiene/body habitus, and is in no acute distress, Pt serves as own historian for office visit today FOOT EXAM: Lower Extremity Neurological Exa m performed:: Yes Visual exam of foot performed:: Yes Date: 03/05/2025 ORIENTED: person, place, and t yas Footwear Evaluation Footwear Evaluation performe d:: Yes Ophthalmology Referral DIABETES EYE EXAM Procedure Perform ed:: Yes ?Date of Exam Performed: 07/06/2024 Diabetic Retinopathy Screening:: Yes Retinal Screening Performed:: Yes Findings of Diabetic Eye Exam:: no retin opathy Vascular DP PULSES (B): 2/4, B/L PT PULSES (B): 2/4, B/L CAPILLARY FILL TIME: immediate, all digi ts, B/L TEMPERTURE GRADIENT (C): normal, warm to cool, proximal to distal, B/L TROPHIC CONDITION-TEXTURE/ELASTICITY/TURGOR/HAIR GROWTH (B): normal, B/L EDEMA (C): 3/4, non-pitting, wi thout aching pain, B/L, Leg(s), Ankle(s), Feet PIGMENTATION: normal, B/L Nails NAILS are: Elongated, overg rown, dystrophic, lytic, greater than 3mm thick, discolored and friable with crumbly malodorous subungual debris, TA, T1, T2, T3, T4, T5, T6, T7, T8, T9
--- OUTSIDE RECORDS SUMMARY | 2025-03-07 13:24 | XMS_ITS ---
Author Organization [facility] Address [address] [place] [address] Care Team Providers Care Court Attendant Name Role Phone Behzad Arzola MD Primary Care Provider Unavaila Edilson Ricketts Unavailable [phone] Allergies Allergen (clinical drug ingredient) Drug/Non Drug [...] Ordered Date Performed Result Body Sit e 35107-MEEXBFT NAIL, 6 OR MORE 08/17/2024 N/A 70341-Obwbtmry Plate 08/17/2024 N/A 50672-Xqrtoeac Plate Each Additional 08/17/2024 N/A 08393-GPPY SKIN LESIONS, OVER 4 08/17/2024 N/A Encounters Encounter Location Date Provider Diagnosis [facility] [place] [address] [address] 08/17/2024 Edilson Janelle Pain in right toe(s) [...] days Pending Test Test Name Order Date 19946-PIVHYYB NAIL, 6 OR MORE 08/17/2024 72969-Hdpuqmjj Plate 08/17/2024 85401-Svxnkhan Plate Each Additional 61111-XFWH SKIN LESIONS, OVER 4 08/17/20 24 Next Appt Details Follow Up: prn, Reason: Provider Name:Edilson Luis , 06/06/2025 09:00:00 AM, [address] [facility], [address], [place], [address], Procedure Notes * Category Sub-Category [...] and future surgical procedures to prevent recurrence (13260/32), DIABETES: Pt was advised as to the [...] use of a nail nipper and/or dremel-type fusion juncture grinder, to a more viable healthy nail plate or bed tissue 6-10. Silver nitrate used for any petechial bleeding as necessary. Definitive antifungal treatment options have been reviewed and discussed with the patient. The patient chooses, no pharmaceutical tx - 55100 Keratoma Treatment Parring or Cutting o f Benign Hyperkeratotic Lesion(s) (-57) More than 4 Lesions - The Benign hyperkeratotic lesions, as described above were pared, and/or cut utilizing a sterile 15 blade, tissue nippers, and/or dremel - 13705 Progress Notes * Kathryn MCCORMICK KDOB:[birth year] (69 yo F)Acc No.[id number]:08/17/2024 Progress Note Patient:?Kathryn Mccormick K Provider:?Edilson Luis DPM :1955???Age:69 Y???Sex:Female D ate:08/17/2024 Address:[address] [place], [place] [address] Pcp:Behzad Arzola MD Subjective: * Chief Complaints: [...] History:? s ection * Hospitalization/Major Diagno stic Procedure:?[facility] [place] Stitches in head 02/2019Colonoscopy [...] ?Exercise: yes, walking. ?Marital status: . ?Occupation: [employer]. * Medications:?TakingOzempic ( 0.25 or 0.5 MG/DOSE) [...] Treatment: 2.?Type 1 diabetes mellitus without complication?Procedure: 35525-MAOZ SKIN LESIONS, OVER 4 3.?Ingrown nail?Procedure: 98651-Aajuhypj Plate ?Procedure: 04857-Yttepnqt Plate Each Additional 4.?Xerosis of skin? Start [...] use of a nail nipper and/or dremel-type fusion juncture grinder, to a more viable healthy nail plate or bed tissue 6-10. Silver nitrate used for any petechial bleeding as necessary. Definitive antifungal treatment options have been reviewed and discussed with the patient. The patient chooses, no pharmaceutical tx - 21719.?Keratoma Treatment:?Parring or Cutting of Benign Hyperkeratotic Lesion(s)?(-57) More than 4 Lesions - The Benign hyperkeratotic lesions, as described above were pared, and/or cut utilizing a sterile 15 blade, tissue nippers, and/or dremel - 01107.?Nail Avulsion:?Location?Lateral nail borders, TA, T5.?Anesthesia?was deferred - [...] and future surgical procedures to prevent recurrence (18432/32), DIABETES: Pt was advised as to the risk of delayed or nonhealing due to diabetes. Pt is to call the office with any questions, concerns, or complications, DIABETES: Matricectomy deferred due to diabetes risk.? * Procedure Codes:?65359 DEBRI DE NAIL, 6 OR MORE, Modifiers: XS 66322 Avulsion Plate, Modifiers: XS , [id number] Avulsion Plate Each Additional, Modifiers: XS , [id number] TRIM SKIN LESIONS, OVER 4, Modifiers: XS [...] Luis DPM Date:?2023 Generated for Yaz rose/Tomy/Donalditting on:?03/07/2025 01:23 PM EDT History and Physical [...]
== END 2025-03-07 11:19 | disposition home or self-care (01) ==
LOC: HO.MAMMO 11:18
PROVIDERS: PCP Internal Medicine; Visit Provider Internal Medicine
DX: R92.1 Mammographic calcification found on diagnostic imaging of breast (principal)
CPT/HCPCS: 77062; 77066

== ENCOUNTER → 2025-03-07 11:30 | Outpatient (BNV) | payer OTHER, SELFPAY | PROVIDERS: PCP Internal Medicine; Visit Provider Internal Medicine | DX: R92.1 Mammographic calcification found on diagnostic imaging of breast (principal) | CPT/HCPCS: 77062; 77066 ==

== ENCOUNTER 2025-04-06 08:52 | Outpatient (AMB) | payer OTHER, SELFPAY ==
--- NOTE | 2025-04-06 08:54 | MHC.OFFVIS ---
Vital Signs 04/06/25 08:58 Height 5 ft 2 in Weight 260 lb 9.382 oz BMI 47.7 BP 132/72 Blood Pressure Location Lt brachial Position Sitting Pulse 76 Pulse Source Pulse Oximeter Pulse Oximetry (%) 95 Oxygen Delivery Method Room Air Intake Visit Reasons: T2DM Intake Note: Patient presents today for a follow-up on Type 2 Diabetes Mellitus: Last Diabetic eye exam was on: May 2024 Last Podiatry exam was on: 11/27/2024 Most recent HbA1c: 6.6% 04/06/2025 Random Glucose- 113 mg/dL, Today Forest Ecologist Required: No Accompanied by: Self / Same As Patient Allergies Sulfa (Sulfonamide Antibiotics) [Sulfa (Sulfonamides)] Allergy (Mild, Verified 04/06/25 08:58) RASH cephalexin [From KEFLEX] Allergy (Unknown, Verified 04/06/25 08:58) RASH clavulanic acid [Augmentin] Allergy (Unknown, Verified 04/06/25 08:58) vaginal irritation empagliflozin [From Jardiance] Adverse Reaction (Intermediate, Verified 04/06/25 08:58) Rash amoxicillin [From Augmentin] Adverse Reaction (Mild, Verified 04/06/25 08:58) VAGINAL IRRITATION tolterodine Adverse Reaction (Unknown, Verified 04/06/25 08:58) Hives, rash HPI Comments Details: This is a 70 year old female with Type II DM diagnosed in 2006 presenting for diabetic management. Hemoglobin a1c 6.6% today 04/06/25. Current medication regimen: insulin glargine 35 units daily, Metforomin 1000 mg BID and Ozempic 2 mg weekly. Past medications: Jardiance discontinued due to yeast infections. Mounjaro caused GI side effects. She does not have her glucometer today. She forgot her phone. Hypoglycemia symptoms: Patient has infrequent lows she treats with juice. Hyperglycemia symptoms: none Eye exam: June 2024 Microvascular complications: neuropathy, nephropathy (microalbumin and CKD). Macrovascular complications: none Hypertension: treated with amlodipine 10 mg, hydrochlorothiazide 25 mg, lisinopril 10 mg, carvedilol 6.25 mg twice daily. Followed by Nephrology. Hyperlipidemia: treated with Pravastatin 10 mg LDL at goal <100. Patient has to reschedule her echocardiogram which was ordered for evaluation of a mild heart murmur. She denies chest pain or shortness of breath. She has chronic lower extremity edema. I reordered it so they will reach out to her again today. ALT was mildly elevated at 34 on her labs from September. She has no GI complaints. We discussed ordering a liver ultrasound with elastography to screen for hepatic steatosis and fibrosis of the liver , and we talked about it again today. We discussed this is more common in patients with diabetes and hyperlipidemia. We discuss it can lead to scarring of the liver and cirrhosis in the future. The patient will consider having this test done this year, but she would like to wait to order until her next visit and have the echocardiogram done 1st. ROS: Constitutional: No unexplained weight loss, fever, chills. Eyes: No vision changes, blurry vision, double vision Respiratory: No shortness of breath Cardiovascular: No chest pain Gastrointestinal: No anorexia, nausea, vomiting or diarrhea. No abdominal pain Neurologic: No headache, dizziness, syncope Endocrine: No cold or heat intolerance. No polyuria or polydipsia Physical exam: Constitutional: Alert, in no distress. Eyes: Pupils are equal, round and reactive to light. Extraocular muscles intact. Neck: Supple, Full range of motion. No lymphadenopathy. No palpable thyroid masses. Respiratory: Clear to auscultation. Cardiovascular: S1 S2 regular. II// murmur. Neurologic: No focal neurological deficits. Right foot: Warm and well perfused. 2+ edema. cyanosis or edema. Intact if he pulse. Intact vibratory sensation. Intact sensation to monofilament. No open wounds. Left foot: Warm and well perfused. 2+ edema. Intact DP pulse. Intact vibratory sensation. Intact sensation to monofilament. No open wounds. 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 (current) use of insulin Diabetes type 2, controlled Surgical History History of section Family History Father Lung cancer Mother Breast cancer Social History Household Members: Children Housing: House Alcohol intake: current Alcohol intake frequency: holidays/special occasions only Patient Tobacco Use Status: Never used Tobacco e-Cigarette/Vaping Use: Never Used Second Hand Smoke Exposure: No service: No Current occupational status: employed Cognitive needs: Yes Hearing needs: Yes Vision needs: Yes Physical Exam Vital Signs: Last Vital Signs Pulse 76 04/06/25 08:58 BP 132/72 04/06/25 08:58 Pulse Ox 95 04/06/25 08:58 Oxygen Delivery Method Room Air 04/06/25 08:58 BMI result Body Mass Index 47.7 Results AMB Hemoglobin A1c AMB Hemoglobin A1c 6.6 % Last Edit by KINJAL Schaefer on 04/06/25 09:17 Results Reviewed Results Reviewed: Laboratory Last Values Glucose (Clinic) 113 mg/dL (60-115) 04/06/25 09:04 Laboratory Tests 08/03/24 10/02/24 01/30/25 10:26 07:42 09:22 Creatinine Estimated GFR Triglycerides 96 Cholesterol 126 LDL Cholesterol, Calc 68 HDL Cholesterol 39 L Urine Creatinine 101.51 Urine Microalbumin 228.0 Microalb/Creat Ratio 156.9 H 01/30/25 09:28 Creatinine 1.11 Estimated GFR 49 Triglycerides Cholesterol LDL Cholesterol, Calc HDL Cholesterol Urine Creatinine Urine Microalbumin Microalb/Creat Ratio Assessment & Plan Assessment & Plan (1) Type 2 diabetes mellitus with morbid obesity: Code(s): E11.69 - Type 2 diabetes mellitus with other specified complication; E66.01 - Morbid (severe) obesity due to excess calories Category: Medical (2) Microalbuminuria due to type 2 diabetes mellitus: Code(s): E11.29 - Type 2 diabetes mellitus with other diabetic kidney complication; R80.9 - Proteinuria, unspecified Category: Medical (3) Murmur: Code(s): R01.1 - Cardiac murmur, unspecified Category: Medical Plan In summary this is a 69-year-old female with controlled type 2 diabetes. She is compliant with glucose monitoring. She was instructed to bring her CGM to all appointments. Continue Ozempic to 2 mg weekly. Continue insulin glargine 35 units every evening. Continue metformin 1000 mg twice daily. We reviewed complications of diabetes and diabetic diet. Avoid juices and soda. Follow low carbohydrate, low sugar diet. Exercise encouraged. If you experience low blood sugar, treat this by eating a chewable fruit candy like skittles or jelly beans (about 8 pieces), 4 ounces (1/2 cup) of fruit juice (not diet), 1 tablespoon of honey or 4 glucose tablets. If your blood sugar is under 55, take double the amount of one of the above. Recheck your blood sugar in 15 minutes. Reordered echocardiogram for scheduling. Follow up in 3 months for type 2 diabetes. Orders: Orders CA echo transthoracic complete Today R01.1 - Cardiac murmur, unspecified AMB Hemoglobin A1c Today E11.29 - Type 2 diabetes mellitus with other diabetic kidney complication, R80.9 - Proteinuria, unspecified Coding Level of Care Code Est Pt Level 4 (89785) Complex EM visit Add On G2211 Diagnoses Type 2 diabetes mellitus with morbid obesity E11.69; E66.01 Microalbuminuria due to type 2 diabetes mellitus E11.29; R80.9 Murmur R01.1
[2025-04-06 08:58] VITALS: BP 132/72; PULSE 76; O2SAT 95; BMI 47.7
--- OUTSIDE RECORDS SUMMARY | 2025-04-06 09:07 | XMS_ITS ---
Author Organization [facility] Address [address] [place] [address] Care Team Providers Care Sem Manager Name Role Phone Behzad Arzola MD Primary Care Provider Unavaila Edilson Ricketts Unavailable [phone] Allergies Allergen (clinical drug ingredient) Drug/Non Drug [...] Ordered Date Performed Result Body Sit e 61159-TCYRCCK NAIL, 6 OR MORE 11/27/2024 N/A 04879-Aoosplqd Plate 11/27/2024 N/A 90735-Rlmxhufk Plate Each Additional 11/27/2024 N/A 37796-NUPN SKIN LESIONS, OVER 4 11/27/2024 N/A Encounters Encounter Location Date Provider Diagnosis [facility] [address] [address] 11/27/2024 Edilson Gonzalezier Pain in right toe(s) [...] Treatment Pending Test Test Name Order Date 09223-ZRTYVRC NAIL, 6 OR MORE 11/27/2024 25010-Kqvnpxeq Plate 11/27/2024 03156-Csgoetiv Plate Each Additional 18055-JEGR SKIN LESIONS, OVER 4 11/27/20 24 Next Appt Details Follow Up: prn, Reason: Provider Name:Edilson Luis , 06/06/2025 09:00:00 AM, [address] [facility], [address], [place], [address], Procedure Notes * Category Sub-Category Detail Notes [...] and future surgical procedures to prevent recurrence (60589/32), DIABETES: Pt was advised as to the [...] use of a nail nipper and/or dremel-type shear grinder operator helper, to a more viable healthy nail plate [...] to maintain effectiveness in symptomatic relief - 47582 Keratoma Treatment Parring or Cutting o f [...] instrumentation by the physician of record - 16134 Progress Notes * Kathryn ARZOLA KDOB:[birth year] (69 yo F)Acc No.[id number]:11/27/2024 Progress Note Patient:?Merry ARZOLAcja Cassie Provider:?Edilson Luis DPM :1955???Age:69 Y???Sex:Female D ate:11/27/2024 Address:[address] [place] [id number] Pcp:Behzad Arzola MD Subjective: * Chief Complaints: [...] History:? s ection * Hospitalization/Major Diagno stic Procedure:?[facility] [place] Stitches in head 02/2019Colonoscopy 08/07/19 * Family [...] Treatment: 2.?Type 1 diabetes mellitus without complication?Procedure: 56691-XVSP SKIN LESIONS, OVER 4 3.?Ingrown nail?Procedure: 79067-Wfzalbyg Plate ?Procedure: 40013-Pajlixei Plate Each Additional * Procedures:?Debride Nail 6-10:?Nail [...] use of a nail nipper and/or dremel-type shear grinder operator helper, to a more viable healthy nail plate [...] to maintain effectiveness in symptomatic relief - 36758.?Keratoma Treatment:?Parring or Cutting of Benign Hyperkeratotic Lesion(s)?(-57) [...] instrumentation by the physician of record - 79501.?Nail Avulsion:?Location?Lateral nail borders, TA, T5.?Anesthesia?was deferred - [...] and future surgical procedures to prevent recurrence (34480/32), DIABETES: Pt was advised as to the risk of delayed or nonhealing due to diabetes. Pt is to call the office with any questions, concerns, or complications, DIABETES: Matricectomy deferred due to diabetes risk.? * Procedure Codes:?86102 DEBRI DE NAIL, 6 OR MORE, Modifiers: XS 24125 Avulsion Plate, Modifiers: XS , [id number] Avulsion Plate Each Additional, Modifiers: XS , [id number] TRIM SKIN LESIONS, OVER 4, Modifiers: XS [...] Sign off status: Completed true * Provider:?Edilson uLis DPM Date:?2023 Generated for Yaz rose/Tomy/Rohan on:?04/06/2025 09:06 AM EDT History and Physical Notes * HPI [...]
--- OUTSIDE RECORDS SUMMARY | 2025-04-06 09:07 | XMS_ITS ---
Author Organization [facility] Address [address] [place] [address] Care Team Providers Care Resource Specialist Teacher Name Role Phone Behzad Arzola MD Primary Care Provider Unavaila Edilson Ricketts Unavailable [phone] Allergies Allergen (clinical drug ingredient) Drug/Non Drug [...] Ordered Date Performed Result Body Sit e 02311-WGWUMAC NAIL, 6 OR MORE 08/17/2024 N/A 44156-Cwzebbrw Plate 08/17/2024 N/A 80599-Faurixet Plate Each Additional 08/17/2024 N/A 93484-QBYU SKIN LESIONS, OVER 4 08/17/2024 N/A Encounters Encounter Location Date Provider Diagnosis [facility] [place] [address] [address] 08/17/2024 Edilson Janelle Pain in right toe(s) [...] days Pending Test Test Name Order Date 67206-AYPAHCH NAIL, 6 OR MORE 08/17/2024 67764-Ibynupeb Plate 08/17/2024 61290-Uxpmafoz Plate Each Additional 31176-OWOD SKIN LESIONS, OVER 4 08/17/20 24 Next Appt Details Follow Up: prn, Reason: Provider Name:Edilson Luis , 06/06/2025 09:00:00 AM, [address] [facility], [address], [place], [address], Procedure Notes * Category Sub-Category [...] and future surgical procedures to prevent recurrence (23476/32), DIABETES: Pt was advised as to the [...] use of a nail nipper and/or dremel-type salvage grinder, to a more viable healthy nail plate or bed tissue 6-10. Silver nitrate used for any petechial bleeding as necessary. Definitive antifungal treatment options have been reviewed and discussed with the patient. The patient chooses, no pharmaceutical tx - 56174 Keratoma Treatment Parring or Cutting o f Benign Hyperkeratotic Lesion(s) (-57) More than 4 Lesions - The Benign hyperkeratotic lesions, as described above were pared, and/or cut utilizing a sterile 15 blade, tissue nippers, and/or dremel - 34191 Progress Notes * Kathryn MCCORMICK KDOB:[birth year] (69 yo F)Acc No.[id number]:08/17/2024 Progress Note Patient:?Kathryn Mccormick K Provider:?Edilson Luis DPM :1955???Age:69 Y???Sex:Female D ate:08/17/2024 Address:[address] [place], [place] [id number] Pcp:Behzad Arzola MD Subjective: * Chief Complaints: [...] History:? s ection * Hospitalization/Major Diagno stic Procedure:?[facility] [place] Stitches in head 02/2019Colonoscopy 08/07/19 * Family [...] ?Exercise: yes, walking. ?Marital status: . ?Occupation: [employer]. * Medications:?TakingOzempic ( 0.25 or 0.5 MG/DOSE) [...] Treatment: 2.?Type 1 diabetes mellitus without complication?Procedure: 52538-IPBY SKIN LESIONS, OVER 4 3.?Ingrown nail?Procedure: 90141-Cbykwzgk Plate ?Procedure: 77814-Ssmcesfm Plate Each Additional 4.?Xerosis of skin? Start [...] use of a nail nipper and/or dremel-type salvage grinder, to a more viable healthy nail plate or bed tissue 6-10. Silver nitrate used for any petechial bleeding as necessary. Definitive antifungal treatment options have been reviewed and discussed with the patient. The patient chooses, no pharmaceutical tx - 77166.?Keratoma Treatment:?Parring or Cutting of Benign Hyperkeratotic Lesion(s)?(-57) More than 4 Lesions - The Benign hyperkeratotic lesions, as described above were pared, and/or cut utilizing a sterile 15 blade, tissue nippers, and/or dremel - 64176.?Nail Avulsion:?Location?Lateral nail borders, TA, T5.?Anesthesia?was deferred - [...] and future surgical procedures to prevent recurrence (48951/32), DIABETES: Pt was advised as to the risk of delayed or nonhealing due to diabetes. Pt is to call the office with any questions, concerns, or complications, DIABETES: Matricectomy deferred due to diabetes risk.? * Procedure Codes:?77064 DEBRI DE NAIL, 6 OR MORE, Modifiers: XS 79557 Avulsion Plate, Modifiers: XS , [id number] Avulsion Plate Each Additional, Modifiers: XS , [id number] TRIM SKIN LESIONS, OVER 4, Modifiers: XS [...] Luis DPM Date:?2023 Generated for Yaz rose/Tomy/Donalditting on:?04/06/2025 09:07 AM EDT History and Physical Notes * [...]
--- OUTSIDE RECORDS SUMMARY | 2025-04-06 09:07 | XMS_ITS | Patient Health Record ---
Author Organization [facility] Address [address] [place] [address] Care Team Providers Care Solar Energy Advisor Name Role Phone Ness GALVEZ, Behzad Primary Care Provider Unavaila Edilson Ricketts Unavailable [phone] Allergies Allergen (clinical drug ingredient) Drug/Non Drug [...] Range Notes HEMOGLOBIN A1C (GLYCOHEMOGLO BIN) Reviewed date:08/17/2024 09:04:10 AM Interpretation: Performing Lab: Notes/Report: TOTAL HEMOGLOBIN (HGBA1C) 9.0 HEMOGLOBIN A1C (GLYCOHEMOGLO BIN) Reviewed date:11/27/2024 08:39:01 AM Interpretation: Performing Lab: Notes/Report: TOTAL HEMOGLOBIN (HGBA1C) 7.6 HEMOGLOBIN A1C (GLYCOHEMOGLO BIN) Reviewed date:03/05/2025 08:56:52 AM Interpretation: Performing Lab: Notes/Report: HEMOGLOBIN A1C % (HH) 7.6 HEMOGLOBIN A1C (GLYCOHEMOGLO BIN) Reviewed date:05/17/2024 08:51:21 AM Interpretation: Performing Lab: Notes/Report: HEMOGLOBIN A1C % (HH) 7.6 Reason For Referral No Information Medications Medication SIG (Take, Route, Frequency, Duration) Notes Start Date End Date Status metFORMIN HCl Active Fish Oil 1000 MG 1 capsule Orally Onc e a day Not-Taking Ozempic Not-Taking Pioglitazone HCl Not -Taking Mounjaro Not-Taking Tolterodine Tartrate ER 2 MG TAKE 1 CAPSULE BY MOUTH EVERY DAY Oral for 90 Days Not-Taking Carvedilol 6.25 MG TAKE 1 TABLET BY MOUTH TWICE A DAY. MUST ADMINISTER WITH A MEAL/FOOD Oral for 90 Days Active Extra Depth Orthopedic Shoes (1 Pair) with Customized Heat Molded Multidensity Innersoles (3 Pair) as directed Dx: NIDDM/Polyneuropathy (E11.42), Hammertoe Foot Deformity (M20.41,M20.42), Preulcerative Skin Lesion(s) (L85.1 03/05/2025 Active Ammonium Lactate 12 % 1 application Externally to feet except for between the toes Twice a day for 30 days Active Vitamin D3 Active Pravastatin Sodium 10 MG Oral for 30 Active Multivitamin Active Lisinopril 10 MG 1 tablet Orally Once a day Active Lantus 30 units Acti ve ibuprofen Active hydroCHLOROthiazide Active Flonase Active amLODIPine Besylate 10 MG 1 tablet Orall y Once a day Active Fluticasone Furoate Not-Taking Aspir-81 Active Fluticasone Propionate 50 MCG/ACT 1 spray in each nostril Nasally Once a day Not-Taking Ozempic (2 MG/DOSE) Active oxyBUTYnin Chloride 10 mg 1 tablet Orall y Once a day Not-Taking Lantus 60 units Not- Taking Jardiance Not-Taking Victoza 1.8 mg Not-T aking Immunizations Vaccine Route Administration Date Status Comme [...] Problem Acquired hammer toe of right foot (7509753849979057 ) Other hammer toe(s) (acquired), right foot (M20.41) Active confirmed Response to treatment, Improvemen t Problem Acquired hammer toe of left foot (5293487182347540 ) Other hammer toe(s) (acquired), left foot (M20.42) Active confirmed Response to treatment, Improvemen t Problem Polyneuropathy due to type 2 diabetes mellitus (078088470) Type 2 diabetes mellitus with diabetic polyneuropathy (E11.42) Active confirmed Vital Signs Blood pressure diastolic 68 mm Hg 03/05/2025 Height 5ft 2in in 03/05/2025 Blood pressure systolic 126 mm Hg 03/05/2025 Weight 255 lbs 03/05/2025 BMI 46.64 kg/m2 03/05/2025 Procedures Procedure Date Ordered Date Performed Result Body Sit e 02542-PDTRMGB NAIL, 6 OR MORE 05/17/2024 N/A 12450-Labzuksn Plate 05/17/2024 N/A 12270-Tzpxlcvz Plate Each Additional 05/17/2024 N/A 59762-UYGG SKIN LESIONS, OVER 4 05/17/2024 N/A 73271-SDLKDKV NAIL, 6 OR MORE 08/17/2024 N/A 76307-Emcodryk Plate 08/17/2024 N/A 27690-Fnbfbtrx Plate Each Additional 08/17/2024 N/A 98895-YBRN SKIN LESIONS, OVER 4 08/17/2024 N/A 98932-AJDXYKR NAIL, 6 OR MORE 11/27/2024 N/A 82526-Dqkcwonw Plate 11/27/2024 N/A 16718-Tklfuqjk Plate Each Additional 11/27/2024 N/A 79127-RXNG SKIN LESIONS, OVER 4 11/27/2024 N/A 42890-AQPQATT NAIL, 6 OR MORE 03/05/2025 N/A 84282-Zyikiifo Plate 03/05/2025 N/A 00040-Jntcxhfr Plate Each Additional 03/05/2025 N/A 45568-FULV SKIN LESIONS, OVER 4 03/05/2025 N/A Encounters Encounter Location Date Provider Diagnosis [address] [address] 05/17/2024 Edilson Janelle Pain in right toe(s) M79.674 ; Tinea unguium B35.1 ; Pain in left toe(s) M79.675 ; Type 1 diabetes mellitus without complication E10.9 ; Ingrown nail L60.0 ; Other hammer toe(s) (acquired), right foot M20.41 and Other hammer toe(s) (acquired), left foot M20.[address] [address] 08/17/2024 Edilson Janelle Pain in right toe(s) M79.674 ; Tinea unguium B35.1 ; Pain in left toe(s) M79.675 ; Type 1 diabetes mellitus without complication E10.9 ; Ingrown nail L60.0 and Xerosis of skin L85.[address] [address] 11/27/2024 Edilson Janelle Pain in right toe(s) M79.674 ; Tinea unguium B35.1 ; Pain in left toe(s) M79.675 ; Type 1 diabetes mellitus without complication E10.9 ; Ingrown nail L60.0 and Xerosis of skin L85.[address] [address] 03/05/2025 Edilson Janelle Tinea unguium B35.1 ; Type 2 diabetes mellitus with diabetic polyneuropathy E11.42 ; Ingrowing nail L60.0 ; Other hammer toe(s) (acquired), right foot M20.41 and Other hammer toe(s) (acquired), left foot M20.42 Assessments Encounter Date Diagnosis (ICD Code) Assessment Notes Treatment Notes Treatment Clinical Notes Section Notes 05/17/2024 Tinea unguium (ICD-10 - B35.1) 05/17/2024 Pain in right toe(s) (ICD-10 - M79.674) 08/17/2024 Tinea unguium (ICD-10 - B35.1) 08/17/2024 Pain in right toe(s) (ICD-10 - M79.674) 11/27/2024 Tinea unguium (ICD-10 - B35.1) 11/27/2024 Pain in right toe(s) (ICD-10 - M79.674) 03/05/2025 Type 2 diabetes mellitus with diabetic polyneuropathy (ICD-10 - E11.42) 03/05/2025 Tinea unguium (ICD-10 - B35.1) 11/27/2024 Pain in left toe(s) (ICD-10 - M79.675) 03/05/2025 Ingrowing nail (ICD-10 - L60.0) 08/17/2024 Pain in left toe(s) (ICD-10 - M79.675) 05/17/2024 Pain in left toe(s) (ICD-10 - M79.675) 05/17/2024 Type 1 diabetes mellitus without complication (ICD-10 - E10.9) 08/17/2024 Type 1 diabetes mellitus without complication (ICD-10 - E10.9) 11/27/2024 Type 1 diabetes mellitus without complication (ICD-10 - E10.9) 03/05/2025 Other hammer toe(s) (acquired), right foot (ICD-10 - M20.41) Patient Educated with: DIABETIC FOOT CARE INSTRUCTIONS. pdf (DIABETIC FOOT CARE INSTRUCTIONS. pdf) 03/05/2025 Other hammer toe(s) (acquired), left foot (ICD-10 - M20.42) 11/27/2024 Ingrown nail (ICD-10 - L60.0) 08/17/2024 Ingrown nail (ICD-10 - L60.0) 05/17/2024 Ingrown nail (ICD-10 - L60.0) 08/17/2024 Xerosis [...] Foot, left 2V 04/04/2015 Glucose Fasting 04/04/2015 12102-TNNDRMG NAIL, 6 OR MORE 07/09/2015 01530-WLTUDJK NAIL, 6 OR MORE 09/27/2015 60600-XBSTGBW NAIL, 6 OR MORE 01/03/2016 17913-HJIYXBZ NAIL, 6 OR MORE 04/15/2016 89445-CANQVUS NAIL, 6 OR MORE 07/15/2016 95194-VFAJGFG NAIL, 6 OR MORE 10/14/2016 13826-YYPAPWC NAIL, 6 OR MORE 01/25/2017 71083-EPRMIEB NAIL, 6 OR MORE 04/21/2017 95636-JVYEFUQ NAIL, 6 OR MORE 04/04/2015 01931-BLJKECY NAIL, 6 OR MORE 07/28/2017 93792-XUWXNRT NAIL, 6 OR MORE 10/27/2017 50305-DZUZACF NAIL, 6 OR MORE 01/26/2018 19189-RIRXAXV NAIL, 6 OR MORE 04/27/2018 02176-LMOMYYP NAIL, 6 OR MORE 11/02/2018 82395-GYBEWMF NAIL, 6 OR MORE 2019 27425-BTNCDOJ NAIL, 6 OR MORE 08/03/2018 84901-MKHMAMI NAIL, 6 OR MORE 05/03/2019 11019-JCXUQDX NAIL, 6 OR MORE 08/16/2019 56968-VUPAXCJ NAIL, 6 OR MORE 11/15/2019 96107-TZYNKMF NAIL, 6 OR MORE 12/02/2020 26762-ROTYXPN NAIL, 6 OR MORE 04/21/2021 26712-UQURQUR NAIL, 6 OR MORE 08/13/2021 81619-LYYLPBT NAIL, 6 OR MORE 11/10/2021 39113-TIHOTNK NAIL, 6 OR MORE 09/02/2020 77348-MGFHPYI NAIL, 6 OR MORE 02/09/2022 09162-UHKILAK NAIL, 6 OR MORE 05/11/2022 58584-FRSXFZU NAIL, 6 OR MORE 09/24/2022 79734-HPIVJWI NAIL, 6 OR MORE 01/25/2023 99828-QLPPVUP NAIL, 6 OR MORE 07/14/2023 69892-FVJALWJ NAIL, 6 OR MORE 11/10/2023 19033-AGBHUBC NAIL, OR MORE 02/16/2024 94180-XGYDGEB NAIL, OR MORE 05/17/2024 01814-ILPOFBK NAIL, OR MORE 08/17/2024 82941-VIMUWYY NAIL, OR MORE 11/27/2024 20170-CHYUYPP NAIL, OR MORE 03/05/2025 17868-Jgjwrdfa Plate 11/02/2018 36381-Axyyvbva Plate 03/05/2025 94605-Nwshzect Plate 11/27/2024 40196-Nlvkthvx Plate 08/17/2024 10233-Meuprcbc Plate 05/17/2024 43319-Oqfejywx Plate 02/16/2024 63757-Abmlmacd Plate 11/10/2023 90138-Yvkfrqzb Plate 07/14/2023 68003-Bpcnzzlh Plate 01/25/2023 05946-Uopavxng Plate 09/24/2022 83437-Asazxrhc Plate 05/11/2022 59276-Ucucaxtm Plate 02/09/2022 12271-Oxtvhcbq Plate 09/02/2020 86635-Hmkbgkcz Plate 11/10/2021 52146-Bjqotkha Plate 08/13/2021 27477-Awoswkqg Plate 04/21/2021 90548-Kjfgttvd Plate 12/02/2020 43514-Vhtyyxmy Plate 11/15/2019 61318-Ghvcsuqy Plate 08/16/2019 64978-Yrergtab Plate 05/03/2019 24397-Xzfyrphr Plate 2019 60901-Yktpivhe Plate 10/27/2017 52382-Rwlhfwbj Plate 08/03/2018 76568-Khpeqmzi Plate 04/27/2018 66397-Usmhlzoa Plate 01/26/2018 60529-Eiahprpc Plate 07/28/2017 87132-Ryxbmifq Plate 01/25/2017 58747-Xpwlfcev Plate 04/21/2017 88128-Hfockamb Plate 10/14/2016 45443-Hznfpnyj Plate 07/15/2016 51928-Kjsgphil Plate 04/15/2016 12756-Zqlsksqo Plate 01/03/2016 01241-Vervqsas Plate 09/27/2015 32141-Pjkvqaag Plate 07/09/2015 31000-Flldnaja Plate 04/04/2015 76815-Ozvzrvyk Plate Each Additional 09/2015 95910-Xrvkgfiw Plate Each Additional 00800-Ysctdkou Plate Each Additional 03/2016 74592-Cknblgud Plate Each Additional 14681-Dojfayun Plate Each Additional 88424-Ojiqgjkg Plate Each Additional 37588-Ghpihodn Plate Each Additional 11547-Yzbsiznm Plate Each Additional 90950-Tdzcnvee Plate Each Additional 03/2018 82522-Bnyjbihu Plate Each Additional 04/2019 56918-Jcnghaty Plate Each Additional 03/2019 95904-Thxmofmb Plate Each Additional 03/2018 20583-Qdiqmahq Plate Each Additional 32136-Voqyaufh Plate Each Additional 22289-Bvsvvuzu Plate Each Additional 02/2021 13957-Mrgyolzb Plate Each Additional 58223-Obfhvawq Plate Each Additional 04607-Iafszogi Plate Each Additional 54230-Szcxnnom Plate Each Additional 03/2020 99624-Aglhwrcz Plate Each Additional 41094-Xajnzkuh Plate Each Additional 06549-Mkiroagr Plate Each Additional 24935-Aiupictq Plate Each Additional 25136-Cejmcyjt Plate Each Additional 88869-Rulfzgmg Plate Each Additional 79724-Ykgfabvk Plate Each Additional 19847-Qkkfhxzf Plate Each Additional 40922-Tzkibtvr Plate Each Additional 44211-Mxeoxibu Plate Each Additional 71931-Qnqdahon Plate Each Additional 05/2025 24129-YASC SKIN LESIONS, OVER 4 03/05/20 25 60296-YUKX SKIN LESIONS, OVER 4 11/27/20 24 25450-JCXI SKIN LESIONS, OVER 4 08/17/20 24 69455-LAYV SKIN LESIONS, OVER 4 05/17/20 24 65928-IYTF SKIN LESIONS, OVER 4 02/16/20 24 93085-RUPM SKIN LESIONS, OVER 4 11/10/20 23 88682-SNGN SKIN LESIONS, OVER 4 07/14/20 23 50382-KRVT SKIN LESIONS, OVER 4 01/25/20 23 93824-CXXK SKIN LESIONS, OVER 4 09/24/20 22 47261-IZTF SKIN LESIONS, OVER 4 05/11/20 22 21838-FAFS SKIN LESIONS, OVER 4 11/10/20 21 24056-CWHM SKIN LESIONS, OVER 4 08/13/20 21 68550-TRXK SKIN LESIONS, 2 TO 4 04/21/20 21 66151-KTOP SKIN LESIONS, 2 TO 4 12/02/19 21 65317-QJDQ SKIN LESIONS, 2 TO 4 04/04/20 15 92051,P1928-FOY TENDON SHEATH/LIGAMENT 0 06/14/2015 Next Appt Details Provider Name:Edilson Luis , 06/06/2025 09:00:00 AM, [address] [facility], [address], [place], [address], Insurance Providers Payer Name Payer Address Payer Phone Subscriber Number Group Number Insured Name Patient Relationship to Insured Coverage Start Date Coverage End Date [facility] [address] [place] [address] [id number] Kathryn Arzola Self - patient is the insured Medical (General) History Medical History History ICD Code Diabetic Hypertension Allergic rhinitis Hypercholesterolemia Surgical History Surgery Date(Month/Year) section Hospitalization History Reason Date(Month/Year) Colonoscopy 08/07/19 [facility] [place] Stitches in head 02/2019
--- OUTSIDE RECORDS SUMMARY | 2025-04-06 09:07 | XMS_ITS ---
Author Organization [facility] Address [address] [place] [address] Care Team Providers Care Drupal Web Developer Name Role Phone Behzad Arzola MD Primary Care Provider Unavaila Edilson Ricketts Unavailable [phone] Allergies Allergen (clinical drug ingredient) Drug/Non Drug [...] Polyneuropathy due to type 2 diabetes mellitus (412517738) Type 2 diabetes mellitus with diabetic polyneuropathy (E11.42) Active confirmed Vital Signs Height 5ft 2in in 03/05/2025 Weight 255 lbs 03/05/2025 BMI 46.64 kg/m2 03/05/2025 Blood pressure systolic 126 mm Hg 03/05/20 25 Blood pressure diastolic 68 mm Hg 025 Procedures Procedure Date Ordered Date Performed Result Body Sit e 28845-RRJABTB NAIL, 6 OR MORE 03/05/2025 N/A 25724-Coqqxvqt Plate 03/05/2025 N/A 10085-Wfnwqkmt Plate Each Additional 03/05/2025 N/A 04120-LKCI SKIN LESIONS, OVER 4 03/05/2025 N/A Encounters Encounter Location Date Provider Diagnosis [facility] [address] [address] 03/05/2025 Edilson Luis Tinea unguium B35.1 ; [...] INSTRUCTIONS.pdf) Pending Test Test Name Order Date 65056-ZCVEWGC NAIL, 6 OR MORE 03/05/2025 75704-Mibuchtd Plate 03/05/2025 87191-Injiojki Plate Each Additional 05/2025 61497-SFLB SKIN LESIONS, OVER 4 03/05/20 25 Next Appt Details Follow Up: prn, Reason: Provider Name:Edilson Luis , 06/06/2025 09:00:00 AM, [address], [place], [address], Procedure Notes * Category Sub-Category Detail Notes [...] and future surgical procedures to prevent recurrence (66542/32), DIABETES: Pt was advised as to the [...] of a nail nipper and/or dremel-type grinder machine knife setter, to a more viable healthy nail plate [...] to maintain effectiveness in symptomatic relief - 27417 Keratoma Treatment Parring or Cutting o f [...] power dremel instrumentation by the physician of [facility] - 26992 Progress Notes * Kathryn MCCORMICK KDOB:[birth year] (70 yo F)Acc No.[id number]:03/05/2025 Progress Note Patient:?Kathryn MCCORMICK K Provider:?Edilson Luis DPM :1955???Age:70 Y???Sex:Female D ate:03/05/2025 Address:[address] [place], [place] [address] Pcp:Behzad Arzola MD Subjective: * Chief Complaints: [...] Hospitalization/Major Diagno stic Procedure:?[facility] [place] Stitches in head 02/2019Colonoscopy [...] ?Exercise: yes, walking. ?Marital status: . 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 * Medications:?TakingOzempic ( 2 MG/DOSE) Aspir-81 amLODIPine [...] Management (4)??? Plan: * Treatment: 2.?Ingrowing nail?Procedure: 61764-Ihafpthj Plate ?Procedure: 40507-Geozqhfr Plate Each Additional 3.?Other hammer toe(s) (acqu [...] of a nail nipper and/or dremel-type grinder machine knife setter, to a more viable healthy nail plate [...] to maintain effectiveness in symptomatic relief - 48279.?Keratoma Treatment:?Parring or Cutting of Benign Hyperkeratotic Lesion(s)?(-57) [...] instrumentation by the physician of record - 94993.?Nail Avulsion:?Location?Lateral nail borders, TA, T5.?Anesthesia?was deferred - [...] and future surgical procedures to prevent recurrence (11431/32), DIABETES: Pt was advised as to the risk of delayed or nonhealing due to diabetes. Pt is to call the office with any questions, concerns, or complications, DIABETES: Matricectomy deferred due to diabetes risk.? * Procedure Codes:?12854 Avuls ion Plate, Modifiers: XS , [id number] Avulsion Plate Each Additional, Modifiers: XS , [id number] TRIM SKIN LESIONS, OVER 4, Modifiers: XS 51585 DEBRIDE NAIL, 6 OR MORE, Modifiers: XS [...] Luis DPM Date:?2024 Generated for Yaz rose/Tomy/Rohan on:?04/06/2025 09:06 AM [...] structure , No Charcot collapse/destruction noted at [facility] FOOTWEAR EVALUATION: worn, OT were inspe cted [...]
[2025-04-06 09:08] LABS: Glucose, Whole Blood 113 mg/dL (60-115)
== END 2025-04-06 09:23 | disposition home or self-care (01) ==
LOC: HO.ENCR 08:53
PROVIDERS: PCP Internal Medicine; Visit Provider Physician Assistant Medical
DX: E11.69 Type 2 diabetes mellitus with other specified complication (principal); E66.01 Morbid (severe) obesity due to excess calories; E11.29 Type 2 diabetes mellitus with other diabetic kidney complication; R80.9 Proteinuria, unspecified; R01.1 Cardiac murmur, unspecified

== ENCOUNTER → 2025-04-06 08:52 | Outpatient (BNVA) | payer OTHER, SELFPAY | PROVIDERS: PCP Internal Medicine; Visit Provider Physician Assistant Medical | DX: E11.69 Type 2 diabetes mellitus with other specified complication (principal); E66.01 Morbid (severe) obesity due to excess calories; Z68.42 Body mass index [BMI] 45.0-49.9, adult; E11.29 Type 2 diabetes mellitus with other diabetic kidney complication; R80.9 Proteinuria, unspecified; R01.1 Cardiac murmur, unspecified; Z79.4 Long term (current) use of insulin; Z79.84 Long term (current) use of oral hypoglycemic drugs; Z79.899 Other long term (current) drug therapy | CPT/HCPCS: 82947; 83036 ==

== ENCOUNTER 2025-05-26 10:03 | Outpatient (REF) | payer OTHER, SELFPAY ==
--- OUTSIDE RECORDS SUMMARY | 2025-05-26 10:05 | XMS_ITS | Patient Health Record ---
Author Organization [facility] Address [address] [place] [address] Care Team Providers Care Basic Sciences Professor Name Role Phone Behzad Arzola MD Primary Care Provider Destin Thomas Unavailable [phone] Allergies Allergen (clinical drug ingredient) Drug/Non Drug Allergy documented on EMR Reaction Allergy Type Onset Date Status sulfacetamide Sulfacetamide Sodium Unknown Drug Allergy Active Keflex Unknown Drug Allergy Active sulfamethoxazole / trimethoprim Bactrim Unknown Drug Allergy Active amoxicillin / clavulanate Augmentin Unknown Drug Allergy Active Reason For Referral No Information Medications Medication SIG (Take, Route, Frequency, Duration) Notes Start Date End Date Status Lantus SoloStar 100 UNIT/ML INJECT 60 UN ITS INTO THE SKIN ONCE DAILY Subcutaneous for 50 Active Ibuprofen 800 MG 1 TABLET NEEDED THREE TIMES A DAY ORALLY 90 Oral for 90 Active metFORMIN HCl 1000 MG TAKE 1 TABLET BY M OUTH TWICE A DAY WITH MEALS Oral for 90 Active Flonase 50 MCG/DOSE 1 spray in each nostril Nasally Once a day for 30 day(s) Active Pravastatin Sodium 10 MG TAKE 1 TABLET B Y MOUTH EVERY DAY Oral for 30 Active Fish Oil 1000 MG 1 capsule Orally Onc e a day for 30 day(s) Active amLODIPine Besylate 10 MG TAKE 1 TABLET BY MOUTH EVERY DAY Oral for 90 Active Vitamin D3 1000 UNIT 1 capsule Orally On ce a day for 30 day(s) Active Aspirin Adult Low Strength 8 1 MG 1 tablet Orally Once a day for 30 day(s) Active Multivitamin Adult - as directed Orally Active Victoza 18 MG/3ML as directed Subcutaneous Active hydroCHLOROthiazide 25 MG TAKE 1 TABLET BY MOUTH EVERY DAY Oral for 90 Active Cyclobenzaprine HCl 10 MG TAKE 1 TABLET BY MOUTH THREE TIMES A DAY Oral for 13 Active Lisinopril 20 MG TAKE 1 TABLET BY [place] TH EVERY DAY Oral for 90 Active Immunizations Vaccine Route Administration Date Status Comme nts Influenza Unknown 07/30/2018 Administered Social History Tobacco Use: Social History Observation Description Date Details (start date - stop date) Never Smoker NA - NA Tobacco Use/Smoking Question Answer Notes Patient is a nonsmoker Alcohol Screen Question Answer Notes Did you have a drink contain ing alcohol in the past year? Yes How often did you have a dri nk containing alcohol in the past year? Never (0 point) How many drinks did you have on a typical day when you were drinking in the past year? 1 or 2 drinks (0 point) How often did you have 6 or more drinks on one occasion in the past year? Never (0 point) Points 0 Interpretation Negative Section Notes: Nonsmoker; occasional drink on special occasions Problems Problem Type SNOMED Code ICD Code Onset Dates Problem Status W/U Status Risk Notes Problem 060053220 Encounter for screening for malignant neoplasm of colon (Z12.11) Active confirmed Problem 298051711338107 Preprocedural examination (Z01.818) Active confirmed Plan Of Treatment Pending Test Test Name Order Date GI BIOPSY 08/07/2019 Future Test Test Name Order Date COLONOSCOPY 03/31/2019 Insurance Providers Payer Name Payer Address Payer Phone Subscriber Number Group Number Insured Name Patient Relationship to Insured Coverage Start Date Coverage End Date [facility] [address] [place] [address] [id number] WINNIE MCCORMICK Self - patient is the insured Medical (General) History Medical History History ICD Code Hypertension Allergic rhinitis Hyperlipidemia Arthritis IDDM Urinary incontinence Negative screening colonoscopy in 07/[address] Tomas Briggs MS,CVA,Lung disease,renal disease Surgical History Surgery Date(Month/Year) 1989
[2025-05-26 12:06] LABS: Anion Gap 15 (12-20); Blood Urea Nitrogen 26 mg/dL (9-16); Calcium 9.7 mg/dL (8.4-10.2); Carbon Dioxide 24 mmol/L (22-29); Chloride 102 mmol/L (96-108); Estimated Glomerular Filt Rate 50; Glucose Random 138 mg/dL (60-115); Phosphorus 3.2 mg/dL (2.7-4.5); Potassium 4.1 mmol/L (3.3-5.1); Sodium 137 mmol/L (135-145)
[2025-05-26 12:07] LABS: Parathyroid Hormone Intact 43.5 pg/mL (8.7-77.1)
== END 2025-05-26 10:04 | disposition home or self-care (01) ==
LOC: HO.LAB 10:03
PROVIDERS: Absent Provider Internal Medicine Hypertension Specialist; PCP Physician Assistant; Visit Provider Nurse Practitioner Family
DX: N18.31 Chronic kidney disease, stage 3a (principal)
CPT/HCPCS: 36415; 80048; 83970; 84100

== ENCOUNTER 2025-05-29 09:39 | Outpatient (AMB) | payer OTHER, SELFPAY ==
[2025-05-29 09:40] VITALS: BP 150/64; PULSE 93; O2SAT 97; BMI 46.5
--- NOTE | 2025-05-29 09:40 | HO.NEPHOV ---
Vital Signs 05/29/25 09:40 05/29/25 09:53 Height 5 ft 2 in Weight 254 lb BMI 46.5 BP 150/64 H 120/60 Blood Pressure Location Lt brachial Lt brachial Position Sitting Sitting Pulse 93 Pulse Source Pulse Oximeter Pulse Oximetry (%) 97 Oxygen Delivery Method Room Air Intake Visit Reasons: 4 MO FU/ Conf Protective Signal Installer Required: No Accompanied by: Self / Same As Patient Allergies Sulfa (Sulfonamide Antibiotics) (Sulfa (Sulfonamides)) Allergy (Mild, Verified 05/29/25 09:42) RASH cephalexin (From KEFLEX) Allergy (Unknown, Verified 05/29/25 09:42) RASH clavulanic acid (Augmentin) Allergy (Unknown, Verified 05/29/25 09:42) vaginal irritation empagliflozin (From Jardiance) Adverse Reaction (Intermediate, Verified 05/29/25 09:42) Rash amoxicillin (From Augmentin) Adverse Reaction (Mild, Verified 05/29/25 09:42) VAGINAL IRRITATION tolterodine Adverse Reaction (Unknown, Verified 05/29/25 09:42) Hives, rash Medication List - Last Reconciled 05/29/25 by Olman Trujillo MD amlodipine 10 mg PO DAILY ammonium lactate 12% appl topical aspirin (Adult Aspirin Regimen) 81 mg PO DAILY azithromycin take 500 mg today (day 1), then 250 mg for 4 days (days 2-5) PO blood sugar diagnostic (The [employer] Guidesuch Verio test strips) As directed 3 times a day blood-glucose meter ([employer] Limited[employer] Verio Flex Meter) As directed blood-glucose sensor (FreeStyle Dominick 3 Sensor device) apply new sensor every 14 days as directed blood-glucose,clinical resource nurse,cont (FreeStyle Dominick 3 [place]) as directed carvedilol 6.25 mg PO BID glucose (Dex4 Glucose) 16 grams (4 x 4 gram) PO Q15M PRN hydrochlorothiazide 25 mg PO DAILY ibuprofen 800 mg PO BID insulin glargine 35 units (0.35 mL) subcut DAILY lancets ([employer] Delica Lancets) As directed 3 times a day lisinopril 10 mg PO DAILY metformin 1,000 mg PO BID omega-3 fatty acids 1,000 mg PO DAILY pen needle, diabetic (BD Samantha 2nd Gen Pen Needle) Use as directed to administer insulin subcutaneously once daily pravastatin 10 mg PO BEDTIME semaglutide (Ozempic) 2 mg (0.75 mL) subcut QWEEK HPI Comments Details: Pt is a 69 y/o female Medical Hx: DMII with microalbuminuria, HTN, HLD, morbid obesity, osteoarthritis, urge urinary incontinence (overactive bladder). alcohol: seldom- special occasions tobacco: never Referred by her sales rep for atrophic left kidney and increased creatinine, microalbuminuria: She has an ultrasound March 2024 which showed an atrophic left kidney without hydronephrosis. Her creatinine was 0.December, increased to 1.33 in 08/03/24 GFR 40 on 08/03/24; previously 59 on 01/06/24. microalbumin/creatinine ratio 156.9 on 08/03/24 she denies personal history of kidney stones or history of other renal problems she denies known vascular disease pertinent family history: one brother with large renal stones, and had to have a kidney removed (unknown reason). both parents in 40s from (mother- breast, father lung cancer). another brother had a heart attack and in his late 40s/early 50s. both children have mental health struggles but are other she has never had a kidney stone no known vascular disease takes 800mg ibuprofen takes twice daily, sometimes 3x daily, for arthritis. For a few years. Feels this is necessary for QOL- joint injections have not worked well, and she has not been able to lose weight for surgery for her arthritis. Does take tylenol, does not help as much. She does not add salt to her food that she cooks, but states eats canned soups, delhi meats and other foods with salt added; working on this A1c 9.1% on 08/03/24. Takes ozempic. Ozempic has not yet helped with weight loss. Blood pressures generally controlled, does not take her BP measures at home takes amlodipine 10mg daily, hydrochlorothiazide 25mg daily, lisinopril 20mg daily. 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 Pt continues with hctz 25mg daily and amlodipine 10mg daily she continues to have chronic BLE swelling she continues to struggle with fluid intake but has has some improvement continues to struggle with avoiding foods with added salt but working on this A1c has improved from 9.1 to 7.9 on 10/02/24 11/01/24 pt taking lisinopril 10mg daily, hctz 25mg daily, amlodipine 10mg daily, carvedilol 6.25mg BID (carvedilol was added last appt due to elevated blood pressure) she has not been able to get a blood pressure cuff yet due to finances but will get this when she can denies new symptoms/concerns states sugars have been doing better on ozempic and she is continuing to lose weight slowly. She sees her sales rep next week. 02/01/25 Twelve doing well. She is taking vitamin-D 5000 units a day. She is currently on a Ozempic. No significant weight change. Home blood pressure has been acceptable Unfortunately she takes ibuprofen twice a day on a regular basis. 05/29/25 The patient is a 70-year-old female presenting for management of chronic kidney disease and hypercalcemia. The patient has a history of hypercalcemia, which was previously managed by decreasing vitamin D intake, resulting in normalization of calcium levels. Her kidney function has shown improvement since the last visit. The patient reports variable blood pressure readings at home, with occasional high readings potentially due to stress or dehydration. She is currently on multiple antihypertensive medications, including amlodipine, carvedilol, hydrochlorothiazide, and lisinopril. The patient's diabetes mellitus is under better control, with a recent A1c of 6.6%, down from 7.1% in December. [facility] Medical History Murmur Decreased renal function Microalbuminuria due to type 2 diabetes mellitus Physical exam Urinary Incontinence OAB (overactive bladder) Type 2 diabetes mellitus with morbid obesity Obesity Diabetes type 2, uncontrolled Osteoarthritis Morbid obesity Hypertension Dyslipidemia Non-toxic multinodular goiter residential (current) use of insulin Diabetes type 2, controlled Surgical History History of section Family History Father Lung cancer Mother Breast cancer Social History Household Members: Children Housing: House Alcohol intake: current Alcohol intake frequency: holidays/special occasions only Patient Tobacco Use Status: Never used Tobacco e-Cigarette/Vaping Use: Never Used Second Hand Smoke Exposure: No service: No Current occupational status: employed Cognitive needs: Yes Hearing needs: Yes Vision needs: Yes Physical Exam Vital Signs: Last Vital Signs Pulse 93 05/29/25 09:40 BP 120/60 05/29/25 09:53 Pulse Ox 97 05/29/25 09:40 Oxygen Delivery Method Room Air 05/29/25 09:40 BMI result Body Mass Index 46.5 Const Orientation/consciousness: patient oriented x3 Neck Thyroid: Thyroid normal Carotids: bruit on the right Resp Effort & Inspection: normal respiratory effort Auscultation: clear to auscultation bilaterally Cardio Jugular venous distension: no JVD Rate: regular rate Rhythm: regular rhythm Heart sounds: S1 normal heart sound present, S2 normal heart sound present and Murmur heart sound present (mild systolic heart murmur ) GI Palpation (GI): Soft to palpation and nontender General: Yes no CVA tenderness Back/Spine/Pelvis Back: no CVA tenderness Skin Lesions: no lesions Rashes: no rashes Neuro General: patient oriented x3 Extrem General: Yes edema (BLE edema +1, reports longstanding but feels it is slightly better recently) Results Reviewed Nephrology Results: Sodium, (135-145) 137 mmol/L 05/26/25 Potassium, (3.3-5.1) 4.1 mmol/L 05/26/25 Chloride, (96-108) 102 mmol/L 05/26/25 Carbon Dioxide, (22-29) 24 mmol/L 05/26/25 BUN, (9-16) 26 mg/dL H 05/26/25 Creatinine, (0.5-1.4) 1.08 mg/dL 05/26/25 Calcium, (8.4-10.2) 9.7 mg/dL 05/26/25 Phosphorus, (2.7-4.5) 3.2 mg/dL 05/26/25 PTH Intact, (8.7-77.1) 43.5 pg/mL 05/26/25 Urine Creatinine 101.51 mg/dL 01/30/25 Protein/Creatinin Ratio, (<0.2) 0.11 01/30/25 Assessment & Plan Assessment & Plan (1) Diabetes type 2, uncontrolled: Code(s): E11.65 - Type 2 diabetes mellitus with hyperglycemia Category: Medical Qualifiers: Glycemic state: with hyperglycemia Qualified Code(s): E11.65 - Type 2 diabetes mellitus with hyperglycemia (2) Microalbuminuria due to type 2 diabetes mellitus: Code(s): E11.29 - Type 2 diabetes mellitus with other diabetic kidney complication; R80.9 - Proteinuria, unspecified Category: Medical (3) Atrophic kidney: Comment: Left < right Code(s): N26.1 - Atrophy of kidney (terminal) Category: Medical (4) Hypertension: Code(s): I10 - Essential (primary) hypertension Category: Medical Qualifiers: Hypertension type: essential hypertension Qualified Code(s): I10 - Essential (primary) hypertension (5) CKD (chronic kidney disease): Code(s): N18.9 - Chronic kidney disease, unspecified Category: Medical Qualifiers: Chronic kidney disease stage: stage 3 (moderate) Chronic kidney disease stage 3 subtype: stage 3a (GFR 45-59) Qualified Code(s): N18.31 - Chronic kidney disease, stage 3a Plan 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 She is at a risk of ongoing renal injury especially in combination with lisinopril and diuretics. s/p Mild hypercalcemia. This is probably due to excessive vitamin-D intake. Encouraged her to cut down on vitamin-D intake from 5000 units every day to 5000 units once a week. Calcium improved after lowering Vit D Orders: Orders Basic Metabolic Panel 6 Months I10 - Essential (primary) hypertension Coding Level of Care Code Est Pt Level 4 (17714) Diagnoses Uncontrolled type 2 diabetes mellitus with hyperglycemia E11.65 Glycemic state: with hyperglycemia Microalbuminuria due to type 2 diabetes mellitus E11.29; R80.9 Atrophic kidney N26.1 Essential hypertension I10 Hypertension type: essential hypertension Stage 3a chronic kidney disease N18.31 Chronic kidney disease stage: stage 3 (moderate) Chronic kidney disease stage 3 subtype: stage 3a (GFR 45-59)
[2025-05-29 09:53] VITALS: BP 120/60
--- OUTSIDE RECORDS SUMMARY | 2025-05-29 10:28 | XMS_ITS | Patient Health Record ---
Author Organization [facility] Address [address] [place] [address] Care Team Providers Care Manager Chinese Name Role Phone Ness GALVEZ, Behzad Primary Care Provider Unavaila Edilson Ricketts Unavailable [phone] Allergies Allergen (clinical drug ingredient) Drug/Non Drug [...] TAKE 1 CAPSULE BY MOUTH EVERY DAY Oral; Duration: 90 Days Not-Taking Carvedilol 6.25 MG TAKE 1 TABLET BY MOUTH TWICE A DAY. MUST ADMINISTER WITH A MEAL/FOOD Oral; Duration: 90 Days Active Extra Depth Orthopedic Shoes (1 Pair) with Customized Heat Molded Multidensity Innersoles (3 Pair) as directed Dx: NIDDM/Polyneuropathy (E11.42), Hammertoe Foot Deformity (M20.41,M20.42), Preulcerative Skin Lesion(s) (L85.1 03/05/2025 Active Ammonium Lactate 12 % 1 application Externally to feet except for between the toes Twice a day; Duration: 30 days Active Vitamin D3 Active Pravastatin Sodium 10 MG Oral; Duration: 30 Active Multivitamin Active Lisinopril 10 MG [...] Problem Acquired hammer toe of right foot (3423177121874414 ) Other hammer toe(s) (acquired), right foot (M20.41) Active confirmed Response to treatment, Improvemen t Problem Acquired hammer toe of left foot (7316791555702976 ) Other hammer toe(s) (acquired), left foot (M20.42) Active confirmed Response to treatment, Improvemen t Problem Polyneuropathy due to type 2 diabetes mellitus (080290844) Type 2 diabetes mellitus with diabetic polyneuropathy (E11.42) Active confirmed Vital Signs Blood pressure diastolic 68 mm Hg 03/05/2025 Height 5ft 2in in 03/05/2025 Blood pressure systolic 126 mm Hg 03/05/2025 Weight 255 lbs 03/05/2025 BMI 46.64 kg/m2 03/05/2025 Procedures Procedure Date Ordered Date Performed Result Body Sit e 41048-NUYWJGP NAIL, 6 OR MORE 08/17/2024 N/A 74205-Cugiosoc Plate 08/17/2024 N/A 83718-Ctjivzqz Plate Each Additional 08/17/2024 N/A 95899-KGRC SKIN LESIONS, OVER 4 08/17/2024 N/A 59134-DMREIOW NAIL, 6 OR MORE 11/27/2024 N/A 72917-Ehonxeuq Plate 11/27/2024 N/A 53604-Kvykfbny Plate Each Additional 11/27/2024 N/A 21394-EZCL SKIN LESIONS, OVER 4 11/27/2024 N/A 19594-SWDG SKIN LESIONS, OVER 4 03/05/2025 N/A 28005-Cypebqbi Plate Each Additional 03/05/2025 N/A 17792-Szcyflcm Plate 03/05/2025 N/A 29493-CUWZSXI NAIL, 6 OR MORE 03/05/2025 N/A Encounters Encounter Location Date Provider Diagnosis [facility] [place] [address] [place] [id number] 08/17/2024 Edilson Luis Pain in right toe(s) M79.674 ; Tinea unguium B35.1 ; Pain in left toe(s) M79.675 ; Type 1 diabetes mellitus without complication E10.9 ; Ingrown nail L60.0 and Xerosis of skin L85.3 [facility] [address] [phone] 11/27/2024 Edilson Luis Pain in right toe(s) M79.674 ; Tinea unguium B35.1 ; Pain in left toe(s) M79.675 ; Type 1 diabetes mellitus without complication E10.9 ; Ingrown nail L60.0 and Xerosis of skin L85.3 [facility] [address] [phone] 03/05/2025 Edilson Luis Tinea unguium B35.1 ; Type 2 diabetes mellitus with diabetic polyneuropathy E11.42 ; Ingrowing nail L60.0 ; Other hammer toe(s) (acquired), right foot M20.41 and Other hammer toe(s) (acquired), left foot M20.42 Assessments Encounter Date Diagnosis (ICD Code) Assessment Notes Treatment Notes Treatment Clinical Notes Section Notes 08/17/2024 Tinea unguium (ICD-10 - B35.1) 08/17/2024 [...] L60.0) 08/17/2024 Ingrown nail (ICD-10 - L60.0) 08/17/2024 Xerosis of skin (ICD-10 - L85.3) 11/27/2024 Xerosis of skin (ICD-10 - L85.3) Plan Of Treatment Pending Test Test Name Order Date X ray : Foot, left 2V 04/04/2015 Glucose Fasting 04/04/2015 67311-MZRWBWH NAIL, 6 OR MORE 07/09/2015 37301-WANYVBC NAIL, 6 OR MORE 09/27/2015 01993-MODTKYZ NAIL, 6 OR MORE 01/03/2016 88419-NXQCRGW NAIL, 6 OR MORE 04/15/2016 47883-WPZLDJA NAIL, 6 OR MORE 07/15/2016 93391-KSWVVIV NAIL, 6 OR MORE 10/14/2016 61949-GFIVOUB NAIL, 6 OR MORE 01/25/2017 72551-VYZQUTT NAIL, 6 OR MORE 04/21/2017 74537-YLICJVM NAIL, 6 OR MORE 04/04/2015 16391-TJMPHJM NAIL, 6 OR MORE 07/28/2017 65081-IBMBXPT NAIL, 6 OR MORE 10/27/2017 74808-HYHIPLK NAIL, 6 OR MORE 01/26/2018 27513-MDCCZAF NAIL, 6 OR MORE 04/27/2018 20964-JFGSKRW NAIL, 6 OR MORE 11/02/2018 41254-XAIGYMJ NAIL, 6 OR MORE 2019 12960-UTXCZGW NAIL, 6 OR MORE 08/03/2018 21605-INQEZHF NAIL, 6 OR MORE 05/03/2019 87979-HQDTIXZ NAIL, 6 OR MORE 08/16/2019 12824-SRKBTFJ NAIL, 6 OR MORE 11/15/2019 14452-LOTJZPB NAIL, 6 OR MORE 12/02/2020 07762-YZTMFQG NAIL, 6 OR MORE 04/21/2021 48118-AURDDTN NAIL, 6 OR MORE 08/13/2021 91522-KDDTIMI NAIL, 6 OR MORE 11/10/2021 81798-KKABADP NAIL, 6 OR MORE 09/02/2020 83066-LQSCGPJ NAIL, 6 OR MORE 02/09/2022 93013-DKRTKZB NAIL, 6 OR MORE 05/11/2022 87810-NVXMDFK NAIL, 6 OR MORE 09/24/2022 67501-LMLKJHW NAIL, 6 OR MORE 01/25/2023 66391-GVDCFXA NAIL, 6 OR MORE 07/14/2023 88990-YSKEYWM NAIL, 6 OR MORE 11/10/2023 44019-DRENRAB NAIL, 6 OR MORE 02/16/2024 88397-XSCETYH NAIL, 6 OR MORE 05/17/2024 76970-BWYMRSX NAIL, 6 OR MORE 08/17/2024 41481-FXXNKJR NAIL, 6 OR MORE 11/27/2024 08102-GKOHWCH NAIL, 6 OR MORE 03/05/2025 26291-Vlvvaacs Plate 11/02/2018 86201-Tqfnkqxg Plate 03/05/2025 62634-Lfnevquv Plate 11/27/2024 33420-Celdohpq Plate 08/17/2024 74575-Txlwbscm Plate 05/17/2024 39750-Vujziegg Plate 02/16/2024 52468-Wlzflvtv Plate 11/10/2023 21013-Bkqztujg Plate 07/14/2023 39752-Vfygnhnv Plate 01/25/2023 26453-Xtrspwcw Plate 09/24/2022 56733-Rylvnfis Plate 05/11/2022 82561-Wjxjftgs Plate 02/09/2022 26673-Jhigyvjq Plate 09/02/2020 43931-Oaozxplt Plate 11/10/2021 84666-Chckwhhq Plate 08/13/2021 17925-Dwnbadeb Plate 04/21/2021 16282-Fxigcgdw Plate 12/02/2020 50509-Pyanehnx Plate 11/15/2019 18791-Icfnilhy Plate 08/16/2019 21171-Mrgtkvzy Plate 05/03/2019 71662-Fvmybsil Plate 2019 30318-Sqahfniq Plate 10/27/2017 86211-Bnqcpcbl Plate 08/03/2018 76570-Hajgaxzk Plate 04/27/2018 33921-Ilgildtj Plate 01/26/2018 43054-Semcfqsb Plate 07/28/2017 16964-Nfsbhubw Plate 01/25/2017 92277-Ryyxkwyn Plate 04/21/2017 93568-Pynurdgj Plate 10/14/2016 30672-Jstujuft Plate 07/15/2016 06190-Itbvgvsq Plate 04/15/2016 23816-Mhjbaoev Plate 01/03/2016 36430-Hfmhysll Plate 09/27/2015 58400-Gteflhbn Plate 07/09/2015 51103-Ijtatfup Plate 04/04/2015 09881-Cemiwmfk Plate Each Additional 09/2015 70227-Vvgpvnde Plate Each Additional 28878-Yfrihiux Plate Each Additional 03/2016 66149-Psbfsepf Plate Each Additional 99770-Gamsrdoj Plate Each Additional 47927-Grhkxvkr Plate Each Additional 30330-Ucpfgmpw Plate Each Additional 10930-Ffqsvyrg Plate Each Additional 59302-Gvdtvscp Plate Each Additional 03/2018 11873-Rimfnjim Plate Each Additional 04/2019 09090-Aetqtdbo Plate Each Additional 03/2019 27431-Wcoomcro Plate Each Additional 03/2018 67732-Okoigdko Plate Each Additional 12941-Sdmprvuv Plate Each Additional 44460-Squtzktf Plate Each Additional 02/2021 62180-Hbexmodh Plate Each Additional 61961-Painvuvz Plate Each Additional 89809-Kztkkojc Plate Each Additional 92467-Fqmbuihp Plate Each Additional 03/2020 84612-Gvnxdeqx Plate Each Additional 53249-Gifxmiyt Plate Each Additional 31807-Rggwzgjw Plate Each Additional 83702-Lyxgljzb Plate Each Additional 80817-Krzmwoim Plate Each Additional 87379-Yyesqqpn Plate Each Additional 76184-Rkggyrxh Plate Each Additional 99965-Pgjoghuq Plate Each Additional 16016-Ddszabbl Plate Each Additional 99221-Nqohjutx Plate Each Additional 87248-Heclbgqb Plate Each Additional 05/2025 83429-RUJM SKIN LESIONS, OVER 4 04/07/20 25 66629-FUXC SKIN LESIONS, OVER 4 11/27/20 24 77666-NQTX SKIN LESIONS, OVER 4 08/17/20 07809-HGMP SKIN LESIONS, OVER 4 05/17/20 24 64780-ABMP SKIN LESIONS, OVER 4 02/16/20 24 67720-PWAI SKIN LESIONS, OVER 4 11/10/20 05716-OMMJ SKIN LESIONS, OVER 4 07/14/20 87384-VUCJ SKIN LESIONS, OVER 4 01/25/20 57916-LRNG SKIN LESIONS, OVER 4 09/24/20 22 45705-UCZK SKIN LESIONS, OVER 4 05/11/20 02642-JZWX SKIN LESIONS, OVER 4 11/10/20 81711-MWDG SKIN LESIONS, OVER 4 08/13/20 52368-GEYA SKIN LESIONS, 2 TO 4 04/21/20 46315-MNBX SKIN LESIONS, 2 TO 4 12/02/19 57730-JUWE SKIN LESIONS, 2 TO 4 04/04/20 15 39581,P3500-JQM TENDON SHEATH/LIGAMENT 0 06/14/2015 Next Appt Details Provider Name:Edilson Luis , 06/06/2025 09:00:00 AM, [address] [facility], [address], [place], [address], Insurance Providers Payer Name Payer Address Payer Phone Subscriber Number Group Number Insured Name Patient Relationship to Insured Coverage Start Date Coverage End Date [facility] [address] [place] [address] [id number] Kathryn Arzola Self - patient is the insured Medical (General) History Medical History History ICD Code Diabetic Hypertension Allergic rhinitis Hypercholesterolemia Surgical History Surgery Date(Month/Year) section Hospitalization History Reason Date(Month/Year) [place] [facility] [place]
--- OUTSIDE RECORDS SUMMARY | 2025-05-29 10:28 | XMS_ITS | Patient Health Record ---
Author Organization [facility] Address [address] [place] [address] Care Team Providers Care Jute Bag Clipper Name Role Phone Behzad Arzola MD Primary Care Provider Destin Thomas Unavailable [phone] Allergies Allergen (clinical drug ingredient) Drug/Non Drug [...] Problem Status W/U Status Risk Notes Problem [id number] Encounter for screening for malignant neoplasm of colon (Z12.11) Active confirmed Problem [id number] Preprocedural examination (Z01.818) Active confirmed Plan Of Treatment Pending Test Test Name Order Date GI BIOPSY 08/07/2019 Future Test Test Name Order Date COLONOSCOPY 03/31/2019 Insurance Providers Payer Name Payer Address Payer Phone Subscriber Number Group Number Insured Name Patient Relationship to Insured Coverage Start Date Coverage End Date [employer]) [address] [place] [address] [phone] [id number] WINNIE MCCORMICK Self - patient is the insured Medical (General) History Medical History History ICD Code Hypertension Allergic rhinitis Hyperlipidemia Arthritis IDDM Urinary incontinence Negative screening colonoscopy in 07/[address] Tomas Briggs [place],CVA,Lung disease,renal disease Surgical History Surgery Date(Month/Year) 1989
== END 2025-05-29 09:58 | disposition home or self-care (01) ==
LOC: HO.HKA 09:39
PROVIDERS: PCP Internal Medicine; Visit Provider Internal Medicine Hypertension Specialist
DX: E11.65 Type 2 diabetes mellitus with hyperglycemia (principal); E11.29 Type 2 diabetes mellitus with other diabetic kidney complication; R80.9 Proteinuria, unspecified; N26.1 Atrophy of kidney (terminal); I10 Essential (primary) hypertension; N18.31 Chronic kidney disease, stage 3a
CPT/HCPCS: 99214

== ENCOUNTER → 2025-05-31 12:52 | Outpatient (REF) | payer OTHER, SELFPAY ==
--- NOTE | 2025-05-31 12:55 | CA_ITS ---
Transthoracic Echocardiogram Patient (Last, First, Middle): Kathryn Arzola K Gender: Female Date of : 1955 Age: 70 Procedure Date: 05/31/2025 Procedure Type: Transthoracic Echocardiogram Location: OP Height: 157.48 cm Weight: 116.12 kg BSA: 2.12 m2 Heart Rate: 76 bpm BP: 134 / 66 mmHg Hair Baler: TO Referring MD: Stephanie CARRILLO Bulk Loader: Mauri Barriga MD Symptoms: R01.1 - Cardiac murmur, unspecified Study Quality: Adequate w contrast ECG Rhythm: Sinus Conclusions: - 1. Normal LV ejection fraction of 65-70% with impaired relaxation filling pattern 2. Calcific aortic and mitral valve changes noted with early mild aortic stenosis 3. No gross pericardial effusion Findings Procedure Information Contrast agent, definity, is being given per protocol without apparent complications. Left Ventricle Normal left ventricular size, thickness, and systolic function. The visually estimated ejection fraction is between 65-70%. Spectral Doppler is indicative of an impaired relaxation filling pattern. E/E prime ratio is between 8 and 15 consistent with indeterminate filling pressures. Right Ventricle Normal right ventricular cavity size and systolic function. Atria The left atrium is likely dilated. There is no evidence of interatrial shunt. The right atrium is normal in size. Aortic Valve The aortic valve was not well visualized. There is mild calcification of the aortic valve. The peak aortic gradient is 16 mmHg.The mean gradient is 10 mmHg. The aortic valve area is 2.84 cm2. There is no aortic valve regurgitation. mildly increased gradient across the aortic valve is suggestive of early mild aortic stenosis. Mitral Valve The mitral valve was not well visualized. There is mild posterior mitral leaflet thickening. There is mild mitral annular calcification. There is trace mitral valve regurgitation. There is no mitral valve stenosis. Pulmonic Valve The pulmonic valve was not well visualized. Tricuspid Valve Likely normal tricuspid valve structure and function. Tricuspid regurgitation envelope is inadequate for calculation of right ventricular systolic pressure. Normal right atrial pressure. Great Vessels All visible segments of the aorta are normal in size. The pulmonary artery was not well visualized. There is no dilatation of the ascending aorta measuring 3.40 cm. Venous The inferior vena cava is normal in size and collapses greater than 50% with inspiration. Pericardium/Pleural There is no evidence of pericardial effusion. Prior Study Comparison No prior study available for comparison. Measurements 2D Linear Measurements IVSd: 1.33 0.6-0.9/0.6-1.0 cm LVIDd: 4.65 3.9-5.3/4.2-5.9 cm LVIDd Index: 2.19 2.4-3.2/2.2-3.1 cm/m2 LVIDs: 2.72 2.0-3.6 cm LVPWd: 1.15 0.7-1.1 cm LA Diam: 3.90 2.7-3.8/3.0-4.0 cm LAIDs Index: 1.84 1.5-2.3 cm/m2 LV Mass: 272.40 67-162/88-224 g LV Mass Index: 128.49 43-95/49-115 g/m2 LVOT Diam: 2.40 3.0+(-)1.3 cm 2D Systolic Function EF 4C: 69.20 >55% EF 2C: 61.30 >55% EF BiP: 65.50 >55% Mitral Valve MV Pk E: 0.83 MV PK A: 1.03 MV Decel Time: 223.00 E/A: 0.80 E'Lateral: 6.09 E'Medial: 4.57 E/E' Med: 18.20 E/E' Lat: 13.60 PHT: 65.00 MVA PHT: 3.38 Decel [place]: 3.73 Aortic Valve AoV Pk Jose L: 2.01 AoV Mn Jose L: 1.49 AoV VTI: 0.45 AoV Pk Grad: 16.00 Aov Mn Grad: 10.00 BISI Cont.VTI: 2.84 LVOT LVOT Pk Jose L: 1.21 LVOT Mn Jose L: 0.87 LVOT VTI: 0.29 LVOT Pk Grad: 6.00 LVOT Mn Grad: 3.00 LVOT Diam: 2.40 LVOT Area: 4.52 Diastolic Function MV Pk E: 0.83 MV Pk A: 1.03 E/A: 0.80 E'Medial: 4.57 E/E' Med: 18.20 E' Laterial: 6.09 E/E' Lat: 13.60 Right Ventricle TAPSE (mm): 23.90 TVS' Jose L: 13.60 Tricuspid Valve RA Press: 15.00 Great Vessels Aorta Sinus of Valsalva: 3.33 2.0-3.5 cm Ao Asc: 3.40 2.1-3.4 cm Updated in Other Vendor System with Status of Final Mauri Barriga MD electronically signed on 05/31/2025 4:06:33 PM with status of Final
--- OUTSIDE RECORDS SUMMARY | 2025-05-31 12:56 | XMS_ITS | Patient Health Record ---
Author Organization [facility] Address [address] [place] [address] Care Team Providers Care Medical Records Assistant Name Role Phone Behzad Arzola MD Primary Care Provider Destin Thomas Unavailable [phone] Allergies Allergen (clinical drug ingredient) Drug/Non Drug [...] Problem Status W/U Status Risk Notes Problem [id number] Encounter for screening for malignant neoplasm of colon (Z12.11) Active confirmed Problem [id number] Preprocedural examination (Z01.818) Active confirmed Plan Of Treatment Pending Test Test Name Order Date GI BIOPSY 08/07/2019 Future Test Test Name Order Date COLONOSCOPY 03/31/2019 Insurance Providers Payer Name Payer Address Payer Phone Subscriber Number Group Number Insured Name Patient Relationship to Insured Coverage Start Date Coverage End Date [facility] [address] [place] [address] [id number] WINNIE MCCORMICK Self - patient is the insured Medical (General) History Medical History History ICD Code Hypertension Allergic rhinitis Hyperlipidemia Arthritis IDDM Urinary incontinence Negative screening colonoscopy in 07/[address] Tomas Briggs [place],CVA,Lung disease,renal disease Surgical History Surgery Date(Month/Year) 1989
--- OUTSIDE RECORDS SUMMARY | 2025-05-31 12:57 | XMS_ITS | Patient Health Record ---
Author Organization [facility] Address [address] [place] [address] Care Team Providers Care Door Liner Name Role Phone Ness GALVEZ, Behzad Primary Care Provider Unavaila Edilson Ricketts Unavailable [phone] Allergies Allergen (clinical drug ingredient) Drug/Non Drug [...] (HGBA1C) 9.0 HEMOGLOBIN A1C (GLYCOHEMOGLO BIN) Reviewed date:03/05/2025 08:56:52 AM Interpretation: Performing Lab: Notes/Report: HEMOGLOBIN A1C % (HH) 7.6 HEMOGLOBIN A1C (GLYCOHEMOGLO BIN) Reviewed date:11/27/2024 08:39:01 [...] Problem Acquired hammer toe of right foot (9470219137133507 ) Other hammer toe(s) (acquired), right foot (M20.41) Active confirmed Response to treatment, Improvemen t Problem Acquired hammer toe of left foot (8142227938714570 ) Other hammer toe(s) (acquired), left foot (M20.42) Active confirmed Response to treatment, Improvemen t Problem Polyneuropathy due to type 2 diabetes mellitus (341327169) Type 2 diabetes mellitus with diabetic polyneuropathy (E11.42) Active confirmed Vital Signs Blood pressure diastolic 68 mm Hg 03/05/2025 Height 5ft 2in in 03/05/2025 Blood pressure systolic 126 mm Hg 03/05/2025 Weight 255 lbs 03/05/2025 BMI 46.64 kg/m2 03/05/2025 Procedures Procedure Date Ordered Date Performed Result Body Sit e 81456-DPWPFLL NAIL, 6 OR MORE 08/17/2024 N/A 80657-Wknbibly Plate 08/17/2024 N/A 75539-Yrwpudlg Plate Each Additional 08/17/2024 N/A 73279-ZHHM SKIN LESIONS, OVER 4 08/17/2024 N/A 79857-HIOKPLI NAIL, 6 OR MORE 11/27/2024 N/A 80235-Fnyuijou Plate 11/27/2024 N/A 61014-Jdcsjgrz Plate Each Additional 11/27/2024 N/A 51784-MVKJ SKIN LESIONS, OVER 4 11/27/2024 N/A 20429-HCSNWJM NAIL, 6 OR MORE 03/05/2025 N/A 36307-Mduuiwbt Plate 03/05/2025 N/A 63402-Mylohlgu Plate Each Additional 03/05/2025 N/A 34199-MXAE SKIN LESIONS, OVER 4 03/05/2025 N/A Encounters Encounter Location Date Provider Diagnosis [facility] [address] [place] [id number] 08/17/2024 Edilson Luis Pain in right toe(s) M79.674 ; Tinea unguium B35.1 ; Pain in left toe(s) M79.675 ; Type 1 diabetes mellitus without complication E10.9 ; Ingrown nail L60.0 and Xerosis of skin L85.3 [facility] [address] [address] 11/27/2024 Edilson Luis Pain in right toe(s) M79.674 ; Tinea unguium B35.1 ; Pain in left toe(s) M79.675 ; Type 1 diabetes mellitus without complication E10.9 ; Ingrown nail L60.0 and Xerosis of skin L85.3 [facility] [address] [address] 03/05/2025 Edilson Luis Tinea unguium B35.1 ; [...] Foot, left 2V 04/04/2015 Glucose Fasting 04/04/2015 75363-ADKDGSQ NAIL, 6 OR MORE 07/09/2015 10792-NMCSDUR NAIL, 6 OR MORE 09/27/2015 75604-BBCHFRX NAIL, 6 OR MORE 01/03/2016 49925-NAUHCZZ NAIL, 6 OR MORE 04/15/2016 59257-RRLQEOI NAIL, 6 OR MORE 07/15/2016 81314-NNLWRYG NAIL, 6 OR MORE 10/14/2016 25087-YGTLOHM NAIL, 6 OR MORE 01/25/2017 90611-WSZOVNM NAIL, 6 OR MORE 04/21/2017 83855-DFMFDBB NAIL, 6 OR MORE 04/04/2015 51543-VMNXVXN NAIL, 6 OR MORE 07/28/2017 58338-RGERBMR NAIL, 6 OR MORE 10/27/2017 31885-UXHAFBV NAIL, 6 OR MORE 01/26/2018 83380-QMZFHTW NAIL, 6 OR MORE 04/27/2018 86489-PIXMAXN NAIL, 6 OR MORE 11/02/2018 61009-VHKIFBH NAIL, 6 OR MORE 2019 85805-MSBBQSH NAIL, 6 OR MORE 08/03/2018 41723-TLUUYQS NAIL, 6 OR MORE 05/03/2019 33292-YERFFQI NAIL, 6 OR MORE 08/16/2019 43787-DBTSBVD NAIL, 6 OR MORE 11/15/2019 74056-QIBJDSX NAIL, 6 OR MORE 12/02/2020 17584-RTYEWUL NAIL, 6 OR MORE 04/21/2021 77890-AFDDZSS NAIL, 6 OR MORE 08/13/2021 31284-NFIATYD NAIL, 6 OR MORE 11/10/2021 92881-KEXXZET NAIL, 6 OR MORE 09/02/2020 08369-XUTJHFV NAIL, 6 OR MORE 02/09/2022 28298-NVJCSBT NAIL, 6 OR MORE 05/11/2022 61275-JGORRVN NAIL, 6 OR MORE 09/24/2022 16091-DCUJMOD NAIL, 6 OR MORE 01/25/2023 46811-QYMTGOV NAIL, 6 OR MORE 07/14/2023 55127-NGNCNVU NAIL, 6 OR MORE 11/10/2023 01155-ZERWMSS NAIL, 6 OR MORE 02/16/2024 20613-DRQCYMC NAIL, 6 OR MORE 05/17/2024 22111-USLEYPW NAIL, 6 OR MORE 08/17/2024 99192-YRTJZXL NAIL, 6 OR MORE 11/27/2024 99973-ULNWXYU NAIL, 6 OR MORE 03/05/2025 25491-Cuxxvsfm Plate 11/02/2018 63473-Ergjqkwo Plate 03/05/2025 19645-Jvvurhhs Plate 11/27/2024 75550-Wlmnszkm Plate 08/17/2024 01305-Otsaoykz Plate 05/17/2024 82243-Dujnymso Plate 02/16/2024 49910-Ivrupwwj Plate 11/10/2023 84668-Pfzuwmyf Plate 07/14/2023 07053-Afwguyxs Plate 01/25/2023 31193-Xldidfkd Plate 09/24/2022 92315-Rtnpgnki Plate 05/11/2022 17211-Czhgawyq Plate 02/09/2022 19579-Myifumdi Plate 09/02/2020 07091-Aorhhlbd Plate 11/10/2021 26998-Nmcpwouq Plate 08/13/2021 26847-Fvfiwicn Plate 04/21/2021 87518-Qlgsvvny Plate 12/02/2020 58344-Naxqfvip Plate 11/15/2019 26987-Kejvzrna Plate 08/16/2019 14996-Wqoizugg Plate 05/03/2019 03087-Ndvisdjl Plate 2019 03970-Fxzehfhe Plate 10/27/2017 91425-Phcdrrdh Plate 08/03/2018 24319-Vnqsluiz Plate 04/27/2018 93809-Ysfuhhzd Plate 01/26/2018 76139-Dbjaxylp Plate 07/28/2017 47331-Lcmcfwdp Plate 01/25/2017 35652-Vmvysiuf Plate 04/21/2017 86411-Fvpztigd Plate 10/14/2016 69574-Bdgcanay Plate 07/15/2016 31545-Hbqbhgtx Plate 04/15/2016 70231-Bkisuqgx Plate 01/03/2016 19493-Agogkkcl Plate 09/27/2015 46925-Hjwlunuc Plate 07/09/2015 78836-Mzmtxgqx Plate 04/04/2015 32508-Ygbmsikc Plate Each Additional 09/2015 15717-Vynvpyfn Plate Each Additional 53528-Zrftdumd Plate Each Additional 03/2016 66739-Qfhgtcyo Plate Each Additional 48946-Fdbmebxw Plate Each Additional 59345-Zkymcmxd Plate Each Additional 92888-Mdhkhhql Plate Each Additional 14308-Rowachiq Plate Each Additional 37326-Ucizsdma Plate Each Additional 03/2018 73608-Wvtnjjcy Plate Each Additional 04/2019 17375-Qdarphcq Plate Each Additional 03/2019 92535-Yavtfjrr Plate Each Additional 03/2018 82721-Nmwpbcyt Plate Each Additional 53280-Iimsjhxj Plate Each Additional 34897-Ezvdkmvz Plate Each Additional 02/2021 19055-Kegitorl Plate Each Additional 48678-Hapgiulp Plate Each Additional 22268-Rruiskju Plate Each Additional 96636-Zsmqycjt Plate Each Additional 03/2020 52041-Rdsnxzvl Plate Each Additional 82278-Nkrhtimh Plate Each Additional 82162-Lwwefjrl Plate Each Additional 69390-Bamwczfg Plate Each Additional 61235-Avacbntu Plate Each Additional 33707-Xplkfptz Plate Each Additional 23353-Dxwthybk Plate Each Additional 56649-Eschtajm Plate Each Additional 85705-Ueswwbqb Plate Each Additional 68468-Mmgddxen Plate Each Additional 06984-Ooafcggg Plate Each Additional 05/2025 53650-DPRK SKIN LESIONS, OVER 4 04/07/20 25 50251-OIRP SKIN LESIONS, OVER 4 11/27/20 24 34931-QVOY SKIN LESIONS, OVER 4 08/17/20 22375-LLQP SKIN LESIONS, OVER 4 05/17/20 24 05603-ROXP SKIN LESIONS, OVER 4 02/16/20 24 40099-OLZE SKIN LESIONS, OVER 4 11/10/20 14139-UWUK SKIN LESIONS, OVER 4 07/14/20 55887-ZWBM SKIN LESIONS, OVER 4 01/25/20 39753-DFZU SKIN LESIONS, OVER 4 09/24/20 22 16696-FKQM SKIN LESIONS, OVER 4 05/11/20 38104-PTGL SKIN LESIONS, OVER 4 11/10/20 39087-MHKZ SKIN LESIONS, OVER 4 08/13/20 50777-SODH SKIN LESIONS, 2 TO 4 04/21/20 98675-YUFF SKIN LESIONS, 2 TO 4 12/02/19 27934-MPMI SKIN LESIONS, 2 TO 4 04/04/20 15 09292,R9658-HDQ TENDON SHEATH/LIGAMENT 0 06/14/2015 Next Appt Details Provider Name:Edilson Luis , 06/06/2025 09:00:00 AM, [address] [facility], [address], [place], [address], Insurance Providers Payer Name Payer Address Payer Phone Subscriber Number Group Number Insured Name Patient Relationship to Insured Coverage Start Date Coverage End Date [facility] [address] [place] [address] [id number] Kathryn Arzola Self - patient is the insured Medical (General) History Medical History History ICD Code Diabetic Hypertension Allergic rhinitis Hypercholesterolemia Surgical History Surgery Date(Month/Year) section Hospitalization History Reason Date(Month/Year) Colonoscopy 08/07/19 [facility] [place] [facility] [place] Stitches in head 02/2019
== END ==
LOC: HO.CARD 12:52
PROVIDERS: PCP Internal Medicine; Visit Provider Physician Assistant Medical
DX: R01.1 Cardiac murmur, unspecified (principal)
CPT/HCPCS: 93306; Q9957

== ENCOUNTER → 2025-05-31 12:55 | Outpatient (BNV) | payer OTHER, SELFPAY | PROVIDERS: PCP Internal Medicine; Visit Provider Internal Medicine Cardiovascular Disease | DX: I35.0 Nonrheumatic aortic (valve) stenosis (principal); I35.8 Other nonrheumatic aortic valve disorders; I34.81 Nonrheumatic mitral (valve) annulus calcification | CPT/HCPCS: 93306 ==

== ENCOUNTER 2025-07-10 09:06 | Outpatient (AMB) | payer OTHER, SELFPAY ==
--- NOTE | 2025-07-10 09:08 | A.OFFVIS_ITS ---
Vital Signs 07/10/25 09:09 Height 5 ft 2 in Weight 249 lb 1.957 oz BMI 45.6 BP 120/72 Blood Pressure Location Rt brachial Position Sitting Pulse 77 Pulse Source Pulse Oximeter Pulse Oximetry (%) 96 Oxygen Delivery Method Room Air Intake Visit Reasons: T2DM Intake Note: Patient presents today for a follow-up on Type 2 Diabetes Mellitus: Last Diabetic eye exam was on: Patien will be calling to make an appt Last Podiatry exam was on: 03/05/2025, [facility] Most recent HbA1c: 6.1%, 07/10/2025 Random Glucose- 124 mg/dL, Today Comparison Shopper Required: No Accompanied by: Self / Same As Patient Allergies Sulfa (Sulfonamide Antibiotics) (Sulfa (Sulfonamides)) Allergy (Mild, Verified 07/10/25 09:14) RASH cephalexin (From KEFLEX) Allergy (Unknown, Verified 07/10/25 09:14) RASH clavulanic acid (Augmentin) Allergy (Unknown, Verified 07/10/25 09:14) vaginal irritation empagliflozin (From Jardiance) Adverse Reaction (Intermediate, Verified 07/10/25 09:14) Rash amoxicillin (From Augmentin) Adverse Reaction (Mild, Verified 07/10/25 09:14) VAGINAL IRRITATION tolterodine Adverse Reaction (Unknown, Verified 07/10/25 09:14) Hives, rash Medication List - Last Reconciled 07/10/25 by GERARDO Zuleta amlodipine 10 mg PO DAILY ammonium lactate 12% appl topical aspirin (Adult Aspirin Regimen) 81 mg PO DAILY blood sugar diagnostic (OneTouch Verio test strips) As directed 3 times a day blood-glucose meter (OneTouch Verio Flex Meter) As directed blood-glucose sensor (FreeStyle Dominick 3 Plus Sensor device) Apply 1 new sensor every 15 days as directed to monitor blood glucose continuously. blood-glucose,cart attendant,cont (FreeStyle Dominick 3 Sebeka) as directed carvedilol 6.25 mg PO BID glucose (Dex4 Glucose) 16 grams (4 x 4 gram) PO Q15M PRN hydrochlorothiazide 25 mg PO DAILY ibuprofen 800 mg PO BID insulin glargine 18 units subcut .nightly lancets (OneTouch Delica Lancets) As directed 3 times a day lisinopril 10 mg PO DAILY metformin 1,000 mg PO BID omega-3 fatty acids 1,000 mg PO DAILY pen needle, diabetic (BD Samantha 2nd Gen Pen Needle) Use as directed to administer insulin subcutaneously once daily pravastatin 10 mg PO BEDTIME semaglutide (Ozempic) 2 mg (0.75 mL) subcut QWEEK HPI Comments Details: This is a 70 year old female with Type II DM diagnosed in 2006 presenting for diabetic management. Hemoglobin a1c 6.1% today 07/10/2025 down from 6.6% 04/06/25. She has lost about 10 lb! Current medication regimen: insulin glargine 25 units daily (she reduced the dose from 35 units 1 month ago due to overnight hypoglycemia), Metforomin 1000 mg BID and Ozempic 2 mg weekly. Past medications: Jardiance discontinued due to yeast infections. Mounjaro caused GI side effects. CGM active 32% Average glucose 137 Glucose variability 23.2% Very high 0% High 13% Target range 86% 1% hypoglycemia There is a paucity of data because the patient sensor fell off, and she had to replace it. She reports a pattern of hypoglycemia overnight which has improved since reducing her dose of Lantus insulin. Hypoglycemia symptoms: Symptoms include shakiness and feeling ?off. ?. She treats with juice. Hyperglycemia symptoms: none Eye exam: June 2024 Microvascular complications: neuropathy, nephropathy (microalbumin and CKD). Macrovascular complications: none Hypertension: treated with amlodipine 10 mg, hydrochlorothiazide 25 mg, lisinopril 10 mg, carvedilol 6.25 mg twice daily. Followed by Nephrology. Hyperlipidemia: treated with Pravastatin 10 mg LDL at goal <100. She had an echocardiogram which showed mild aortic stenosis, and she is in the process of scheduling a cardiology appointment. ALT was mildly elevated at 34 on her labs from September. She has no GI complaints. We discussed ordering a liver ultrasound with elastography to screen for hepatic steatosis and fibrosis of the liver, and we talked about it again today. She initially deferred the ultrasound because of other testing that was scheduled, and she is okay to proceed with it now. ROS: Constitutional: No unexplained weight loss, fever, chills. Eyes: No vision changes, blurry vision, double vision Respiratory: No shortness of breath Cardiovascular: No chest pain Gastrointestinal: No anorexia, nausea, vomiting or diarrhea. No abdominal pain Neurologic: No headache, dizziness, syncope Endocrine: No cold or heat intolerance. No polyuria or polydipsia Physical exam: Constitutional: Alert, in no distress. Eyes: Pupils are equal, round and reactive to light. Extraocular muscles intact. Neck: Supple, Full range of motion. No lymphadenopathy. No palpable thyroid masses. Respiratory: Clear to auscultation. Cardiovascular: S1 S2 regular. II// murmur. Neurologic: No focal neurological deficits. [facility] Medical History Diastolic dysfunction Mild aortic stenosis Murmur Decreased renal function Microalbuminuria due to type 2 diabetes mellitus Physical exam Urinary Incontinence OAB (overactive bladder) Type 2 diabetes mellitus with morbid obesity Obesity Diabetes type 2, uncontrolled Osteoarthritis Morbid obesity Hypertension Dyslipidemia Non-toxic multinodular goiter jail (current) use of insulin Diabetes type 2, controlled Surgical History History of section Family History Father Lung cancer Mother Breast cancer Social History Household Members: Children Housing: House Alcohol intake: current Alcohol intake frequency: holidays/special occasions only Patient Tobacco Use Status: Never used Tobacco e-Cigarette/Vaping Use: Never Used Second Hand Smoke Exposure: No service: No Current occupational status: employed Cognitive needs: Yes Hearing needs: Yes Vision needs: Yes Physical Exam Vital Signs: Last Vital Signs Pulse 77 07/10/25 09:09 BP 120/72 07/10/25 09:09 Pulse Ox 96 07/10/25 09:09 Oxygen Delivery Method Room Air 07/10/25 09:09 BMI result Body Mass Index 45.6 Office Procedures Glucose Monitoring Details Details: See [facility] [address] - Glucose monitoring, continuous-physician I&R Procedure code (CPT) selection complete Results AMB Hemoglobin A1c AMB Hemoglobin A1c 6.1 % Last Edit by KINJAL Hu on 07/10/25 09:25 Results Reviewed Results Reviewed: Laboratory Last Values Glucose (Clinic) 124 mg/dL (60-115) H 07/10/25 09:16 Hgb A1c (Clinic) 6.1 % (4.0-6.0) H 07/10/25 09:24 Laboratory Tests 08/03/24 01/30/25 04/06/25 10:26 09:22 09:08 Creatinine Estimated GFR Hgb A1c (Clinic) 6.6 H Urine Creatinine 101.51 Urine Microalbumin 228.0 Microalb/Creat Ratio 156.9 H Protein/Creatinin Ratio 0.11 05/26/25 10:12 Creatinine 1.08 Estimated GFR 50 Hgb A1c (Clinic) Urine Creatinine Urine Microalbumin Microalb/Creat Ratio Protein/Creatinin Ratio Assessment & Plan Assessment & Plan (1) Type 2 diabetes mellitus with morbid obesity: Code(s): E11.69 - Type 2 diabetes mellitus with other specified complication; E66.01 - Morbid (severe) obesity due to excess calories Category: Medical (2) Microalbuminuria due to type 2 diabetes mellitus: Code(s): E11.29 - Type 2 diabetes mellitus with other diabetic kidney complication; R80.9 - Proteinuria, unspecified Category: Medical (3) LFT elevation: Code(s): R79.89 - Other specified abnormal findings of blood chemistry Category: Medical Plan In summary this is a 69-year-old female with controlled type 2 diabetes. She is compliant with glucose monitoring. She was instructed to bring her CGM to all appointments. Continue Ozempic to 2 mg weekly. Reduce insulin glargine to 18 units every evening. She is instructed to call if she continues to have low blood sugar. Continue metformin 1000 mg twice daily. We reviewed complications of diabetes and diabetic diet. Avoid juices and soda. Follow low carbohydrate, low sugar diet. Exercise encouraged. If you experience low blood sugar, treat this by eating a chewable fruit candy like skittles or jelly beans (about 8 pieces), 4 ounces (1/2 cup) of fruit juice (not diet), 1 tablespoon of honey or 4 glucose tablets. If your blood sugar is under 50, take double the amount of one of the above. Recheck your blood sugar in 15 minutes. Ordered liver ultrasound with elastography. She will have blood work done prior to her next appointment. Follow up in 3 months for type 2 diabetes. Orders: Orders Aspartate Amino Transferase 3 Months GERARDO Zuleta R79.89 - Other specified abnormal findings of blood chemistry AMB Hemoglobin A1c Today GERARDO Zuleta E11.9 - Type 2 diabetes mellitus without complications US abdomen obrien w elastography Today GERARDO Zuleta R79.89 - Other specified abnormal findings of blood chemistry Alanine Aminotransferase 3 Months GERARDO Zuleta R79.89 - Other specified abnormal findings of blood chemistry Lipid Panel 3 Months GERARDO Zuleta E78.5 - Hyperlipidemia, unspecified, R79.89 - Other specified abnormal findings of blood chemistry Hemoglobin A1c 3 Months GERARDO Zuleta R73.9 - Hyperglycemia, unspecified, R79.89 - Other specified abnormal findings of blood chemistry Creatinine 3 Months GERARDO Zuleta E11.9 - Type 2 diabetes mellitus without complications, R79.89 - Other specified abnormal findings of blood chemistry AMB Glucose Monitoring Today GERARDO Zuleta E11.9 - Type 2 diabetes mellitus without complications Medications: Changed From insulin glargine 35 units (0.35 mL) subcut DAILY 15 mL 2RF E11.9 - Type 2 diabetes mellitus without complications To insulin glargine 18 units subcut .nightly E11.9 - Type 2 diabetes mellitus without complications Gricelda Waldron MD Patient Instructions: Continue Ozempic 2 mg weekly and metformin 1000 mg twice daily Reduce Lantus to 18 units nightly Please have lab work done 1 week before your next appointment Coding Level of Care Code Est Pt Level 4 (54441) Diagnoses Type 2 diabetes mellitus with morbid obesity E11.69; E66.01 Microalbuminuria due to type 2 diabetes mellitus E11.29; R80.9 LFT elevation R79.89 CPT Codes Details - CPT: 43079 - Glucose monitoring, continuous-physician I&R ([id number])
[2025-07-10 09:09] VITALS: BP 120/72; PULSE 77; O2SAT 96; BMI 45.6
[2025-07-10 09:20] LABS: Glucose, Whole Blood 124 mg/dL (60-115)
--- OUTSIDE RECORDS SUMMARY | 2025-07-10 09:39 | XMS_ITS | Patient Health Record ---
Author Organization [facility] Address [address] [place] [address] Care Team Providers Care Christian Counselor Name Role Phone Behzad Arzola MD Primary Care Provider Destin Thomas Unavailable [phone] Allergies Allergen (clinical drug ingredient) Drug/Non Drug [...] Problem Status W/U Status Risk Notes Problem 512560106 Encounter for screening for malignant neoplasm of colon (Z12.11) Active confirmed Problem [id number] Preprocedural examination (Z01.818) Active confirmed Plan Of Treatment Pending Test Test Name Order Date GI BIOPSY 08/07/2019 Future Test Test Name Order Date COLONOSCOPY 03/31/2019 Insurance Providers Payer Name Payer Address Payer Phone Subscriber Number Group Number Insured Name Patient Relationship to Insured Coverage Start Date Coverage End Date [facility] [address] [place] [address] [id number] WINNIE MCCORMICK Self - patient is the insured Medical (General) History Medical History History ICD Code Hypertension Allergic rhinitis Hyperlipidemia Arthritis IDDM Urinary incontinence Negative screening colonoscopy in 07/[address] Tomas Briggs [place],CVA,Lung disease,renal disease Surgical History Surgery Date(Month/Year) 1989
--- OUTSIDE RECORDS SUMMARY | 2025-07-10 09:40 | XMS_ITS | Patient Health Record ---
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 Name Role Phone Ness GALVEZ, Behzad Primary Care Provider Unavaila Edilson Ricketts Unavailable [phone] Allergies Allergen (clinical drug ingredient) Drug/Non Drug [...] (HH) 7.6 HEMOGLOBIN A1C (GLYCOHEMOGLO BIN) Reviewed date:06/06/2025 09:06:26 AM Interpretation: Performing Lab: Notes/Report: HEMOGLOBIN A1C % (HH) 6.3 Reason For Referral No Information Medications Medication SIG (Take, Route, Frequency, Duration) Notes Start Date End Date Status Azithromycin 250 MG 2 tablets on the first day, then 1 tablet daily for 4 days Orally Once a day; Duration: 5 day(s) 06/06/2025 Active Tolterodine Tartrate ER 2 MG TAKE 1 CAPSULE BY MOUTH EVERY DAY Oral; Duration: 90 Days Not-Taking Mounjaro Not-Taking Carvedilol 6.25 MG TAKE 1 TABLET BY MOUTH TWICE A DAY. MUST ADMINISTER WITH A MEAL/FOOD Oral; Duration: 90 Days Active Extra Depth Orthopedic Shoes (1 Pair) with Customized Heat Molded Multidensity Innersoles (3 Pair) as directed Dx: NIDDM/Polyneuropathy (E11.42), Hammertoe Foot Deformity (M20.41,M20.42), Preulcerative Skin Lesion(s) (L85.1 03/05/2025 Active Fish Oil 1000 MG 1 capsule Orally Onc e a day Not-Taking Pioglitazone HCl Not -Taking Ozempic Not-Taking Vitamin D3 Not-Takin g Ammonium Lactate 12 % 1 application Externally to feet except for between the toes Twice a day; Duration: 30 days Active Pravastatin Sodium 10 MG Oral; Duration: 30 Active hydroCHLOROthiazide Active ibuprofen Active amLODIPine Besylate 10 MG 1 tablet Orall y Once a day Active Fluticasone Propionate 50 MCG/ACT 1 spray in each nostril Nasally Once a day Not-Taking Flonase Active Fluticasone Furoate Not-Taking metFORMIN HCl Active Multivitamin Active Lantus 30 units Acti ve Lisinopril 10 MG 1 tablet Orally Once a day Active Ozempic (2 MG/DOSE) Active Lantus 60 units Not- Taking Aspir-81 Active oxyBUTYnin Chloride 10 mg 1 tablet Orall y Once a day Not-Taking Victoza 1.8 mg Not-T aking Jardiance Not-Taking Immunizations Vaccine Route Administration Date Status Comme nts Influenza Unknown 06/20/2016 Administered Influenza Unknown 07/18/2017 Administered Influenza Unknown 08/08/2018 Administered Influenza Unknown 08/23/2020 Administered Influenza Unknown 08/14/2024 Administered Pneumococcal Unknown 06/20/2016 Administered COVID-19 Pfizer BioNTech Vaccine Unknown 01/22/2021 Administered 1st 02/28/2021 COVID-19 Pfizer BioNTech Vaccine Unknown 09/26/2021 Administered Social History Tobacco Use: Social History Observation Description Date Details (start date - stop date) Never Smoker NA - NA Tobacco use other than smoking: Question Answer Notes Are you an other tobacco user? No Tobacco Control (Standard) Question Answer Notes Tobacco use: Nonsmoker Additional Findings: Tobacco non-user Current no nsmoker AUDIT-C (Standard) Question Answer Notes Did you have a drink containing alcohol in the p ast year? No Points 0 Interpretation Negative Problems Problem Type SNOMED Code ICD Code Onset Dates Problem Status W/U Status Risk Notes Problem Other hammer toe(s) (acquired), right foot (M20.41) Active confirmed Response to treatment, Improvemen t Problem Acquired hammer toe of left foot (0275098385958758 ) Other hammer toe(s) (acquired), left foot (M20.42) Active confirmed Response to treatment, Improvemen t Problem Polyneuropathy due to type 2 diabetes mellitus (553379533) Type 2 diabetes mellitus with diabetic polyneuropathy (E11.42) Active confirmed Vital Signs Blood pressure diastolic 70 mm Hg 06/06/2025 Height 5ft 6in in 06/06/2025 Blood pressure systolic 128 mm Hg 06/06/2025 Weight 254 lbs 06/06/2025 BMI 40.99 kg/m2 06/06/2025 Procedures Procedure Date Ordered Date Performed Result Body Sit e 41294-JANIOFH NAIL, 6 OR MORE 08/17/2024 N/A 01449-Pgqxyvkm Plate 08/17/2024 N/A 38159-Xncdebkq Plate Each Additional 08/17/2024 N/A 40780-YGTF SKIN LESIONS, OVER 4 08/17/2024 N/A 11617-CFRZRWY NAIL, 6 OR MORE 11/27/2024 N/A 74932-Ioapsbuv Plate 11/27/2024 N/A 46980-Nqilpgxq Plate Each Additional 11/27/2024 N/A 38657-MQKN SKIN LESIONS, OVER 4 11/27/2024 N/A 61264-UPPFWBO NAIL, 6 OR MORE 03/05/2025 N/A 70219-Fmvelhzv Plate 03/05/2025 N/A 60355-Myuspctt Plate Each Additional 03/05/2025 N/A 27860-BFRZ SKIN LESIONS, OVER 4 03/05/2025 N/A 19143-DPTPPVM NAIL, 6 OR MORE 06/06/2025 N/A 12175-Fgccaftz Plate 06/06/2025 N/A 12960-CYJR SKIN LESIONS, OVER 4 06/06/2025 N/A Encounters Encounter Location Date Provider Diagnosis [address] [address] 08/17/2024 Edilson Janelle Pain in right toe(s) M79.674 ; Tinea unguium B35.1 ; Pain in left toe(s) M79.675 ; Type 1 diabetes mellitus without complication E10.9 ; Ingrown nail L60.0 and Xerosis of skin L85.[address] [address] 11/27/2024 Edilson Janelle Pain in right toe(s) M79.674 ; Tinea unguium B35.1 ; Pain in left toe(s) M79.675 ; Type 1 diabetes mellitus without complication E10.9 ; Ingrown nail L60.0 and Xerosis of skin L85.[address] [address] 03/05/2025 Edilson Janelle Tinea unguium B35.1 ; Type 2 diabetes mellitus with diabetic polyneuropathy E11.42 ; Ingrowing nail L60.0 ; Other hammer toe(s) (acquired), right foot M20.41 and Other hammer toe(s) (acquired), left foot M20.[address] [address] 06/06/2025 Edilson Gonzalezier Type 2 diabetes mellitus with diabetic polyneuropathy E11.42 ; Tinea unguium B35.1 ; Ingrown nail L60.0 ; Pain in right toe(s) M79.674 and Cellulitis of toe of right foot L03.031 Assessments Encounter Date Diagnosis (ICD Code) Assessment Notes Treatment Notes Treatment Clinical Notes Section Notes 08/17/2024 Tinea unguium (ICD-10 - B35.1) 08/17/2024 Pain in right toe(s) (ICD-10 - M79.674) 11/27/2024 Tinea unguium (ICD-10 - B35.1) 11/27/2024 Pain in right toe(s) (ICD-10 - M79.674) 03/05/2025 Type 2 diabetes mellitus with diabetic polyneuropathy (ICD-10 - E11.42) 03/05/2025 Tinea unguium (ICD-10 - B35.1) 06/06/2025 Type 2 diabetes mellitus with diabetic polyneuropathy (ICD-10 - E11.42) 06/06/2025 Tinea unguium (ICD-10 - B35.1) 06/06/2025 Ingrown nail (ICD-10 - L60.0) 11/27/2024 Pain in left toe(s) (ICD-10 - [...] INSTRUCTIONS. pdf (DIABETIC FOOT CARE INSTRUCTIONS. pdf) 06/06/2025 Pain in right toe(s) (ICD-10 - M79.674) 06/06/2025 Cellulitis of toe of right foot (ICD-10 - L03.031) 03/05/2025 Other hammer toe(s) (acquired), left foot (ICD-10 - M20.42) 11/27/2024 Ingrown nail (ICD-10 - L60.0) 08/17/2024 Ingrown nail (ICD-10 - L60.0) 08/17/2024 Xerosis of skin (ICD-10 - L85.3) 11/27/2024 Xerosis of skin (ICD-10 - L85.3) Plan Of Treatment Pending Test Test Name Order Date X ray : Foot, left 2V 04/04/2015 Glucose Fasting 04/04/2015 45147-UTQCDAX NAIL, 6 OR MORE 07/09/2015 38644-VHGZXED NAIL, 6 OR MORE 09/27/2015 93036-WPNPDDF NAIL, 6 OR MORE 01/03/2016 42629-FAVBKEX NAIL, 6 OR MORE 04/15/2016 60305-EKEJZPK NAIL, 6 OR MORE 07/15/2016 61536-YOTVWKC NAIL, 6 OR MORE 10/14/2016 84958-YLRAWNT NAIL, 6 OR MORE 01/25/2017 07522-KMZDTHX NAIL, 6 OR MORE 04/21/2017 39097-OQNNVYO NAIL, 6 OR MORE 04/04/2015 26530-FWXSFXC NAIL, 6 OR MORE 07/28/2017 46196-QQFKRXM NAIL, 6 OR MORE 10/27/2017 92999-MTKIUWB NAIL, 6 OR MORE 01/26/2018 04087-BOOSEJA NAIL, 6 OR MORE 04/27/2018 50896-GSGQIQK NAIL, 6 OR MORE 11/02/2018 89649-NRZVMPT NAIL, 6 OR MORE 2019 74603-YJWTGVR NAIL, 6 OR MORE 08/03/2018 05246-ENYLAPX NAIL, 6 OR MORE 05/03/2019 18458-RJHMBEH NAIL, 6 OR MORE 08/16/2019 86472-NZAFNEK NAIL, 6 OR MORE 11/15/2019 89466-GKSBDVC NAIL, 6 OR MORE 12/02/2020 33221-WOBBYEQ NAIL, 6 OR MORE 04/21/2021 10406-QRTYUTI NAIL, 6 OR MORE 08/13/2021 68291-OOCCYSC NAIL, 6 OR MORE 11/10/2021 27763-ULKDNAZ NAIL, 6 OR MORE 09/02/2020 14686-IQPMGLP NAIL, 6 OR MORE 02/09/2022 52914-IFDCIQH NAIL, 6 OR MORE 05/11/2022 42971-EKNVLXV NAIL, 6 OR MORE 09/24/2022 65861-DGPBHVH NAIL, 6 OR MORE 01/25/2023 00061-KKOWVKA NAIL, 6 OR MORE 07/14/2023 43637-HFFDDFN NAIL, 6 OR MORE 11/10/2023 90870-SRDPPPJ NAIL, 6 OR MORE 02/16/2024 20938-WWKVAAL NAIL, 6 OR MORE 05/17/2024 64709-PKZLWDM NAIL, 6 OR MORE 08/17/2024 22792-ECWFELA NAIL, 6 OR MORE 11/27/2024 54175-FXWBJQP NAIL, 6 OR MORE 03/05/2025 84375-BVCACKD NAIL, 6 OR MORE 06/06/2025 66174-Gvfdqbpy Plate 06/06/2025 56840-Begilznd Plate 11/27/2024 05292-Ktwshzqz Plate 03/05/2025 46371-Txeyiddv Plate 11/02/2018 77967-Cfwhipeq Plate 08/17/2024 44244-Ecpsknpe Plate 05/17/2024 35450-Jkpsvmwn Plate 02/16/2024 86000-Ccsrhrjx Plate 11/10/2023 51119-Rxieukqr Plate 07/14/2023 90787-Scazbbcp Plate 01/25/2023 10449-Mfuefwnj Plate 09/24/2022 90699-Gvcjuyrn Plate 05/11/2022 47902-Cqbpyxba Plate 02/09/2022 47947-Bourikoi Plate 09/02/2020 34416-Hrcgddqm Plate 11/10/2021 62731-Eygkkidj Plate 08/13/2021 24978-Kunwnwdn Plate 04/21/2021 36009-Reziyara Plate 12/02/2020 46017-Secewvzd Plate 11/15/2019 69673-Vpqhgzld Plate 08/16/2019 44133-Lxtmrxrf Plate 05/03/2019 96044-Wiobqnxv Plate 2019 11678-Matddbmi Plate 10/27/2017 62912-Ytplucba Plate 08/03/2018 03011-Nkbjuouc Plate 04/27/2018 06420-Yneuhebe Plate 01/26/2018 12979-Msrwjcxu Plate 07/28/2017 59278-Xkvtqgyn Plate 01/25/2017 40839-Ewdwwzhz Plate 04/21/2017 30310-Svshcejc Plate 10/14/2016 18214-Kilbruby Plate 07/15/2016 71631-Bqhbntxy Plate 04/15/2016 10494-Mrefpnof Plate 01/03/2016 75164-Tjirlgxz Plate 09/27/2015 51843-Ykqwtdll Plate 07/09/2015 73081-Lmmsadod Plate 04/04/2015 99105-Usyqjznv Plate Each Additional 09/2015 71098-Silhrlel Plate Each Additional 35718-Xxflwbmv Plate Each Additional 03/2016 28662-Yhwxqwbd Plate Each Additional 09443-Gqzijuyk Plate Each Additional 63309-Dymzhqtl Plate Each Additional 41684-Kuqgtjzo Plate Each Additional 74470-Maodslqb Plate Each Additional 28818-Smyryurb Plate Each Additional 03/2018 49537-Ppanqvkn Plate Each Additional 04/2019 51145-Hqoosszb Plate Each Additional 03/2019 38019-Qwnrskdy Plate Each Additional 03/2018 36428-Euxrgype Plate Each Additional 59763-Ylysjyrc Plate Each Additional 23486-Nfjhmwmq Plate Each Additional 02/2021 64284-Xmibxsgy Plate Each Additional 82312-Yeppxuyl Plate Each Additional 60270-Pzjhrtky Plate Each Additional 87028-Dcmpvpar Plate Each Additional 03/2020 23697-Jblyvtvu Plate Each Additional 32535-Bjoxllto Plate Each Additional 89716-Obambpwi Plate Each Additional 64740-Xjluwijq Plate Each Additional 68916-Czefiohi Plate Each Additional 07416-Wmvuyroa Plate Each Additional 49656-Fwvucdwn Plate Each Additional 72413-Idwqhebf Plate Each Additional 86301-Snhnhezn Plate Each Additional 46236-Dmfxobuc Plate Each Additional 05/2025 57264-Djiiggph Plate Each Additional 15085-JXWR SKIN LESIONS, OVER 4 11/27/20 24 89956-UGVO SKIN LESIONS, OVER 4 06/06/20 25 63084-IIKV SKIN LESIONS, OVER 4 03/05/20 25 95747-BSLC SKIN LESIONS, OVER 4 08/17/20 24 78546-NMLP SKIN LESIONS, OVER 4 05/17/20 24 40345-EDLK SKIN LESIONS, OVER 4 02/16/20 24 21669-LQFG SKIN LESIONS, OVER 4 11/10/20 23 37152-WKCU SKIN LESIONS, OVER 4 07/14/20 23 84381-BAYA SKIN LESIONS, OVER 4 01/25/20 23 48858-TXNE SKIN LESIONS, OVER 4 09/24/20 22 49261-KHUK SKIN LESIONS, OVER 4 05/11/20 22 27512-ZGCX SKIN LESIONS, OVER 4 11/10/20 21 65334-ZGUY SKIN LESIONS, OVER 4 08/13/20 21 39122-ASXE SKIN LESIONS, 2 TO 4 04/21/20 21 44557-ZHQC SKIN LESIONS, 2 TO 4 12/02/19 21 41638-RKQK SKIN LESIONS, 2 TO 4 04/04/20 15 80114,E6331-BNL TENDON SHEATH/LIGAMENT 0 06/14/2015 Next Appt Details Provider Name:Edilson Luis , 09/05/2025 08:30:00 AM, [address] [facility], [address], [place], [address], Insurance Providers Payer Name Payer Address Payer Phone Subscriber Number Group Number Insured Name Patient Relationship to Insured Coverage Start Date Coverage End Date [facility] [address] [place] [address] [id number] Kathryn Arzola Self - patient is the insured Medical (General) History Medical History History ICD Code Diabetic Hypertension Allergic rhinitis Hypercholesterolemia Surgical History Surgery Date(Month/Year) section Hospitalization History Reason Date(Month/Year) Colonoscopy 08/07/19 [facility] Stitches in head 02/2019
== END 2025-07-10 09:41 | disposition home or self-care (01) ==
LOC: HO.ENCR 09:07
PROVIDERS: PCP Internal Medicine; Visit Provider Physician Assistant Medical
DX: E11.69 Type 2 diabetes mellitus with other specified complication (principal); E66.01 Morbid (severe) obesity due to excess calories; E11.29 Type 2 diabetes mellitus with other diabetic kidney complication; R80.9 Proteinuria, unspecified; R79.89 Other specified abnormal findings of blood chemistry

== ENCOUNTER → 2025-07-10 09:06 | Outpatient (BNVA) | payer OTHER, SELFPAY | PROVIDERS: PCP Internal Medicine; Visit Provider Physician Assistant Medical | DX: E11.65 Type 2 diabetes mellitus with hyperglycemia (principal); E11.69 Type 2 diabetes mellitus with other specified complication; E11.29 Type 2 diabetes mellitus with other diabetic kidney complication; R80.9 Proteinuria, unspecified; E66.01 Morbid (severe) obesity due to excess calories; R79.89 Other specified abnormal findings of blood chemistry; Z79.84 Long term (current) use of oral hypoglycemic drugs | CPT/HCPCS: 82947; 83036 ==

== ENCOUNTER 2025-09-26 15:06 | Outpatient (AMB) | payer OTHER, SELFPAY ==
--- NOTE | 2025-09-26 15:27 | A.OFFPC_ITS ---
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 Rubber Stamp Die: Not Required per policy Accompanied by: Self / Same As Patient Allergies Sulfa (Sulfonamide Antibiotics) (Sulfa (Sulfonamides)) Allergy (Mild, Verified 09/26/25 15:50) RASH cephalexin (From KEFLEX) Allergy (Unknown, Verified 09/26/25 15:50) RASH clavulanic acid (Augmentin) Allergy (Unknown, Verified 09/26/25 15:50) vaginal irritation empagliflozin (From Jardiance) Adverse Reaction (Intermediate, Verified 09/26/25 15:50) Rash amoxicillin (From Augmentin) Adverse Reaction (Mild, Verified 09/26/25 15:50) VAGINAL IRRITATION tolterodine Adverse Reaction (Unknown, Verified 09/26/25 15:50) Hives, rash Medication List - Last Reconciled 09/26/25 by Alex Scott PA-C amlodipine 10 mg PO DAILY ammonium lactate 12% appl topical aspirin (Adult Aspirin Regimen) 81 mg PO DAILY blood sugar diagnostic (BensataTouch Verio test strips) As directed 3 times a day blood-glucose meter (BensataTouch Verio Flex Meter) As directed blood-glucose sensor (FreeStyle Dominick 3 Plus Sensor device) Apply 1 new sensor every 15 days as directed to monitor blood glucose continuously. blood-glucose,personnel arbitrator,cont (FreeStyle Dominick 3 Rolla) as directed carvedilol 6.25 mg PO BID glucose (Dex4 Glucose) 16 grams (4 x 4 gram) PO Q15M PRN hydrochlorothiazide 25 mg PO DAILY ibuprofen 800 mg PO BID PRN 90 days insulin glargine 18 units subcut .nightly lancets (Abroad101uch Delica Lancets) As directed 3 times a day lisinopril 10 mg PO DAILY metformin 1,000 mg PO BID omega-3 fatty acids 1,000 mg PO DAILY pen needle, diabetic (BD Samantha 2nd Gen Pen Needle) Use as directed to administer insulin subcutaneously once daily pravastatin 10 mg PO BEDTIME semaglutide (Ozempic) 2 mg (0.75 mL) subcut QWEEK Tobacco use date assessed: 09/26/25 Fall risk assessment: No Falls in past year Last assessed Fall Risk: 09/26/25 Dental Screening Dental Screen Date: 12/22/[address] delgado HPI Details Patient is a 70-year-old female here today for a transfer of care visit from Dr. Delgado. Patient has a past medical history significant for type 2 diabetes, atrophic kidney, obesity, hypertension and dyslipidemia. Concern--> For approximately one year, the patient has experienced pain in her hand, specifically at the base of her thumb, which she suspects is due to arthritis. She reports that wearing a brace helps to ease the pain. She also has arthritis in both knees and her hip, which has prompted her to use a cane for walking. .. Type 2 diabetes: Patient is followed by [place] [facility], most recent A1c is has been stable. .. Microalbuminuria: The patient is also followed by a property and supply officer for an incidental finding of one kidney being smaller than the other, which is monitored with annual ultrasounds. Additionally, she undergoes annual carotid ultrasounds for monitoring. .. Class 3 obesity: Patient does understand her BMI is over 40 and will continue working on trying to be more physically active and adapt to better eating habits to reduce her weight. She has been able to lose weight since being on GLP 1. 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 Diabetes type 2, controlled Surgical History History of section Family History Father Lung cancer Mother Breast cancer Social History Household Members: Children Housing: House Alcohol intake: current Alcohol intake frequency: holidays/special occasions only Patient Tobacco Use Status: Never used Tobacco e-Cigarette/Vaping Use: Never Used Second Hand Smoke Exposure: No service: No Current occupational status: employed Cognitive needs: Yes (Cane, walker) Hearing needs: No Vision needs: Yes (Glasses) Questionnaire Thrive Questionnaire Date Thrive assessed: 12/22/24 I am a: Patient What is your living situation today?: I have a steady place to live Within the past 12 months, did the food you bought not last and you didn't have the money to get more?: Sometimes True Within the past 12 months, did you worry whether your food would run out before you got money to buy more?: Never true Do you have trouble paying for medicines?: No Do you have trouble getting transportation to medical appointments?: No Do you have trouble paying your heating and electricity bill?: No Do you have trouble taking care of your child, family member or friend?: No Do you have trouble with day-to-day activities such as bathing, preparing meals, shopping, managing finances, etc.?: No Are you currently unemployed and looking for a job?: No Are you interested in more education?: No Please select the resources that you would like help with: None Currently or been in a relationship where the following occur: No concerns reported THRIVE Score: 1 JET-7 AMB Questionnaire JET-7 Date JET - 7 assessed: 12/22/24 Source: Developed by Drs. Destin Buck, Sara Lam, Gil Keating and colleagues, with an educational garcía from [employer]. Review of Systems Const Denies headache(s) Eyes Denies loss of vision ENT Denies vertigo, Denies dizziness, Denies headache(s) and Denies sore throat Card Denies chest pain, Denies leg edema and Denies lightheadedness Resp Denies cough, Denies hemoptysis and Denies wheezing GI Denies abdominal pain, Denies melena, Denies constipation, Denies diarrhea and Denies vomiting Denies urinary frequency, Denies dysuria and Denies urinary urgency Musc Denies arthralgias, Denies joint swelling, Denies numbness and Denies tingling Neuro Denies Abnormal speech present, Denies behavioral changes, Denies vertigo, Denies dizziness, Denies headache(s), Denies loss of vision, Denies memory loss, Denies numbness and Denies tingling Psych Denies anxiety, Denies behavioral changes, Denies depression, Denies memory loss and Denies panic attacks Austin/Lymph Denies easy bleeding and Denies easy bruising Aller/Immun Denies wheezing Physical exam (Primary Care) Vital Signs: Last Vital Signs Temp 97.3 F 09/26/25 15:28 Pulse 71 09/26/25 15:28 BP 130/60 09/26/25 15:28 Pulse Ox 98 09/26/25 15:28 Oxygen Delivery Method Room Air 09/26/25 15:28 BMI result Body Mass Index 45.6 BMI Assessment/Plan discussion: High BMI High, discussed plan: lifestyle, weight reduction, dietary and physical activity Tobacco/Smoking Status: Tobacco use Status Tobacco use date assessed 09/26/25 09/26/25 15:36 Patient Tobacco Use Status Never used Tobacco 09/26/25 15:36 e-Cigarette/Vaping Use Never Used 09/26/25 15:36 Thrive Assessment: Date of Thrive Assessment Date Thrive assessed 12/22/24 09/26/25 15:36 Currently or been in a relationship where the following occur: No concerns reported Const Other: Obese AMBULATING WITH 2 CANES for assistance. General: healthy appearing, no acute distress, alert and awake Nutritional Appearance: well nourished Orientation/consciousness: oriented to person, oriented to place and oriented to time HENMT Ears: TM's normal bilaterally General nose exam: Normal nasal mucous membranes and turbinates present Eyes Conjunctivae: conjunctivae normal Sclerae: sclerae normal Pupils: Equal, round and reactive pupils present Neck Neck: Yes no lymphadenopathy and Yes no JVD Thyroid: Thyroid normal Carotids: no bruits Resp Effort & Inspection: normal respiratory effort and not tachypneic Auscultation: no crackles, no rales, no rhonchi and no wheezes Cardio Rate: regular rate Rhythm: regular rhythm Heart sounds: no murmurs and normal S1 and S2 GI Palpation (GI): Soft to palpation, nontender, no hepatomegaly and no splenomegaly Auscultation: normal bowel sounds Skin General skin exam: no rashes or lesions noted and dry skin Neuro General: oriented to person, oriented to place and oriented to time Cranial nerves: Yes Equal, round and reactive pupils present Speech: No Abnormal speech present Gait exam (Neuro): Normal gait present Motor exam (neuro): no tremor noted Extrem Right upper extremity: full ROM Left upper extremity: full ROM Right lower extremity: full ROM; no edema Left lower extremity: full ROM; no edema Psych Mental Status: mental status grossly normal Speech and movement: Normal speech and movement present Affect: normal affect Attitude: cooperative Thought process: Normal thought process present Coding Level of Care Code Est Pt Level 4 (15866) Diagnoses Controlled type 2 diabetes mellitus with microalbuminuria, without long-term current use of insulin E11.29; R80.9 Diabetes mellitus complication detail: with microalbuminuria Diabetes mellitus complication status: with kidney complications Diabetes mellitus senior care insulin use: without intermodal owner operator truck driver use Hand pain, left M79.642 Atrophic kidney N26.1 Dyslipidemia E78.5 Class 3 obesity E66.01 Assessment & Plan Assessment & Plan (1) Diabetes type 2, controlled: Code(s): E11.9 - Type 2 diabetes mellitus without complications Category: Medical Qualifiers: Diabetes mellitus complication detail: with microalbuminuria Diabetes mellitus complication status: with kidney complications Diabetes mellitus intermodal owner operator truck driver insulin use: without intermodal owner operator truck driver use Qualified Code(s): E11.29 - Type 2 diabetes mellitus with other diabetic kidney complication; R80.9 - Proteinuria, unspecified Plan: Patient's type 2 diabetes well controlled, continues to follow endocrinology here in [place]. She does microalbuminuria. Most recent A1c is 6.1. (2) Hand pain, left: Code(s): M79.642 - Pain in left hand Category: Medical Plan: Patient reports base of left thumb pain likely secondary to arthritis. Will try Voltaren cream for possible arthralgia. (3) Atrophic kidney: Comment: Left < right Code(s): N26.1 - Atrophy of kidney (terminal) Category: Medical Plan: Continues to follow nephrology. She is under surveillance with ultrasounds. (4) Dyslipidemia: Code(s): E78.5 - Hyperlipidemia, unspecified Category: Medical Plan: Patient continues on statin therapy, goal LDL to remain below 100 (5) Class 3 obesity: Code(s): E66.01 - Morbid (severe) obesity due to excess calories Category: Medical Plan: Patient does understand her BMI is over 40 and will try to work on being more physically active and adapt to better eating habits to reduce her weight. Orders: Orders Comprehensive Likely. Panel Fast 6 Months E11.9 - Type 2 diabetes mellitus without complications Complete Blood Count no Diff 6 Months E11.9 - Type 2 diabetes mellitus without complications Lipid Panel 6 Months E11.9 - Type 2 diabetes mellitus without complications Microalbumin, Random (w Creat) 6 Months E11.9 - Type 2 diabetes mellitus without complications Patient Instructions: Goal: Patient A1c to remain below 7.0, blood pressure to remain below 130/90 Barriers: Adherence to physical activity and healthy eating habits
[2025-09-26 15:28] VITALS: BP 130/60; PULSE 71; TEMP 36.3; O2SAT 98; BMI 45.6
--- OUTSIDE RECORDS SUMMARY | 2025-09-26 19:33 | XMS_ITS | Patient Health Record ---
Author Organization [facility] Address [address] [place] [address] Care Team Providers Care Leather Polisher Name Role Phone Behzad Arzola MD Primary Care Provider Destin Thomas [phone] Allergies Allergen (clinical drug ingredient) Drug/Non Drug [...] UN ITS INTO THE SKIN ONCE DAILY Subcutaneous; Duration: 50 Active Ibuprofen 800 MG 1 TABLET NEEDED THREE TIMES A DAY ORALLY 90 Oral; Duration: 90 Active metFORMIN HCl 1000 MG TAKE 1 TABLET BY M OUTH TWICE A DAY WITH MEALS Oral; Duration: 90 Active Flonase 50 MCG/DOSE 1 spray in each nostril Nasally Once a day; Duration: 30 day(s) Active Pravastatin Sodium 10 MG TAKE 1 TABLET B Y MOUTH EVERY DAY Oral; Duration: 30 Active Fish Oil 1000 MG 1 capsule Orally Onc e a day; Duration: 30 day(s) Active amLODIPine Besylate 10 MG TAKE 1 TABLET BY MOUTH EVERY DAY Oral; Duration: 90 Active Vitamin D3 1000 UNIT 1 capsule Orally On ce a day; Duration: 30 day(s) Active Aspirin Adult Low Strength 8 1 MG 1 tablet Orally Once a day; Duration: 30 day(s) Active Multivitamin Adult - as directed Orally Active Victoza 18 MG/3ML as directed Subcutaneous Active hydroCHLOROthiazide 25 MG TAKE 1 TABLET BY MOUTH EVERY DAY Oral; Duration: 90 Active Cyclobenzaprine HCl 10 MG TAKE 1 TABLET BY MOUTH THREE TIMES A DAY Oral; Duration: 13 Active Lisinopril 20 MG TAKE 1 TABLET BY [place] TH EVERY DAY Oral; Duration: 90 Active Immunizations Vaccine Route Administration Date [...] Problem Status W/U Status Risk Notes Problem Screening for malignant neoplasm of colon ([id number]) Encounter for screening for malignant neoplasm of colon (Z12.11) Active confirmed Problem Preprocedural examination ([id number]) Preprocedural examination (Z01.818) Active confirmed Plan Of Treatment Pending Test Test Name Order Date GI BIOPSY 08/07/2019 Future Test Test Name Order Date COLONOSCOPY 03/31/2019 Insurance Providers Payer Name Payer Address Payer Phone Subscriber Number Group Number Insured Name Patient Relationship to Insured Coverage Start Date Coverage End Date [facility] ([facility]ED[facility] [employer] [facility]) [address] [place] [address] [id number] WINNIE MCCORMICK Self - patient is the insured Medical (General) History Medical History History ICD Code Hypertension Allergic rhinitis Hyperlipidemia Arthritis IDDM Urinary incontinence Negative screening colonoscopy in 07/[address] Tomas Briggs [place],CVA,Lung disease,renal disease Surgical History Surgery Date(Month/Year) 1989
--- OUTSIDE RECORDS SUMMARY | 2025-09-26 19:34 | XMS_ITS | Patient Health Record ---
Author Organization [facility] Address [address] [place] [address] Care Team Providers Care Barrel Finisher Name Role Phone Ness GALVEZ, Behzad Primary Care Provider Unavaila Edilson Ricketts Unavailable [phone] Allergies Allergen (clinical drug ingredient) Drug/Non Drug [...] Range Notes HEMOGLOBIN A1C (GLYCOHEMOGLO BIN) Reviewed date:11/27/2024 08:39:01 AM Interpretation: Performing Lab: Notes/Report: TOTAL HEMOGLOBIN (HGBA1C) 7.6 HEMOGLOBIN A1C (GLYCOHEMOGLO BIN) Reviewed date:03/05/2025 08:56:52 AM Interpretation: Performing Lab: Notes/Report: HEMOGLOBIN A1C % (HH) 7.6 HEMOGLOBIN A1C (GLYCOHEMOGLO BIN) Reviewed date:09/05/2025 08:58:11 AM Interpretation: Performing Lab: Notes/Report: HEMOGLOBIN A1C % (HH) 6.3 HEMOGLOBIN A1C (GLYCOHEMOGLO BIN) Reviewed date:06/06/2025 09:06:26 AM Interpretation: Performing Lab: Notes/Report: HEMOGLOBIN A1C % (HH) 6.3 Reason For Referral No Information Medications Medication SIG (Take, Route, Frequency, Duration) Notes Start Date End Date Status Pioglitazone HCl Not -Taking Mounjaro Not-Taking Pravastatin Sodium 10 MG Oral; Duration: 30 Active Multivitamin Active Carvedilol 6.25 MG TAKE 1 TABLET BY MOUTH TWICE A DAY. MUST ADMINISTER WITH A MEAL/FOOD Oral; Duration: 90 Days Active Compression Stockings 20-30mm Hg 1 pair wear daily; Duration: 30 days Active Ammonium Lactate 12 % 1 application Externally to feet except for between the toes Twice a day; Duration: 30 days Active Azithromycin 250 MG 2 tablets on the first day, then 1 tablet daily for 4 days Orally Once a day; Duration: 5 day(s) 06/06/2025 Active Extra Depth Orthopedic Shoes (1 Pair) with Customized Heat Molded Multidensity Innersoles (3 Pair) as directed Dx: NIDDM/Polyneuropathy (E11.42), Hammertoe Foot Deformity (M20.41,M20.42), Preulcerative Skin Lesion(s) (L85.1 03/05/2025 Active Tolterodine Tartrate ER 2 MG TAKE 1 CAPSULE BY MOUTH EVERY DAY Oral; Duration: 90 Days Not-Taking Vitamin D3 Not-Takin g Lisinopril 10 MG 1 tablet Orally Once a day Active Lantus 30 units Acti ve metFORMIN HCl Active Ozempic Not-Taking Victoza 1.8 mg Not-T aking Fish Oil 1000 MG 1 capsule Orally Onc e a day Not-Taking Aspir-81 Active Lantus 60 units Not- Taking Ozempic (2 MG/DOSE) Active Jardiance Not-Taking Flonase Active Fluticasone Propionate 50 MCG/ACT 1 spray in each nostril Nasally Once a day Not-Taking amLODIPine Besylate 10 MG 1 tablet Orall y Once a day Active oxyBUTYnin Chloride 10 mg 1 tablet Orall y Once a day Not-Taking ibuprofen Active hydroCHLOROthiazide Active Fluticasone Furoate Not-Taking Immunizations Vaccine Route Administration Date Status [...] Problem Acquired hammer toe of right foot (2713220706873001 ) Other hammer toe(s) (acquired), right foot (M20.41) Active confirmed Response to treatment, Improvemen t Problem Acquired hammer toe of left foot (1744343159757639 ) Other hammer toe(s) (acquired), left foot (M20.42) Active confirmed Response to treatment, Improvemen t Problem Polyneuropathy due to type 2 diabetes mellitus (001217475) Type 2 diabetes mellitus with diabetic polyneuropathy (E11.42) Active confirmed Vital Signs Blood pressure diastolic 70 mm Hg 09/05/2025 Height 5ft 6in in 09/05/2025 Blood pressure systolic 128 mm Hg 09/05/2025 Weight 254 lbs 09/05/2025 BMI 40.99 kg/m2 09/05/2025 Procedures Procedure Date Ordered Date Performed Result Body Sit e 37333-WOLRKKA NAIL, 6 OR MORE 11/27/2024 N/A 66757-Xaqbpypi Plate 11/27/2024 N/A 58856-Khxcudtv Plate Each Additional 11/27/2024 N/A 82121-YXPF SKIN LESIONS, OVER 4 11/27/2024 N/A 53567-SXMYKCF NAIL, 6 OR MORE 03/05/2025 N/A 67485-Tflojiri Plate 03/05/2025 N/A 61170-Bzqlalku Plate Each Additional 03/05/2025 N/A 14228-GRMV SKIN LESIONS, OVER 4 03/05/2025 N/A 32116-OZMCCSX NAIL, 6 OR MORE 06/06/2025 N/A 80935-Ropkrehm Plate 06/06/2025 N/A 11448-MJFY SKIN LESIONS, OVER 4 06/06/2025 N/A 32346-ZAGEHQN NAIL, 6 OR MORE 09/05/2025 N/A 57627-Jokisrep Plate 09/05/2025 N/A 57751-POYZ SKIN LESIONS, OVER 4 09/05/2025 N/A Encounters Encounter Location Date Provider Diagnosis [address] [address] 11/27/2024 Edilson Luis Pain in right toe(s) M79.674 ; Tinea unguium B35.1 ; Pain in left toe(s) M79.675 ; Type 1 diabetes mellitus without complication E10.9 ; Ingrown nail L60.0 and Xerosis of skin L85.[address] [address] 03/05/2025 Edilson Luis Tinea unguium B35.1 ; Type 2 diabetes mellitus with diabetic polyneuropathy E11.42 ; Ingrowing nail L60.0 ; Other hammer toe(s) (acquired), right foot M20.41 and Other hammer toe(s) (acquired), left foot M20.[address] [address] 06/06/2025 Edilson Lius Type 2 diabetes mellitus with diabetic polyneuropathy E11.42 ; Tinea unguium B35.1 ; Ingrown nail L60.0 ; Pain in right toe(s) M79.674 and Cellulitis of toe of right foot L03.[address] [address] 09/05/2025 Edilson Luis Type 2 diabetes mellitus with diabetic polyneuropathy E11.42 ; Tinea unguium B35.1 ; Ingrown nail L60.0 and Edema, lower extremity R60.0 Assessments Encounter Date Diagnosis (ICD Code) Assessment Notes Treatment Notes Treatment Clinical Notes Section Notes 11/27/2024 Tinea unguium (ICD-10 - B35.1) 11/27/2024 Pain in right toe(s) (ICD-10 - M79.674) 03/05/2025 Type 2 diabetes mellitus with diabetic polyneuropathy (ICD-10 - E11.42) 03/05/2025 Tinea unguium (ICD-10 - B35.1) 06/06/2025 Type 2 diabetes mellitus with diabetic polyneuropathy (ICD-10 - E11.42) 06/06/2025 Tinea unguium (ICD-10 - B35.1) 09/05/2025 Type 2 diabetes mellitus with diabetic polyneuropathy (ICD-10 - E11.42) 09/05/2025 Tinea unguium (ICD-10 - B35.1) 09/05/2025 Ingrown nail (ICD-10 - L60.0) 11/27/2024 Pain in left toe(s) (ICD-10 - M79.675) 03/05/2025 Ingrowing nail (ICD-10 - L60.0) 06/06/2025 Ingrown nail (ICD-10 - L60.0) 11/27/2024 Type 1 diabetes mellitus without complication (ICD-10 - E10.9) 03/05/2025 Other hammer toe(s) (acquired), right foot (ICD-10 - M20.41) Patient Educated with: DIABETIC FOOT CARE INSTRUCTIONS. pdf (DIABETIC FOOT CARE INSTRUCTIONS. pdf) 09/05/2025 Edema, lower extremity (ICD-10 - R60.0) 06/06/2025 Pain in right toe(s) (ICD-10 - M79.674) 03/05/2025 Other hammer toe(s) (acquired), left foot (ICD-10 - M20.42) 11/27/2024 Ingrown nail (ICD-10 - L60.0) 06/06/2025 Cellulitis of toe of right foot (ICD-10 - L03.031) 11/27/2024 Xerosis of skin (ICD-10 - L85.3) Plan Of Treatment Pending Test Test Name Order Date X ray : Foot, left 2V 04/04/2015 Glucose Fasting 04/04/2015 83218-CGEPYEH NAIL, 6 OR MORE 07/09/2015 30743-FVOILYB NAIL, 6 OR MORE 09/27/2015 63347-EBPUMKN NAIL, 6 OR MORE 01/03/2016 02333-CJNAPCS NAIL, 6 OR MORE 04/15/2016 61643-FRFEOAN NAIL, 6 OR MORE 07/15/2016 39017-KLGAUMC NAIL, 6 OR MORE 10/14/2016 09474-YDJCIKX NAIL, 6 OR MORE 01/25/2017 57790-DVHQZMW NAIL, 6 OR MORE 04/21/2017 64824-ACMGEAV NAIL, 6 OR MORE 04/04/2015 44584-DKVGPOO NAIL, 6 OR MORE 07/28/2017 57825-DVINBNZ NAIL, 6 OR MORE 10/27/2017 16877-CIHCIGH NAIL, 6 OR MORE 01/26/2018 57395-RMQHEUV NAIL, 6 OR MORE 04/27/2018 72802-LOVAIKB NAIL, 6 OR MORE 11/02/2018 22242-TNWSSZT NAIL, 6 OR MORE 2019 45535-NDAZWTP NAIL, 6 OR MORE 08/03/2018 71309-FLPAWHB NAIL, 6 OR MORE 05/03/2019 93297-YLHFATF NAIL, 6 OR MORE 08/16/2019 39140-RDYJEKP NAIL, 6 OR MORE 11/15/2019 25261-LRVKVUM NAIL, 6 OR MORE 12/02/2020 83814-ABQCPDH NAIL, 6 OR MORE 04/21/2021 43487-IGRUNZR NAIL, 6 OR MORE 08/13/2021 95215-ZRNEVCB NAIL, 6 OR MORE 11/10/2021 09316-DRXPLHL NAIL, 6 OR MORE 09/02/2020 90314-ZCSPGQV NAIL, 6 OR MORE 02/09/2022 19902-LGILOTR NAIL, 6 OR MORE 05/11/2022 62003-EQXKFQL NAIL, 6 OR MORE 09/24/2022 88725-USNZYAA NAIL, 6 OR MORE 01/25/2023 89125-BQZZISI NAIL, 6 OR MORE 07/14/2023 69411-LTYSNGO NAIL, 6 OR MORE 11/10/2023 63072-ZSMRMNL NAIL, 6 OR MORE 02/16/2024 07779-UEGAKBD NAIL, 6 OR MORE 05/17/2024 30217-MROHDIM NAIL, 6 OR MORE 08/17/2024 59944-VSFBVFH NAIL, 6 OR MORE 11/27/2024 48242-HXNGHZJ NAIL, 6 OR MORE 03/05/2025 41101-DUYVGLT NAIL, 6 OR MORE 06/06/2025 25201-RQKOPPJ NAIL, 6 OR MORE 09/05/2025 28334-Oynlhvpq Plate 09/05/2025 48589-Mkccibuh Plate 03/05/2025 63030-Bflyvnkg Plate 11/02/2018 32540-Apoodpdt Plate 06/06/2025 52105-Qgxjlkln Plate 11/27/2024 98803-Wwxegbbp Plate 08/17/2024 63467-Lyupqkxp Plate 05/17/2024 05820-Gnilfivr Plate 02/16/2024 24756-Dmzmkwyf Plate 11/10/2023 59617-Qrbchqnw Plate 07/14/2023 83906-Bfaxjdgq Plate 01/25/2023 71443-Ddckylkx Plate 09/24/2022 74622-Kquujneb Plate 05/11/2022 78523-Pjnrthwj Plate 02/09/2022 19567-Yzmersnq Plate 09/02/2020 64177-Pbaohrqq Plate 11/10/2021 73822-Lmimyktq Plate 08/13/2021 66743-Dhhozguo Plate 04/21/2021 81820-Rsmwrkgl Plate 12/02/2020 07723-Oloqfhkp Plate 11/15/2019 09897-Eavhytrc Plate 08/16/2019 69006-Yggvxyyd Plate 05/03/2019 64024-Rnxxuflz Plate 2019 57283-Rsbiebbv Plate 10/27/2017 17161-Dtxrpvdm Plate 08/03/2018 79763-Ybvzuhrf Plate 04/27/2018 46371-Zdngxtns Plate 01/26/2018 34968-Zslfpptw Plate 07/28/2017 17249-Qckdnusa Plate 01/25/2017 08854-Gmegqsyo Plate 04/21/2017 25035-Gjpqppku Plate 10/14/2016 06819-Fpojcugy Plate 07/15/2016 75971-Yizzryfp Plate 04/15/2016 73174-Gishsvml Plate 01/03/2016 71099-Vexdmtsu Plate 09/27/2015 95390-Oiptwmbg Plate 07/09/2015 18952-Qurbjmwo Plate 04/04/2015 96427-Qlvfqdkc Plate Each Additional 09/2015 47766-Khgwbxjh Plate Each Additional 66035-Jpylcosn Plate Each Additional 03/2016 80268-Taekltit Plate Each Additional 58228-Aenutlko Plate Each Additional 55242-Ynygqamv Plate Each Additional 93825-Ucehqtsn Plate Each Additional 19255-Ijwlgteq Plate Each Additional 74925-Bwpvumux Plate Each Additional 03/2018 12634-Ztbthbgg Plate Each Additional 04/2019 48532-Ynxkspck Plate Each Additional 03/2019 37366-Tmdcbfzk Plate Each Additional 03/2018 12681-Scyoorym Plate Each Additional 40964-Ogbiouyz Plate Each Additional 11504-Eroztcwz Plate Each Additional 02/2021 20540-Zlwuuahd Plate Each Additional 49450-Djczaxxr Plate Each Additional 82362-Fabqphhp Plate Each Additional 92245-Ieadrebs Plate Each Additional 03/2020 42085-Dafeuqft Plate Each Additional 44164-Cfzkimuc Plate Each Additional 37756-Gqsrplqz Plate Each Additional 73791-Yhrhhfjl Plate Each Additional 62518-Yoayojie Plate Each Additional 56713-Dtyseqtf Plate Each Additional 44997-Crdrwyka Plate Each Additional 77454-Nfvlruhn Plate Each Additional 57354-Jmvuwqop Plate Each Additional 20571-Xoqheftb Plate Each Additional 22215-Sbidlyze Plate Each Additional 05/2025 79412-ZWLX SKIN LESIONS, OVER 4 03/05/20 57185-KBMR SKIN LESIONS, OVER 4 09/05/20 91598-VAHT SKIN LESIONS, OVER 4 11/27/20 24 89089-GDWE SKIN LESIONS, OVER 4 06/06/20 25 17667-MDBB SKIN LESIONS, OVER 4 08/17/20 24 48212-UGNO SKIN LESIONS, OVER 4 05/17/20 24 30913-WQMZ SKIN LESIONS, OVER 4 02/16/20 24 60980-IVXF SKIN LESIONS, OVER 4 11/10/20 23 00535-KKFI SKIN LESIONS, OVER 4 07/14/20 23 92193-KQSM SKIN LESIONS, OVER 4 01/25/20 23 70357-STCU SKIN LESIONS, OVER 4 09/24/20 18337-SDGP SKIN LESIONS, OVER 4 06/13/20 22 35383-EWYP SKIN LESIONS, OVER 4 11/10/20 21 81884-DEWG SKIN LESIONS, OVER 4 08/13/20 21 97838-PCSZ SKIN LESIONS, 2 TO 4 04/21/20 21 50071-ZKGD SKIN LESIONS, 2 TO 4 12/02/19 21 48167-OYBM SKIN LESIONS, 2 TO 4 04/04/20 15 43038,V8665-WYP TENDON SHEATH/LIGAMENT 0 06/14/2015 Next Appt Details Provider Name:Edilson Mckenzie Janelle , 12/24/2025 08:30:00 AM, [address] [facility], [address], [place], [address], Insurance Providers Payer Name Payer Address Payer Phone Subscriber Number Group Number Insured Name Patient Relationship to Insured Coverage Start Date Coverage End Date [facility] [address] [place] [address] [id number] Kathryn Arzola Self - patient is the insured Medical (General) History Medical History History ICD Code Diabetic Hypertension Allergic rhinitis Hypercholesterolemia Surgical History Surgery Date(Month/Year) section Hospitalization History Reason Date(Month/Year) [place] [facility] [place]
== END 2025-09-26 16:14 | disposition home or self-care (01) ==
LOC: HO.HMCH 15:07
PROVIDERS: PCP Physician Assistant; Visit Provider Physician Assistant
DX: E11.29 Type 2 diabetes mellitus with other diabetic kidney complication (principal); E66.01 Morbid (severe) obesity due to excess calories; Z68.42 Body mass index [BMI] 45.0-49.9, adult; R80.9 Proteinuria, unspecified; M79.642 Pain in left hand; N26.1 Atrophy of kidney (terminal); E78.5 Hyperlipidemia, unspecified

== ENCOUNTER 2025-10-05 11:21 | Outpatient (REF) | payer OTHER, SELFPAY ==
[2025-10-05 13:37] LABS: Hemoglobin A1C 96.8842 umol/L; Total Hemoglobin (HGBA1C) 2187.6652 umol/L
--- OUTSIDE RECORDS SUMMARY | 2025-10-05 13:41 | XMS_ITS | Patient Health Record ---
Author Organization [facility] Address [address] [place] [address] Care Team Providers Care Chaplain Resident Name Role Phone Behzad Arzola MD Primary Care Provider Detsin Thomas [phone] Allergies Allergen (clinical drug ingredient) Drug/Non Drug [...] Problem Screening for malignant neoplasm of colon (129807438) Encounter for screening for malignant neoplasm of colon (Z12.11) Active confirmed Problem Preprocedural examination (234067393850317) Preprocedural examination (Z01.818) Active confirmed Plan Of Treatment Pending Test Test Name Order Date GI BIOPSY 08/07/2019 Future Test Test Name Order Date COLONOSCOPY 03/31/2019 Insurance Providers Payer Name Payer Address Payer Phone Subscriber Number Group Number Insured Name Patient Relationship to Insured Coverage Start Date Coverage End Date [facility] [address] [place] [address] [id number] WINNIE MCCORMICK Self - patient is the insured Medical (General) History Medical History History ICD Code Hypertension Allergic rhinitis Hyperlipidemia Arthritis IDDM Urinary incontinence Negative screening colonoscopy in 07/[address] Tomas Briggs [place],CVA,Lung disease,renal disease Surgical History Surgery Date(Month/Year) 1989
--- OUTSIDE RECORDS SUMMARY | 2025-10-05 13:41 | XMS_ITS | Patient Health Record ---
Author Organization [facility] Address [address] [place] [address] Care Team Providers Care Crt Name Role Phone Ness GALVEZ, Behzad Primary Care Provider Unavaila Edilson Ricketts Unavailable [phone] Allergies Allergen (clinical drug ingredient) Drug/Non Drug [...] Range Notes HEMOGLOBIN A1C (GLYCOHEMOGLO BIN) Reviewed date:03/05/2025 08:56:52 [...] Problem Acquired hammer toe of right foot (6426162924731946 ) Other hammer toe(s) (acquired), right foot (M20.41) Active confirmed Response to treatment, Improvemen t Problem Acquired hammer toe of left foot (5072906062188359 ) Other hammer toe(s) (acquired), left foot (M20.42) Active confirmed Response to treatment, Improvemen t Problem Polyneuropathy due to type 2 diabetes mellitus (715471507) Type 2 diabetes mellitus with diabetic polyneuropathy (E11.42) Active confirmed Vital Signs Blood pressure diastolic 70 mm Hg 09/05/2025 Height 5ft 6in in 09/05/2025 Blood pressure systolic 128 mm Hg 09/05/2025 Weight 254 lbs 09/05/2025 BMI 40.99 kg/m2 09/05/2025 Procedures Procedure Date Ordered Date Performed Result Body Sit e 11875-NRWTBYU NAIL, 6 OR MORE 11/27/2024 N/A 12817-Ljpbzaqr Plate 11/27/2024 N/A 79956-Jmrhsjrf Plate Each Additional 11/27/2024 N/A 16685-OMEC SKIN LESIONS, OVER 4 11/27/2024 N/A 14831-HOBZWMP NAIL, 6 OR MORE 03/05/2025 N/A 63724-Yhanghjz Plate 03/05/2025 N/A 04127-Udqdhlug Plate Each Additional 03/05/2025 N/A 23846-QGVI SKIN LESIONS, OVER 4 03/05/2025 N/A 71416-HIJVVRR NAIL, 6 OR MORE 06/06/2025 N/A 03789-Pdpgjpob Plate 06/06/2025 N/A 00001-BAEZ SKIN LESIONS, OVER 4 06/06/2025 N/A 39318-ANGWVCU NAIL, 6 OR MORE 09/05/2025 N/A 44561-Qoaxycvm Plate 09/05/2025 N/A 27819-UMBM SKIN LESIONS, OVER 4 09/05/2025 N/A Encounters Encounter Location Date Provider Diagnosis [address] [address] 11/27/2024 Edilson Luis Pain in right toe(s) M79.674 ; Tinea unguium B35.1 ; Pain in left toe(s) M79.675 ; Type 1 diabetes mellitus without complication E10.9 ; Ingrown nail L60.0 and Xerosis of skin L85.[address] [address] 03/05/2025 Edilsonjanette Luis Tinea unguium B35.1 ; Type 2 diabetes mellitus with diabetic polyneuropathy E11.42 ; Ingrowing nail L60.0 ; Other hammer toe(s) (acquired), right foot M20.41 and Other hammer toe(s) (acquired), left foot M20.[address] [address] 06/06/2025 Edilsonjanette SainiJanelle Type 2 diabetes mellitus with diabetic polyneuropathy E11.42 ; Tinea unguium B35.1 ; Ingrown nail L60.0 ; Pain in right toe(s) M79.674 and Cellulitis of toe of right foot L03.[address] [address] 09/05/2025 Edilsonjanette SainiJanelle Type 2 diabetes mellitus with diabetic polyneuropathy [...] B35.1) 09/05/2025 Ingrown nail (ICD-10 - L60.0) 03/05/2025 Ingrowing nail (ICD-10 - L60.0) 06/06/2025 Ingrown nail (ICD-10 - L60.0) 11/27/2024 Pain in left toe(s) (ICD-10 - M79.675) 11/27/2024 Type 1 diabetes mellitus without complication (ICD-10 - E10.9) 03/05/2025 Other hammer toe(s) (acquired), right foot (ICD-10 - M20.41) Patient Educated with: DIABETIC FOOT CARE INSTRUCTIONS. pdf (DIABETIC FOOT CARE INSTRUCTIONS. pdf) 06/06/2025 Pain in right toe(s) (ICD-10 - M79.674) 09/05/2025 Edema, lower extremity (ICD-10 - R60.0) 06/06/2025 Cellulitis of toe of right foot (ICD-10 - L03.031) 03/05/2025 Other hammer toe(s) (acquired), left foot (ICD-10 - M20.42) 11/27/2024 Ingrown nail (ICD-10 - L60.0) 11/27/2024 Xerosis of skin (ICD-10 - L85.3) Plan Of Treatment Pending Test Test Name Order Date X ray : Foot, left 2V 04/04/2015 Glucose Fasting 04/04/2015 26150-DNBIKYV NAIL, 6 OR MORE 07/09/2015 58572-CPCORLX NAIL, 6 OR MORE 09/27/2015 89499-OBTLOCF NAIL, 6 OR MORE 01/03/2016 67278-MYRWBPJ NAIL, 6 OR MORE 01/25/2017 20987-PBSUNTU NAIL, 6 OR MORE 04/21/2017 76821-SMXVFVP NAIL, 6 OR MORE 04/04/2015 74846-FEGOESC NAIL, 6 OR MORE 10/27/2017 50164-SGTOCNW NAIL, 6 OR MORE 01/26/2018 33027-VWYTZEC NAIL, 6 OR MORE 11/02/2018 91889-PPWVNTC NAIL, 6 OR MORE 2019 96416-WZFJDHO NAIL, 6 OR MORE 04/27/2018 82442-GYTXVJB NAIL, 6 OR MORE 05/03/2019 65693-EZZGPYM NAIL, 6 OR MORE 08/16/2019 26733-KDXPPPS NAIL, 6 OR MORE 11/15/2019 54209-RKMZNTB NAIL, 6 OR MORE 12/02/2020 07103-HZJEBRU NAIL, 6 OR MORE 04/21/2021 85501-MSHQQVG NAIL, 6 OR MORE 08/13/2021 33955-HCWGKNE NAIL, 6 OR MORE 11/10/2021 13137-PHBHFJN NAIL, 6 OR MORE 09/02/2020 70294-QBLFBPZ NAIL, 6 OR MORE 02/09/2022 02948-GGLIFKP NAIL, 6 OR MORE 05/11/2022 49050-ANQRYER NAIL, 6 OR MORE 09/24/2022 30629-MYZVWGS NAIL, 6 OR MORE 01/25/2023 91851-VYZMYDH NAIL, 6 OR MORE 07/14/2023 80612-CIMAMRH NAIL, 6 OR MORE 11/10/2023 80965-QFYCSHZ NAIL, 6 OR MORE 02/16/2024 84983-YGBILOW NAIL, 6 OR MORE 05/17/2024 39057-WVHWSPA NAIL, 6 OR MORE 08/17/2024 20789-RIPYBSN NAIL, 6 OR MORE 11/27/2024 14797-UTDHVRA NAIL, 6 OR MORE 03/05/2025 43220-IQXNRMF NAIL, 6 OR MORE 06/06/2025 39793-CHAZWKH NAIL, 6 OR MORE 09/05/2025 05760-FVFXGDH NAIL, 6 OR MORE 04/15/2016 44728-KKPKQTJ NAIL, 6 OR MORE 10/14/2016 22354-JCBTQEJ NAIL, 6 OR MORE 07/28/2017 74454-TAIOYSP NAIL, 6 OR MORE 07/15/2016 26253-RVMXRLM NAIL, 6 OR MORE 08/03/2018 04278-Lmeeptnd Plate 07/28/2017 84995-Aariyxsy Plate 07/15/2016 09799-Cfgfazim Plate 10/14/2016 22817-Orjdmlpt Plate 11/02/2018 08203-Sjxewyar Plate 08/03/2018 06540-Rtciacyt Plate 04/15/2016 05958-Gvtejyrb Plate 09/05/2025 91601-Qjkhxzte Plate 03/05/2025 47801-Vjhxhsjs Plate 06/06/2025 84883-Xzcftcho Plate 11/27/2024 22465-Ebsxrzqr Plate 08/17/2024 54202-Wevfcctp Plate 05/17/2024 02454-Ltiwwmzo Plate 02/16/2024 37983-Mcsefqny Plate 11/10/2023 60346-Vsrrdued Plate 07/14/2023 44187-Jvplveqk Plate 01/25/2023 22608-Yhocpqap Plate 09/24/2022 70675-Fnjhwggo Plate 05/11/2022 62252-Mssngdcl Plate 02/09/2022 61052-Chtgnmok Plate 09/02/2020 71873-Blnokmfh Plate 11/10/2021 57883-Qrbxcohk Plate 08/13/2021 08638-Emmebqlb Plate 04/21/2021 12105-Iaxwuziz Plate 12/02/2020 69857-Zeyyqeyv Plate 11/15/2019 85184-Lhjimrfz Plate 08/16/2019 60627-Ulembjvi Plate 05/03/2019 44792-Cdxdjzhp Plate 2019 65357-Tiwpkphz Plate 04/27/2018 21532-Lotymepn Plate 01/26/2018 89719-Cxrmfwfb Plate 10/27/2017 49469-Vjiiyvvx Plate 01/25/2017 29622-Qwmjctqg Plate 04/21/2017 20940-Kgqymakl Plate 01/03/2016 37786-Bqtyytuy Plate 09/27/2015 80063-Oiqgfgui Plate 07/09/2015 54712-Vxjwafvh Plate 04/04/2015 69871-Kteyvxth Plate Each Additional 09/2015 12228-Wwkaofdd Plate Each Additional 09836-Bxpsvkwy Plate Each Additional 03/2016 97361-Owvuoblh Plate Each Additional 16025-Dtcnrhue Plate Each Additional 04/2019 24476-Rtysbsdp Plate Each Additional 03/2019 75714-Gyeyhaau Plate Each Additional 03/2018 51811-Ltuxoruq Plate Each Additional 94121-Jileikbg Plate Each Additional 70910-Lybwzvjg Plate Each Additional 02/2021 52666-Zrjtdtpr Plate Each Additional 29625-Vaskxapx Plate Each Additional 40765-Qchwyifl Plate Each Additional 32917-Ppogtrpx Plate Each Additional 03/2020 69018-Hadxbkxa Plate Each Additional 58587-Hkicticr Plate Each Additional 68229-Eppecbvw Plate Each Additional 67041-Pesnucze Plate Each Additional 96639-Uezobuji Plate Each Additional 88829-Fmdfcnvy Plate Each Additional 90351-Umhcrsda Plate Each Additional 55374-Vahaqeni Plate Each Additional 31043-Hfvrgiui Plate Each Additional 72254-Jjklyynr Plate Each Additional 61409-Fnwzkmru Plate Each Additional 05/2025 92946-Nvrutspn Plate Each Additional 98422-Hzhypbcr Plate Each Additional 03/2018 59609-Vskgwiag Plate Each Additional 58929-Jnwfvcyk Plate Each Additional 74455-Rmbtkarv Plate Each Additional 49076-ZXZT SKIN LESIONS, OVER 4 03/05/20 25 19224-RUPT SKIN LESIONS, OVER 4 09/05/20 25 89902-SVKL SKIN LESIONS, OVER 4 06/06/20 25 92635-WAQS SKIN LESIONS, OVER 4 11/27/20 24 71137-SNDH SKIN LESIONS, OVER 4 08/17/20 24 90767-HDZU SKIN LESIONS, OVER 4 05/17/20 24 84383-NFZA SKIN LESIONS, OVER 4 02/16/20 24 79939-IDFR SKIN LESIONS, OVER 4 11/10/20 23 53668-PPZT SKIN LESIONS, OVER 4 07/14/20 23 04312-NTDC SKIN LESIONS, OVER 4 01/25/20 23 25800-WBGF SKIN LESIONS, OVER 4 09/24/20 22 80384-UVQO SKIN LESIONS, OVER 4 05/11/20 92798-GUSE SKIN LESIONS, OVER 4 11/10/20 04025-NLJC SKIN LESIONS, OVER 4 08/13/20 21 69086-HJVY SKIN LESIONS, 2 TO 4 04/21/20 75881-ERZG SKIN LESIONS, 2 TO 4 12/02/19 21 77322-BWRE SKIN LESIONS, 2 TO 4 04/04/20 15 91008,V5536-GFK TENDON SHEATH/LIGAMENT 0 06/14/2015 Next Appt Details Provider Name:Edilson Luis , 12/24/2025 08:30:00 AM, [address], [place], [address], Insurance Providers Payer Name Payer Address Payer Phone Subscriber Number Group Number Insured Name Patient Relationship to Insured Coverage Start Date Coverage End Date [facility] [address] [place] [address] [id number] Kathryn Arzola Self - patient is the insured Medical (General) History Medical History History ICD Code Diabetic Hypertension Allergic rhinitis Hypercholesterolemia Surgical History Surgery Date(Month/Year) section Hospitalization History Reason Date(Month/Year) [place] [facility] [place]
[2025-10-05 14:10] LABS: Alanine Aminotransferase 12 U/L (0-31); Aspartate Amino Transferase 26 U/L (5-31); Cholesterol 161 mg/dL (<200); Estimated Glomerular Filt Rate 55; HDL Cholesterol 39 mg/dL (>40); Triglycerides 115 mg/dL (<150)
== END 2025-10-05 11:22 | disposition home or self-care (01) ==
LOC: HO.10HDL 11:21
PROVIDERS: Visit Provider Physician Assistant Medical
DX: R79.89 Other specified abnormal findings of blood chemistry (principal); E78.5 Hyperlipidemia, unspecified; E11.65 Type 2 diabetes mellitus with hyperglycemia
CPT/HCPCS: 36415; 80061; 82565; 83036; 84450; 84460

== ENCOUNTER 2025-10-12 10:00 | Outpatient (AMB) | payer OTHER, SELFPAY ==
[2025-10-12 10:04] VITALS: BP 130/68; PULSE 76; O2SAT 97; BMI 45.2
--- NOTE | 2025-10-12 10:04 | A.OFFVIS_ITS ---
Vital Signs 10/12/25 10:04 Height 5 ft 2 in Weight 246 lb 14.684 oz BMI 45.2 BP 130/68 Blood Pressure Location Lt brachial Position Sitting Pulse 76 Pulse Source Pulse Oximeter Pulse Oximetry (%) 97 Oxygen Delivery Method Room Air Intake Visit Reasons: Type II diabetes Intake Note: Patient presents today for a follow-up on Type 2 Diabetes Mellitus: Last Diabetic eye exam was on: Patient will be calling to make an appt Last Podiatry exam was on: 03/05/2025, [facility] Most recent HbA1c: 6.2% 10/05/2025 Random Glucose-?127 mg/dL, Today Linen Aide Required: No Accompanied by: Self / Same As Patient Allergies Sulfa (Sulfonamide Antibiotics) (Sulfa (Sulfonamides)) Allergy (Mild, Verified 10/12/25 10:07) RASH cephalexin (From KEFLEX) Allergy (Unknown, Verified 10/12/25 10:07) RASH clavulanic acid (Augmentin) Allergy (Unknown, Verified 10/12/25 10:07) vaginal irritation empagliflozin (From Jardiance) Adverse Reaction (Intermediate, Verified 10/12/25 10:07) Rash amoxicillin (From Augmentin) Adverse Reaction (Mild, Verified 10/12/25 10:07) VAGINAL IRRITATION tolterodine Adverse Reaction (Unknown, Verified 10/12/25 10:07) Hives, rash Medication List - Last Reconciled 10/12/25 by GERARDO Zuleta amlodipine 10 mg PO DAILY ammonium lactate 12% appl topical aspirin (Adult Aspirin Regimen) 81 mg PO DAILY blood sugar diagnostic (OneTouch Verio test strips) As directed 3 times a day blood-glucose meter (HeadMixuch Verio Flex Meter) As directed blood-glucose sensor (FreeStyle Dominick 3 Plus Sensor device) Apply 1 new sensor every 15 days as directed to monitor blood glucose continuously. blood-glucose,public safety telecommunicator,cont (FreeStyle Dominick 3 [place]) as directed carvedilol 6.25 mg PO BID glucose (Dex4 Glucose) 16 grams (4 x 4 gram) PO Q15M PRN hydrochlorothiazide 25 mg PO DAILY ibuprofen 800 mg PO BID PRN 90 days insulin glargine 18 units subcut .nightly lancets (eCaring Delica Lancets) As directed 3 times a day lisinopril 10 mg PO DAILY metformin 1,000 mg PO BID omega-3 fatty acids 1,000 mg PO DAILY pen needle, diabetic (BD Samantha 2nd Gen Pen Needle) Use as directed to administer insulin subcutaneously once daily pravastatin 10 mg PO BEDTIME semaglutide (Ozempic) 2 mg (0.75 mL) subcut QWEEK HPI Comments Details: This is a 70 year old female with Type II DM diagnosed in 2006 presenting for diabetic management. Hemoglobin a1c 6.2% today. She lost another 3 lb. Current medication regimen: insulin glargine 18 units daily, Metforomin 1000 mg BID and Ozempic 2 mg weekly. Past medications: Jardiance discontinued due to yeast infections. Mounjaro caused GI side effects. CGM active 32% Average glucose 137 Glucose variability 23.2% Very high 0% High 17% Target range 83% 0% low sugar My interpretation is that she has good control of blood sugar with occasional postprandial hyperglycemia. Hypoglycemia symptoms: none Hyperglycemia symptoms: none Eye exam: June 2024 Microvascular complications: neuropathy, nephropathy (microalbumin and CKD). Macrovascular complications: none Hypertension: treated with amlodipine 10 mg, hydrochlorothiazide 25 mg, lisinopril 10 mg, carvedilol 6.25 mg twice daily. Followed by Nephrology. Hyperlipidemia: treated with Pravastatin 10 mg LDL at goal <100. She had an echocardiogram which showed mild aortic stenosis, and she is in the process of scheduling a cardiology appointment. ALT was mildly elevated at 34 on her labs from September. She has no GI complaints. We discussed ordering a liver ultrasound with elastography to screen for hepatic steatosis and fibrosis of the liver, and this will be scheduled. ROS: Constitutional: No unexplained weight loss, fever, chills. Eyes: No vision changes, blurry vision, double vision Respiratory: No shortness of breath Cardiovascular: No chest pain Gastrointestinal: No anorexia, nausea, vomiting or diarrhea. No abdominal pain Neurologic: No headache, dizziness, syncope Endocrine: No cold or heat intolerance. No polyuria or polydipsia Physical exam: Constitutional: Alert, in no distress. Eyes: Pupils are equal, round and reactive to light. Extraocular muscles intact. Neck: Supple, Full range of motion. No lymphadenopathy. No palpable thyroid masses. Respiratory: Clear to auscultation. Cardiovascular: S1 S2 regular. II// murmur. Neurologic: No focal neurological deficits. [facility] Medical History LFT elevation Diastolic dysfunction Mild aortic stenosis Murmur Decreased renal function Microalbuminuria due to type 2 diabetes mellitus Physical exam Urinary Incontinence OAB (overactive bladder) Type 2 diabetes mellitus with morbid obesity Obesity Diabetes type 2, uncontrolled Osteoarthritis Morbid obesity Hypertension Dyslipidemia Non-toxic multinodular goiter detention (current) use of insulin Diabetes type 2, controlled Surgical History History of section Family History Father Lung cancer Mother Breast cancer Social History Household Members: Children Housing: House Alcohol intake: current Alcohol intake frequency: holidays/special occasions only Patient Tobacco Use Status: Never used Tobacco e-Cigarette/Vaping Use: Never Used Second Hand Smoke Exposure: No service: No Current occupational status: employed Cognitive needs: Yes (Cane, walker) Hearing needs: No Vision needs: Yes (Glasses) Physical Exam Vital Signs: Last Vital Signs Pulse 76 10/12/25 10:04 BP 130/68 10/12/25 10:04 Pulse Ox 97 10/12/25 10:04 Oxygen Delivery Method Room Air 10/12/25 10:04 BMI result Body Mass Index 45.2 Office Procedures Glucose Monitoring Details Details: See [facility] [address] - Glucose monitoring, continuous-physician I&R Procedure code (CPT) selection complete Results Reviewed Results Reviewed: Laboratory Last Values Glucose (Clinic) 127 mg/dL (60-115) H 10/12/25 10:17 Laboratory Tests 08/03/24 01/30/25 10/05/25 10:26 09:22 11:26 Creatinine 1.00 Estimated GFR 55 Hemoglobin A1c % 6.2 H AST 26 ALT 12 Triglycerides 115 Cholesterol 161 LDL Cholesterol, Calc 99 HDL Cholesterol 39 L Urine Creatinine 101.51 Urine Microalbumin 228.0 Microalb/Creat Ratio 156.9 H Assessment & Plan Assessment & Plan (1) Type 2 diabetes mellitus with morbid obesity: Code(s): E11.69 - Type 2 diabetes mellitus with other specified complication; E66.01 - Morbid (severe) obesity due to excess calories Category: Medical (2) Microalbuminuria due to type 2 diabetes mellitus: Code(s): E11.29 - Type 2 diabetes mellitus with other diabetic kidney complication; R80.9 - Proteinuria, unspecified Category: Medical (3) Hypertension: Code(s): I10 - Essential (primary) hypertension Category: Medical Qualifiers: Hypertension type: essential hypertension Qualified Code(s): I10 - Essential (primary) hypertension (4) Morbid obesity: Code(s): E66.01 - Morbid (severe) obesity due to excess calories Category: Medical Plan In summary this is a 69-year-old female with controlled type 2 diabetes. She is compliant with glucose monitoring. She was instructed to bring her CGM to all appointments. Continue Ozempic to 2 mg weekly. Continue insulin glargine to 18 units every evening. Continue metformin 1000 mg twice daily. We reviewed complications of diabetes and diabetic diet. Avoid juices and soda. Follow low carbohydrate, low sugar diet. Exercise encouraged. Congratulated on weight loss. If you experience low blood sugar, treat this by eating a chewable fruit candy like skittles or jelly beans (about 8 pieces), 4 ounces (1/2 cup) of fruit juice (not diet), 1 tablespoon of honey or 4 glucose tablets. If your blood sugar is under 50, take double the amount of one of the above. Recheck your blood sugar in 15 minutes. Continue current medication medication for hypertension. Avoid nephrotoxic medication. Continue MARCELINA inhibitor for renal protection. Follow up in 3 months for type 2 diabetes. Orders: Orders AMB Glucose Monitoring Today E11.9 - Type 2 diabetes mellitus without complications Coding Level of Care Code Est Pt Level 4 (93347) Diagnoses Type 2 diabetes mellitus with morbid obesity E11.69; E66.01 Microalbuminuria due to type 2 diabetes mellitus E11.29; R80.9 Essential hypertension I10 Hypertension type: essential hypertension Morbid obesity E66.01 CPT Codes Details - CPT: 88133 - Glucose monitoring, continuous-physician I&R ([id number])
[2025-10-12 10:22] LABS: Glucose, Whole Blood 127 mg/dL (60-115)
--- OUTSIDE RECORDS SUMMARY | 2025-10-12 11:48 | XMS_ITS | Patient Health Record ---
Author Organization [facility] Address [address] [place] [address] Care Team Providers Care Chairman Emeritus Name Role Phone Behzad Arzola MD Primary Care Provider Destin Thomas [phone] Allergies Allergen (clinical drug ingredient) Drug/Non Drug [...] Problem Screening for malignant neoplasm of colon (806212479) Encounter for screening for malignant neoplasm of colon (Z12.11) Active confirmed Problem Preprocedural examination (306534012484028) Preprocedural examination (Z01.818) Active confirmed Plan Of Treatment Pending Test Test Name Order Date GI BIOPSY 08/07/2019 Future Test Test Name Order Date COLONOSCOPY 03/31/2019 Insurance Providers Payer Name Payer Address Payer Phone Subscriber Number Group Number Insured Name Patient Relationship to Insured Coverage Start Date Coverage End Date [facility] ([employer]) [address] [place] [address] [phone] [id number] WINNIE MCCROMICK Self - patient is the insured Medical (General) History Medical History History ICD Code Hypertension Allergic rhinitis Hyperlipidemia Arthritis IDDM Urinary incontinence Negative screening colonoscopy in 07/[address] Tomas Briggs [place],CVA,Lung disease,renal disease Surgical History Surgery Date(Month/Year) 1989
--- OUTSIDE RECORDS SUMMARY | 2025-10-12 11:49 | XMS_ITS | Patient Health Record ---
Author Organization [facility] Address [address] [place] [address] Care Team Providers Care Marble Worker Name Role Phone Ness GALVEZ, Behzad Primary Care Provider Unavaila Edilson Ricketts Unavailable [phone] Allergies Allergen (clinical drug ingredient) Drug/Non Drug [...] Problem Acquired hammer toe of right foot (2437300647544840 ) Other hammer toe(s) (acquired), right foot (M20.41) Active confirmed Response to treatment, Improvemen t Problem Acquired hammer toe of left foot (5059427824683825 ) Other hammer toe(s) (acquired), left foot (M20.42) Active confirmed Response to treatment, Improvemen t Problem Polyneuropathy due to type 2 diabetes mellitus (005627224) Type 2 diabetes mellitus with diabetic polyneuropathy (E11.42) Active confirmed Vital Signs Blood pressure diastolic 70 mm Hg 09/05/2025 Height 5ft 6in in 09/05/2025 Blood pressure systolic 128 mm Hg 09/05/2025 Weight 254 lbs 09/05/2025 BMI 40.99 kg/m2 09/05/2025 Procedures Procedure Date Ordered Date Performed Result Body Sit e 48349-SOSREMY NAIL, 6 OR MORE 11/27/2024 N/A 54138-Yrwiucrw Plate 11/27/2024 N/A 23629-Iaiuplkr Plate Each Additional 11/27/2024 N/A 70529-YYGY SKIN LESIONS, OVER 4 11/27/2024 N/A 09630-GTEWWJY NAIL, 6 OR MORE 03/05/2025 N/A 29543-Hipuupdf Plate 03/05/2025 N/A 55578-Fvixwuqd Plate Each Additional 03/05/2025 N/A 81112-BUHG SKIN LESIONS, OVER 4 03/05/2025 N/A 28435-HZBGMIT NAIL, 6 OR MORE 06/06/2025 N/A 32726-Maztwoqh Plate 06/06/2025 N/A 14157-OFMX SKIN LESIONS, OVER 4 06/06/2025 N/A 16476-IMQQALU NAIL, 6 OR MORE 09/05/2025 N/A 92213-Aozhnnxa Plate 09/05/2025 N/A 40741-TZMR SKIN LESIONS, OVER 4 09/05/2025 N/A Encounters Encounter Location Date Provider Diagnosis [address] [address] 11/27/2024 Edilson Luis Pain in right toe(s) M79.674 ; Tinea unguium B35.1 ; Pain in left toe(s) M79.675 ; Type 1 diabetes mellitus without complication E10.9 ; Ingrown nail L60.0 and Xerosis of skin L85.[address] [address] 03/05/2025 Edilsonjanette Luis Tinea unguium B35.1 ; Type 2 diabetes mellitus with diabetic polyneuropathy E11.42 ; Ingrowing nail L60.0 ; Other hammer toe(s) (acquired), right foot M20.41 and Other hammer toe(s) (acquired), left foot M20.[address] [address] 06/06/2025 Edilsonjanette SainiJanelle Type 2 diabetes mellitus with diabetic polyneuropathy E11.42 ; Tinea unguium B35.1 ; Ingrown nail L60.0 ; Pain in right toe(s) M79.674 and Cellulitis of toe of right foot L03.[address] [address] 09/05/2025 Edilsonjanette SainiJanelle Type 2 diabetes mellitus [...] Foot, left 2V 04/04/2015 Glucose Fasting 04/04/2015 31689-XJOJYGN NAIL, 6 OR MORE 07/09/2015 82864-UPBZLJF NAIL, 6 OR MORE 09/27/2015 91083-QFSPGQR NAIL, 6 OR MORE 01/03/2016 76302-PMPDTZP NAIL, 6 OR MORE 04/15/2016 24763-GPXNWMB NAIL, 6 OR MORE 07/15/2016 17093-XSWDKPX NAIL, 6 OR MORE 10/14/2016 84395-PCBUUUU NAIL, 6 OR MORE 01/25/2017 63095-EZOQZQD NAIL, 6 OR MORE 04/21/2017 99813-LNQCTUA NAIL, 6 OR MORE 04/04/2015 83487-KPHPEHZ NAIL, 6 OR MORE 07/28/2017 18002-BIUUFJN NAIL, 6 OR MORE 10/27/2017 42208-GOLMHWI NAIL, 6 OR MORE 01/26/2018 88834-YBAXPKP NAIL, 6 OR MORE 04/27/2018 08566-RQXCJXC NAIL, 6 OR MORE 11/02/2018 33369-ECUPQIC NAIL, 6 OR MORE 2019 70768-XFPIEKF NAIL, 6 OR MORE 08/03/2018 91921-BGLWMEC NAIL, 6 OR MORE 05/03/2019 21422-YBDGFND NAIL, 6 OR MORE 08/16/2019 99228-ISMJXLE NAIL, 6 OR MORE 11/15/2019 54010-FZMVQNC NAIL, 6 OR MORE 12/02/2020 37127-XWAMZHD NAIL, 6 OR MORE 04/21/2021 50430-PAIZBGW NAIL, 6 OR MORE 08/13/2021 96438-TTSKDSN NAIL, 6 OR MORE 11/10/2021 34009-EYBUCZR NAIL, 6 OR MORE 09/02/2020 91105-VNHILSC NAIL, 6 OR MORE 02/09/2022 77966-ZMRWEOV NAIL, 6 OR MORE 05/11/2022 62391-CMDPHGF NAIL, 6 OR MORE 09/24/2022 71649-MMIOEAK NAIL, 6 OR MORE 01/25/2023 11883-URFUJUI NAIL, 6 OR MORE 07/14/2023 87026-ENBPBVK NAIL, 6 OR MORE 11/10/2023 56792-PHODJFK NAIL, 6 OR MORE 02/16/2024 32414-SHOGWLA NAIL, 6 OR MORE 05/17/2024 34175-SMYPIBD NAIL, 6 OR MORE 08/17/2024 92746-CIYDFGO NAIL, 6 OR MORE 11/27/2024 50446-CIJEMQI NAIL, 6 OR MORE 03/05/2025 58321-EHFKLXW NAIL, 6 OR MORE 06/06/2025 51606-RPUDPWK NAIL, 6 OR MORE 09/05/2025 86289-Hcuorwel Plate 09/05/2025 46601-Ortqvcux Plate 03/05/2025 59357-Cpvlgwen Plate 11/02/2018 80690-Anstfxvb Plate 06/06/2025 73098-Eqzdtkua Plate 11/27/2024 37927-Qwhfoaec Plate 08/17/2024 01306-Pphorzdy Plate 05/17/2024 26083-Qlbhjnqv Plate 02/16/2024 52294-Spohkjxs Plate 11/10/2023 31098-Obvfrvmt Plate 07/14/2023 48783-Pwogpclu Plate 01/25/2023 32994-Wpcuskqs Plate 09/24/2022 44281-Acykznqx Plate 05/11/2022 97280-Gricscew Plate 02/09/2022 45722-Tnfkweoo Plate 09/02/2020 95737-Gbbifurr Plate 11/10/2021 38871-Kttiwojq Plate 08/13/2021 69322-Rpcegvgg Plate 04/21/2021 05593-Wgyelofb Plate 12/02/2020 58030-Kzdeqfkw Plate 11/15/2019 61957-Fwtkbzjf Plate 08/16/2019 23843-Qqmefhkq Plate 05/03/2019 77265-Kougptpt Plate 2019 58750-Oinuqumq Plate 10/27/2017 81981-Qyxkvwso Plate 08/03/2018 98516-Jiqdpzrh Plate 04/27/2018 85016-Sogiixln Plate 01/26/2018 83893-Loxkatdb Plate 07/28/2017 00167-Uacrylla Plate 01/25/2017 47264-Ilbuildz Plate 04/21/2017 87782-Pmgydryo Plate 10/14/2016 47750-Sjnjezbh Plate 07/15/2016 47058-Ggopzxab Plate 04/15/2016 00928-Nujfipab Plate 01/03/2016 46217-Xtoxytui Plate 09/27/2015 07321-Wvpytcqw Plate 07/09/2015 59539-Oazxridj Plate 04/04/2015 58862-Hkjqteuc Plate Each Additional 09/2015 13038-Ziahwche Plate Each Additional 41656-Oyqmfjak Plate Each Additional 03/2016 08504-Hvtqiejp Plate Each Additional 60409-Gnyfarkc Plate Each Additional 44181-Qvgtpvrf Plate Each Additional 35919-Kpmwpgvt Plate Each Additional 09608-Obhwgtcs Plate Each Additional 39683-Aivhgwjz Plate Each Additional 03/2018 56709-Pwcbioro Plate Each Additional 04/2019 50197-Okltwooi Plate Each Additional 03/2019 15179-Xtckksbn Plate Each Additional 03/2018 76259-Pnsidkmq Plate Each Additional 07917-Uysiebsi Plate Each Additional 66960-Korqfotv Plate Each Additional 02/2021 65366-Jutyemhy Plate Each Additional 79353-Kgbicgwy Plate Each Additional 64759-Sljbfiqh Plate Each Additional 14392-Arliupem Plate Each Additional 03/2020 50061-Bskaiojb Plate Each Additional 77356-Rasjbexy Plate Each Additional 26078-Rrunmslv Plate Each Additional 12069-Gwsgxzgj Plate Each Additional 81012-Psglxyue Plate Each Additional 65933-Kitzgsew Plate Each Additional 14250-Ysbuyxvq Plate Each Additional 35868-Yyqliokg Plate Each Additional 32266-Moatucvh Plate Each Additional 47734-Dhgxykke Plate Each Additional 15049-Nijhyzom Plate Each Additional 05/2025 30628-RJHF SKIN LESIONS, OVER 4 03/05/20 60897-GLKH SKIN LESIONS, OVER 4 09/05/20 25 79928-ULHN SKIN LESIONS, OVER 4 11/27/20 24 18647-HSPY SKIN LESIONS, OVER 4 06/06/20 16449-WPDV SKIN LESIONS, OVER 4 08/17/20 24 68985-VJMY SKIN LESIONS, OVER 4 05/17/20 24 89991-SRMQ SKIN LESIONS, OVER 4 02/16/20 24 95394-TRVX SKIN LESIONS, OVER 4 11/10/20 23 91766-KZAN SKIN LESIONS, OVER 4 07/14/20 23 41691-VFCL SKIN LESIONS, OVER 4 01/25/20 23 89241-KFPA SKIN LESIONS, OVER 4 09/24/20 22 24890-LNFY SKIN LESIONS, OVER 4 05/11/20 59740-RUCI SKIN LESIONS, OVER 4 11/10/20 33467-BQOA SKIN LESIONS, OVER 4 08/13/20 21 43110-AQGE SKIN LESIONS, 2 TO 4 04/21/20 21200-EXIK SKIN LESIONS, 2 TO 4 12/02/19 21 28187-WLKH SKIN LESIONS, 2 TO 4 04/04/20 15 22804,X0314-OSO TENDON SHEATH/LIGAMENT 0 06/14/2015 Next Appt Details Provider Name:Edilson Luis , 12/24/2025 08:30:00 AM, [address], [place], [address], Insurance Providers Payer Name Payer Address Payer Phone Subscriber Number Group Number Insured Name Patient Relationship to Insured Coverage Start Date Coverage End Date [facility] [address] [place] [address] [id number] Kathryn Arzola Self - patient is the insured Medical (General) History Medical History History ICD Code Diabetic Hypertension Allergic rhinitis Hypercholesterolemia Surgical History Surgery Date(Month/Year) section Hospitalization History Reason Date(Month/Year) [place] [facility] [place]
== END 2025-10-12 11:13 | disposition home or self-care (01) ==
LOC: HO.ENCR 10:00
PROVIDERS: PCP Internal Medicine; Visit Provider Physician Assistant Medical
DX: E11.69 Type 2 diabetes mellitus with other specified complication (principal); E66.01 Morbid (severe) obesity due to excess calories; E11.29 Type 2 diabetes mellitus with other diabetic kidney complication; R80.9 Proteinuria, unspecified; I10 Essential (primary) hypertension

== ENCOUNTER → 2025-10-12 10:00 | Outpatient (BNVA) | payer OTHER, SELFPAY | PROVIDERS: PCP Internal Medicine; Visit Provider Physician Assistant Medical | DX: E11.69 Type 2 diabetes mellitus with other specified complication (principal); E66.01 Morbid (severe) obesity due to excess calories | CPT/HCPCS: 82947 ==

== ENCOUNTER 2025-10-27 10:51 | Outpatient (AMB) | payer OTHER, SELFPAY ==
--- NOTE | 2025-10-27 10:52 | AM.OFFWIN_ITS ---
Intake Vital Signs 10/27/25 10:55 Height 5 ft 2 in Weight 113.398 kg BMI 45.7 BP 130/64 Blood Pressure Location Lt brachial Position Sitting Respiration 16 Pulse 92 Pulse Source Pulse Oximeter Temp 97.9 F Temp Source Oral Pulse Oximetry (%) 98 Oxygen Delivery Method Room Air Intake Visit Reasons: EP right hand/wrist pain Intake Note: Pt is here today c/o Rt hand and wrist pain swollen due to cat scratch and bites on at home Patient Tobacco Use Status: Never used Tobacco Allergies Sulfa (Sulfonamide Antibiotics) (Sulfa (Sulfonamides)) Allergy (Mild, Verified 10/27/25 10:57) RASH cephalexin (From KEFLEX) Allergy (Unknown, Verified 10/27/25 10:57) RASH clavulanic acid (Augmentin) Allergy (Unknown, Verified 10/27/25 10:57) vaginal irritation empagliflozin (From Jardiance) Adverse Reaction (Intermediate, Verified 10/27/25 10:57) Rash amoxicillin (From Augmentin) Adverse Reaction (Mild, Verified 10/27/25 10:57) VAGINAL IRRITATION tolterodine Adverse Reaction (Unknown, Verified 10/27/25 10:57) Hives, rash HPI HPI Comments History of Present Illness Details Chief Complaint: ?My cat bit and scratched my right wrist on , and it?s swollen and painful.? History of Present Illness: ? 70-year-old female presents two days after sustaining multiple cat bites and scratches to the right wrist. ? Incident occurred on when the cat?s claw became caught on the patient?s sleeve; cat panicked and bit/scratched her. ? Cat is strictly indoor since it has lived with her; last rabies vaccination unknown (cat previously belonged to daughter). ? Patient notes progressive swelling, significant soreness, and inflammation of the right wrist. Very painful ROM to right wirst ? Denies certainty of last tetanus immunization. ? Medication allergies: sulfa drugs (unspecified reaction), Augmentin (rash). Possible prior reaction to cephalexin (Keflex); uncertain about amoxicillin allergy. ? Patient mentioned Fausto. CPAP. but this does not appear to be relevant to current allergies or medications. ? No other systemic symptoms reported during visit. ? Patient aware of rabies risk and expresses willingness to pursue rabies post- exposure prophylaxis (PEP) and first-dose antibiotics in the Emergency Department (ED). ? Patient requests provider call ahead to ED to facilitate care. Brief clinical summary: 21-year-old female with right wrist cat bite/scratch 48 hours ago, now with swelling and pain. Cat?s rabies vaccination status unknown; patient uncertain of tetanus status and reports multiple antibiotic allergies. Discussed need for rabies PEP, tetanus booster if indicated, and empiric ant ibiotics. Plan for ED referral where rabies immunoglobulin and first-dose antibiotics can be administered under observation for allergic reaction. Problem #1: Cat bite/scratch to right wrist with concern for cellulitis and potential rabies exposure Assessment: High infection risk due to cat oral treva; swelling suggests early cellulitis. Cat?s rabies vax status unclear, exposure within 72-hour window for PEP. Plan: * Call ahead to [facility] ED to notify of patient arrival for rabies immunoglobulin and vaccine series initiation. --> spoke to Yuliya WARNER * ED to evaluate and initiate rabies vaccine series if indicated, based on exposure risk and cat's vaccination status. * Elevate wrist, monitor for increased redness, streaking, fever, or worsening pain; return sooner if these occur. * Doxycyline and Metronidazole ordered due to patients alllergies Problem #2: Tetanus immunization status unknown Assessment: Last tetanus booster date unknown; bite wound present. Plan: * ED to assess tetanus immunization status and provide booster if indicated. 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 Skin: Cat bite santiago and scratches present. All other systems not specifically discussed. Const All systems reviewed & are unremarkable except as noted in HPI and below Physical Exam Exam Exam: Physical Exam: ? Right wrist: Visible puncture wounds and linear scratches consistent with cat bite/scratch; notable swelling and localized tenderness to right wrist/ hand. Very painful ROM of R wrist. 2+ radial pulses. normal distal sensation Vital Signs: Last Vital Signs Temp 97.9 F 10/27/25 10:55 Pulse 92 10/27/25 10:55 Resp 16 10/27/25 10:55 BP 130/64 10/27/25 10:55 Pulse Ox 98 10/27/25 10:55 Oxygen Delivery Method Room Air 10/27/25 10:55 BMI result Body Mass Index 45.7 vss Assessment & Plan Assessment & Plan (1) Cat bite: Code(s): W55.01XA - Bitten by cat, initial encounter (2) Wrist pain: Code(s): M25.539 - Pain in unspecified wrist Plan Take your medications as prescribed. If you were prescribed antibiotics today, it is important that you take your medication to their entirety, do not skip any doses, do not finish them early. Follow-up with your primary care provider this week. Return to the emergency department with new or worsening symptoms. In case of emergency call 911 Medications: New doxycycline hyclate 100 mg PO BID 14 caps 0RF 7 days metronidazole 500 mg PO BID 14 tabs 0RF 7 days Coding Level of Care Code Est Pt Level 3 (46408) Diagnoses Cat bite W55.01XA Wrist pain M25.539
--- OUTSIDE RECORDS SUMMARY | 2025-10-27 10:53 | XMS_ITS | Patient Health Record ---
Author Organization [facility] Address [address] [place] [address] Care Team Providers Care Services Account Manager Name Role Phone Behzad Arzola MD Primary Care Provider Destin Thomas Unavailable [phone] Allergies Allergen (clinical drug ingredient) Drug/Non Drug Allergy documented on EMR Reaction Allergy Type Onset Date Status Information temporarily unavailable Augmentin Unknown Drug Allergy Active Information temporarily unavailable Bactrim Unknown Drug Allergy Active Information temporarily unavailable Keflex Unknown Drug Allergy Active Information temporarily unavailable Sulfacetamide Sodium Unknown Drug Allergy Active Reason For Referral No Information Medications Medication SIG (Take, Route, Frequency, Duration) Notes Start Date End Date Status Lantus SoloStar 100 UNIT/ML Solution Pen-injector INJECT 60 UNITS INTO THE SKIN ONCE DAILY Subcutaneous; Duration: 50 Active Ibuprofen 800 MG Tablet 1 TABLET NEED ED THREE TIMES A DAY ORALLY 90 Oral; Duration: 90 Active metFORMIN HCl 1000 MG Tablet TAKE 1 TABL ET BY MOUTH TWICE A DAY WITH MEALS Oral; Duration: 90 Active Flonase 50 MCG/DOSE Inhaler 1 spray in e ach nostril Nasally Once a day; Duration: 30 day(s) Active Pravastatin Sodium 10 MG Tablet TAKE 1 TABLET BY MOUTH EVERY DAY Oral; Duration: 30 Active Fish Oil 1000 MG Capsule 1 capsule Orall y Once a day; Duration: 30 day(s) Active amLODIPine Besylate 10 MG Tablet TAKE 1 TABLET BY MOUTH EVERY DAY Oral; Duration: 90 Active Vitamin D3 1000 UNIT Capsule 1 capsule O rally Once a day; Duration: 30 day(s) Active Aspirin Adult Low Strength 8 1 MG Tablet Delayed Release 1 tablet Orally Once a day; Duration: 30 day(s) Active Multivitamin Adult - Tablet as directed Orally Active Victoza 18 MG/3ML Solution Pen-injector as directed Subcutaneous Active hydroCHLOROthiazide 25 MG Tablet TAKE 1 TABLET BY MOUTH EVERY DAY Oral; Duration: 90 Active Cyclobenzaprine HCl 10 MG Tablet TAKE 1 TABLET BY MOUTH THREE TIMES A DAY Oral; Duration: 13 Active Lisinopril 20 MG Tablet TAKE 1 TABLET BY MOUTH EVERY DAY Oral; Duration: 90 Active Immunizations Vaccine Route Administration Date Status Comme nts Influenza Unknown 07/30/2018 Administered Social History Tobacco Use: Social History Observation Description Date Details (start date - stop date) Never Smoker NA - NA Social History Drugs/Alcohol: Social Info Question Answer Notes Alcohol Screen Did you have a drink containing alcohol in the past year? Yes How often did you have a drink containing alcohol in the past year? Never (0 point) How many drinks did you have on a typical day when you were drinking in the past year? 1 or 2 drinks (0 point) How often did you have 6 or more drinks on one occasion in the past year? 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 [employer] Notes: Nonsmoker; occasional drink on special occasions Problems Problem Type SNOMED Code ICD Code Onset Dates Problem Status W/U Status Risk Notes Problem Information temporarily unavailable Encounter for screening for malignant neoplasm of colon (Z12.11) Active confirmed Problem Information temporarily unavailable Preprocedural examination (Z01.818) Active confirmed Plan Of Treatment Pending Test Test Name Order Date GI BIOPSY 08/07/2019 Future Test Test Name Order Date COLONOSCOPY 03/31/2019 Insurance Providers Payer Name Payer Address Payer Phone Subscriber Number Group Number Insured Name Patient Relationship to Insured Coverage Start Date Coverage End Date [facility] L) [address] [facility] [place] [address] [id number] WINNIE MCCORMICK Self - patient is the insured Medical (General) History Medical History History ICD Code Hypertension Allergic rhinitis Hyperlipidemia Arthritis IDDM Urinary incontinence Negative screening colonoscopy in 07/[address] Tomas [place]gs [place],CVA,Lung disease,renal disease Surgical History Surgery Date(Month/Year) 1989
--- OUTSIDE RECORDS SUMMARY | 2025-10-27 10:53 | XMS_ITS | Patient Health Record ---
Author Organization [facility] Address [address] [place] [address] Care Team Providers Care Escalator Attendant Name Role Phone Behzad Arzola MD Primary Care Provider Unavaila Edilson Ricketts Unavailable [phone] Allergies Allergen (clinical drug ingredient) Drug/Non Drug Allergy documented on EMR Reaction Allergy Type Onset Date Status Information temporarily unavailable Augmentin rash Drug Allergy Active Information temporarily unavailable Bactrim rash Drug Allergy Active Information temporarily unavailable Keflex rash Drug Allergy Active Information temporarily unavailable Jardiance Yeast Infection Drug Allergy Active Information temporarily unavailable Sulfa Antibiotics rash Drug Allergy Active Results [...] Status Risk Notes Problem Information temporarily unavailable Other hammer toe(s) (acquired), right foot (M20.41) Active confirmed Response to treatment, Improvemen t Problem Information temporarily unavailable Other hammer toe(s) (acquired), left foot (M20.42) Active confirmed Response to treatment, Improvemen t Problem Information temporarily unavailable Type 2 diabetes mellitus with diabetic polyneuropathy (E11.42) Active confirmed Vital Signs Blood pressure diastolic 70 mm Hg 09/05/2025 Height 5ft 6in in 09/05/2025 Blood pressure systolic 128 mm Hg 09/05/2025 Weight 254 lbs 09/05/2025 BMI 40.99 kg/m2 09/05/2025 Procedures Procedure Date Ordered Date Performed Result Body Sit e 74243-RYGTSDU NAIL, 6 OR MORE 11/27/2024 N/A 79542-Bobnwzkv Plate 11/27/2024 N/A 08106-Ayqgonkl Plate Each Additional 11/27/2024 N/A 22816-TWXK SKIN LESIONS, OVER 4 11/27/2024 N/A 65030-OWLSDTF NAIL, 6 OR MORE 03/05/2025 N/A 88339-Rllcnrmb Plate 03/05/2025 N/A 73994-Yvdqwvow Plate Each Additional 03/05/2025 N/A 64220-FLGD SKIN LESIONS, OVER 4 03/05/2025 N/A 13962-TJZLZPR NAIL, 6 OR MORE 06/06/2025 N/A 93348-Psigrlel Plate 06/06/2025 N/A 94686-OWRL SKIN LESIONS, OVER 4 06/06/2025 N/A 27903-LAKQXJI NAIL, 6 OR MORE 09/05/2025 N/A 74195-Syvezlwn Plate 09/05/2025 N/A 94520-TNXK SKIN LESIONS, OVER 4 09/05/2025 N/A Encounters Encounter Location Date Provider Diagnosis [facility] [address] [address] 11/27/2024 Edilson Janelle Pain in right toe(s) M79.674 ; Tinea unguium B35.1 ; Pain in left toe(s) M79.675 ; Type 1 diabetes mellitus without complication E10.9 ; Ingrown nail L60.0 and Xerosis of skin L85.[address] [address] 03/05/2025 Edilson Luis Tinea unguium B35.1 ; Type 2 diabetes mellitus with diabetic polyneuropathy E11.42 ; Ingrowing nail L60.0 ; Other hammer toe(s) (acquired), right foot M20.41 and Other hammer toe(s) (acquired), left foot M20.[address] [address] 06/06/2025 Edilson Luis Type 2 diabetes mellitus with diabetic polyneuropathy E11.42 ; Tinea unguium B35.1 ; Ingrown nail L60.0 ; Pain in right toe(s) M79.674 and Cellulitis of toe of right foot L03.[address] [address] 09/05/2025 Edilson Luis Type 2 diabetes mellitus [...] Foot, left 2V 04/04/2015 Glucose Fasting 04/04/2015 98557-QLBTVDN NAIL, 6 OR MORE 07/09/2015 69432-DMTOCKU NAIL, 6 OR MORE 09/27/2015 79378-UHGYTLR NAIL, 6 OR MORE 01/03/2016 17160-ETFTTOF NAIL, 6 OR MORE 04/15/2016 78027-XYEVJUC NAIL, 6 OR MORE 07/15/2016 93339-JJJWLHY NAIL, 6 OR MORE 10/14/2016 93581-PQAIVMF NAIL, 6 OR MORE 01/25/2017 06675-RXKDKKX NAIL, 6 OR MORE 04/21/2017 07876-FUTVUVD NAIL, 6 OR MORE 04/04/2015 85391-PPBVQYT NAIL, 6 OR MORE 07/28/2017 47802-OFBPSEI NAIL, 6 OR MORE 10/27/2017 10729-ENBMXJX NAIL, 6 OR MORE 01/26/2018 16222-OFEXANF NAIL, 6 OR MORE 04/27/2018 50482-FEPYLIP NAIL, 6 OR MORE 11/02/2018 90617-YHUKPRB NAIL, 6 OR MORE 2019 87722-POHVDLS NAIL, 6 OR MORE 08/03/2018 97232-EETRHRA NAIL, 6 OR MORE 05/03/2019 61046-DPOMXEZ NAIL, 6 OR MORE 08/16/2019 71965-PYMDDNK NAIL, 6 OR MORE 11/15/2019 91109-JDXSSTU NAIL, 6 OR MORE 12/02/2020 85084-AFZJNNJ NAIL, 6 OR MORE 04/21/2021 29933-IWMROOD NAIL, 6 OR MORE 08/13/2021 22839-GLMFBDT NAIL, 6 OR MORE 11/10/2021 91448-MDRVVSH NAIL, 6 OR MORE 09/02/2020 49177-ZBPCLJS NAIL, 6 OR MORE 02/09/2022 39453-KZIQNVT NAIL, 6 OR MORE 05/11/2022 29916-ZJOTLJT NAIL, 6 OR MORE 09/24/2022 08415-XKUCSFA NAIL, 6 OR MORE 01/25/2023 25552-BDUIBJU NAIL, 6 OR MORE 07/14/2023 59714-LUZLMGB NAIL, 6 OR MORE 11/10/2023 37876-FPCSFCO NAIL, 6 OR MORE 02/16/2024 77503-JWOTINR NAIL, 6 OR MORE 05/17/2024 88306-XSGBGFG NAIL, 6 OR MORE 08/17/2024 70386-KTFVWII NAIL, 6 OR MORE 11/27/2024 72592-PLJYVYP NAIL, 6 OR MORE 03/05/2025 58044-AJXGVIR NAIL, 6 OR MORE 06/06/2025 09013-RAVGULA NAIL, 6 OR MORE 09/05/2025 69835-Hukhkxyy Plate 09/05/2025 35735-Lliyrsui Plate 03/05/2025 33300-Ohyydaqw Plate 11/02/2018 61892-Qjlwctjt Plate 06/06/2025 61591-Kaypodvq Plate 11/27/2024 93688-Apgcvuaw Plate 08/17/2024 14258-Dnotkckx Plate 05/17/2024 50169-Wvpiyhuw Plate 02/16/2024 29195-Wxrqyyry Plate 11/10/2023 56057-Urzyihhz Plate 07/14/2023 65036-Snpmqlep Plate 01/25/2023 47926-Dbqedypo Plate 09/24/2022 19615-Huuemvbe Plate 05/11/2022 69382-Rdoljpwk Plate 02/09/2022 08861-Rdqtfkwh Plate 09/02/2020 66874-Umvtqxuc Plate 11/10/2021 39356-Yhlooapm Plate 08/13/2021 85412-Tyjdkqdm Plate 04/21/2021 66304-Jhlulplr Plate 12/02/2020 94838-Nvcrmsto Plate 11/15/2019 56090-Qnijywcf Plate 08/16/2019 69487-Umfzuhrw Plate 05/03/2019 91121-Egjrdmrb Plate 2019 21010-Ysrzqvee Plate 10/27/2017 51532-Ntsbtanr Plate 08/03/2018 76542-Gofqzwpz Plate 04/27/2018 69116-Isvuclhi Plate 01/26/2018 73403-Iqbgazip Plate 07/28/2017 78740-Wnyasqkd Plate 01/25/2017 67640-Iseapjep Plate 04/21/2017 21225-Regpjyug Plate 10/14/2016 49277-Tkdaxvbr Plate 07/15/2016 43807-Lineelog Plate 04/15/2016 20272-Xwiuineg Plate 01/03/2016 35418-Omwioxmk Plate 09/27/2015 06770-Tlsrumqw Plate 07/09/2015 04897-Vtppphle Plate 04/04/2015 45514-Zhjzdjpb Plate Each Additional 09/2015 37892-Kczjlivr Plate Each Additional 78077-Lrjjhxhj Plate Each Additional 03/2016 17044-Fapdzwtl Plate Each Additional 14122-Ivxbbfcy Plate Each Additional 14180-Rmrieykr Plate Each Additional 99028-Nmrotagx Plate Each Additional 96528-Nowesssq Plate Each Additional 48993-Xnxfbrca Plate Each Additional 03/2018 25087-Zbolkvjw Plate Each Additional 04/2019 15359-Mdcvubck Plate Each Additional 03/2019 49903-Jtwjiidz Plate Each Additional 03/2018 65283-Szctmtna Plate Each Additional 66808-Kucxcveh Plate Each Additional 27442-Vxyrxfac Plate Each Additional 02/2021 76014-Vxoujybf Plate Each Additional 88926-Gkxeloca Plate Each Additional 52186-Zesoqlft Plate Each Additional 85539-Ipuxpkeu Plate Each Additional 03/2020 30527-Qwhifvko Plate Each Additional 68639-Khpncyde Plate Each Additional 86539-Glblncro Plate Each Additional 52961-Gtowukio Plate Each Additional 53108-Gfmqwbmp Plate Each Additional 51972-Ytsnqebq Plate Each Additional 96676-Coukpedv Plate Each Additional 12155-Vvsltwlc Plate Each Additional 31756-Rwkdafnr Plate Each Additional 94697-Kbnyuzfe Plate Each Additional 64705-Fbvozkoz Plate Each Additional 05/2025 82070-QTJX SKIN LESIONS, OVER 4 03/05/20 11476-FICO SKIN LESIONS, OVER 4 09/05/20 23890-BERI SKIN LESIONS, OVER 4 11/27/20 24 33722-RIKM SKIN LESIONS, OVER 4 06/06/20 54691-QTEZ SKIN LESIONS, OVER 4 08/17/20 24 85345-VZUX SKIN LESIONS, OVER 4 05/17/20 24 52636-ZKNR SKIN LESIONS, OVER 4 02/16/20 24 63011-XLWX SKIN LESIONS, OVER 4 11/10/20 59241-NZHA SKIN LESIONS, OVER 4 07/14/20 52692-BPYS SKIN LESIONS, OVER 4 01/25/20 23 59891-FXIV SKIN LESIONS, OVER 4 09/24/20 96250-DRMW SKIN LESIONS, OVER 4 05/11/20 61332-NJRN SKIN LESIONS, OVER 4 11/10/20 05954-SZHR SKIN LESIONS, OVER 4 08/13/20 20681-GGPJ SKIN LESIONS, 2 TO 4 04/21/20 14803-ADUZ SKIN LESIONS, 2 TO 4 12/02/19 42036-ZCUX SKIN LESIONS, 2 TO 4 04/04/20 15 63581,M4179-ALC TENDON SHEATH/LIGAMENT 0 06/14/2015 Next Appt Details Provider Name:Edilson Luis , 12/24/2025 08:30:00 AM, [address], [place], [address], Insurance Providers Payer Name Payer Address Payer Phone Subscriber Number Group Number Insured Name Patient Relationship to Insured Coverage Start Date Coverage End Date [employer] [address] [place] [address] [id number] Kathryn Arzola Self - patient is the insured Medical (General) History Medical History History ICD Code Diabetic Hypertension Allergic rhinitis Hypercholesterolemia Surgical History Surgery Date(Month/Year) section Hospitalization History Reason Date(Month/Year) [place] 08/07/19 [facility] [place] in [place] 02/2019
[2025-10-27 10:55] VITALS: BP 130/64; PULSE 92; RESP 16; TEMP 36.6; O2SAT 98; BMI 45.7
== END 2025-10-27 12:32 | disposition home or self-care (01) ==
PROVIDERS: PCP Internal Medicine; Visit Provider Physician Assistant
DX: M25.539 Pain in unspecified wrist (principal); W55.01XA Bitten by cat, initial encounter

== ENCOUNTER 2025-10-27 11:37 | Inpatient (IN) | payer OTHER, SELFPAY ==
--- NOTE | ~2025-10-27 | XR_ITS ---
CLINICAL HISTORY: pain, injury 3 view right hand Comparison: None provided Findings: Bones intact. No dislocations. No significant loss of joint space or osteophytes. No erosions. No radiopaque foreign body. Negative ulnar variance. Mild osteopenia. IMPRESSION: 1. No acute findings This document has been electronically signed by: Chilo Rice MD on 10/27/2025 17:19:56
[2025-10-27 11:40] VITALS: BP 144/75; PULSE 82; RESP 20; TEMP 36.5; O2SAT 96; BMI 45.0
--- NOTE | 2025-10-27 11:43 | ED_ITS ---
HPI - General Adult General Chief complaint: Animal Bite Stated complaint: rabies shot Time Seen by Provider: 10/27/25 16:14 Source: patient Mode of arrival: ambulatory Limitations: no limitations History of Present Illness ED Provider: Angela Watkins PA-C HPI narrative: Patient is a 70 year old assigned female at with a history of diastolic dysfunction, aortic stenosis, CKD, DM, HTN, an dyslipidemia presenting to the emergency department today with right hand pain and swelling. Patient states that her cat bit her 2 days ago and she has had worsening swelling + pain with redness. Patient states that she saw an urgent care yesterday where she was prescribed an antibiotic and did not yet pick it up. Patient denies any other complaints at this time. Relieving factors: none Exacerbating factors: none Associated symptoms: denies other symptoms Treatments prior to arrival: none Related Data Home Medications ?Medication ?Instructions ?Recorded ?Confirmed aspirin 81 mg tablet,delayed 81 mg PO BEDTIME 11/04/20 10/27/25 release (Adult Aspirin Regimen) blood-glucose meter (ab&jb properties and servicesTouch 09/03/22 10/12/25 Verio Flex Meter) blood sugar diagnostic (ab[employer] properties and servicesuch 01/07/23 10/12/25 Verio test strips) lancets 30 gauge (OneTouch Delica 01/07/23 10/12/25 Lancets) insulin glargine 100 unit/mL (3 18 unit subcut BEDTIME 07/10/25 10/27/25 mL) subcutaneous pen ibuprofen 800 mg tablet 800 mg PO BID pain 10/27/25 10/27/25 multivitamin 1 tab PO DAILY 10/27/2509/30 semaglutide 2 mg/dose (8 mg/3 mL) 2 mg subcut SA@0900 10/27/25 10/27/25 subcutaneous pen injector (Ozempic) Previous Rx's ?Medication ?Instructions ?Recorded blood-glucose,environmental services worker,cont #1 ea 09/14/24 (FreeStyle Dominick 3 [place]) glucose 4 gram chewable tablet 16 g (4 x 4 gram) PO Q1 5M PRN 01/05/25 (Dex4 Glucose) hypoglycemia (hipoglucemia) #10 tabs pen needle, diabetic 32 gauge x #100 ea 01/05/25 (BD Samantha 2nd Gen Pen Needle) hydrochlorothiazide 25 mg tablet 25 mg PO DAILY #90 ta bs 03/08/25 pravastatin 10 mg tablet 10 mg PO BEDTIME #90 tabs metformin 1,000 mg tablet 1,000 mg PO BID #180 tabs blood-glucose sensor (FreeStyle #2 ea 06/07/25 Dominick 3 Plus Sensor device) amlodipine 10 mg tablet 10 mg PO DAILY #90 tabs 03/23 carvedilol 6.25 mg tablet 6.25 mg PO BID #180 tabs 11/22 lisinopril 10 mg tablet 10 mg PO DAILY #90 tabs 09/29 01/23 doxycycline hyclate 100 mg capsule 100 mg PO BID 7 day s #14 caps 10/27/25 metronidazole 500 mg tablet 500 mg PO BID 7 days #14 t abs 10/27/25 Allergies Allergy/AdvReac Type Severity Reaction Status Date / Time Sulfa (Sulfonamide Allergy Mild RASH Verified 10/27/25 11:45 Antibiotics) (Sulfa (Sulfonamides)) cephalexin (From KEFLEX) Allergy Unknown RASH Verified 10/27/25 11:45 clavulanic acid (Augmentin) Allergy Unknown vaginal Verified 10/27/25 11:45 irritation empagliflozin (From AdvReac Intermediate Rash Verified 10/27/25 11:45 Jardiance) amoxicillin (From Augmentin) AdvReac Mild VAGINAL Verified 10/27/25 11:45 IRRITATION tolterodine AdvReac Unknown Hives, rash Verified 10/27/25 11:45 Review of Systems 2 Constitutional: Constitutional: Reports as per HPI Eyes: Eyes: Reports as per HPI ENT: Reports as per HPI Cardiovascular: Cardiovascular: Reports as per HPI Respiratory: Respiratory: Reports as per HPI Gastrointestinal: Gastrointestinal: Reports as per HPI Genitourinary: Genitourinary: Reports as per HPI Musculoskeletal: Musculoskeletal: Reports as per HPI Integumentary/Breasts: Skin/Breast: Reports as per HPI Neurologic: Reports as per HPI Psychiatric: Psychiatric: Reports as per HPI Endocrine: Endocrine: Reports as per HPI Hematologic/Lymphatic: Hematologic/Lymphatic: Reports as per HPI Allergic/Immunologic: Allergic/Immunologic: Reports as per HPI [facility] Past Medical History Attestation statement: The following information was validated with the patient. Source: old records reviewed and nursing notes reviewed Medical History (Updated 10/27/25 @ 18:43 by GERARDO Dupont) Rabies exposure LFT elevation Diastolic dysfunction Mild aortic stenosis Murmur Decreased renal function Microalbuminuria due to type 2 diabetes mellitus Physical exam Urinary Incontinence OAB (overactive bladder) Type 2 diabetes mellitus with morbid obesity Obesity Diabetes type 2, uncontrolled Osteoarthritis Morbid obesity Hypertension Dyslipidemia Non-toxic multinodular goiter snf (current) use of insulin Diabetes type 2, controlled Surgical History History of section Family History Family History Father Lung cancer Mother Breast cancer Social History Social History Household Members: Children Housing: House Alcohol intake: current Alcohol intake frequency: holidays/special occasions only Patient Tobacco Use Status: Never used Tobacco e-Cigarette/Vaping Use: Never Used Second Hand Smoke Exposure: No Advance Directives: No Advance Directives Information Provided: Yes Do you have a plan to hurt others: No Plan service: No Current occupational status: employed Cognitive needs: Yes (Cane, walker) Hearing needs: No Vision needs: Yes (Glasses) Physical Exam ED Vital Signs: Vital Signs - 24 hr 10/27/25 11:40 Temperature 97.7 F Pulse Rate 82 Respiratory Rate 20 Blood Pressure 144/75 H Pulse Oximetry 96 Oxygen Delivery Method Room Air BMI result Body Mass Index 45.0 Const General: cooperative, no acute distress, alert and awake Nutritional Appearance: well nourished Orientation/consciousness: patient oriented x3 HENMT Head: Yes normal to inspection and Yes atraumatic Ears: hearing grossly normal bilaterally and external ears normal General nose exam: Normal external nose present, no nasal discharge noted and no epistaxis Face and sinus: Yes normal facial exam, No abrasion and No laceration Mouth: Normal oral and palatal mucosa present, no drooling and no muffled voice Eyes General: appearance normal, both eyes and all related structures Periorbital: periorbital findings normal Eyelids: Yes eyelids normal Conjunctivae: conjunctivae normal Pupils: Equal, round and reactive pupils present EOM: EOMs intact bilaterally Neck Neck: Yes normal visual inspection and Yes full ROM Resp Effort & Inspection: normal respiratory effort and able to speak in complete sentences Neuro General: patient oriented x3, moves all extremities and CN's II-XI intact bilaterally Cranial nerves: Yes Equal, round and reactive pupils present Cognition (Neuro): normal cognition Extrem Other: General: Yes full ROM and Yes capillary refill normal Psych Appearance: grossly normal Mental Status: mental status grossly normal Affect: normal affect Attitude: cooperative Thought process: Normal thought process present Thought content: Normal thought content present Insight: Good insight present (Psych) Course Course Course Narrative: This is a Rapid Medical Examination (RME) performed by Josse Gill PA-C in triage. Full HPI, ROS, assessment and treatment plan per primary provider in the Main ED. Hx: 70 yo F here for eval of cat bite to right wrist/forearm sustained by her cat 2 days ago. she does not believe the cat is UTD on vaccines. seen at [facility] - had abx sent, sent here for tdap/rabies series. PE/vitals: puncture santiago noted to dorsal right wrist/ distal forearm w/ noted swelling. reported pain w/ flexion/extension of right wrist. no streaking. Plan: labs, tdap, rabies series Medications Administered Generic Name Dose Route Start Last Admin Trade Name Freq PRN Reason Stop Dose Admin Lactated Ringer's 1,000 mls @ 999 mls/hr 10/27/25 17:45 10/27/25 17:58 Lr IV 10/27/25 18:45 999 mls/hr .Q1H1M JOHN Administration Discontinued Medications Generic Name Dose Route Start Last Admin Trade Name Freq PRN Reason Stop Dose Admin Diphtheria/Tetanus/Acell Pertussis 0.5 ml 10/27/25 11:42 10/27/25 17:48 Diphth,Pertus(Acell),Tet Adult 0.5 Ml Syringe IM 10/27/25 11:43 0.5 ml .ONCE ONE Administration Vancomycin HCl 2,000 mg in 500 mls @ 250 mls/hr 10/27/25 16:14 10/27/25 17:32 Vancomycin/Ns IV 10/27/25 18:13 250 mls/hr ONCE ONE Administration Piperacillin Sod/Tazobactam 50 mls @ 100 mls/hr 10/27/25 16:14 10/27/25 17:46 Sod 3.375 gm/ Sodium Chloride IV 10/27/25 16:43 Infused ONCE ONE Infusion Rabies Immune Globulin 2,231.68 unit 10/27/25 11:46 11/29/25 17:47 Rabies Immune Globulin/Pf 1,500 Unit/5 Ml Vial 20 unit/kg (2231.68 unit) 10/27/25 11:47 2,231.68 unit IM Administration ONCE ONE Rabies Vaccine 1 ml 10/27/25 11:42 10/27/25 17:47 Rabies Vaccine (Pcec)/Pf 1 Ml Vial IM 10/27/25 11:43 1 ml .ONCE ONE Administration Medical Decision Making Medical Decision Making MDM Narrative: Patient is a 70 year old assigned female at with a history of diastolic dysfunction, aortic stenosis, CKD, DM, HTN, an dyslipidemia presenting to the emergency department today with right hand pain and swelling. Patient's physical exam was as noted in the physical exam portion of this note and consistent right hand cellulitis secondary to a cat bite. Patient's blood work showed a WBC count of 17.9, lactic acid of 2.4, CRP of 12.61, and ESR of 71. Patient's right hand x-ray showed no acute process. I considered the patient to be septic at 1614 however, she does not have severe sepsis or septic shock. Patient received IV vancomycin + zosyn, 1 liter of IV LR, and both the first rabies vaccine dose and a dose of rabies immune Globulin. I spoke with the orthopedic team who recommended medical admission for IV antibiotics. I spoke with the hospitalist team who agreed to admission. I placed the order for the day 3 rabies vaccine dose in case the patient remains admitted during that time and I placed the infusion center rabies vaccination orders for further dosing after discharge. I explained my physical exam findings as well as all test results to the patient. I answered all questions asked by the patient. Patient verbalized agreement and understanding with this treatment plan and admission. Differential Diagnosis Differential Diagnoses: The differential diagnosis associated with the presentation includes Cellulitis Sepsis Admission/Observation Consideration of admission/observation: Escalation of care including admission/observation considered Patient admitted as noted in the MDM Rationale portion of this note. Consult Healthcare Provider Management of the patient was discussed with: Hospitalist (agreed to admission as noted in the MDM Rationale portion of this note. ) and Heater Operator (spoke with the orthopedic team as noted in the MDM Rationale portion of this note. ) Lab Data [facility] Lab Attestation statement: I reviewed the patient's lab results. My interpretation of these results are in the MDM Rationale portion of this note. 10/27/25 16:50 10/27/25 16:50 Labs: Lab Results 10/27/25 Range/Units 16:50 WBC 17.9 H (4.8-10.8) X10*3/uL RBC 4.48 (4.20-5.50) X10*6/uL Hgb 13.0 (12.0-16.0) g/dl Hct 38.9 (37.0-47.0) % MCV 86.8 (80.0-98.0) fL MCH 29.0 (27.0-33.0) pg MCHC 33.4 (31.0-35.0) g/dl RDW 13.3 (11.0-16.0) % Plt Count 334 (160-400) X10*3/uL MPV 10.9 (9.4-12.3) fL Immature Gran % (Auto) 0.4 (0.0-0.4) % Neut % (Auto) 71.6 (45-73) % Lymph % (Auto) 19.0 L (20-40) % [place] % (Auto) 6.9 (2-11) % Eos % (Auto) 1.5 (0-4) % Baso % (Auto) 0.6 (0-2) % Lymph # (Auto) 3.4 (1.2-4.9) X10*3/uL [place] # (Auto) 1.2 (0.1-1.2) X10*3/uL Eos # (Auto) 0.3 (0.0-0.4) X10*3/uL Baso # (Auto) 0.1 (0.0-0.2) X10*3/uL Abs Immat Gran (auto) 0.08 H (0.00-0.03) X10*3/uL Absolute Neuts (auto) 12.8 H (2.0-8.3) x10*3/uL Absolute Nucleated RBC 0.000 (0.0-0.012) X10*3/uL Nucleated RBC % (auto) 0.0 (0.0-0.2) /100WBC ESR 71 H (0-20) MM/HR Sodium 138 (135-145) mmol/L Potassium 3.9 (3.3-5.1) mmol/L Chloride 97 (96-108) mmol/L Carbon Dioxide 27 (22-29) mmol/L Anion Gap 18 (12-20) BUN 21 H (9-16) mg/dL Creatinine 1.29 (0.5-1.4) mg/dL Estim Creat Clear Calc 48.5 Estimated GFR 41 Random Glucose 136 H (60-115) mg/dL Lactic Acid 2.4 H* (0.5-2.0) mmol/L Calcium 10.5 H D (8.4-10.2) mg/dL C-Reactive Protein 12.61 H (< or = 0.50) mg/dL Independent Interpretation I performed an independent interpretation of an: Plain X-Ray Interpretation: My interpretation is in agreement with the radiologist's impression of this imaging study as written below. CLINICAL HISTORY: pain, injury 3 view right hand Comparison: None provided Findings: Bones intact. No dislocations. No significant loss of joint space or osteophytes. No erosions. No radiopaque foreign body. Negative ulnar variance. Mild osteopenia. IMPRESSION: 1. No acute findings This document has been electronically signed by: Chilo Rice MD on 10/27/2025 17:19:56 Dictated By: Chilo Rice MD Signed By: Electronically signed by Chilo Rice MD 10/27/25 3743 Radiology Impression Discussion of test interpretation with radiology: I have reviewed the radiologist's reading. Chronic Conditions Patient?s care impacted by: Diabetes Critical Care Time Critical Care Time Critical Care Time: Yes Total Critical Care Time: 58 Attestation: I spent 58 minutes of Critical Care Time with this patient. This does not include time spent on separately reported billable procedures. Discharge Plan Discharge Clinical Impression: Cellulitis, Sepsis Patient Disposition: Admitted As Inpatient
[2025-10-27 16:58] LABS: MANUAL DIFF FLAG NO
[2025-10-27 17:00] LABS: Hematocrit 38.9 % (37.0-47.0); Hemoglobin 13.0 g/dl (12.0-16.0); Imm Gran Abs Auto 0.08 X10*3/uL (0.00-0.03); Imm Gran Pct Auto 0.4 % (0.0-0.4); Lymphocytes Absolute Auto 3.4 X10*3/uL (1.2-4.9); Mean Corpuscular HGB Conc 33.4 g/dl (31.0-35.0); Mean Corpuscular Hemoglobin 29.0 pg (27.0-33.0); Mean Corpuscular Volume 86.8 fL (80.0-98.0); NRBC Abs Auto 0.000 X10*3/uL (0.0-0.012); NRBC Pct Auto 0.0 /100WBC (0.0-0.2); Platelet Count 334 X10*3/uL (160-400); Red Blood Count 4.48 X10*6/uL (4.20-5.50); White Blood Count 17.9 X10*3/uL (4.8-10.8)
[2025-10-27 17:11] LABS: Anion Gap 18 (12-20); Blood Urea Nitrogen 21 mg/dL (9-16); Calcium 10.5 mg/dL (8.4-10.2); Carbon Dioxide 27 mmol/L (22-29); Chloride 97 mmol/L (96-108); Creatinine Clr Calc Pharmacy 48.5; Estimated Glomerular Filt Rate 41; Potassium 3.9 mmol/L (3.3-5.1); Sodium 138 mmol/L (135-145)
[2025-10-27] MEDS: vancomycin/NS 2,000 MG/500 ML PLAST..BAG 250 MG IV (17:32)
[2025-10-27] MEDS: Rabies Vaccine (PCEC)/PF 1 ML VIAL IM (17:47)
[2025-10-27] MEDS: Diphth,Pertus(ACell),Tet Adult 0.5 ML SYRINGE IM (17:48)
[2025-10-27 17:53] LABS: Erythrocyte Sedimentation Rate 71 MM/HR (0-20)
[2025-10-27] MEDS: Lactated Ringers 1,000 ML 999 ML IV (17:58)
--- NOTE | 2025-10-27 18:15 | PHA.MEDREC ---
Pharmacy Consult ? Medication Reconciliation Pharmacy has completed the medication reconciliation.Med rec complete, spoke to patient and compared with pharmacy claims history. Patient was prescribed doxy and flagyl from an urgent care but has not yet picked it up
--- NOTE | 2025-10-27 18:29 | PHA.PROG ---
Addendum entered by Suri Machado [facility] 10/28/25 10:40: SCR IMPROVED, ADJUSTING DOSE TO 1250 MG Q24H FOR PREDICTED AUC OF 514 Original Note: Admission Date/Time: October 27, 2025 18:12 Indication: SKIN AND SKIN STRUCTURE Weight in k.584 kg Adjusted body weight in Kg: [place] body weight in Kg: Obesity Dosing Indication % IBW: Serum Creatinine - Last 168 Hours 10/27/25 16:50 Creatinine 1.29 Estimated CrCl and GFR - Last 168 Hours 10/27/25 16:50 Estim Creat Clear Calc 48.5 Estimated GFR 41 Vancomycin Loading Dose: 2000 MG Current Vancomycin Dosing Regimen: 1000 MG Q 24 HOURS Vancomycin Monitoring using AUC goal of 400 - 600 range with trough as surrogate marker: Date and Time for next Vancomycin Level to be drawn: 10/29/1500 Pharmacist Comments on Vancomycin Plan: WILL CHECK LEVEL AFTER 2 DOSES Vancomycin dosing will take advantage of [employer] as a clinical decision support tool that uses Bayesian modeling to calculate individual patient's pharmacokinetic parameters and forecast the patient's drug concentration time course with the target goal AUC 24 range of 400 - 600 mg/L/hr.
--- NOTE | 2025-10-27 18:35 | PM.IMHP ---
History of Present Illness Date of Service: 10/27/25 Attending physician on admission: Leatha Alvares Chief Complaint: sepsis /hand cellulitis 70 y/o Fwith pmhx of diastolic dysfunction, aortic stenosis, CKD, DM, HTN, an dyslipidemia presenting to the emergency department today with right hand pain and swelling. She states that it started 2 days ago when her cat got panicked-and scratched /bit her: She has swelling and erythema of the right hand especially along with scratch santiago, also has significant pain in the hand, and range of motion is limited.Patient states that she saw an urgent care yesterday where she was prescribed an antibiotic and did not yet pick it up. Patient seen by walk-in clinic today and per the walk-in clinic notes(Cat is strictly indoor since it has lived with her; last rabies vaccination unknown (cat previously belonged to daughter). Her WBC count is 17.9, BUN 21, creatinine 1.29, lactic acid 2.4, CRP 12, ESR 71, blood cultures sent, Vitals stable except had initially heart rate of 92. Hand x-ray:1. No acute findings In ED patient received IV antibiotics, also ED discussed the case with orthopedics recommended inpatient admission for IV antibiotics and orthopedic consult Review of Systems Review of Systems: As above. Yes all other systems are reviewed and are negative [facility] Medical History Rabies exposure LFT elevation Diastolic dysfunction Mild aortic stenosis Murmur Decreased renal function Microalbuminuria due to type 2 diabetes mellitus Physical exam Urinary Incontinence OAB (overactive bladder) Type 2 diabetes mellitus with morbid obesity Obesity Diabetes type 2, uncontrolled Osteoarthritis Morbid obesity Hypertension Dyslipidemia Non-toxic multinodular goiter FDC (current) use of insulin Diabetes type 2, controlled Family History Father Lung cancer Mother Breast cancer Surgical History History of section Social History Household Members: Children Housing: House Alcohol intake: current Alcohol intake frequency: holidays/special occasions only Patient Tobacco Use Status: Never used Tobacco e-Cigarette/Vaping Use: Never Used Second Hand Smoke Exposure: No Advance Directives: No Advance Directives Information Provided: Yes Do you have a plan to hurt others: No Plan service: No Current occupational status: employed Cognitive needs: Yes (Cane, walker) Hearing needs: No Vision needs: Yes (Glasses) Meds Allergies Allergy/AdvReac Type Severity Reaction Status Date / Time Sulfa (Sulfonamide Allergy Mild RASH Verified 10/27/25 11:45 Antibiotics) (Sulfa (Sulfonamides)) cephalexin (From KEFLEX) Allergy Unknown RASH Verified 10/27/25 11:45 clavulanic acid (Augmentin) Allergy Unknown vaginal Verified 10/27/25 11:45 irritation empagliflozin (From AdvReac Intermediate Rash Verified 10/27/25 11:45 Jardiance) amoxicillin (From Augmentin) AdvReac Mild VAGINAL Verified 10/27/25 11:45 IRRITATION tolterodine AdvReac Unknown Hives, rash Verified 10/27/25 11:45 Active Medications: Current Medications Acetaminophen (Acetaminophen 325 Mg Tablet) 650 mg PO Q6H PRN PRN Reason: Pain, Mild 1-3,fever,headache Amlodipine Besylate (Amlodipine Besylate 10 Mg Tablet) 10 mg PO DAILY [facility]; Protocol Aspirin (Aspirin Enteric Coated 81 Mg Tablet.Dr) 81 mg PO BEDTIME [facility] Calcium Carbonate (Calcium Carbonate 750 Mg Tab.Chew) 750 mg PO Q4H PRN PRN Reason: Heartburn Carvedilol (Carvedilol 6.25 Mg Tablet) 6.25 mg PO BID [facility]; Protocol Dextrose (Dextrose 50 % 25 Gm/50 Ml Syringe) 25 gm IVPUSH Q15M PRN; Protocol PRN Reason: per Hypoglycemia Standing Ord. Enoxaparin Sodium (Enoxaparin Sodium 40 Mg/0.4 Ml Syringe) 40 mg SUBCUT Q24H [facility] Glucose (Glucose Gel 15 Gm Gel..Gram.) 15 gm PO Q15M PRN; Protocol PRN Reason: per Hypoglycemia Standing Ord. Lactated Ringer's (Lr) 1,000 mls @ 999 mls/hr IV .Q1H1M [facility] Stop: 10/27/25 18:45 Last Admin: 10/27/25 17:58 Dose: 999 mls/hr Piperacillin Sod/Tazobactam (Sod 3.375 gm/ Sodium Chloride) 50 mls @ 100 mls/hr IV Q6H [facility] Vancomycin HCl 1,000 mg/ (Sodium Chloride) 270 mls @ 270 mls/hr IV Q24H [facility] Insulin Glargine (Insulin Glargine,Hum.Rec.Anlog 100 Unit/Ml 10 Ml Vial) 10 unit SUBCUT BEDTIME [facility] Insulin Human Lispro (Insulin Lispro 100 Unit/Ml 3 Ml Vial) 0 unit SUBCUT QIDACHS [facility]; Protocol Magnesium Hydroxide (Milk Of Magnesia 30 Ml Oral.Susp) 30 ml PO DAILY PRN PRN Reason: Constipation Melatonin (Melatonin 3 Mg Tablet) 6 mg PO BEDTIME PRN PRN Reason: Insomnia Multivitamins/Vitamin C (Multivitamin Tablet) 1 tab PO DAILY [facility] Non-Formulary Medication (Glucose [Dex4 Glucose]) 16 gm PO Q15M PRN PRN Reason: hypoglycemia (hipoglucemia) Non-Formulary Medication (Semaglutide [Ozempic]) 2 mg SUBCUT SA@0900 [facility] Pharmacy Consult (Consult Rx Vancomycin Dosing) 1 each MISCELLANE DAILY PRN PRN Reason: Consult order Pravastatin Sodium (Pravastatin Sodium 10 Mg Tablet) 10 mg PO BEDTIME [facility] Rabies Vaccine (Rabies Vaccine (Pcec)/Pf 1 Ml Vial) 1 ml IM .ONCE ONE Stop: 10/30/25 00:02 Sodium Chloride (0.9 % Sodium Chloride Flush 3 Ml Syringe) 3 ml IVFLUSH [facility] Home Medications ?Medication ?Instructions ?Recorded ?Confirmed ?Last Taken ?Type aspirin 81 mg tablet,delayed 81 mg PO BEDTIME 11/04/20 10/27/25 Unknown History release (Adult Aspirin Regimen) blood-glucose meter (BarEyeTouch 09/03/22 10/12/25 Unknown History Verio Flex Meter) blood sugar diagnostic (Oneuch 01/07/23 10/12/25 Unknown History Verio test strips) lancets 30 gauge (OneTouch Delica 01/07/23 10/12/25 Unknown History Lancets) insulin glargine 100 unit/mL (3 18 unit subcut BEDTIME 07/10/25 10/27/25 Unknown History mL) subcutaneous pen ibuprofen 800 mg tablet 800 mg PO BID pain 10/27/25 10/27/25 Unknown History multivitamin 1 tab PO DAILY 10/27/25 10/27/25 Unknown History semaglutide 2 mg/dose (8 mg/3 mL) 2 mg subcut SA@0900 10/27/25 10/27/25 10/20/25 History subcutaneous pen injector (Ozempic) Physical Exam Vital Signs and Narrative: Vital Signs: Last Vital Signs Temp 97.7 F 10/27/25 11:40 Pulse 82 10/27/25 11:40 Resp 20 10/27/25 11:40 BP 144/75 H 10/27/25 11:40 Pulse Ox 96 10/27/25 11:40 O2 Del Method Room Air 10/27/25 11:40 BMI result Body Mass Index 45.0 Appearance: Alert.? Oriented X3.? cvs: [id number], [id number] . res: clear to auscultation ,no rhonchii or wheezing abd: no rebound or guarding ,nt, bs present. ext pulses present , no cyanosis right hand -swelling/erythema/scratch santiaog. Range of motion limited due to pain neuro: axo3 , nonfocal. Results Labs 10/27/25 16:50 10/27/25 16:50 Labs: Laboratory Results - last 24 hr 10/27/25 16:50 MCV 86.8 MCH 29.0 MCHC 33.4 RDW 13.3 Plt Count 334 MPV 10.9 Immature Gran % (Auto) 0.4 Neut % (Auto) 71.6 Lymph % (Auto) 19.0 L [place] % (Auto) 6.9 Eos % (Auto) 1.5 Baso % (Auto) 0.6 Lymph # (Auto) 3.4 White # (Auto) 1.2 Eos # (Auto) 0.3 Baso # (Auto) 0.1 Abs Immat Gran (auto) 0.08 H Absolute Neuts (auto) 12.8 H Absolute Nucleated RBC 0.000 Nucleated RBC % (auto) 0.0 ESR 71 H Anion Gap 18 Estim Creat Clear Calc 48.5 Estimated GFR 41 Random Glucose 136 H Lactic Acid 2.4 H* Calcium 10.5 H D C-Reactive Protein 12.61 H Assessment and Plan (1) Sepsis: Qualifiers: Sepsis acute organ dysfunction status: unspecified Sepsis type: sepsis due to unspecified organism Qualified Code(s): A41.9 - Sepsis, unspecified organism Status: Acute (2) Cellulitis: Qualifiers: Laterality: right Site of cellulitis: extremity Site of cellulitis of extremity: upper extremity Qualified Code(s): L03.113 - Cellulitis of right upper limb Status: Acute Plan 70 y/o Fwith pmhx of diastolic dysfunction, aortic stenosis, CKD, DM, HTN, an dyslipidemia presenting right hand and wrist cellulitis. 1. severe Sepsis secondary to Right hand and wrist cellulitis: Elevated CRP and ESR Hand x-ray seems fine, blood cultures sent, lactic acid 2.4 Leukocytosis, tachycardia plan: Follow up blood culture, IV antibiotics continue, trend lactic acid. 2. CKD: Monitor renal function electrolytes closely 3.dm: Continue Lantus, fingerstick with sliding scale, diabetic diet. 4. Hypertension: Continue amlodipine, hold lisinopril/hctz , monitor renal function electrolyte lytes closely. 5. hx of diastolic dysfunction: continue home meds. dvt prophylax: s/c lovenox. Patient will benefit from 2 midnight stays considering severe sepsis with the cellulitis-require IV antibiotics(allergic to multiple antibiotics also), need close monitoring of renal function electrolytes as well as need ortho evaluation. Patient management discussed with the patient in detail length she understand and in agreement with the above plan, time spent 70 minute. Patient is full code. Quality Stroke Does the patient have a stroke diagnosis?: No VTE Prior VTE?: No VTE Risk Level:: Medical - moderate - high VTE Device Contraindication: N/A - Device Ordered VTE Drug Contraindication: N/A - Med Ordered
[2025-10-27 18:56] LABS: Reflex Lactate? Lactic Acid Added
[2025-10-27 19:45] LABS: ~Lactic Acid-LAB USE ONLY 1.3 mmol/L (0.5-2.0)
--- NOTE | 2025-10-27 20:07 | MHC.EDTECH ---
Did pts belongings. Pt had rosas on her and wanted it locked up with security. Pt originally counted $294. Had Yusra the nurse double check with me and she had $194. Pt verified with me that was the correct amount. I filled out the paperwork for the rosas. Brought it took security along with her wallets and a knife she had. I handed it to Thomas in security and signed the log book. Told the pt upon discharge to let the staff know her wallet would be in the securty office. The rest of her purse is at bedside
[2025-10-27 20:54] LABS: Glucose, Whole Blood 129 mg/dL (60-115)
--- NOTE | 2025-10-27 20:55 | MHC.EDTECH ---
Emptied pts purewick container. She had 1000ml of urine
[2025-10-27] MEDS: Insulin Glargine,Hum.rec.anlog 100 UNIT/ML 10 ML VIAL 10 UNIT SUBCUT (21:17)
[2025-10-27] MEDS: Aspirin Enteric Coated 81 MG TABLET.DR PO (21:17)
[2025-10-27 21:25] VITALS: BP 173/63; PULSE 79; RESP 18; TEMP 36.7; O2SAT 94
[2025-10-27 22:45] VITALS: BP 152/58; PULSE 79; RESP 16; O2SAT 95
--- NOTE | 2025-10-27 23:29 | HO.NURTONUR ---
Pt came in from home reporting right hand pain and swelling x 2 days. States cat bit her 2 days ago and since swelling has worsened, Pt was seen at urgent care and prescribed PO ABX but has not started. Pt reported pain w/ flexion/extension of right wrist. Here in ED Patient received IV vancomycin + zosyn, 1 liter of IV LR, and both the first rabies vaccine dose and a dose of rabies immune Globulin. orthopedic team recommended medical admission for IV antibiotics. There is an order for the day 3 rabies vaccine dose in case the patient remains admitted during that time. Pt A&Ox3, ambulates with 2 canes or walker. Purewick in place. 22G IV to left FA.
[2025-10-28] VITALS (8 sets, daily range): BP systolic 122–168; BP diastolic 61–70; PULSE 73–106; RESP 18–20; TEMP 36.3–37.1; O2SAT 93–95; BMI 45.2
[2025-10-28] MEDS: 0.9 % Sodium Chloride Flush 3 ML SYRINGE IVFLUSH ×4 (05:01→20:46)
[2025-10-28 07:48] LABS: Creatinine Clr Calc Pharmacy 60.9; Estimated Glomerular Filt Rate 53
--- NOTE | 2025-10-28 07:51 | P.PNIM_ITS ---
Subjective Subjective Date of Service: 10/28/25 Interval History: hand cellulitis Review of Systems hand erythema /swelling seems similar Review of Systems: Yes all other systems are reviewed and are negative Physical Exam 2 Exam: Exam: Appearance: Alert.? Oriented X3.? cvs: [id number], [id number] . res: clear to auscultation ,no rhonchii or wheezing abd: no rebound or guarding ,nt, bs present. ext pulses present , no cyanosis right hand -swelling/erythema/scratch santiago. Range of motion limited due to pain neuro: axo3 , nonfocal. Vital Signs: Vital Signs: Last Vital Signs Temp 98.0 F 10/28/25 04:00 Pulse 85 10/28/25 04:00 Resp 20 10/28/25 04:00 BP 153/65 H 10/28/25 04:00 Pulse Ox 93 10/28/25 04:00 O2 Del Method Room Air 10/28/25 04:00 BMI result Body Mass Index 45.2 Objective Data Active Medications Acetaminophen (Acetaminophen 325 Mg Tablet) 650 mg PO Q6H PRN PRN Reason: Pain, Mild 1-3,fever,headache Last Admin: 10/28/25 05:08 Dose: 650 mg Documented By: PAWEL Amlodipine Besylate (Amlodipine Besylate 10 Mg Tablet) 10 mg PO DAILY [facility]; Protocol Aspirin (Aspirin Enteric Coated 81 Mg Tablet.Dr) 81 mg PO BEDTIME [facility] Last Admin: 10/27/25 21:17 Dose: 81 mg Documented By: RADHA Calcium Carbonate (Calcium Carbonate 750 Mg Tab.Chew) 750 mg PO Q4H PRN PRN Reason: Heartburn Carvedilol (Carvedilol 6.25 Mg Tablet) 6.25 mg PO BID [facility]; Protocol Last Admin: 10/27/25 21:38 Dose: 6.25 mg Documented By: RADHA Dextrose (Dextrose 50 % 25 Gm/50 Ml Syringe) 25 gm IVPUSH Q15M PRN; Protocol PRN Reason: per Hypoglycemia Standing Ord. Enoxaparin Sodium (Enoxaparin Sodium 40 Mg/0.4 Ml Syringe) 40 mg SUBCUT Q24H [facility] Last Admin: 10/27/25 19:16 Dose: 40 mg Documented By: ANTIONE Glucose (Glucose Gel 15 Gm Gel..Gram.) 15 gm PO Q15M PRN; Protocol PRN Reason: per Hypoglycemia Standing Ord. Piperacillin Sod/Tazobactam (Sod 3.375 gm/ Sodium Chloride) 50 mls @ 100 mls/hr IV Q6H [facility] Last Infusion: 10/28/25 05:31 Dose: Infused Documented By: PAWEL Vancomycin HCl 1,000 mg/ (Sodium Chloride) 270 mls @ 270 mls/hr IV Q24H [facility] Insulin Glargine (Insulin Glargine,Hum.Rec.Anlog 100 Unit/Ml 10 Ml Vial) 10 unit SUBCUT BEDTIME [facility] Last Admin: 10/27/25 21:17 Dose: 10 unit Documented By: RADHA Insulin Human Lispro (Insulin Lispro 100 Unit/Ml 3 Ml Vial) 0 unit SUBCUT QIDACHS [facility]; Protocol Last Admin: 10/27/25 21:10 Dose: Not Given Documented By: RADHA Non-Admin Reason: No Insulin Coverage Comments: POC 129 Magnesium Hydroxide (Milk Of Magnesia 30 Ml Oral.Susp) 30 ml PO DAILY PRN PRN Reason: Constipation Melatonin (Melatonin 3 Mg Tablet) 6 mg PO BEDTIME PRN PRN Reason: Insomnia Multivitamins/Vitamin C (Multivitamin Tablet) 1 tab PO DAILY [facility] Non-Formulary Medication (Semaglutide [Ozempic]) 2 mg SUBCUT SA@0900 [facility] Pharmacy Consult (Consult Rx Vancomycin Dosing) 1 each MISCELLANE DAILY PRN PRN Reason: Consult order Pravastatin Sodium (Pravastatin Sodium 10 Mg Tablet) 10 mg PO BEDTIME [facility] Last Admin: 10/27/25 21:38 Dose: 10 mg Documented By: RADHA Rabies Vaccine (Rabies Vaccine (Pcec)/Pf 1 Ml Vial) 1 ml IM .ONCE ONE Stop: 10/30/25 00:02 Sodium Chloride (0.9 % Sodium Chloride Flush 3 Ml Syringe) 3 ml IVFLUSH QSHIFT [facility] Last Admin: 10/28/25 05:01 Dose: 3 ml Documented By: PAWEL Labs 10/27/25 16:50 10/28/25 06:35 Labs: Laboratory Results - last 24 hr 10/27/25 10/27/25 10/27/25 16:50 19:26 20:50 MCV 86.8 MCH 29.0 MCHC 33.4 RDW 13.3 Plt Count 334 MPV 10.9 Immature Gran % (Auto) 0.4 Neut % (Auto) 71.6 Lymph % (Auto) 19.0 L [place] % (Auto) 6.9 Eos % (Auto) 1.5 Baso % (Auto) 0.6 Lymph # (Auto) 3.4 [place] # (Auto) 1.2 Eos # (Auto) 0.3 Baso # (Auto) 0.1 Abs Immat Gran (auto) 0.08 H Absolute Neuts (auto) 12.8 H Absolute Nucleated RBC 0.000 Nucleated RBC % (auto) 0.0 ESR 71 H Anion Gap 18 Estim Creat Clear Calc 48.5 Estimated GFR 41 POC Glucose 129 H Random Glucose 136 H Lactic Acid 2.4 H* Lactic Acid F/U @ 2Hr 1.3 Calcium 10.5 H D C-Reactive Protein 12.61 H 10/28/25 06:35 MCV MCH MCHC RDW Plt Count MPV Immature Gran % (Auto) Neut % (Auto) Lymph % (Auto) [place] % (Auto) Eos % (Auto) Baso % (Auto) Lymph # (Auto) [place] # (Auto) Eos # (Auto) Baso # (Auto) Abs Immat Gran (auto) Absolute Neuts (auto) Absolute Nucleated RBC Nucleated RBC % (auto) ESR Anion Gap Estim Creat Clear Calc 60.9 Estimated GFR 53 POC Glucose Random Glucose Lactic Acid Lactic Acid F/U @ 2Hr Calcium C-Reactive Protein Assessment and Plan (1) Cellulitis: Status: Acute Plan 70 y/o Fwith pmhx of diastolic dysfunction, aortic stenosis, CKD, DM, HTN, an dyslipidemia presenting right hand and wrist cellulitis. 1. severe Sepsis secondary to Right hand and wrist cellulitis: Elevated CRP and ESR Hand x-ray seems fine, blood cultures pending Lactic acidosis acute-due to above, resolved . Leukocytosis, tachycardia plan: Follow up blood culture, IV antibiotics . ortho follwiing-Continue IV abx per medicine recommendation 2. CKD: Monitor renal function electrolytes closely 3.dm: Continue Lantus, fingerstick with sliding scale, diabetic diet. 4. Hypertension: Continue amlodipine, hold lisinopril/hctz , monitor renal function electrolyte lytes closely. 5. hx of diastolic dysfunction: continue home meds. dvt prophylax: s/c lovenox. ongoing need:severe Sepsis secondary to Right hand and wrist cellulitis:Continue IV abx , hand cellulitis is not improving yet, ortho following. Quality Stroke Does the patient have a stroke diagnosis?: No VTE Prior VTE?: No VTE Risk Level:: Medical - moderate - high VTE Device Contraindication: N/A - Device Ordered VTE Drug Contraindication: N/A - Med Ordered
[2025-10-28 08:09] LABS: Glucose, Whole Blood 164 mg/dL (60-115)
--- NOTE | 2025-10-28 08:44 | MHC.CM.PN ---
CM met with Patient. Patient lives with her Son, in a house and uses a cane. Home/self care is Patient's goal and CM has initiated and will follow for dc planning. PCP/PA is Alex Scott and Daughter/Kaeyln is the HCP. Patient's car is here for transport @ dc.
--- NOTE | 2025-10-28 09:14 | PM.CNOR ---
History of Present Illness HPI Consult date: 10/28/25 Chief complaint: hand cellulitis/sepsis Narrative: Ms. Arzola is a 70-year-old female with a past medical history significant for diastolic dysfunction, aortic stenosis, CKD, DM, HTN, an dyslipidemia presenting to the emergency department today with right hand pain and swelling afer her cat bit and scratched her on 10/25/25. Patient was seen at an urgent care on 10/26/25 and prescribed oral antibiotics but the patient had not yet picked them up. She was admitted to the medicine service for right hand cellulitis with orthopedic consult. 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 Diabetes type 2, controlled Family History Family History Father Lung cancer Mother Breast cancer Surgical History Surgical History History of section Social History Social History Household Members: Family Household Members Other:: son Housing: House Do you presently have visiting nurse or other home services: No Alcohol intake: current Alcohol intake frequency: holidays/special occasions only Patient Tobacco Use Status: Never used Tobacco e-Cigarette/Vaping Use: Never Used Second Hand Smoke Exposure: No service: No Current occupational status: employed Cognitive needs: Yes (Cane, walker) Hearing needs: No Vision needs: Yes (Glasses) Meds Allergies Allergy/AdvReac Type Severity Reaction Status Date / Time Sulfa (Sulfonamide Allergy Mild RASH Verified 10/27/25 11:45 Antibiotics) (Sulfa (Sulfonamides)) cephalexin (From KEFLEX) Allergy Unknown RASH Verified 10/27/25 11:45 clavulanic acid (Augmentin) Allergy Unknown vaginal Verified 10/27/25 11:45 irritation empagliflozin (From AdvReac Intermediate Rash Verified 10/27/25 11:45 Jardiance) amoxicillin (From Augmentin) AdvReac Mild VAGINAL Verified 10/27/25 11:45 IRRITATION tolterodine AdvReac Unknown Hives, rash Verified 10/27/25 11:45 Active Medications: Current Medications Acetaminophen (Acetaminophen 325 Mg Tablet) 650 mg PO Q6H PRN PRN Reason: Pain, Mild 1-3,fever,headache Last Admin: 10/28/25 05:08 Dose: 650 mg Amlodipine Besylate (Amlodipine Besylate 10 Mg Tablet) 10 mg PO DAILY [facility]; Protocol Aspirin (Aspirin Enteric Coated 81 Mg Tablet.Dr) 81 mg PO BEDTIME [facility] Last Admin: 10/27/25 21:17 Dose: 81 mg Calcium Carbonate (Calcium Carbonate 750 Mg Tab.Chew) 750 mg PO Q4H PRN PRN Reason: Heartburn Carvedilol (Carvedilol 6.25 Mg Tablet) 6.25 mg PO BID [facility]; Protocol Last Admin: 10/27/25 21:38 Dose: 6.25 mg Dextrose (Dextrose 50 % 25 Gm/50 Ml Syringe) 25 gm IVPUSH Q15M PRN; Protocol PRN Reason: per Hypoglycemia Standing Ord. Enoxaparin Sodium (Enoxaparin Sodium 40 Mg/0.4 Ml Syringe) 40 mg SUBCUT Q24H [facility] Last Admin: 10/27/25 19:16 Dose: 40 mg Glucose (Glucose Gel 15 Gm Gel..Gram.) 15 gm PO Q15M PRN; Protocol PRN Reason: per Hypoglycemia Standing Ord. Piperacillin Sod/Tazobactam (Sod 3.375 gm/ Sodium Chloride) 50 mls @ 100 mls/hr IV Q6H [facility] Last Infusion: 10/28/25 05:31 Dose: Infused Vancomycin HCl 1,000 mg/ (Sodium Chloride) 270 mls @ 270 mls/hr IV Q24H [facility] Insulin Glargine (Insulin Glargine,Hum.Rec.Anlog 100 Unit/Ml 10 Ml Vial) 10 unit SUBCUT BEDTIME [facility] Last Admin: 10/27/25 21:17 Dose: 10 unit Insulin Human Lispro (Insulin Lispro 100 Unit/Ml 3 Ml Vial) 0 unit SUBCUT QIDACHS [facility]; Protocol Last Admin: 10/27/25 21:10 Dose: Not Given Magnesium Hydroxide (Milk Of Magnesia 30 Ml Oral.Susp) 30 ml PO DAILY PRN PRN Reason: Constipation Melatonin (Melatonin 3 Mg Tablet) 6 mg PO BEDTIME PRN PRN Reason: Insomnia Multivitamins/Vitamin C (Multivitamin Tablet) 1 tab PO DAILY [facility] Non-Formulary Medication (Semaglutide [Ozempic]) 2 mg SUBCUT SA@0900 [facility] Pharmacy Consult (Consult Rx Vancomycin Dosing) 1 each MISCELLANE DAILY PRN PRN Reason: Consult order Pravastatin Sodium (Pravastatin Sodium 10 Mg Tablet) 10 mg PO BEDTIME [facility] Last Admin: 10/27/25 21:38 Dose: 10 mg Rabies Vaccine (Rabies Vaccine (Pcec)/Pf 1 Ml Vial) 1 ml IM .ONCE ONE Stop: 10/30/25 00:02 Sodium Chloride (0.9 % Sodium Chloride Flush 3 Ml Syringe) 3 ml IVFLUSH [facility] Last Admin: 10/28/25 05:01 Dose: 3 ml Home Medications ?Medication ?Instructions ?Recorded ?Confirmed ?Last Taken ?Type aspirin 81 mg tablet,delayed 81 mg PO BEDTIME 11/04/20 10/27/25 Unknown History release (Adult Aspirin Regimen) blood-glucose meter (OneTouch 09/03/22 10/12/25 Unknown History Verio Flex Meter) blood sugar diagnostic (OneTouch 01/07/23 10/12/25 Unknown History Verio test strips) lancets 30 gauge (OneTouch Delica 01/07/23 10/12/25 Unknown History Lancets) insulin glargine 100 unit/mL (3 18 unit subcut BEDTIME 07/10/25 10/27/25 Unknown History mL) subcutaneous pen ibuprofen 800 mg tablet 800 mg PO BID pain 10/27/25 10/27/25 Unknown History multivitamin 1 tab PO DAILY 10/27/25 10/27/25 Unknown History semaglutide 2 mg/dose (8 mg/3 mL) 2 mg subcut SA@0900 10/27/25 10/27/25 10/20/25 History subcutaneous pen injector (Ozempic) Physical Exam Vital Signs: Vital Signs: Last Vital Signs Temp 98.2 F 10/28/25 07:50 Pulse 76 10/28/25 07:50 Resp 20 10/28/25 07:50 BP 168/70 H 10/28/25 07:50 Pulse Ox 94 10/28/25 07:50 O2 Del Method Room Air 10/28/25 07:50 BMI result Body Mass Index 45.2 Const: General: cooperative, healthy appearing and no acute distress Resp: Effort & Inspection: normal respiratory effort and able to speak in complete sentences Extrem: Other: Right hand small scratched and three puncture wounds on the dorsal aspect of the wrist and forearm. Edema with cellulitis surrounds the areas with edema extending into the dorsal aspect of all digits. Able to flex and extend all digits. Unable to make a closed fist due to swelling. No palmar sided tenderness or pain - no signs of tenosynovitis. Sesnation intact. Capillary refill is brisk. Psych: Appearance: grossly normal Mental Status: mental status grossly normal Attitude: cooperative Results Labs 10/27/25 16:50 10/28/25 06:35 Labs: Abnormal lab results 10/27/25 10/27/25 10/28/25 Range/Units 16:50 20:50 07:56 WBC 17.9 H (4.8-10.8) X10*3/uL Lymph % (Auto) 19.0 L (20-40) % Abs Immat Gran (auto) 0.08 H (0.00-0.03) X10*3/uL Absolute Neuts (auto) 12.8 H (2.0-8.3) x10*3/uL ESR 71 H (0-20) MM/HR BUN 21 H (9-16) mg/dL POC Glucose 129 H 164 H (60-115) mg/dL Random Glucose 136 H (60-115) mg/dL Lactic Acid 2.4 H* (0.5-2.0) mmol/L Calcium 10.5 H D (8.4-10.2) mg/dL C-Reactive Protein 12.61 H (< or = 0.50) mg/dL H & H 10/27/25 Range/Units 16:50 Hgb 13.0 (12.0-16.0) g/dl Hct 38.9 (37.0-47.0) % All other labs normal. Assessment and Plan (1) Cat bite of right forearm: Status: Acute (2) Cat scratch of right forearm: Status: Acute (3) Cellulitis of right forearm: Status: Acute Plan Continue IV abx per medicine recommendation No evidence of tenosynovitis or abscess at this time Encourage gentle ROM of the hand and wrist Monitor for improving symptoms Procedures Date of Service Date of Service: 10/28/25
[2025-10-28 11:40] LABS: Glucose, Whole Blood 141 mg/dL (60-115)
[2025-10-28 13:34] LABS: Anion Gap 16 (12-20); Blood Urea Nitrogen 18 mg/dL (9-16); Calcium 9.3 mg/dL (8.4-10.2); Carbon Dioxide 26 mmol/L (22-29); Chloride 101 mmol/L (96-108); Potassium 3.8 mmol/L (3.3-5.1); Sodium 139 mmol/L (135-145)
[2025-10-28 16:06] LABS: Glucose, Whole Blood 167 mg/dL (60-115)
[2025-10-28 20:38] LABS: Glucose, Whole Blood 179 mg/dL (60-115)
[2025-10-28] MEDS: Aspirin Enteric Coated 81 MG TABLET.DR PO (20:43)
[2025-10-28] MEDS: Insulin Glargine,Hum.rec.anlog 100 UNIT/ML 10 ML VIAL 10 UNIT SUBCUT (20:44)
[2025-10-29 04:00] VITALS: BP 134/67; PULSE 76; RESP 18; TEMP 36.1; O2SAT 94
[2025-10-29 06:45] LABS: Hematocrit 32.0 % (37.0-47.0); Hemoglobin 10.8 g/dl (12.0-16.0); Mean Corpuscular HGB Conc 33.8 g/dl (31.0-35.0); Mean Corpuscular Hemoglobin 29.3 pg (27.0-33.0); Mean Corpuscular Volume 87.0 fL (80.0-98.0); NRBC Abs Auto 0.000 X10*3/uL (0.0-0.012); NRBC Pct Auto 0.0 /100WBC (0.0-0.2); Platelet Count 382 X10*3/uL (160-400); Red Blood Count 3.68 X10*6/uL (4.20-5.50); White Blood Count 10.9 X10*3/uL (4.8-10.8)
[2025-10-29 07:15] LABS: Anion Gap 14 (12-20); Blood Urea Nitrogen 18 mg/dL (9-16); Calcium 9.2 mg/dL (8.4-10.2); Carbon Dioxide 26 mmol/L (22-29); Chloride 103 mmol/L (96-108); Creatinine Clr Calc Pharmacy 57.0; Estimated Glomerular Filt Rate 49; Potassium 3.7 mmol/L (3.3-5.1); Sodium 139 mmol/L (135-145)
--- NOTE | 2025-10-29 07:38 | PM.PNORT ---
Subjective Subjective Date of Service: 10/29/25 Interval history: Patient is resting in bed comfortably IV abx continue No overnight events Pain is managed: Does not feel pain has changed Swelling reportedly has come down and she is able to close her fist more than yesterday No additional complaints Physical Exam Vital Signs: Vital Signs: Last Vital Signs Temp 97.0 F 10/29/25 04:00 Pulse 76 10/29/25 04:00 Resp 18 10/29/25 04:00 BP 134/67 10/29/25 04:00 Pulse Ox 94 10/29/25 04:00 O2 Del Method Room Air 10/29/25 04:00 BMI result Body Mass Index 45.2 Const: General: cooperative, healthy appearing and no acute distress Resp: Effort & Inspection: normal respiratory effort and able to speak in complete sentences Extrem: Other: Right hand: Small scratches and three puncture wounds on the dorsal aspect of the wrist and forearm surrounded by erythema. Edema with cellulitis surrounds the areas with edema extending into the dorsal aspect of all digits. Able to flex and extend all digits. Unable to make a closed fist due to swelling but has improved since yesterday. No palmar sided tenderness or pain - no signs of tenosynovitis. Able to flex and extend at the wrist. No signs of septic joint. Sesnation intact. Capillary refill is brisk. Psych: Appearance: grossly normal Mental Status: mental status grossly normal Attitude: cooperative Procedures Date of Service Date of Service: 10/29/25 Progress Note: A&P Assessment and plan (1) Cat scratch of right forearm: Status: Acute (2) Type 2 diabetes mellitus with morbid obesity: Status: Acute (3) Cellulitis of right forearm: Status: Acute (4) Cat bite of right forearm: Status: Acute Plan Continue IV abx per medicine recommendation No evidence of tenosynovitis or abscess at this time Encourage gentle ROM of the hand and wrist Monitor for improving symptoms Time Spent With Patient Time: Total time managing care of this patient today ____ minutes. Quality Stroke Does the patient have a stroke diagnosis?: No VTE Prior VTE?: No VTE Risk Level:: Medical - moderate - high VTE Device Contraindication: N/A - Device Ordered VTE Drug Contraindication: N/A - Med Ordered
[2025-10-29 07:57] LABS: Glucose, Whole Blood 150 mg/dL (60-115)
[2025-10-29 08:00] VITALS: BP 162/71; PULSE 73; RESP 18; TEMP 36.7; O2SAT 93
[2025-10-29] MEDS: 0.9 % Sodium Chloride Flush 3 ML SYRINGE IVFLUSH ×3 (08:06→22:35)
--- NOTE | 2025-10-29 09:35 | PC.NURSE ---
Right hand/wrist edematous. Visible cat bite santiago and scratches intact. Pt states last night one area of the cat bite had drained a small amount of fluid. Arm/hand elevated on 2 pillows
--- NOTE | 2025-10-29 10:56 | MHC.CM.PN ---
PER MD ROUNDS, PT WILL REMAIN 1-2 MORE DAYS DCP: HOME VIA PRIVATE TRANSPORT
--- NOTE | 2025-10-29 11:32 | P.PNIM_ITS ---
Subjective Subjective Date of Service: 10/29/25 Interval History: hand cellulitis Review of Systems Review of Systems: Yes all other systems are reviewed and are negative Physical Exam 2 Exam: Exam: Appearance: Alert.? Oriented X3.? cvs: [id number], [id number] . res: clear to auscultation ,no rhonchii or wheezing abd: no rebound or guarding ,nt, bs present. ext pulses present , no cyanosis right hand -swelling/erythema/scratch santiago. Range of motion limited due to pain neuro: axo3 , nonfocal. Vital Signs: Vital Signs: Last Vital Signs Temp 98.1 F 10/29/25 08:00 Pulse 73 10/29/25 08:00 Resp 18 10/29/25 08:00 BP 162/71 H 10/29/25 08:00 Pulse Ox 93 10/29/25 08:00 O2 Del Method Room Air 10/29/25 08:00 BMI result Body Mass Index 45.2 Objective Data Active Medications Acetaminophen (Acetaminophen 325 Mg Tablet) 650 mg PO Q6H PRN PRN Reason: Pain, Mild 1-3,fever,headache Last Admin: 10/29/25 08:04 Dose: 650 mg Documented By: KATE Amlodipine Besylate (Amlodipine Besylate 10 Mg Tablet) 10 mg PO DAILY [facility]; Protocol Last Admin: 10/29/25 08:04 Dose: 10 mg Documented By: KATE Aspirin (Aspirin Enteric Coated 81 Mg Tablet.Dr) 81 mg PO BEDTIME [facility] Last Admin: 10/28/25 20:43 Dose: 81 mg Documented By: BRITTANY Calcium Carbonate (Calcium Carbonate 750 Mg Tab.Chew) 750 mg PO Q4H PRN PRN Reason: Heartburn Carvedilol (Carvedilol 6.25 Mg Tablet) 6.25 mg PO BID [facility]; Protocol Last Admin: 10/29/25 08:04 Dose: 6.25 mg Documented By: KATE Dextrose (Dextrose 50 % 25 Gm/50 Ml Syringe) 25 gm IVPUSH Q15M PRN; Protocol PRN Reason: per Hypoglycemia Standing Ord. Enoxaparin Sodium (Enoxaparin Sodium 40 Mg/0.4 Ml Syringe) 40 mg SUBCUT Q24H [facility] Last Admin: 10/28/25 19:39 Dose: 40 mg Documented By: BRITTANY Glucose (Glucose Gel 15 Gm Gel..Gram.) 15 gm PO Q15M PRN; Protocol PRN Reason: per Hypoglycemia Standing Ord. Piperacillin Sod/Tazobactam (Sod 3.375 gm/ Sodium Chloride) 50 mls @ 100 mls/hr IV Q6H [facility] Last Admin: 10/29/25 10:57 Dose: 100 mls/hr Documented By: KATE Vancomycin HCl 1,250 mg/ (Sodium Chloride) 250 mls @ 166.667 mls/hr IV Q24H [facility] Last Infusion: 10/28/25 19:18 Dose: Infused Documented By: HALLE Insulin Glargine (Insulin Glargine,Hum.Rec.Anlog 100 Unit/Ml 10 Ml Vial) 10 unit SUBCUT BEDTIME [facility] Last Admin: 10/28/25 20:44 Dose: 10 unit Documented By: BRITTANY Insulin Human Lispro (Insulin Lispro 100 Unit/Ml 3 Ml Vial) 0 unit SUBCUT QIDACHS [facility]; Protocol Last Admin: 10/29/25 08:01 Dose: Not Given Documented By: KATE Non-Admin Reason: No Insulin Coverage Magnesium Hydroxide (Milk Of Magnesia 30 Ml Oral.Susp) 30 ml PO DAILY PRN PRN Reason: Constipation Melatonin (Melatonin 3 Mg Tablet) 6 mg PO BEDTIME PRN PRN Reason: Insomnia Multivitamins/Vitamin C (Multivitamin Tablet) 1 tab PO DAILY [facility] Last Admin: 10/29/25 08:04 Dose: 1 tab Documented By: KATE Non-Formulary Medication (Semaglutide [Ozempic]) 2 mg SUBCUT SA@0900 [facility] Pharmacy Consult (Consult Rx Vancomycin Dosing) 1 each MISCELLANE DAILY PRN PRN Reason: Consult order Pravastatin Sodium (Pravastatin Sodium 10 Mg Tablet) 10 mg PO BEDTIME [facility] Last Admin: 10/28/25 20:43 Dose: 10 mg Documented By: BRITTANY Rabies Vaccine (Rabies Vaccine (Pcec)/Pf 1 Ml Vial) 1 ml IM .ONCE ONE Stop: 10/30/25 00:02 Sodium Chloride (0.9 % Sodium Chloride Flush 3 Ml Syringe) 3 ml IVFLUSH QSHIFT [facility] Last Admin: 10/29/25 08:06 Dose: 3 ml Documented By: KATE Labs 10/29/25 06:30 10/29/25 06:30 Labs: Laboratory Results - last 24 hr 10/28/25 10/28/25 10/28/25 06:35 11:33 15:53 MCV MCH MCHC RDW Plt Count MPV Absolute Nucleated RBC Nucleated RBC % (auto) Anion Gap 16 Estim Creat Clear Calc 60.9 Estimated GFR 53 POC Glucose 141 H 167 H Random Glucose 132 H Estimat Average Glucose Hemoglobin A1c % Calcium 9.3 D 10/28/25 10/28/25 10/29/25 16:50 20:31 06:30 MCV 87.0 MCH 29.3 MCHC 33.8 RDW 13.2 Plt Count 382 MPV 9.4 Absolute Nucleated RBC 0.000 Nucleated RBC % (auto) 0.0 Anion Gap 14 Estim Creat Clear Calc 57.0 Estimated GFR 49 POC Glucose 179 H Random Glucose 145 H Estimat Average Glucose 137 Hemoglobin A1c % 6.4 H Calcium 9.2 10/29/25 07:50 MCV MCH MCHC RDW Plt Count MPV Absolute Nucleated RBC Nucleated RBC % (auto) Anion Gap Estim Creat Clear Calc Estimated GFR POC Glucose 150 H Random Glucose Estimat Average Glucose Hemoglobin A1c % Calcium Microbiology Microbiology Results: Microbiology 10/27/25 16:50 Blood Culture - Preliminary Blood - Venous No growth after 24 hours. 10/27/25 16:50 Blood Culture - Preliminary Blood - Venous No growth after 24 hours. Assessment and Plan (1) Cellulitis: Status: Acute Plan 70 y/o Fwith pmhx of diastolic dysfunction, aortic stenosis, CKD, DM, HTN, an dyslipidemia presenting right hand and wrist cellulitis. 1. severe Sepsis secondary to Right hand and wrist cellulitis: Elevated CRP and ESR Hand x-ray seems fine, blood cultures pending Lactic acidosis acute-due to above, resolved . Leukocytosis, tachycardia plan: Follow up blood culture, IV antibiotics . ortho follwiing-Continue IV abx per medicine recommendation 2. CKD: Monitor renal function electrolytes closely 3.dm: Continue Lantus, fingerstick with sliding scale, diabetic diet. 4. Hypertension: Continue amlodipine, hold lisinopril/hctz , monitor renal function electrolyte lytes closely. 5. hx of diastolic dysfunction: continue home meds. dvt prophylax: s/c lovenox. ongoing need:severe Sepsis secondary to Right hand and wrist cellulitis:Continue IV abx , hand cellulitis is not improving yet, ortho following. Quality Stroke Does the patient have a stroke diagnosis?: No VTE Prior VTE?: No VTE Risk Level:: Medical - moderate - high VTE Device Contraindication: N/A - Device Ordered VTE Drug Contraindication: N/A - Med Ordered
[2025-10-29 12:00] VITALS: BP 146/67; PULSE 68; RESP 16; TEMP 36.7; O2SAT 97
[2025-10-29 12:01] LABS: Glucose, Whole Blood 141 mg/dL (60-115)
[2025-10-29 16:00] VITALS: BP 140/60; PULSE 74; RESP 19; TEMP 36.3; O2SAT 95
[2025-10-29 16:27] LABS: Glucose, Whole Blood 146 mg/dL (60-115)
--- NOTE | 2025-10-29 16:38 | HE.PHANOTE ---
VANCO DOSE ADJUSTMENT BASED ON SCR AND LEVEL OF 9.0 DOSE INCREASED TO 1500 Q 24H. NEXT LEVEL 11/20@ 1500
--- NOTE | 2025-10-29 16:51 | HO.PM.IMPN ---
Subjective Subjective Date of Service: 10/30/25 Interval History: hand cellulitis Review of Systems Erythema and swelling minimal improvement, range of motion is slightly improving Review of Systems: Yes all other systems are reviewed and are negative Physical Exam Exam: Exam: Appearance: Alert.? Oriented X3.? cvs: [id number], [id number] . res: clear to auscultation ,no rhonchii or wheezing abd: no rebound or guarding ,nt, bs present. ext pulses present , no cyanosis right hand -swelling/erythema/scratch santiago. Range of motion limited due to pain neuro: axo3 , nonfocal. Vital Signs: Vital Signs: Last Vital Signs Temp 98.0 F 10/29/25 12:00 Pulse 68 10/29/25 12:00 Resp 16 10/29/25 12:00 BP 146/67 H 10/29/25 12:00 Pulse Ox 97 10/29/25 12:00 O2 Del Method Room Air 10/29/25 12:00 BMI result Body Mass Index 45.2 Objective Data Active Medications Acetaminophen (Acetaminophen 325 Mg Tablet) 650 mg PO Q6H PRN PRN Reason: Pain, Mild 1-3,fever,headache Last Admin: 10/29/25 08:04 Dose: 650 mg Documented By: KATE Amlodipine Besylate (Amlodipine Besylate 10 Mg Tablet) 10 mg PO DAILY [facility]; Protocol Last Admin: 10/29/25 08:04 Dose: 10 mg Documented By: KATE Aspirin (Aspirin Enteric Coated 81 Mg Tablet.Dr) 81 mg PO BEDTIME [facility] Last Admin: 10/28/25 20:43 Dose: 81 mg Documented By: BRITTANY Calcium Carbonate (Calcium Carbonate 750 Mg Tab.Chew) 750 mg PO Q4H PRN PRN Reason: Heartburn Carvedilol (Carvedilol 6.25 Mg Tablet) 6.25 mg PO BID [facility]; Protocol Last Admin: 10/29/25 08:04 Dose: 6.25 mg Documented By: KATE Dextrose (Dextrose 50 % 25 Gm/50 Ml Syringe) 25 gm IVPUSH Q15M PRN; Protocol PRN Reason: per Hypoglycemia Standing Ord. Enoxaparin Sodium (Enoxaparin Sodium 40 Mg/0.4 Ml Syringe) 40 mg SUBCUT Q24H [facility] Last Admin: 10/28/25 19:39 Dose: 40 mg Documented By: BRITTANY Glucose (Glucose Gel 15 Gm Gel..Gram.) 15 gm PO Q15M PRN; Protocol PRN Reason: per Hypoglycemia Standing Ord. Piperacillin Sod/Tazobactam (Sod 3.375 gm/ Sodium Chloride) 50 mls @ 100 mls/hr IV Q6H [facility] Last Infusion: 10/29/25 11:27 Dose: Infused Documented By: KATE Vancomycin HCl 1,500 mg/ (Sodium Chloride) 500 mls @ 333.333 mls/hr IV Q24H [facility] Insulin Glargine (Insulin Glargine,Hum.Rec.Anlog 100 Unit/Ml 10 Ml Vial) 10 unit SUBCUT BEDTIME [facility] Last Admin: 10/28/25 20:44 Dose: 10 unit Documented By: BRITTANY Insulin Human Lispro (Insulin Lispro 100 Unit/Ml 3 Ml Vial) 0 unit SUBCUT QIDACHS [facility]; Protocol Last Admin: 10/29/25 16:43 Dose: Not Given Documented By: KATE Non-Admin Reason: No Insulin Coverage Magnesium Hydroxide (Milk Of Magnesia 30 Ml Oral.Susp) 30 ml PO DAILY PRN PRN Reason: Constipation Melatonin (Melatonin 3 Mg Tablet) 6 mg PO BEDTIME PRN PRN Reason: Insomnia Multivitamins/Vitamin C (Multivitamin Tablet) 1 tab PO DAILY [facility] Last Admin: 10/29/25 08:04 Dose: 1 tab Documented By: KATE Non-Formulary Medication (Semaglutide [Ozempic]) 2 mg SUBCUT SA@0900 [facility] Pharmacy Consult (Consult Rx Vancomycin Dosing) 1 each MISCELLANE DAILY PRN PRN Reason: Consult order Pravastatin Sodium (Pravastatin Sodium 10 Mg Tablet) 10 mg PO BEDTIME [facility] Last Admin: 10/28/25 20:43 Dose: 10 mg Documented By: BRITTANY Rabies Vaccine (Rabies Vaccine (Pcec)/Pf 1 Ml Vial) 1 ml IM .ONCE ONE Stop: 10/30/25 00:02 Sodium Chloride (0.9 % Sodium Chloride Flush 3 Ml Syringe) 3 ml IVFLUSH QSHIFT [facility] Last Admin: 10/29/25 08:06 Dose: 3 ml Documented By: KATE Labs 10/29/25 06:30 10/30/25 05:46 Labs: Laboratory Results - last 24 hr 10/28/25 10/28/25 10/29/25 16:50 20:31 06:30 MCV 87.0 MCH 29.3 MCHC 33.8 RDW 13.2 Plt Count 382 MPV 9.4 Absolute Nucleated RBC 0.000 Nucleated RBC % (auto) 0.0 Anion Gap 14 Estim Creat Clear Calc 57.0 Estimated GFR 49 POC Glucose 179 H Random Glucose 145 H Estimat Average Glucose 137 Hemoglobin A1c % 6.4 H Calcium 9.2 Random Vancomycin 10/29/25 10/29/25 10/29/25 07:50 11:55 15:10 MCV MCH MCHC RDW Plt Count MPV Absolute Nucleated RBC Nucleated RBC % (auto) Anion Gap Estim Creat Clear Calc Estimated GFR POC Glucose 150 H 141 H Random Glucose Estimat Average Glucose Hemoglobin A1c % Calcium Random Vancomycin 9.0 L 10/29/25 16:20 MCV MCH MCHC RDW Plt Count MPV Absolute Nucleated RBC Nucleated RBC % (auto) Anion Gap Estim Creat Clear Calc Estimated GFR POC Glucose 146 H Random Glucose Estimat Average Glucose Hemoglobin A1c % Calcium Random Vancomycin Microbiology Microbiology Results: Microbiology 10/27/25 16:50 Blood Culture - Preliminary Blood - Venous No growth after 24 hours. 10/27/25 16:50 Blood Culture - Preliminary Blood - Venous No growth after 24 hours. Assessment and Plan (1) Cellulitis: Status: Acute Plan 70 y/o Fwith pmhx of diastolic dysfunction, aortic stenosis, CKD, DM, HTN, an dyslipidemia presenting right hand and wrist cellulitis. 1. severe Sepsis secondary to Right hand and wrist cellulitis: Elevated CRP and ESR Hand x-ray seems fine, blood cultures pending Lactic acidosis acute-due to above, resolved . Leukocytosis, tachycardia plan: Follow up blood culture, IV antibiotics . ortho follwiing-Continue IV abx per medicine recommendation 2. CKD: Monitor renal function electrolytes closely 3.dm: Continue Lantus, fingerstick with sliding scale, diabetic diet. 4. Hypertension: Continue amlodipine, hold lisinopril/hctz , monitor renal function electrolyte lytes closely. 5. hx of diastolic dysfunction: continue home meds. dvt prophylax: s/c lovenox. ongoing need:severe Sepsis secondary to Right hand and wrist cellulitis:Continue IV abx , hand cellulitis is not improving yet, ortho following. Quality Stroke Does the patient have a stroke diagnosis?: No VTE Prior VTE?: No VTE Risk Level:: Medical - moderate - high VTE Device Contraindication: N/A - Device Ordered VTE Drug Contraindication: N/A - Med Ordered
[2025-10-29 20:00] VITALS: BP 145/60; PULSE 71; RESP 19; TEMP 36.6; O2SAT 94
[2025-10-29 20:30] LABS: Glucose, Whole Blood 180 mg/dL (60-115)
[2025-10-29] MEDS: Aspirin Enteric Coated 81 MG TABLET.DR PO (20:58)
[2025-10-29] MEDS: Insulin Glargine,Hum.rec.anlog 100 UNIT/ML 10 ML VIAL 10 UNIT SUBCUT (21:00)
[2025-10-30] VITALS (7 sets, daily range): BP systolic 130–178; BP diastolic 50–75; PULSE 70–80; RESP 14–19; TEMP 36–37.1; O2SAT 93–95
[2025-10-30] MEDS: Rabies Vaccine (PCEC)/PF 1 ML VIAL IM (00:01)
[2025-10-30 07:24] LABS: Creatinine Clr Calc Pharmacy 58.6; Estimated Glomerular Filt Rate 51
[2025-10-30 07:35] LABS: Glucose, Whole Blood 163 mg/dL (60-115)
[2025-10-30 11:33] LABS: Glucose, Whole Blood 148 mg/dL (60-115)
--- NOTE | 2025-10-30 16:33 | HO.PM.IMPN ---
Subjective Subjective Date of Service: 10/30/25 Interval History: Hand cellulitis Review of Systems Erythema and swelling minimal improvement, range of motion is slightly improving Review of Systems: Yes all other systems are reviewed and are negative Physical Exam Exam: Exam: Appearance: Alert.? Oriented X3.? cvs: rrr, [id number] . res: clear to auscultation ,no rhonchii or wheezing abd: no rebound or guarding ,nt, bs present. ext pulses present , no cyanosis right hand -swelling/erythema/scratch santiago-somewhat improvingn neuro: axo3 , nonfocal. Vital Signs: Vital Signs: Last Vital Signs Temp 97.9 F 10/30/25 16:00 Pulse 73 10/30/25 16:00 Resp 18 10/30/25 16:00 BP 178/75 H 10/30/25 16:00 Pulse Ox 94 10/30/25 16:00 O2 Del Method Room Air 10/30/25 16:00 BMI result Body Mass Index 45.2 Objective Data Active Medications Acetaminophen (Acetaminophen 325 Mg Tablet) 650 mg PO Q6H PRN PRN Reason: Pain, Mild 1-3,fever,headache Last Admin: 10/30/25 07:42 Dose: 650 mg Documented By: ALEK Amlodipine Besylate (Amlodipine Besylate 10 Mg Tablet) 10 mg PO DAILY [facility]; Protocol Last Admin: 10/30/25 07:41 Dose: 10 mg Documented By: ALEK Aspirin (Aspirin Enteric Coated 81 Mg Tablet.Dr) 81 mg PO BEDTIME [facility] Last Admin: 10/29/25 20:58 Dose: 81 mg Documented By: BRITTANY Calcium Carbonate (Calcium Carbonate 750 Mg Tab.Chew) 750 mg PO Q4H PRN PRN Reason: Heartburn Carvedilol (Carvedilol 6.25 Mg Tablet) 6.25 mg PO BID [facility]; Protocol Last Admin: 10/30/25 07:42 Dose: 6.25 mg Documented By: ALEK Dextrose (Dextrose 50 % 25 Gm/50 Ml Syringe) 25 gm IVPUSH Q15M PRN; Protocol PRN Reason: per Hypoglycemia Standing Ord. Enoxaparin Sodium (Enoxaparin Sodium 40 Mg/0.4 Ml Syringe) 40 mg SUBCUT Q24H [facility] Last Admin: 10/29/25 18:24 Dose: 40 mg Documented By: KTAE Glucose (Glucose Gel 15 Gm Gel..Gram.) 15 gm PO Q15M PRN; Protocol PRN Reason: per Hypoglycemia Standing Ord. Piperacillin Sod/Tazobactam (Sod 3.375 gm/ Sodium Chloride) 50 mls @ 100 mls/hr IV Q6H [facility] Last Admin: 10/30/25 16:08 Dose: 100 mls/hr Documented By: ALEK Vancomycin HCl 1,500 mg/ (Sodium Chloride) 500 mls @ 333.333 mls/hr IV Q24H [facility] Last Infusion: 10/29/25 19:53 Dose: Infused Documented By: BRITTANY Insulin Glargine (Insulin Glargine,Hum.Rec.Anlog 100 Unit/Ml 10 Ml Vial) 10 unit SUBCUT BEDTIME [facility] Last Admin: 10/29/25 21:00 Dose: 10 unit Documented By: BRITATNY Insulin Human Lispro (Insulin Lispro 100 Unit/Ml 3 Ml Vial) 0 unit SUBCUT QIDACHS [facility]; Protocol Last Admin: 10/30/25 12:10 Dose: Not Given Documented By: ALEK Non-Admin Reason: No Insulin Coverage Magnesium Hydroxide (Milk Of Magnesia 30 Ml Oral.Susp) 30 ml PO DAILY PRN PRN Reason: Constipation Melatonin (Melatonin 3 Mg Tablet) 6 mg PO BEDTIME PRN PRN Reason: Insomnia Multivitamins/Vitamin C (Multivitamin Tablet) 1 tab PO DAILY [facility] Last Admin: 10/30/25 07:41 Dose: 1 tab Documented By: ALEK Non-Formulary Medication (Semaglutide [Ozempic]) 2 mg SUBCUT SA@0900 [facility] Pharmacy Consult (Consult Rx Vancomycin Dosing) 1 each MISCELLANE DAILY PRN PRN Reason: Consult order Pravastatin Sodium (Pravastatin Sodium 10 Mg Tablet) 10 mg PO BEDTIME [facility] Last Admin: 10/29/25 20:58 Dose: 10 mg Documented By: BRITTANY Sodium Chloride (0.9 % Sodium Chloride Flush 3 Ml Syringe) 3 ml IVFLUSH QSHIFT [facility] Last Admin: 10/30/25 16:11 Dose: Not Given Documented By: ALEK Non-Admin Reason: Previously Administered Labs 10/29/25 06:30 10/30/25 05:46 Labs: Laboratory Results - last 24 hr 10/29/25 10/30/25 10/30/25 20:24 05:46 07:31 Hold Purple Top SEE NOTE Estim Creat Clear Calc 58.6 Estimated GFR 51 POC Glucose 180 H 163 H 10/30/25 11:29 Hold Purple Top Estim Creat Clear Calc Estimated GFR POC Glucose 148 H Microbiology Microbiology Results: Microbiology 10/27/25 16:50 Blood Culture - Preliminary Blood - Venous No growth after 48 hours. 10/27/25 16:50 Blood Culture - Preliminary Blood - Venous No growth after 48 hours. Assessment and Plan (1) Cellulitis: Status: Acute Plan 70 y/o Fwith pmhx of diastolic dysfunction, aortic stenosis, CKD, DM, HTN, an dyslipidemia presenting right hand and wrist cellulitis. 1. severe Sepsis secondary to Right hand and wrist cellulitis: Elevated CRP and ESR Hand x-ray seems fine, blood cultures pending Lactic acidosis acute-due to above, resolved . Leukocytosis, tachycardia plan: Follow up blood culture, IV antibiotics . ortho follwiing-Continue IV abx per medicine recommendation 2. CKD3a: Monitor renal function electrolytes closely 3.dm: Continue Lantus, fingerstick with sliding scale, diabetic diet. 4. Hypertension: Continue amlodipine, hold lisinopril/hctz , monitor renal function electrolyte lytes closely. 5. hx of diastolic dysfunction: continue home meds. dvt prophylax: s/c lovenox. ongoing need:severe Sepsis secondary to Right hand and wrist cellulitis:Continue IV abx , hand cellulitis is not improving yet, ortho following. Quality Stroke Does the patient have a stroke diagnosis?: No VTE Prior VTE?: No VTE Risk Level:: Medical - moderate - high VTE Device Contraindication: N/A - Device Ordered VTE Drug Contraindication: N/A - Med Ordered
[2025-10-30 16:35] LABS: Glucose, Whole Blood 136 mg/dL (60-115)
--- NOTE | 2025-10-30 18:39 | P.CDIM_ITS ---
PROVIDER RESPONSE TEXT: To clarify, the appropriate diagnosis supported by the clinical indicators: CKD, please provide stage: ckd 3a QUERY TEXT: PHYSICIAN'S DOCUMENTATION REQUEST Date of Query: 10/30/2025 11:48 AM EST Patient Name: Kathryn Arzola Admit Date: 10/27/2025 Dear Leatha Alvares MD, A review of the medical record indicates additional documentation may be needed. Please review below and update the documentation accordingly. Clinical Indicators: Progress notes 10/29/25 : CKD Monitor renal function electrolytes closely. Please clarify which of the following accurately represents the Stage of the documented CKD: CKD, please provide stage 1, 2, 3a, 3b, 4 ESRD - CKD V now requiring permanent dialysis and/or transplant Other (explain) Clinically unable to determine (explain) Thank you, Joyce Kenny, CCS, CDIS Use of terms such as suspected, likely, concern for, or probable (associated with a specific diagnosis that is being evaluated, monitored, or treated as if it exists) are acceptable and can be coded in the inpatient setting, when documented at the time of discharge. Please use your independent medical judgment in providing your response. THIS QUERY IS PART OF THE PERMANENT MEDICAL RECORD
[2025-10-30 20:53] LABS: Glucose, Whole Blood 158 mg/dL (60-115)
[2025-10-30] MEDS: Aspirin Enteric Coated 81 MG TABLET.DR PO (21:19)
[2025-10-30] MEDS: Insulin Glargine,Hum.rec.anlog 100 UNIT/ML 10 ML VIAL 10 UNIT SUBCUT (21:21)
[2025-10-31] VITALS (7 sets, daily range): BP systolic 140–172; BP diastolic 50–76; PULSE 69–77; RESP 16–19; TEMP 36–37.3; O2SAT 92–95
[2025-10-31 07:31] LABS: Glucose, Whole Blood 126 mg/dL (60-115)
[2025-10-31 07:58] LABS: Hematocrit 33.5 % (37.0-47.0); Hemoglobin 11.2 g/dl (12.0-16.0); Mean Corpuscular HGB Conc 33.4 g/dl (31.0-35.0); Mean Corpuscular Hemoglobin 28.8 pg (27.0-33.0); Mean Corpuscular Volume 86.1 fL (80.0-98.0); NRBC Abs Auto 0.000 X10*3/uL (0.0-0.012); NRBC Pct Auto 0.0 /100WBC (0.0-0.2); Platelet Count 428 X10*3/uL (160-400); Red Blood Count 3.89 X10*6/uL (4.20-5.50); White Blood Count 10.4 X10*3/uL (4.8-10.8)
[2025-10-31 08:14] LABS: Creatinine Clr Calc Pharmacy 60.9; Estimated Glomerular Filt Rate 53
[2025-10-31 08:15] LABS: Anion Gap 11 (12-20); Blood Urea Nitrogen 21 mg/dL (9-16); Calcium 9.5 mg/dL (8.4-10.2); Carbon Dioxide 25 mmol/L (22-29); Chloride 106 mmol/L (96-108); Creatinine Clr Calc Pharmacy 64.0; Estimated Glomerular Filt Rate 56; Potassium 3.8 mmol/L (3.3-5.1); Sodium 138 mmol/L (135-145)
[2025-10-31 08:37] LABS: Erythrocyte Sedimentation Rate 83 MM/HR (0-20)
--- NOTE | 2025-10-31 08:59 | PM.PNORT ---
Subjective Subjective Date of Service: 10/31/25 Interval history: Patient is resting in bed comfortably IV abx continue No overnight events Pain is managed: Patient does report improvement in pain and range of motion since previous evaluation Patient reports that the swelling has decreased, as well as decreased area of redness on the dorsal right wrist and hand Of note, the patient does report some drainage from 2 of the 3 wounds over the course of hospital stay, but states that a 3rd has not drained No additional complaints Physical Exam Vital Signs: Vital Signs: Last Vital Signs Temp 97.6 F 10/31/25 07:25 Pulse 74 10/31/25 07:25 Resp 16 10/31/25 07:25 BP 151/68 H 10/31/25 07:25 Pulse Ox 93 10/31/25 07:25 O2 Del Method Room Air 10/31/25 07:25 BMI result Body Mass Index 45.2 Extrem: Other: Patient is alert, oriented, and in no acute distress. Neuro: Normal sensation of the tips of all digits of the right hand at this time Vascular: Cap refill brisk Pain: Patient does report some tenderness to palpation about the areas of small puncture wounds on the dorsal aspect of the right hand Patient does also report some very mild discomfort at the extremes of range of motion of the right wrist, particularly with wrist flexion, in the dorsal area of the right wrist No pain with axial loading of the right wrist ROM: Patient is able to forward flex the right wrist to approximately 30-40 degrees and can extend to approximately 30 degrees Patient is able to make a closed fist with the right hand Skin: There are 3 small, puncture like wounds on the dorsal aspect of the right hand with surrounding erythema, per the patient this area of erythema has grown smaller since hospital admission There is no palpable subcutaneous fluid collection at this time, just edema Psych: Appears grossly normal Affect normal Attitude cooperative Procedures Date of Service Date of Service: 10/31/25 Progress Note: A&P Assessment and plan (1) Cat scratch of right forearm: Status: Acute (2) Type 2 diabetes mellitus with morbid obesity: Status: Acute (3) Cellulitis of right forearm: Status: Acute (4) Cat bite of right forearm: Status: Acute Plan Case was discussed with Dr. Murray, and a collaborative treatment plan was formed: Continue IV abx per medicine recommendation No evidence of tenosynovitis No palpable fluid collection suggestive of abscess at this time However, patient will be made NPO at midnight pending evaluation tomorrow Encourage gentle ROM of the hand and wrist Monitor for improving symptoms Time Spent With Patient Time: Total time managing care of this patient today ____ minutes. Quality Stroke Does the patient have a stroke diagnosis?: No VTE Prior VTE?: No VTE Risk Level:: Medical - moderate - high VTE Device Contraindication: N/A - Device Ordered VTE Drug Contraindication: N/A - Med Ordered
--- NOTE | 2025-10-31 11:01 | P.PNIM_ITS ---
Subjective Subjective Date of Service: 10/31/25 Interval History: improving Physical Exam 2 Vital Signs: Vital Signs: Last Vital Signs Temp 97.6 F 10/31/25 07:25 Pulse 74 10/31/25 07:25 Resp 16 10/31/25 07:25 BP 151/68 H 10/31/25 07:25 Pulse Ox 93 10/31/25 07:25 O2 Del Method Room Air 10/31/25 07:25 BMI result Body Mass Index 45.2 Extrem: Other: Patient is alert, oriented, and in no acute distress. Neuro: Normal sensation of the tips of all digits of the right hand at this time Vascular: Cap refill brisk Pain: Patient does report some tenderness to palpation about the areas of small puncture wounds on the dorsal aspect of the right hand Patient does also report some very mild discomfort at the extremes of range of motion of the right wrist, particularly with wrist flexion, in the dorsal area of the right wrist No pain with axial loading of the right wrist ROM: Patient is able to forward flex the right wrist to approximately 30-40 degrees and can extend to approximately 30 degrees Patient is able to make a closed fist with the right hand Skin: There are 3 small, puncture like wounds on the dorsal aspect of the right hand with surrounding erythema, per the patient this area of erythema has grown smaller since hospital admission There is no palpable subcutaneous fluid collection at this time, just edema Psych: Appears grossly normal Affect normal Attitude cooperative Objective Data Active Medications Acetaminophen (Acetaminophen 325 Mg Tablet) 650 mg PO Q6H PRN PRN Reason: Pain, Mild 1-3,fever,headache Last Admin: 10/31/25 07:47 Dose: 650 mg Documented By: ALEK Amlodipine Besylate (Amlodipine Besylate 10 Mg Tablet) 10 mg PO DAILY [facility]; Protocol Last Admin: 10/31/25 07:42 Dose: 10 mg Documented By: ALEK Aspirin (Aspirin Enteric Coated 81 Mg Tablet.Dr) 81 mg PO BEDTIME [facility] [place] Last Admin: 10/30/25 21:19 Dose: 81 mg Documented By: FILOMENA Calcium Carbonate (Calcium Carbonate 750 Mg Tab.Chew) 750 mg PO Q4H PRN PRN Reason: Heartburn Carvedilol (Carvedilol 6.25 Mg Tablet) 6.25 mg PO BID [facility]; Protocol Last Admin: 10/31/25 07:42 Dose: 6.25 mg Documented By: ALEK Dextrose (Dextrose 50 % 25 Gm/50 Ml Syringe) 25 gm IVPUSH Q15M PRN; Protocol PRN Reason: per Hypoglycemia Standing Ord. Enoxaparin Sodium (Enoxaparin Sodium 40 Mg/0.4 Ml Syringe) 40 mg SUBCUT Q24H [facility] [place] Last Admin: 10/30/25 18:11 Dose: 40 mg Documented By: ALEK Glucose (Glucose Gel 15 Gm Gel..Gram.) 15 gm PO Q15M PRN; Protocol PRN Reason: per Hypoglycemia Standing Ord. Piperacillin Sod/Tazobactam (Sod 3.375 gm/ Sodium Chloride) 50 mls @ 100 mls/hr IV Q6H [facility] [place] Last Infusion: 10/31/25 05:45 Dose: Infused Documented By: FILOMENA Vancomycin HCl 1,500 mg/ (Sodium Chloride) 500 mls @ 333.333 mls/hr IV Q24H [facility] [place] Insulin Glargine (Insulin Glargine,Hum.Rec.Anlog 100 Unit/Ml 10 Ml Vial) 10 unit SUBCUT BEDTIME [facility] [place] Last Admin: 10/30/25 21:21 Dose: 10 unit Documented By: FILOMENA Insulin Human Lispro (Insulin Lispro 100 Unit/Ml 3 Ml Vial) 0 unit SUBCUT QIDACHS [facility] [place]; Protocol Last Admin: 10/31/25 07:35 Dose: Not Given Documented By: ALEK Non-Admin Reason: No Insulin Coverage Magnesium Hydroxide (Milk Of Magnesia 30 Ml Oral.Susp) 30 ml PO DAILY PRN PRN Reason: Constipation Melatonin (Melatonin 3 Mg Tablet) 6 mg PO BEDTIME PRN PRN Reason: Insomnia Non-Formulary Medication (Semaglutide [Ozempic]) 2 mg SUBCUT SA@0900 [facility] [place] Pharmacy Consult (Consult Rx Vancomycin Dosing) 1 each MISCELLANE DAILY PRN PRN Reason: Consult order Pravastatin Sodium (Pravastatin Sodium 10 Mg Tablet) 10 mg PO BEDTIME [facility] [place] Last Admin: 10/30/25 21:19 Dose: 10 mg Documented By: FILOMENA Sodium Chloride (0.9 % Sodium Chloride Flush 3 Ml Syringe) 3 ml IVFLUSH QSHIFT [facility] [place] Last Admin: 10/31/25 08:17 Dose: Not Given Documented By: ALEK Non-Admin Reason: Previously Administered Labs 10/31/25 07:40 10/31/25 07:40 Labs: Laboratory Results - last 24 hr 10/30/25 10/30/25 10/30/25 11:29 16:28 20:49 MCV MCH MCHC RDW Plt Count MPV Absolute Nucleated RBC Nucleated RBC % (auto) ESR Anion Gap Estim Creat Clear Calc Estimated GFR POC Glucose 148 H 136 H 158 H Random Glucose Calcium 10/31/25 10/31/25 10/31/25 07:26 07:40 07:40 MCV 86.1 MCH 28.8 MCHC 33.4 RDW 13.4 Plt Count 428 H MPV 9.4 Absolute Nucleated RBC 0.000 Nucleated RBC % (auto) 0.0 ESR 83 H Anion Gap 11 L Estim Creat Clear Calc 60.9 64.0 Estimated GFR 53 POC Glucose 126 H Random Glucose Calcium 10/31/25 07:40 MCV MCH MCHC RDW Plt Count MPV Absolute Nucleated RBC Nucleated RBC % (auto) ESR Anion Gap Estim Creat Clear Calc Estimated GFR 56 POC Glucose Random Glucose 131 H Calcium 9.5 Assessment and Plan (1) Hypertension: Status: Acute Plan 70F PMH chronic diastolic chf, DM, HTN, HLD, presented with cat bite Severe sepsis due to right hand and wrist cellulitis due to cat bite Continue vancomycin and Zosyn, NPO after midnight for possible Diabetes Basal bolus insulin Hypertension Amlodipine DVT prophylaxis with Lovenox Full code reason for continued hospitalization:iv abx, plan for possible OR Quality Stroke Does the patient have a stroke diagnosis?: No VTE Prior VTE?: No VTE Risk Level:: Medical - moderate - high VTE Device Contraindication: N/A - Device Ordered VTE Drug Contraindication: N/A - Med Ordered
--- NOTE | 2025-10-31 11:04 | MHC.CM.PN ---
Patient not medically cleared for dc. CM will continue to follow.
[2025-10-31 11:17] LABS: Glucose, Whole Blood 164 mg/dL (60-115)
[2025-10-31 15:57] LABS: Glucose, Whole Blood 137 mg/dL (60-115)
--- NOTE | 2025-10-31 16:09 | HE.PHANOTE ---
RE: VANCO DOSING Trough came back as 12.4 mg/L, renal function is stable. Continue with dose 1500 mg q24h, next trough is scheduled for 11/02/25 @1500.
[2025-10-31 20:27] LABS: Glucose, Whole Blood 138 mg/dL (60-115)
[2025-10-31] MEDS: Aspirin Enteric Coated 81 MG TABLET.DR PO (20:32)
[2025-10-31] MEDS: Insulin Glargine,Hum.rec.anlog 100 UNIT/ML 10 ML VIAL 10 UNIT SUBCUT (20:33)
[2025-10-31] MEDS: 0.9 % Sodium Chloride Flush 3 ML SYRINGE IVFLUSH (22:05)
--- NOTE | 2025-11-01 00:04 | W.PM.IDCN ---
History of Present Illness Data of Consult Service Date: 10/31/25 Requesting physician: Keith Peterson Primary Care Provider: LEO Vivas Reason for consult: right hand cat bite She presents with pain and swelling after cat bite on ,10/25. She said her cat got stuck in her clothes and she tried to scruff the cat and lift him up by the back of the neck and the cat started biting and trying to get away and patient was yelling. She had bites and scratches and next day swelling hand She was admitted and Zosyn and Vancomycin started and feels better. She was seen by Orthopedics Blood cultures negative. 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 Diabetes type 2, controlled Family History Family History Father Lung cancer Mother Breast cancer Family history: reviewed and not pertinent Surgical History Surgical History History of section Social History Social History Household Members: Family Household Members Other:: son Housing: House Do you presently have visiting nurse or other home services: No Alcohol intake: current Alcohol intake frequency: holidays/special occasions only Patient Tobacco Use Status: Never used Tobacco e-Cigarette/Vaping Use: Never Used Second Hand Smoke Exposure: No service: No Current occupational status: employed Cognitive needs: Yes (Cane, walker) Hearing needs: No Vision needs: Yes (Glasses) Meds Allergies Allergy/AdvReac Type Severity Reaction Status Date / Time Sulfa (Sulfonamide Allergy Mild RASH Verified 10/27/25 11:45 Antibiotics) (Sulfa (Sulfonamides)) cephalexin (From KEFLEX) Allergy Unknown RASH Verified 10/27/25 11:45 clavulanic acid (Augmentin) Allergy Unknown vaginal Verified 10/27/25 11:45 irritation empagliflozin (From AdvReac Intermediate Rash Verified 10/27/25 11:45 Jardiance) amoxicillin (From Augmentin) AdvReac Mild VAGINAL Verified 10/27/25 11:45 IRRITATION tolterodine AdvReac Unknown Hives, rash Verified 10/27/25 11:45 Active Medications: Current Medications Acetaminophen (Acetaminophen 325 Mg Tablet) 650 mg PO Q6H PRN PRN Reason: Pain, Mild 1-3,fever,headache Last Admin: 10/31/25 20:51 Dose: 650 mg Amlodipine Besylate (Amlodipine Besylate 10 Mg Tablet) 10 mg PO DAILY [facility]; Protocol Last Admin: 10/31/25 07:42 Dose: 10 mg Aspirin (Aspirin Enteric Coated 81 Mg Tablet.Dr) 81 mg PO BEDTIME [facility] Last Admin: 10/31/25 20:32 Dose: 81 mg Calcium Carbonate (Calcium Carbonate 750 Mg Tab.Chew) 750 mg PO Q4H PRN PRN Reason: Heartburn Carvedilol (Carvedilol 6.25 Mg Tablet) 6.25 mg PO BID [facility]; Protocol Last Admin: 10/31/25 20:31 Dose: 6.25 mg Dextrose (Dextrose 50 % 25 Gm/50 Ml Syringe) 25 gm IVPUSH Q15M PRN; Protocol PRN Reason: per Hypoglycemia Standing Ord. Enoxaparin Sodium (Enoxaparin Sodium 40 Mg/0.4 Ml Syringe) 40 mg SUBCUT Q24H [facility] Last Admin: 10/31/25 17:21 Dose: 40 mg Glucose (Glucose Gel 15 Gm Gel..Gram.) 15 gm PO Q15M PRN; Protocol PRN Reason: per Hypoglycemia Standing Ord. Piperacillin Sod/Tazobactam (Sod 3.375 gm/ Sodium Chloride) 50 mls @ 100 mls/hr IV Q6H [facility] Last Infusion: 10/31/25 23:35 Dose: Infused Vancomycin HCl 1,500 mg/ (Sodium Chloride) 500 mls @ 333.333 mls/hr IV Q24H [facility] Last Infusion: 10/31/25 19:02 Dose: Infused Insulin Glargine (Insulin Glargine,Hum.Rec.Anlog 100 Unit/Ml 10 Ml Vial) 10 unit SUBCUT BEDTIME [facility] Last Admin: 10/31/25 20:33 Dose: 10 unit Insulin Human Lispro (Insulin Lispro 100 Unit/Ml 3 Ml Vial) 0 unit SUBCUT QIDACHS [facility]; Protocol Last Admin: 10/31/25 20:35 Dose: Not Given Magnesium Hydroxide (Milk Of Magnesia 30 Ml Oral.Susp) 30 ml PO DAILY PRN PRN Reason: Constipation Melatonin (Melatonin 3 Mg Tablet) 6 mg PO BEDTIME PRN PRN Reason: Insomnia Non-Formulary Medication (Semaglutide [Ozempic]) 2 mg SUBCUT SA@0900 [facility] Pharmacy Consult (Consult Rx Vancomycin Dosing) 1 each MISCELLANE DAILY PRN PRN Reason: Consult order Pravastatin Sodium (Pravastatin Sodium 10 Mg Tablet) 10 mg PO BEDTIME [facility] Last Admin: 10/31/25 20:31 Dose: 10 mg Sodium Chloride (0.9 % Sodium Chloride Flush 3 Ml Syringe) 3 ml IVFLUSH QSHIFT [facility] Last Admin: 10/31/25 22:05 Dose: 3 ml Home Medications ?Medication ?Instructions ?Recorded ?Confirmed ?Last Taken ?Type aspirin 81 mg tablet,delayed 81 mg PO BEDTIME 11/04/20 10/27/25 Unknown History release (Adult Aspirin Regimen) blood-glucose meter ([employer] 09/03/22 10/12/25 Unknown History Verio Flex Meter) [facility] 10/12/25 Unknown History Verio test strips) lancets 30 gauge ([employer] [employer] 01/07/23 10/12/25 Unknown History Lancets) insulin glargine 100 unit/mL (3 18 unit subcut BEDTIME 07/10/25 10/27/25 Unknown History mL) subcutaneous pen ibuprofen 800 mg tablet 800 mg PO BID pain 10/27/25 10/27/25 Unknown History multivitamin 1 tab PO DAILY 10/27/25 10/27/25 Unknown History semaglutide 2 mg/dose (8 mg/3 mL) 2 mg subcut SA@0900 10/27/25 10/27/25 10/20/25 History subcutaneous pen injector (Ozempic) Physical Exam Vital Signs: Vital Signs: Last Vital Signs Temp 99.1 F 10/31/25 23:49 Pulse 71 10/31/25 23:49 Resp 19 12/03/25 23:49 BP 159/70 H 12/03/25 23:49 Pulse Ox 95 10/31/25 23:49 O2 Del Method Room Air 10/31/25 23:49 BMI result Body Mass Index 45.2 Extrem: Other: hand decreased swelling and redness,bite santiago Results Labs 10/31/25 07:40 10/31/25 07:40 Labs: Short CBC 10/31/25 Range/Units 07:40 WBC 10.4 (4.8-10.8) X10*3/uL Hgb 11.2 L (12.0-16.0) g/dl Hct 33.5 L (37.0-47.0) % Plt Count 428 H (160-400) X10*3/uL BMP 10/31/25 10/31/25 07:40 07:40 Sodium 138 Potassium 3.8 Chloride 106 Carbon Dioxide 25 BUN 21 H Creatinine 1.03 0.98 Calcium 9.5 Microbiology Microbiology Results: Microbiology 10/27/25 16:50 Blood - Venous Blood Culture - Preliminary No growth after 48 hours. 10/27/25 16:50 Blood - Venous Blood Culture - Preliminary No growth after 48 hours. Assessment and Plan (1) Diabetes type 2, controlled: Status: Acute (2) Rabies exposure: Status: Acute (3) Cellulitis: Qualifiers: Laterality: right Site of cellulitis: extremity Site of cellulitis of extremity: upper extremity Qualified Code(s): L03.113 - Cellulitis of right upper limb Status: Acute Plan Vancomycin and Zosyn until swelling returns to normal and erythema resolves. There is no OM but some mild tenosynovitis appeared Would stop IV antibiotics when redness resolves and swelling disappears. then po Clindamycin 300 mg tid and Levaquin 750 mg daily for 14 days She reports rash to Keflex and Augmentin so above regimen can be given. Finish primary rabies shot series since cat not vaccinated. Do not scruff cats as painful and can cause skin and muscle damage to cat.
[2025-11-01 03:51] VITALS: BP 164/62; PULSE 75; RESP 18; TEMP 36.8; O2SAT 94
[2025-11-01 06:42] LABS: Creatinine Clr Calc Pharmacy 60.9; Estimated Glomerular Filt Rate 53
[2025-11-01 07:23] VITALS: BP 172/75; PULSE 74; RESP 16; TEMP 36; O2SAT 94
[2025-11-01 07:37] LABS: Glucose, Whole Blood 136 mg/dL (60-115)
--- NOTE | 2025-11-01 08:06 | PM.PNORT ---
Subjective Subjective Date of Service: 11/01/25 Interval history: Patient is resting in bed comfortably IV abx continue No overnight events Pain is managed: Patient does report significant improvement in pain and range of motion since previous evaluation Patient reports that the swelling has decreased, as well as decreased area of redness on the dorsal right wrist and hand Of note, the patient does report some drainage from 2 of the 3 wounds over the course of hospital stay, but states that a 3rd has not drained Patient reports that she feels that warm water soaks have helped significantly No additional complaints Physical Exam Vital Signs: Vital Signs: Last Vital Signs Temp 96.8 F 11/01/25 07:23 Pulse 74 11/01/25 07:23 Resp 16 11/01/25 07:23 BP 172/75 H 11/01/25 07:23 Pulse Ox 94 11/01/25 07:23 O2 Del Method Room Air 11/01/25 07:23 BMI result Body Mass Index 45.2 Extrem: Other: Patient is alert, oriented, and in no acute distress. Neuro: Normal sensation of the tips of all digits of the right hand at this time Vascular: Cap refill brisk Pain: Patient reports no further tenderness to palpation about the areas of small puncture wounds on the dorsal aspect of the right hand Patient denies discomfort at the extremes of range of motion of the right wrist, particularly with wrist flexion, in the dorsal area of the right wrist No pain with axial loading of the right wrist ROM: Patient is able to forward flex the right wrist to approximately 30-40 degrees and can extend to approximately 30 degrees Patient is able to make a closed fist with the right hand Skin: There are 3 small, puncture like wounds on the dorsal aspect of the right hand with surrounding erythema, decreased in size from evaluation yesterday There is no palpable subcutaneous fluid collection at this time, just edema Psych: Appears grossly normal Affect normal Attitude cooperative Procedures Date of Service Date of Service: 11/01/25 Progress Note: A&P Assessment and plan (1) Cat scratch of right forearm: Status: Acute (2) Type 2 diabetes mellitus with morbid obesity: Status: Acute (3) Cellulitis of right forearm: Status: Acute (4) Cat bite of right forearm: Status: Acute Plan Continue IV abx per medicine recommendation No evidence of tenosynovitis No palpable fluid collection suggestive of abscess at this time At this point, there is no acute surgical intervention indicated, as patient continues to experience improvement and there is no evidence of focal fluid collection Encourage gentle ROM of the hand and wrist Monitor for improving symptoms Time Spent With Patient Time: Total time managing care of this patient today ____ minutes. Quality Stroke Does the patient have a stroke diagnosis?: No VTE Prior VTE?: No VTE Risk Level:: Medical - moderate - high VTE Device Contraindication: N/A - Device Ordered VTE Drug Contraindication: N/A - Med Ordered
--- NOTE | 2025-11-01 09:03 | PM.DS ---
DS: Providers Provider Date of Service: 11/01/25 Date of admission: 10/27/25 18:12 Date of discharge: 11/01/25 Primary care physician: Alex Scott PA-C Consults: 10/28/25 07:50 Consult to Orthopedics Routine Consulting Provider: [facility] Reason for consultation: hand cellulitis Has provider been notified: No 10/30/25 07:36 Consult to Infectious Diseases Routine Consulting Provider: [facility] Reason for consultation: cat bite /cellulitis Has provider been notified: No DS: Diagnosis Discharge Diagnosis (1) Cat scratch of right forearm: Status: Acute (2) Type 2 diabetes mellitus with morbid obesity: Status: Acute (3) Cellulitis of right forearm: Status: Acute (4) Cat bite of right forearm: Status: Acute DS: Summary Hospital Course Hospital Course: from initial hpi: 70 y/o Fwith pmhx of diastolic dysfunction, aortic stenosis, CKD, DM, HTN, an dyslipidemia presenting to the emergency department today with right hand pain and swelling. She states that it started 2 days ago when her cat got panicked-and scratched /bit her: She has swelling and erythema of the right hand especially along with scratch santiago, also has significant pain in the hand, and range of motion is limited.Patient states that she saw an urgent care yesterday where she was prescribed an antibiotic and did not yet pick it up. Patient seen by walk-in clinic today and per the walk-in clinic notes(Cat is strictly indoor since it has lived with her; last rabies vaccination unknown (cat previously belonged to daughter). Her WBC count is 17.9, BUN 21, creatinine 1.29, lactic acid 2.4, CRP 12, ESR 71, blood cultures sent, Vitals stable except had initially heart rate of 92. Hand x-ray:1. No acute findings In ED patient received IV antibiotics, also ED discussed the case with orthopedics recommended inpatient admission for IV antibiotics and orthopedic consult hospital course: Patient was admitted for severe sepsis due to right hand and wrist cellulitis due to cat bite and cat scratch. She was treated with IV vancomycin and Zosyn and had improvement in erythema swelling and pain. Patient was monitored daily by orthopedic hand surgeons for possible intervention, however, patient did appear to eventually respond to IV antibiotics alone. Was seen by infectious disease who recommended completing 2 more weeks of clindamycin and levofloxacin. She is also started on her rabies vaccination series and should complete as outpatient. For diabetes was continued on basal bolus insulin. For hypertension was continued on amlodipine. Patient is overall improved and she will be discharged home. Time Attestation Discharge Coordination Time (in mins): 33 Quality: Safe Use of Opioids Does Pt have an Active Cancer Diagnosis on the Problem List?: No Quality: Stroke Does the patient have a stroke diagnosis?: No Physical Exam Vital Signs: Vital Signs: Last Vital Signs Temp 96.8 F 11/01/25 07:23 Pulse 74 11/01/25 07:23 Resp 16 11/01/25 07:23 BP 172/75 H 11/01/25 07:23 Pulse Ox 94 11/01/25 07:23 O2 Del Method Room Air 11/01/25 07:23 BMI result Body Mass Index 45.2 Extrem: Other: Patient is alert, oriented, and in no acute distress. Neuro: Normal sensation of the tips of all digits of the right hand at this time Vascular: Cap refill brisk Pain: Patient reports no further tenderness to palpation about the areas of small puncture wounds on the dorsal aspect of the right hand Patient denies discomfort at the extremes of range of motion of the right wrist, particularly with wrist flexion, in the dorsal area of the right wrist No pain with axial loading of the right wrist ROM: Patient is able to forward flex the right wrist to approximately 30-40 degrees and can extend to approximately 30 degrees Patient is able to make a closed fist with the right hand Skin: There are 3 small, puncture like wounds on the dorsal aspect of the right hand with surrounding erythema, decreased in size from evaluation yesterday There is no palpable subcutaneous fluid collection at this time, just edema Psych: Appears grossly normal Affect normal Attitude cooperative DS: Data Data Completed and Pending Labs on day of discharge: Laboratory Results - last 24 hr 10/31/25 10/31/25 10/31/25 11:10 15:12 15:50 Creatinine Estim Creat Clear Calc Estimated GFR POC Glucose 164 H 137 H C-Reactive Protein Random Vancomycin 12.4 L 10/31/25 10/31/25 11/01/25 16:50 20:23 06:03 Creatinine 1.03 Estim Creat Clear Calc 60.9 Estimated GFR 53 POC Glucose 138 H C-Reactive Protein 4.26 H Random Vancomycin 11/01/25 07:26 Creatinine Estim Creat Clear Calc Estimated GFR POC Glucose 136 H C-Reactive Protein Random Vancomycin Preliminary micro results at discharge 10/27/25 16:50 Blood Culture - Preliminary Blood - Venous No growth after 48 hours. 10/27/25 16:50 Blood Culture - Preliminary Blood - Venous No growth after 48 hours. Discharge Plan Discharge Anticipated Discharge Date/Time: 11/01/25 09:00 Patient Disposition: Home, Self-Care Discharge Diagnosis: cat bite cellulitis Referrals: Pk Stack PA [Physician [facility], Hand Surgery] - 1 Week Alex Scott PA-C [Primary Care Provider, Internal Medicine] - 1 Week Discharge Medications: New clindamycin HCl [Cleocin HCl] 300 mg capsule 300 mg PO TID 14 Days Qty: 42 0RF levofloxacin 750 mg tablet 750 mg PO DAILY Qty: 14 0RF Continued (DME) FreeStyle Dominick 3 [place] Misc See Rx Instructions .ROUTE .MEDSUPPLY Qty: 1 0RF Rx Instructions: as directed hydrochlorothiazide 25 mg tablet 25 mg PO DAILY Qty: 90 2RF pravastatin 10 mg tablet 10 mg PO BEDTIME Qty: 90 1RF metformin 1,000 mg tablet 1,000 mg PO BID Qty: 180 1RF (DME) FreeStyle Dominick 3 Plus Sensor Device See Rx Instructions .ROUTE .MEDSUPPLY Qty: 2 11RF Rx Instructions: Apply 1 new sensor every 15 days as directed to monitor blood glucose continuously. amlodipine 10 mg tablet 10 mg PO DAILY Qty: 90 0RF lisinopril 10 mg tablet 10 mg PO DAILY Qty: 90 1RF carvedilol 6.25 mg tablet 6.25 mg PO BID Qty: 180 1RF ibuprofen 800 mg tablet 800 mg PO BID Ozempic 2 mg/dose (8 mg/3 mL) pen injector 2 mg subcut SA@0900 multivitamin Tablet 1 tab PO DAILY aspirin [Adult Aspirin Regimen] 81 mg tablet,delayed release (DR/EC) 81 mg PO BEDTIME (DME) blood-glucose meter [OneTouch Verio Flex meter] Misc See Rx Instructions .Route Rx Instructions: As directed (DME) OneTouch Verio test strips Strip See Rx Instructions .Route Rx Instructions: As directed 3 times a day (DME) lancets [OneTouch Delica Lancets] 30 gauge misc See Rx Instructions .Route Rx Instructions: As directed 3 times a day insulin glargine 100 unit/mL (3 mL) insulin pen 18 unit subcut BEDTIME (DME) pen needle, diabetic [BD Samantha 2nd Gen Pen Needle] 32 gauge x 5/32 needle See Rx Instructions .ROUTE .MEDSUPPLY Qty: 100 3RF Rx Instructions: Use as directed to administer insulin subcutaneously once daily glucose [Dex4 Glucose] 4 gram tablet,chewable 16 g PO Q15M PRN (Reason: hypoglycemia (hipoglucemia)) Qty: 10 3RF Rx Instructions: until blood sugar is >70 Discontinued doxycycline hyclate 100 mg capsule 100 mg PO BID 7 Days Qty: 14 0RF metronidazole 500 mg tablet 500 mg PO BID 7 Days Qty: 14 0RF Discharge Orders: Discharge Order (Routine); Ordered 11/01/25 Ordered By: Keith Peterson Diet: Advance to usual diet Activity on Discharge: As tolerated Stand Alone Forms: Patient Portal Discharge page Print Language: Serbian Care Plan Goals: recovery Health Concerns: cat bite and scratch cellulitis Plan of Treatment: 2 more weeks clinda and levaquin, finish rabies vaccine series Assessment: see above
--- NOTE | 2025-11-01 10:35 | MHC.CM.PN ---
Patient medically cleared for dc home self care. Per RN, wounds are open to air. Car in lot for self transport. RN aware.
== END 2025-11-01 11:08 | disposition home or self-care (01) | DRG 720 ==
LOC: HO.ED 17:37 → HO.EDOVER 18:15 → HO.IMC 23:28 → HO.S3 10-28 18:11
PROVIDERS: Physician Assistant Medical; Admitting Provider Internal Medicine; Emergency Provider Emergency Medicine; PCP Physician Assistant; Visit Provider Internal Medicine
DX: A41.9 Sepsis, unspecified organism (principal); I13.0 Hypertensive heart and chronic kidney disease with heart failure and stage 1 through stage 4 chronic kidney disease, or unspecified chronic kidney disease; I50.32 Chronic diastolic (congestive) heart failure; E11.22 Type 2 diabetes mellitus with diabetic chronic kidney disease; L03.113 Cellulitis of right upper limb; E78.5 Hyperlipidemia, unspecified; T36.96XA Underdosing of unspecified systemic antibiotic, initial encounter; N18.31 Chronic kidney disease, stage 3a; S61.551A Open bite of right wrist, initial encounter; W55.01XA Bitten by cat, initial encounter; R65.20 Severe sepsis without septic shock; Z23 Encounter for immunization; Z20.3 Contact with and (suspected) exposure to rabies; Z79.4 Long term (current) use of insulin; Z79.82 Long term (current) use of aspirin; Z79.84 Long term (current) use of oral hypoglycemic drugs; Z79.899 Other long term (current) drug therapy
CPT/HCPCS: 36415; 73130; 80048; 80202; 82565; 82947; 83036; 83605; 85025; 85027; 85652; 86140; 87040; 90375; 90675; 90715; 99284; J1650; J2543; J3373; J3374; J7120

== ENCOUNTER → 2025-10-27 16:14 | Outpatient (BNV) | payer OTHER, SELFPAY | PROVIDERS: Emergency Provider Emergency Medicine; PCP Physician Assistant; Visit Provider Radiology Diagnostic Radiology | DX: M79.641 Pain in right hand (principal) | CPT/HCPCS: 73130 ==

== ENCOUNTER → 2025-10-27 18:12 | Outpatient (BNV) | payer OTHER, SELFPAY | PROVIDERS: Admitting Provider Internal Medicine; Emergency Provider Emergency Medicine; PCP Physician Assistant; Visit Provider Internal Medicine | DX: E11.9 Type 2 diabetes mellitus without complications (principal); Z20.3 Contact with and (suspected) exposure to rabies; L03.113 Cellulitis of right upper limb | CPT/HCPCS: 99222 ==

== ENCOUNTER → 2025-10-27 18:12 | Outpatient (BNV) | payer OTHER, SELFPAY | PROVIDERS: Admitting Provider Internal Medicine; Emergency Provider Emergency Medicine; PCP Physician Assistant; Visit Provider Internal Medicine | DX: A41.9 Sepsis, unspecified organism (principal); L03.113 Cellulitis of right upper limb | CPT/HCPCS: 99222 ==

== ENCOUNTER → 2025-10-27 18:12 | Outpatient (BNV) | payer OTHER, SELFPAY | PROVIDERS: Admitting Provider Internal Medicine; Emergency Provider Emergency Medicine; PCP Physician Assistant; Visit Provider Physician Assistant | DX: S50.811A Abrasion of right forearm, initial encounter (principal); W55.03XA Scratched by cat, initial encounter; E11.69 Type 2 diabetes mellitus with other specified complication; E66.01 Morbid (severe) obesity due to excess calories; L03.113 Cellulitis of right upper limb; S51.851A Open bite of right forearm, initial encounter; W55.01XA Bitten by cat, initial encounter | CPT/HCPCS: 99232 ==

== ENCOUNTER 2025-11-07 08:32 | Outpatient (AMB) | payer OTHER, SELFPAY ==
[2025-11-07 08:36] VITALS: BMI 45.0
--- NOTE | 2025-11-07 08:36 | MHC.OFFVIS ---
Vital Signs 11/07/25 08:36 Height 5 ft 2 in Weight 246 lb BMI 45.0 Intake Visit Reasons: ED- RT hand pain and swelling/Cellulitis, Sepsis Intake Note: Kathryn is a 70 year old right hand dominant female with a history of T2DM who presents today for an ED Follow Up status post Right Hand Cat Bite, 10/25/25. Patient presented to [facility] ED on 10/27/25 reporting swelling and redness on the dorsal aspect of the right hand. Patient was admitted for IV antibiotic treatment, followed up by Ortho while inpatient. Today, she reports difficulty fully extending her right middle finger. She continues having redness and swelling. She is expecting to see Infectious Disease over the weekend for another injection . Allergies Sulfa (Sulfonamide Antibiotics) (Sulfa (Sulfonamides)) Allergy (Mild, Verified 11/07/25 08:42) RASH cephalexin (From KEFLEX) Allergy (Unknown, Verified 11/07/25 08:42) RASH clavulanic acid (Augmentin) Allergy (Unknown, Verified 11/07/25 08:42) vaginal irritation empagliflozin (From Jardiance) Adverse Reaction (Intermediate, Verified 11/07/25 08:42) Rash amoxicillin (From Augmentin) Adverse Reaction (Mild, Verified 11/07/25 08:42) VAGINAL IRRITATION tolterodine Adverse Reaction (Unknown, Verified 11/07/25 08:42) Hives, rash HPI HPI ED- RT hand pain and swelling/Cellulitis, Sepsis: Details: Kathryn is a 70 year old right hand dominant female with a history of T2DM who presents today for an ED Follow Up status post Right Hand Cat Bite, 10/25/25. Patient presented to [facility] ED on 10/27/25 reporting swelling and redness on the dorsal aspect of the right hand. Patient was admitted for IV antibiotic treatment, followed up by Ortho while inpatient. Today, she reports difficulty fully extending her right ring finger, stating that her extension has improved but is still not return to full normal.. She continues having redness and swelling, although she denies much active ongoing pain.. She is expecting to see Infectious Disease over the weekend for another injection . Patient is currently getting rabies shots, as the cat that bit her is hers, but is not up-to-date on vaccinations. 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 Diabetes type 2, controlled Surgical History History of section Family History Father Lung cancer Mother Breast cancer Social History Household Members: Family Household Members Other:: son Housing: House Do you presently have visiting nurse or other home services: No Alcohol intake: current Alcohol intake frequency: holidays/special occasions only Patient Tobacco Use Status: Never used Tobacco e-Cigarette/Vaping Use: Never Used Second Hand Smoke Exposure: No service: No Current occupational status: employed Cognitive needs: Yes (Cane, walker) Hearing needs: No Vision needs: Yes (Glasses) Physical Exam Vital Signs: BMI result Body Mass Index 45.0 Last Vital Signs Temp 96.8 F 11/01/25 07:23 Pulse 74 11/01/25 07:23 Resp 16 11/01/25 07:23 BP 172/75 H 11/01/25 07:23 Pulse Ox 94 11/01/25 07:23 O2 Del Method Room Air 11/01/25 07:23 BMI result Body Mass Index 45.2 Extrem Other: Patient is alert, oriented, and in no acute distress. Neuro: Normal sensation of the tips of all digits of the right hand at this time Vascular: Cap refill brisk Pain: Patient reports no tenderness to palpation about the areas of small puncture wounds on the dorsal aspect of the right hand Patient denies discomfort at the extremes of range of motion of the right wrist, particularly with wrist flexion, in the dorsal area of the right wrist No pain with axial loading of the right wrist ROM: Patient is able to forward flex the right wrist to approximately 60 degrees and can extend to approximately 50 degrees Patient is able to make a closed fist with the right hand Patient does have an approximately 10-15 degree extensor lag at the MCP joint of the right ring finger Skin: There are 3 small, puncture like wounds on the dorsal aspect of the right hand with surrounding light erythema, wounds appear to have healed over quite well at this time Psych: Appears grossly normal Affect normal Attitude cooperative Assessment & Plan Assessment & Plan (1) Injury of extensor tendon of right hand: Code(s): S66.901A - Unspecified injury of unspecified muscle, fascia and tendon at wrist and hand level, right hand, initial encounter Category: Medical (2) Cat bite of right forearm: Code(s): S51.851A - Open bite of right forearm, initial encounter; W55.01XA - Bitten by cat, initial encounter Category: Medical (3) Cellulitis of right forearm: Code(s): L03.113 - Cellulitis of right upper limb Category: Medical (4) CKD (chronic kidney disease): Code(s): N18.9 - Chronic kidney disease, unspecified Category: Medical Qualifiers: Chronic kidney disease stage: stage 3 (moderate) Chronic kidney disease stage 3 subtype: stage 3a (GFR 45-59) Qualified Code(s): N18.31 - Chronic kidney disease, stage 3a (5) Diabetes type 2, controlled: Code(s): E11.9 - Type 2 diabetes mellitus without complications Category: Medical Plan 1. Cat bite with the associated cellulitis of right forearm Date of injury 10/27/2025 Case was discussed with Dr. Murray, and a collaborative treatment plan was formed: Patient appears to be recovering fairly well from her injury Patient is educated about the typical recovery course Continue antibiotics as prescribed Continue working on range of motion of the right hand and wrist At this time, Dr. Murray feels that it is possible that the patient did have a rupture or tear in the extensor tendon of the right ring finger, and that this may account for her extensor lag, however given setting of recent, and likely still active, infection in the right hand and wrist, we can not make plans for surgery to try to amend this until infection has resolved Patient understands this and is amenable to this plan Follow-up in 1 week for reassessment, sooner with any acute concerns Coding Level of Care Code New Pt Level 3 (73749) Diagnoses Injury of extensor tendon of right hand S66.901A Cat bite of right forearm S51.851A; W55.01XA Cellulitis of right forearm L03.113 Stage 3a chronic kidney disease N18.31 Chronic kidney disease stage: stage 3 (moderate) Chronic kidney disease stage 3 subtype: stage 3a (GFR 45-59) Diabetes type 2, controlled E11.9
== END 2025-11-07 09:32 | disposition home or self-care (01) ==
LOC: HO.HOS 08:33
PROVIDERS: PCP Physician Assistant
DX: L03.113 Cellulitis of right upper limb (principal); S51.851A Open bite of right forearm, initial encounter; S66.9 Injury of unspecified muscle, fascia and tendon at wrist and hand level; W55.01XA Bitten by cat, initial encounter; N18.31 Chronic kidney disease, stage 3a; E11.9 Type 2 diabetes mellitus without complications
CPT/HCPCS: 99213

== ENCOUNTER 2025-11-08 14:08 | Outpatient (AMB) | payer OTHER, SELFPAY ==
--- NOTE | 2025-11-08 14:16 | MHC.PC.OV ---
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 Required: No Accompanied by: Self / Same As Patient Allergies Sulfa (Sulfonamide Antibiotics) (Sulfa (Sulfonamides)) Allergy (Mild, Verified 11/08/25 14:29) RASH cephalexin (From KEFLEX) Allergy (Unknown, Verified 11/08/25 14:29) RASH clavulanic acid (Augmentin) Allergy (Unknown, Verified 11/08/25 14:29) vaginal irritation empagliflozin (From Jardiance) Adverse Reaction (Intermediate, Verified 11/08/25 14:29) Rash amoxicillin (From Augmentin) Adverse Reaction (Mild, Verified 11/08/25 14:29) VAGINAL IRRITATION tolterodine Adverse Reaction (Unknown, Verified 11/08/25 14:29) Hives, rash Medication List - Last Reconciled 11/08/25 by Alex Scott PA-C amlodipine 10 mg PO DAILY aspirin (Adult Aspirin Regimen) 81 mg PO BEDTIME blood sugar diagnostic (Connequityuch Verio test strips) As directed 3 times a day blood-glucose meter (Connequityuch Verio Flex Meter) As directed blood-glucose sensor (FreeStyle Dominick 3 Plus Sensor device) Apply 1 new sensor every 15 days as directed to monitor blood glucose continuously. blood-glucose,event planning intern,cont (FreeStyle Dominick 3 [place]) as directed carvedilol 6.25 mg PO BID clindamycin HCl (Cleocin HCl) 300 mg PO TID 2 weeks glucose (Dex4 Glucose) 16 grams (4 x 4 gram) PO Q15M PRN hydrochlorothiazide 25 mg PO DAILY ibuprofen 800 mg PO BID insulin glargine 18 units subcut BEDTIME lancets (SocStockTouch Delica Lancets) As directed 3 times a day levofloxacin 750 mg PO DAILY lisinopril 10 mg PO DAILY metformin 1,000 mg PO BID multivitamin 1 tab PO DAILY pen needle, diabetic (BD Samantha 2nd Gen Pen Needle) Use as directed to administer insulin subcutaneously once daily pravastatin 10 mg PO BEDTIME semaglutide (Ozempic) 2 mg subcut SA@0900 Tobacco use date assessed: 11/08/25 Fall risk assessment: No Falls in past year Last assessed Fall Risk: 11/08/25 Dental Screening Dental Screen Date: 11/08/25 Did you have a dental visit in the last 12 months?: No Did you have a dental problem in the last 6 months where you did not have access to dental care?: No Was dental information given to patient?: No HPI follow up HPI Details Patient is a 70-year-old female here today for discharge follow-up Patient has a past medical history significant for type 2 diabetes, atrophic kidney, obesity, hypertension and dyslipidemia. Concern--> Patient recently seen at the [facility] for an acute cat bite resulting in cellulitis over the right forearm. On , she sustained a cat bite and scratch to her dominant right hand when her cat got stuck on her sleeve. This resulted in cellulitis and swelling of the entire hand, for which she was hospitalized and treated with IV antibiotics. She has completed the IV antibiotic course and is currently taking oral antibiotics for another week. She reports some residual soreness and tightness in her hand, but no fever. She notes that the healing process may be slow due to her history of diabetes. She has been seen by a hand surgeon, and there is concern for a possible ruptured tendon, though this is considered less likely as she has retained much of her hand movement. As a precaution, due to the cat not being recently vaccinated, the patient received a tetanus shot and is undergoing rabies post-exposure prophylaxis, with her last shot scheduled for this Wednesday. She has follow-up appointments scheduled with orthopedics and a hand surgeon this coming Wednesday. CHRONIC MEDICAL CONDITIONS--> .. Type 2 diabetes: Patient is followed by [facility], most recent A1c is has been stable. .. Microalbuminuria: The patient is also followed by a merchandising team lead for an incidental finding of one kidney being smaller than the other, which is monitored with annual ultrasounds. Additionally, she undergoes annual carotid ultrasounds for monitoring. .. Class 3 obesity: Patient does understand her BMI is over 40 and will continue working on trying to be more physically active and adapt to better eating habits to reduce her weight. She has been able to lose weight since being on GLP 1. 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 Diabetes type 2, controlled Surgical History History of section Family History Father Lung cancer Mother Breast cancer Social History Household Members: Family Household Members Other:: son Housing: House Do you presently have visiting nurse or other home services: No Alcohol intake: current Alcohol intake frequency: holidays/special occasions only Patient Tobacco Use Status: Never used Tobacco e-Cigarette/Vaping Use: Never Used Second Hand Smoke Exposure: No service: No Current occupational status: employed Cognitive needs: Yes (Cane, walker) Hearing needs: No Vision needs: Yes (Glasses) Questionnaire PHQ-9 Over the last 2 weeks, how often have you been bothered by any of the following problems? 1. Little interest or pleasure in doing things: not at all 2. Feeling down, depressed, or hopeless: not at all 3. Trouble falling or staying asleep, or sleeping too much: not at all 4. Feeling tired or having little energy: several days 5. Poor appetite or overeating: several days 6. Feeling bad about yourself - or that you are a failure or have let yourself or your family down: not at all 7. Trouble concentrating on things, such as reading the newspaper or watching television: not at all 8. Moving or speaking so slowly that other people could have noticed. Or the opposite - being so fidgety or restless that you have been moving around a lot more than usual: not at all 9. Thoughts that you would be better off or of hurting yourself in some way: not at all Total score: 2 Source: Developed by Drs. Destin Buck, Sara Lam, Gil Keating and colleagues, with an educational garcía from [employer]. Thrive Questionnaire Date Thrive assessed: 11/08/25 I am a: Patient What is your living situation today?: I have a steady place to live Within the past 12 months, did the food you bought not last and you didn't have the money to get more?: Sometimes True Within the past 12 months, did you worry whether your food would run out before you got money to buy more?: Never true Do you have trouble paying for medicines?: No Do you have trouble getting transportation to medical appointments?: No Do you have trouble paying your heating and electricity bill?: No Do you have trouble taking care of your child, family member or friend?: No Do you have trouble with day-to-day activities such as bathing, preparing meals, shopping, managing finances, etc.?: No Are you currently unemployed and looking for a job?: No Are you interested in more education?: No Please select the resources that you would like help with: None Currently or been in a relationship where the following occur: No concerns reported THRIVE Score: 1 AUDIT C Alcohol Use Questionnaire (AUDIT-C) 1. How often do you have a drink containing alcohol?: Monthly or less 2. How many drinks containing alcohol do you have on a typical day when you are drinking?: 1 or 2 3. How often do you have six or more drinks on one occasion?: Never Total Score: 1 JET-7 AMB Questionnaire JET-7 Date JET - 7 assessed: 11/08/25 Feeling nervous, anxious, or on edge: 0 = Not at all Not being able to stop or control worryin = Not at all Worrying too much about different things: 0 = Not at all Trouble relaxin = Not at all Being so restless that it is hard to sit still: 0 = Not at all Becoming easily annoyed or irritable: 0 = Not at all Feeling afraid as if something awful might happen: 0 = Not at all Total JET-7 score (0-4 normal; 5-9 mild; 10-14 moderate; 15-21 severe): 0 Source: Developed by Drs. Destni Buck, Sara Lam, Gil Keating and colleagues, with an educational garcía from [employer]. Review of Systems Const Denies headache(s) Eyes Denies loss of vision ENT Denies vertigo, Denies dizziness, Denies headache(s) and Denies sore throat Card Denies chest pain, Denies leg edema and Denies lightheadedness Resp Denies cough, Denies hemoptysis and Denies wheezing GI Denies abdominal pain, Denies melena, Denies constipation, Denies diarrhea and Denies vomiting Denies urinary frequency, Denies dysuria and Denies urinary urgency Musc Denies arthralgias, Denies joint swelling, Denies numbness and Denies tingling Neuro Denies Abnormal speech present, Denies behavioral changes, Denies vertigo, Denies dizziness, Denies headache(s), Denies loss of vision, Denies memory loss, Denies numbness and Denies tingling Psych Denies anxiety, Denies behavioral changes, Denies depression, Denies memory loss and Denies panic attacks Austin/Lymph Denies easy bleeding and Denies easy bruising Aller/Immun Denies wheezing Physical exam (Primary Care) Vital Signs: Last Vital Signs Pulse 79 11/08/25 14:17 BP 132/86 11/08/25 14:17 Pulse Ox 97 11/08/25 14:17 Oxygen Delivery Method Room Air 11/08/25 14:17 BMI result Body Mass Index 45.4 Tobacco/Smoking Status: Tobacco use Status Tobacco use date assessed 11/08/25 11/08/25 14:20 Patient Tobacco Use Status Never used Tobacco 11/08/25 14:16 e-Cigarette/Vaping Use Never Used 11/08/25 14:16 PHQ-9: PHQ-9 Score PHQ-9: Total score 2 11/08/25 14:20 Thrive Assessment: Date of Thrive Assessment Date Thrive assessed 11/08/25 11/08/25 14:20 Currently or been in a relationship where the following occur: No concerns reported Const General: healthy appearing, no acute distress, alert and awake Nutritional Appearance: well nourished Orientation/consciousness: oriented to person, oriented to place and oriented to time HENMT Ears: TM's normal bilaterally General nose exam: Normal nasal mucous membranes and turbinates present Eyes Conjunctivae: conjunctivae normal Sclerae: sclerae normal Pupils: Equal, round and reactive pupils present Neck Neck: Yes no lymphadenopathy and Yes no JVD Thyroid: Thyroid normal Carotids: no bruits Resp Effort & Inspection: normal respiratory effort and not tachypneic Auscultation: no crackles, no rales, no rhonchi and no wheezes Cardio Rate: regular rate Rhythm: regular rhythm Heart sounds: no murmurs and normal S1 and S2 GI Palpation (GI): Soft to palpation, nontender, no hepatomegaly and no splenomegaly Auscultation: normal bowel sounds Skin General skin exam: no rashes or lesions noted and dry skin Neuro General: oriented to person, oriented to place and oriented to time Cranial nerves: Yes Equal, round and reactive pupils present Speech: No Abnormal speech present Gait exam (Neuro): Normal gait present Motor exam (neuro): no tremor noted Extrem Right upper extremity: full ROM Left upper extremity: full ROM Hand/finger images:  1. STILL APPEARS TO BE SOME ERYTHEMA AND EDEMA OVER THE VOLAR ASPECT OF THE RIGHT WRIST AND HAND Right lower extremity: full ROM; no edema Left lower extremity: full ROM; no edema Psych Mental Status: mental status grossly normal Speech and movement: Normal speech and movement present Affect: normal affect Attitude: cooperative Thought process: Normal thought process present Coding Level of Care Code TCM Mod MDM <= 14 Days Diagnoses Hospital discharge follow-up Z51.89 Cat bite of right forearm, subsequent encounter S51.851D; W55.01XD Encounter type: subsequent encounter Assessment & Plan Assessment & Plan (1) Hospital discharge follow-up: Code(s): Z51.89 - Encounter for other specified aftercare Category: Medical Plan: As per HPI (2) Cat bite of right forearm: Code(s): S51.851A - Open bite of right forearm, initial encounter; W55.01XA - Bitten by cat, initial encounter Category: Medical Qualifiers: Encounter type: subsequent encounter Qualified Code(s): S51.851D - Open bite of right forearm, subsequent encounter; W55.01XD - Bitten by cat, subsequent encounter Plan: The patient will continue her current course of oral antibiotics for another week to fully resolve the cellulitis from the cat bite. She will complete her post-exposure rabies prophylaxis series with the final injection this coming Wednesday at the infusion center. For the ongoing hand issues, including residual swelling and concern for a possible tendon injury, she will follow up with her hand surgeon, Dr. Murray, and orthopedics on Wednesday. This follow-up will determine the need for further interventions such as occupational therapy or surgery, depending on the resolution of swelling and clinical findings.
[2025-11-08 14:17] VITALS: BP 132/86; PULSE 79; O2SAT 97; BMI 45.4
--- OUTSIDE RECORDS SUMMARY | 2025-11-08 21:39 | XMS_ITS | Patient Health Record ---
Author Organization [facility] Address [address] [place] [address] Care Team Providers Care Limited Radiology Technician Name Role Phone Behzad Arzola MD Primary Care Provider Destin Thomas [phone] Allergies Allergen (clinical drug ingredient) Drug/Non Drug Allergy documented on EMR Reaction Allergy Type Onset Date Status amoxicillin / clavulanate Augmentin Unknown Drug Allergy Active sulfamethoxazole / trimethoprim Bactrim Unknown Drug Allergy Active Keflex Unknown Drug Allergy Active sulfacetamide Sulfacetamide Sodium Unknown Drug Allergy Active Reason [...] Info Options Details Miscellaneous: Marital status: 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 [employer] Section Notes: Nonsmoker; occasional drink on special occasions Problems Problem Type SNOMED Code ICD Code Onset Dates Problem Status W/U Status Risk Notes Problem Screening for malignant neoplasm of colon (270317930) Encounter for screening for malignant neoplasm of colon (Z12.11) Active confirmed Problem Preprocedural examination (522588842876338) Preprocedural examination (Z01.818) Active confirmed Plan Of Treatment Pending Test Test Name Order Date GI BIOPSY 08/07/2019 Future Test Test Name Order Date COLONOSCOPY 03/31/2019 Insurance Providers Payer Name Payer Address Payer Phone Subscriber Number Group Number Insured Name Patient Relationship to Insured Coverage Start Date Coverage End Date [facility] ([facility]ED[facility] REFER[facility] L) [address] [place] [id number] WINNIE MCCORMICK Self - patient is the insured Medical (General) History Medical History History ICD Code Hypertension Allergic rhinitis Hyperlipidemia Arthritis IDDM Urinary incontinence Negative screening colonoscopy in 07/[address] Tomas Denies MS,CVA,Lung disease,renal disease Surgical History Surgery Date(Month/Year) 1989
--- OUTSIDE RECORDS SUMMARY | 2025-11-08 21:39 | XMS_ITS | Patient Health Record ---
Author Organization [facility] Address [address] [place] [address] Care Team Providers Care Aircraft Electrical Systems Specialist Name Role Phone Ness GALVEZ, Behzad Primary Care Provider Unavaila Edilson Ricketts Unavailable [phone] Allergies Allergen (clinical drug ingredient) Drug/Non Drug [...] Problem Acquired hammer toe of right foot (4175648768801768 ) Other hammer toe(s) (acquired), right foot (M20.41) Active confirmed Response to treatment, Improvemen t Problem Acquired hammer toe of left foot (7856601865976933 ) Other hammer toe(s) (acquired), left foot (M20.42) Active confirmed Response to treatment, Improvemen t Problem Polyneuropathy due to type 2 diabetes mellitus (564799826) Type 2 diabetes mellitus with diabetic polyneuropathy (E11.42) Active confirmed Vital Signs Blood pressure diastolic 70 mm Hg 09/05/2025 Height 5ft 6in in 09/05/2025 Blood pressure systolic 128 mm Hg 09/05/2025 Weight 254 lbs 09/05/2025 BMI 40.99 kg/m2 09/05/2025 Procedures Procedure Date Ordered Date Performed Result Body Sit e 20321-OLTUAAG NAIL, 6 OR MORE 11/27/2024 N/A 52583-Iwxssgoi Plate 11/27/2024 N/A 31783-Sixfzxgd Plate Each Additional 11/27/2024 N/A 20437-SABP SKIN LESIONS, OVER 4 11/27/2024 N/A 04780-FUESEMK NAIL, 6 OR MORE 03/05/2025 N/A 40183-Tiictofb Plate 03/05/2025 N/A 44873-Kyhgcekv Plate Each Additional 03/05/2025 N/A 89212-TMMJ SKIN LESIONS, OVER 4 03/05/2025 N/A 32178-FAXKMTW NAIL, 6 OR MORE 06/06/2025 N/A 59910-Dwzpxwax Plate 06/06/2025 N/A 27097-GNZL SKIN LESIONS, OVER 4 06/06/2025 N/A 67151-EHJBXBD NAIL, 6 OR MORE 09/05/2025 N/A 27069-Ujhxepob Plate 09/05/2025 N/A 62080-HTCX SKIN LESIONS, OVER 4 09/05/2025 N/A Encounters Encounter Location Date Provider Diagnosis [address] [address] 11/27/2024 Edilson Luis Pain in right toe(s) M79.674 ; Tinea unguium B35.1 ; Pain in left toe(s) M79.675 ; Type 1 diabetes mellitus without complication E10.9 ; Ingrown nail L60.0 and Xerosis of skin L85.[address] [address] 03/05/2025 Edilsonjanette Luis Tinea unguium B35.1 ; Type 2 diabetes mellitus with diabetic polyneuropathy E11.42 ; Ingrowing nail L60.0 ; Other hammer toe(s) (acquired), right foot M20.41 and Other hammer toe(s) (acquired), left foot M20.[address] [address] 06/06/2025 Edilsonjanette SainiJanelle Type 2 diabetes mellitus with diabetic polyneuropathy E11.42 ; Tinea unguium B35.1 ; Ingrown nail L60.0 ; Pain in right toe(s) M79.674 and Cellulitis of toe of right foot L03.[address] [address] 09/05/2025 Edilsonjanette SainiJanelle Type 2 diabetes mellitus [...] Foot, left 2V 04/04/2015 Glucose Fasting 04/04/2015 66520-RYVAQYS NAIL, 6 OR MORE 07/09/2015 10283-OEUWZWZ NAIL, 6 OR MORE 09/27/2015 13857-HMCUOMI NAIL, 6 OR MORE 01/03/2016 39265-GDHKLLH NAIL, 6 OR MORE 04/15/2016 86317-WHVMWQU NAIL, 6 OR MORE 07/15/2016 67826-TXBTDMU NAIL, 6 OR MORE 10/14/2016 25160-PYACFSU NAIL, 6 OR MORE 01/25/2017 42936-PHZCWYT NAIL, 6 OR MORE 04/21/2017 34364-VVTTKVQ NAIL, 6 OR MORE 04/04/2015 29556-NIYPCLP NAIL, 6 OR MORE 07/28/2017 31318-SSQDIKS NAIL, 6 OR MORE 10/27/2017 79951-LZJSYLB NAIL, 6 OR MORE 01/26/2018 16068-UZCNOVP NAIL, 6 OR MORE 04/27/2018 82102-CSWRCSG NAIL, 6 OR MORE 11/02/2018 88432-TVPUYGS NAIL, 6 OR MORE 2019 78024-KPCXNYO NAIL, 6 OR MORE 08/03/2018 26355-WPMQYZM NAIL, 6 OR MORE 05/03/2019 76881-MHREZIR NAIL, 6 OR MORE 08/16/2019 68434-OLNFVZZ NAIL, 6 OR MORE 11/15/2019 76010-ZEXBMUB NAIL, 6 OR MORE 12/02/2020 76436-YRCBAJO NAIL, 6 OR MORE 04/21/2021 61477-DYMDOKL NAIL, 6 OR MORE 08/13/2021 19151-GAEQSBO NAIL, 6 OR MORE 11/10/2021 95176-OCGBFWC NAIL, 6 OR MORE 09/02/2020 75142-ICXRMAC NAIL, 6 OR MORE 02/09/2022 31825-RWBPMRX NAIL, 6 OR MORE 05/11/2022 90526-NZKWRVR NAIL, 6 OR MORE 09/24/2022 67377-JWMNIKZ NAIL, 6 OR MORE 01/25/2023 08748-RVLGPEN NAIL, 6 OR MORE 07/14/2023 14749-VJVUUSB NAIL, 6 OR MORE 11/10/2023 37865-HHSVOCA NAIL, 6 OR MORE 02/16/2024 61617-TSLEUCI NAIL, 6 OR MORE 05/17/2024 96898-XMATDGE NAIL, 6 OR MORE 08/17/2024 51330-YEVYELS NAIL, 6 OR MORE 11/27/2024 41835-AWTQJSU NAIL, 6 OR MORE 03/05/2025 29568-IRUHPMZ NAIL, 6 OR MORE 06/06/2025 75281-PDDTINI NAIL, 6 OR MORE 09/05/2025 66401-Dkujusuf Plate 09/05/2025 36339-Wnxdxokv Plate 03/05/2025 91232-Qvphavqd Plate 11/02/2018 49342-Drjexsiv Plate 06/06/2025 22674-Dkrgbcoz Plate 11/27/2024 42179-Yhdmlxcm Plate 08/17/2024 41677-Admogihj Plate 05/17/2024 74641-Mdfxlajh Plate 02/16/2024 75183-Gjjcmegj Plate 11/10/2023 95971-Yrjbvcvf Plate 07/14/2023 82769-Iqkziemx Plate 01/25/2023 24534-Gyultwlg Plate 09/24/2022 68936-Hlfuwdwy Plate 05/11/2022 62933-Nhfuzugd Plate 02/09/2022 55421-Hvwlhlgc Plate 09/02/2020 28096-Igrvjvje Plate 11/10/2021 75361-Rxeksrwy Plate 08/13/2021 72775-Kpsahxxe Plate 04/21/2021 01731-Fzrnecvy Plate 12/02/2020 76310-Zuxthuic Plate 11/15/2019 23902-Qbtlmlqq Plate 08/16/2019 42632-Dxheioui Plate 05/03/2019 21788-Ahedtnvk Plate 2019 15969-Qndzjytp Plate 10/27/2017 47976-Vdprmamp Plate 08/03/2018 34571-Tlbfucov Plate 04/27/2018 81484-Vefhsgdn Plate 01/26/2018 03152-Idtnjipy Plate 07/28/2017 16606-Iisdwwqs Plate 01/25/2017 31533-Ozcyorqx Plate 04/21/2017 25653-Clspafln Plate 10/14/2016 27332-Sbfxwoyq Plate 07/15/2016 67649-Djdwjvdl Plate 04/15/2016 16806-Qxnrcubs Plate 01/03/2016 85931-Upfxyicj Plate 09/27/2015 22898-Sdqnaugs Plate 07/09/2015 97197-Koevpizu Plate 04/04/2015 56378-Bvlkxcps Plate Each Additional 09/2015 64502-Nhxfdcjl Plate Each Additional 65511-Debfxlls Plate Each Additional 03/2016 52220-Fapnegnx Plate Each Additional 03854-Ejaxeisi Plate Each Additional 38353-Ubdgtuay Plate Each Additional 78431-Vgvkhati Plate Each Additional 15300-Cxqopekh Plate Each Additional 91778-Elvhwgzl Plate Each Additional 03/2018 40464-Maumakhp Plate Each Additional 04/2019 57483-Dkcjwanh Plate Each Additional 03/2019 07996-Xzbwyqcc Plate Each Additional 03/2018 94542-Tzfnkgrf Plate Each Additional 25965-Wmrkrfpi Plate Each Additional 06751-Gxdzqnua Plate Each Additional 02/2021 11943-Jrehzlgu Plate Each Additional 81681-Uqkvpaoe Plate Each Additional 39176-Dwbgnyjb Plate Each Additional 67809-Gjebekks Plate Each Additional 03/2020 70015-Zwxdazwy Plate Each Additional 81637-Wdoxgmhx Plate Each Additional 52798-Fndruxfo Plate Each Additional 26394-Xnqstfur Plate Each Additional 46940-Wuuqqzzo Plate Each Additional 49682-Zyhhstfa Plate Each Additional 40266-Wdngaiag Plate Each Additional 26316-Srqztsfd Plate Each Additional 49162-Hbttdvjj Plate Each Additional 53243-Zfoygtpu Plate Each Additional 27234-Arfkgdjo Plate Each Additional 05/2025 27552-XRTR SKIN LESIONS, OVER 4 03/05/20 12123-TJFR SKIN LESIONS, OVER 4 09/05/20 25 64333-KSYD SKIN LESIONS, OVER 4 11/27/20 24 01894-WMME SKIN LESIONS, OVER 4 06/06/20 32208-ZZRH SKIN LESIONS, OVER 4 08/17/20 24 98229-WEUP SKIN LESIONS, OVER 4 05/17/20 24 84576-QCED SKIN LESIONS, OVER 4 02/16/20 24 61656-VYXI SKIN LESIONS, OVER 4 11/10/20 23 64948-ABYI SKIN LESIONS, OVER 4 07/14/20 23 01491-JXRA SKIN LESIONS, OVER 4 01/25/20 23 15622-HAHP SKIN LESIONS, OVER 4 09/24/20 22 57241-EFOD SKIN LESIONS, OVER 4 05/11/20 75094-QQCL SKIN LESIONS, OVER 4 11/10/20 89552-CPXQ SKIN LESIONS, OVER 4 08/13/20 21 48664-VHAG SKIN LESIONS, 2 TO 4 04/21/20 08073-ARIM SKIN LESIONS, 2 TO 4 12/02/19 21 60613-WJMN SKIN LESIONS, 2 TO 4 04/04/20 15 28069,W2190-QRM TENDON SHEATH/LIGAMENT 0 06/14/2015 Next Appt Details Provider Name:Edilson Luis , 12/24/2025 08:30:00 AM, [address], [place], [address], Insurance Providers Payer Name Payer Address Payer Phone Subscriber Number Group Number Insured Name Patient Relationship to Insured Coverage Start Date Coverage End Date [facility] [address] [place] [address] [id number] Kathryn Arzola Self - patient is the insured Medical (General) History Medical History History ICD Code Diabetic Hypertension Allergic rhinitis Hypercholesterolemia Surgical History Surgery Date(Month/Year) section Hospitalization History Reason Date(Month/Year) Colonoscopy 08/07/19 [facility] Stitches in head 02/2019
== END 2025-11-08 15:07 | disposition home or self-care (01) ==
LOC: HO.HMCH 14:09
PROVIDERS: PCP Physician Assistant; Visit Provider Physician Assistant
DX: Z51.89 Encounter for other specified aftercare (principal); S51.851D Open bite of right forearm, subsequent encounter; W55.01XD Bitten by cat, subsequent encounter

== ENCOUNTER 2025-11-10 10:11 | Outpatient (RCR) | payer OTHER, SELFPAY ==
[2025-11-10 10:16] VITALS: BP 150/73; PULSE 92; RESP 16; TEMP 37.2; O2SAT 98
[2025-11-10] MEDS: Rabies Vaccine (PCEC)/PF 1 ML VIAL IM (10:29)
[2025-11-10 10:30] VITALS: BMI 45.0
== END 2025-11-12 08:13 | disposition home or self-care (01) ==
LOC: HO.INF 10:11
PROVIDERS: Visit Provider Emergency Medicine Emergency Medical Services
DX: Z20.3 Contact with and (suspected) exposure to rabies (principal); S51.851A Open bite of right forearm, initial encounter; W55.01XA Bitten by cat, initial encounter
CPT/HCPCS: 90471; 90675

== ENCOUNTER 2025-11-13 08:37 | Outpatient (AMB) | payer OTHER, SELFPAY ==
--- NOTE | 2025-11-13 08:43 | A.OFFVIS_ITS ---
Vital Signs 11/13/25 08:52 Height 5 ft 2 in Weight 246 lb BMI 45.0 Intake Visit Reasons: OV - Right Hand Celluitis Intake Note: Kathryn is a 70 year old right hand dominant female with a history of T2DM who presents today for a Wound Check status post Cellulitis from a Cat Bite, DOI: 10/27/25. At her last visit she was advised to continue antibiotics as prescribed as well as working on ROM. Patient reports she continues taking these as prescribed. She has noticed increase itching. Allergies Sulfa (Sulfonamide Antibiotics) (Sulfa (Sulfonamides)) Allergy (Mild, Verified 11/13/25 08:52) RASH cephalexin (From KEFLEX) Allergy (Unknown, Verified 11/13/25 08:52) RASH clavulanic acid (Augmentin) Allergy (Unknown, Verified 11/13/25 08:52) vaginal irritation empagliflozin (From Jardiance) Adverse Reaction (Intermediate, Verified 11/13/25 08:52) Rash amoxicillin (From Augmentin) Adverse Reaction (Mild, Verified 11/13/25 08:52) VAGINAL IRRITATION tolterodine Adverse Reaction (Unknown, Verified 11/13/25 08:52) Hives, rash HPI HPI OV - Right Hand Celluitis: Details: Kathryn is a 70 year old right hand dominant female with a history of T2DM who presents today for a Wound Check status post Cellulitis from a Cat Bite, DOI: 10/27/25. At her last visit she was advised to continue antibiotics as prescribed as well as working on ROM. Patient reports she continues taking these as prescribed. Patient reports that the redness and swelling have both improved significantly since evaluation last week, and that the extensor lag in the right ring finger has improved slightly, although her range of motion is not full. She has noticed increase itching. 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 Diabetes type 2, controlled Surgical History History of section Family History Father Lung cancer Mother Breast cancer Social History Household Members: Family Household Members Other:: son Housing: House Do you presently have visiting nurse or other home services: No Alcohol intake: current Alcohol intake frequency: holidays/special occasions only Patient Tobacco Use Status: Never used Tobacco e-Cigarette/Vaping Use: Never Used Second Hand Smoke Exposure: No service: No Current occupational status: employed Cognitive needs: Yes (Cane, walker) Hearing needs: No Vision needs: Yes (Glasses) Physical Exam Vital Signs: BMI result Body Mass Index 45.0 Last Vital Signs Temp 96.8 F 11/01/25 07:23 Pulse 74 11/01/25 07:23 Resp 16 11/01/25 07:23 BP 172/75 H 11/01/25 07:23 Pulse Ox 94 11/01/25 07:23 O2 Del Method Room Air 11/01/25 07:23 BMI result Body Mass Index 45.2 Extrem Other: Patient is alert, oriented, and in no acute distress. Neuro: Normal sensation of the tips of all digits of the right hand at this time Vascular: Cap refill brisk Pain: Patient reports no tenderness to palpation about the areas of small puncture wounds on the dorsal aspect of the right hand Patient denies discomfort at the extremes of range of motion of the right wrist, particularly with wrist flexion, in the dorsal area of the right wrist No pain with axial loading of the right wrist ROM: Patient is able to forward flex the right wrist to approximately 60 degrees and can extend to approximately 50 degrees Patient is able to make a closed fist with the right hand Patient does have an approximately 10 degree extensor lag at the MCP joint of the right ring finger, improved from previous evaluation Skin: There are 3 small, puncture like wounds on the dorsal aspect of the right hand surrounding erythema appears resolved at this time Psych: Appears grossly normal Affect normal Attitude cooperative Assessment & Plan Assessment & Plan (1) Cellulitis of right forearm: Code(s): L03.113 - Cellulitis of right upper limb Category: Medical (2) Injury of extensor tendon of right hand: Code(s): S66.901A - Unspecified injury of unspecified muscle, fascia and tendon at wrist and hand level, right hand, initial encounter Category: Medical (3) Cat bite of right forearm: Code(s): S51.851A - Open bite of right forearm, initial encounter; W55.01XA - Bitten by cat, initial encounter Category: Medical Qualifiers: Encounter type: subsequent encounter Qualified Code(s): S51.851D - Open bite of right forearm, subsequent encounter; W55.01XD - Bitten by cat, subsequent encounter (4) CKD (chronic kidney disease): Code(s): N18.9 - Chronic kidney disease, unspecified Category: Medical Qualifiers: Chronic kidney disease stage: stage 3 (moderate) Chronic kidney disease stage 3 subtype: stage 3a (GFR 45-59) Qualified Code(s): N18.31 - Chronic kidney disease, stage 3a (5) Diabetes type 2, controlled: Code(s): E11.9 - Type 2 diabetes mellitus without complications Category: Medical Plan 1. Cat bite with the associated cellulitis of right forearm Date of injury 10/27/2025 Case was discussed with Dr. Murray, and a collaborative treatment plan was formed: Patient appears to be recovering fairly well from her injury Patient is educated about the typical recovery course Continue antibiotics as prescribed no refill required Continue working on range of motion of the right hand and wrist OT ordered for range of motion of the right hand, as Dr. Murray feels that the patient should try to get full function back without the need for surgery Patient is educated that if any surgical intervention is to be undertaken at this time, it will be a tendon transfer, and this will only be able to occur once we are sure that infection has been cleared for multiple weeks Patient understands this in his amenable to this plan Follow-up in 4 weeks for reassessment, sooner with any acute concerns Orders: Orders OT Evaluation and Treatment Today L03.113 - Cellulitis of right upper limb, S51.851D - Open bite of right forearm, subsequent encounter, S66.901A - Unspecified injury of unspecified muscle, fascia and tendon at wrist and hand level, right hand, initial encounter, W55.01XD - Bitten by cat, subsequent encounter Coding Level of Care Code Est Pt Level 3 (97051) Diagnoses Cellulitis of right forearm L03.113 Injury of extensor tendon of right hand S66.377Z Cat bite of right forearm, subsequent encounter S51.851D; W55.01XD Encounter type: subsequent encounter Stage 3a chronic kidney disease N18.31 Chronic kidney disease stage: stage 3 (moderate) Chronic kidney disease stage 3 subtype: stage 3a (GFR 45-59) Diabetes type 2, controlled E11.9
[2025-11-13 08:52] VITALS: BMI 45.0
--- OUTSIDE RECORDS SUMMARY | 2025-11-13 09:16 | XMS_ITS | Patient Health Record ---
Author Organization [facility] Address [address] [place] [address] Care Team Providers Care Talent Program Manager Name Role Phone Ness GALVEZ, Behzad Primary Care Provider Unavaila Edilson Ricketts Unavailable [phone] Allergies Allergen (clinical drug ingredient) Drug/Non Drug [...] Problem Acquired hammer toe of right foot (3765571461764068 ) Other hammer toe(s) (acquired), right foot (M20.41) Active confirmed Response to treatment, Improvemen t Problem Acquired hammer toe of left foot (8034586670675734 ) Other hammer toe(s) (acquired), left foot (M20.42) Active confirmed Response to treatment, Improvemen t Problem Polyneuropathy due to type 2 diabetes mellitus (472813852) Type 2 diabetes mellitus with diabetic polyneuropathy (E11.42) Active confirmed Vital Signs Blood pressure diastolic 70 mm Hg 09/05/2025 Height 5ft 6in in 09/05/2025 Blood pressure systolic 128 mm Hg 09/05/2025 Weight 254 lbs 09/05/2025 BMI 40.99 kg/m2 09/05/2025 Procedures Procedure Date Ordered Date Performed Result Body Sit e 28096-QKREOTK NAIL, 6 OR MORE 11/27/2024 N/A 48813-Wtfudtcy Plate 11/27/2024 N/A 70776-Cviifkqj Plate Each Additional 11/27/2024 N/A 78243-HUIO SKIN LESIONS, OVER 4 11/27/2024 N/A 94940-NTIZAXK NAIL, 6 OR MORE 03/05/2025 N/A 32404-Npdxcqad Plate 03/05/2025 N/A 41753-Tebtqzyv Plate Each Additional 03/05/2025 N/A 89836-APCU SKIN LESIONS, OVER 4 03/05/2025 N/A 73433-MVXNRER NAIL, 6 OR MORE 06/06/2025 N/A 57614-Wmzepskd Plate 06/06/2025 N/A 97948-EKOV SKIN LESIONS, OVER 4 06/06/2025 N/A 35220-AKVAQKZ NAIL, 6 OR MORE 09/05/2025 N/A 43886-Hzsqdeox Plate 09/05/2025 N/A 68020-HQPU SKIN LESIONS, OVER 4 09/05/2025 N/A Encounters Encounter Location Date Provider Diagnosis [address] [address] 11/27/2024 Edilson Luis Pain in right toe(s) M79.674 ; Tinea unguium B35.1 ; Pain in left toe(s) M79.675 ; Type 1 diabetes mellitus without complication E10.9 ; Ingrown nail L60.0 and Xerosis of skin L85.[address] [address] 03/05/2025 Edilsonjanette Luis Tinea unguium B35.1 ; Type 2 diabetes mellitus with diabetic polyneuropathy E11.42 ; Ingrowing nail L60.0 ; Other hammer toe(s) (acquired), right foot M20.41 and Other hammer toe(s) (acquired), left foot M20.[address] [address] 06/06/2025 Edilsonjanette SainiJanelle Type 2 diabetes mellitus with diabetic polyneuropathy E11.42 ; Tinea unguium B35.1 ; Ingrown nail L60.0 ; Pain in right toe(s) M79.674 and Cellulitis of toe of right foot L03.[address] [address] 09/05/2025 Edilsonjanette SainiJanelle Type 2 diabetes mellitus [...] Foot, left 2V 04/04/2015 Glucose Fasting 04/04/2015 36957-FZAAXPC NAIL, 6 OR MORE 07/09/2015 94416-QORMECM NAIL, 6 OR MORE 09/27/2015 24847-OQLRCEJ NAIL, 6 OR MORE 01/03/2016 97388-QDSEMBE NAIL, 6 OR MORE 04/15/2016 77895-QOQDSUE NAIL, 6 OR MORE 07/15/2016 62797-ODRTTNZ NAIL, 6 OR MORE 10/14/2016 13331-SJGBGGY NAIL, 6 OR MORE 01/25/2017 78356-CTTWERC NAIL, 6 OR MORE 04/21/2017 72069-REJMUBT NAIL, 6 OR MORE 04/04/2015 74482-CAIEVRE NAIL, 6 OR MORE 07/28/2017 14299-ZGRIMRR NAIL, 6 OR MORE 10/27/2017 19024-QEYYQEZ NAIL, 6 OR MORE 01/26/2018 32612-HCXWIAX NAIL, 6 OR MORE 04/27/2018 63481-BAJZYFP NAIL, 6 OR MORE 11/02/2018 44394-BOXHWEA NAIL, 6 OR MORE 2019 27876-OGDRADT NAIL, 6 OR MORE 08/03/2018 36031-IBHMVTV NAIL, 6 OR MORE 05/03/2019 46907-VPCVPFZ NAIL, 6 OR MORE 08/16/2019 69908-JNFGSNP NAIL, 6 OR MORE 11/15/2019 83719-UIEQBKF NAIL, 6 OR MORE 12/02/2020 97241-XCVPAPU NAIL, 6 OR MORE 04/21/2021 94619-DVIZDWY NAIL, 6 OR MORE 08/13/2021 02958-MATAMKZ NAIL, 6 OR MORE 11/10/2021 27978-IVJLKDI NAIL, 6 OR MORE 09/02/2020 05177-KQBRTYP NAIL, 6 OR MORE 02/09/2022 08852-GWIOBSB NAIL, 6 OR MORE 05/11/2022 40593-NAMQYMZ NAIL, 6 OR MORE 09/24/2022 70483-SRMAUEL NAIL, 6 OR MORE 01/25/2023 90079-FTGWJJG NAIL, 6 OR MORE 07/14/2023 30326-JICMIIF NAIL, 6 OR MORE 11/10/2023 40408-PAPVSDF NAIL, 6 OR MORE 02/16/2024 14751-IXASDVA NAIL, 6 OR MORE 05/17/2024 57494-ABMKGKD NAIL, 6 OR MORE 08/17/2024 66400-KQPDQND NAIL, 6 OR MORE 11/27/2024 84122-QYJPGNB NAIL, 6 OR MORE 03/05/2025 21196-OGFZBZN NAIL, 6 OR MORE 06/06/2025 60563-VPEKTVQ NAIL, 6 OR MORE 09/05/2025 32487-Fwsufxiz Plate 09/05/2025 79883-Jlayrvxm Plate 03/05/2025 32910-Jzqwlrxw Plate 11/02/2018 50785-Cnwnxrtv Plate 06/06/2025 48059-Dfbsyvat Plate 11/27/2024 64157-Oxtejecf Plate 08/17/2024 93518-Xbxjadoi Plate 05/17/2024 82769-Dvyxiauz Plate 02/16/2024 31041-Jgfpgluq Plate 11/10/2023 60310-Cwninlso Plate 07/14/2023 04103-Txshbzpr Plate 01/25/2023 04012-Xdnsgddm Plate 09/24/2022 86687-Pfsxcere Plate 05/11/2022 80096-Ouyrvjgg Plate 02/09/2022 18980-Rkibyygl Plate 09/02/2020 48667-Kgdvneqa Plate 11/10/2021 49197-Vnzxjhgg Plate 08/13/2021 72383-Dnomnrxi Plate 04/21/2021 52067-Flpeegie Plate 12/02/2020 33679-Gfvcjuqm Plate 11/15/2019 13850-Mgfssyoh Plate 08/16/2019 74517-Jqncykom Plate 05/03/2019 30996-Twofjolo Plate 2019 56354-Dnuykpjj Plate 10/27/2017 23019-Vabgnhky Plate 08/03/2018 24398-Yadhrwwv Plate 04/27/2018 98875-Fsrwdevx Plate 01/26/2018 45244-Hxcqdfdy Plate 07/28/2017 18163-Tbdcwqwz Plate 01/25/2017 87929-Xcrzygym Plate 04/21/2017 19910-Pbyxokkq Plate 10/14/2016 61636-Xqkbvxhp Plate 07/15/2016 93302-Iggocjgv Plate 04/15/2016 66238-Wfafrsmq Plate 01/03/2016 74678-Cyutryel Plate 09/27/2015 58418-Xinbdeyl Plate 07/09/2015 49909-Hemhpurv Plate 04/04/2015 31561-Soogmsgu Plate Each Additional 09/2015 99113-Nibrlqlo Plate Each Additional 27555-Wvcrjeib Plate Each Additional 03/2016 81388-Hfonpfkc Plate Each Additional 80816-Fdlkqzgi Plate Each Additional 46112-Xzlbpjsm Plate Each Additional 61066-Srcruodb Plate Each Additional 33780-Aagycrhh Plate Each Additional 28854-Esmvwtyc Plate Each Additional 03/2018 93419-Kuobgdfn Plate Each Additional 04/2019 56893-Egztypjf Plate Each Additional 03/2019 34678-Akntiyxq Plate Each Additional 03/2018 03325-Rinxonxd Plate Each Additional 37542-Aakndblb Plate Each Additional 59924-Rwnsgzwj Plate Each Additional 02/2021 33872-Bnbckgop Plate Each Additional 84853-Blovzmrr Plate Each Additional 23842-Avhciqhd Plate Each Additional 80784-Bkuhrowa Plate Each Additional 03/2020 23020-Edrtxxau Plate Each Additional 45911-Maiisblo Plate Each Additional 06419-Tsqbymqm Plate Each Additional 43710-Kfnblpkd Plate Each Additional 14793-Szmxzoec Plate Each Additional 84329-Knmhzyap Plate Each Additional 15445-Ngfpjdpt Plate Each Additional 77403-Rtwbqakk Plate Each Additional 99118-Stbnnzsg Plate Each Additional 94040-Irqleevm Plate Each Additional 81217-Juthvakp Plate Each Additional 05/2025 64326-BNHL SKIN LESIONS, OVER 4 03/05/20 74666-CCZL SKIN LESIONS, OVER 4 09/05/20 25 93428-KLRC SKIN LESIONS, OVER 4 11/27/20 24 47590-ODIF SKIN LESIONS, OVER 4 06/06/20 95632-ZTWR SKIN LESIONS, OVER 4 08/17/20 24 78009-LMXC SKIN LESIONS, OVER 4 05/17/20 24 51374-EDLQ SKIN LESIONS, OVER 4 02/16/20 24 25175-FVIF SKIN LESIONS, OVER 4 11/10/20 23 55344-YVHR SKIN LESIONS, OVER 4 07/14/20 23 80084-FJWO SKIN LESIONS, OVER 4 01/25/20 23 07638-OBNA SKIN LESIONS, OVER 4 09/24/20 22 63294-VKUP SKIN LESIONS, OVER 4 05/11/20 40694-EAQP SKIN LESIONS, OVER 4 11/10/20 88945-FYFF SKIN LESIONS, OVER 4 08/13/20 21 84119-KDOM SKIN LESIONS, 2 TO 4 04/21/20 91891-RQBW SKIN LESIONS, 2 TO 4 12/02/19 21 93342-CZRB SKIN LESIONS, 2 TO 4 04/04/20 15 35181,G1861-HET TENDON SHEATH/LIGAMENT 0 06/14/2015 Next Appt Details Provider Name:Edilson Luis , 12/24/2025 08:30:00 AM, [address], [place], [address], Insurance Providers Payer Name Payer Address Payer Phone Subscriber Number Group Number Insured Name Patient Relationship to Insured Coverage Start Date Coverage End Date [facility] [address] [place] [address] [id number] Kathryn Arzola Self - patient is the insured Medical (General) History Medical History History ICD Code Diabetic Hypertension Allergic rhinitis Hypercholesterolemia Surgical History Surgery Date(Month/Year) section Hospitalization History Reason Date(Month/Year) Colonoscopy 08/07/19 [facility] Stitches in head 02/2019
--- OUTSIDE RECORDS SUMMARY | 2025-11-13 09:16 | XMS_ITS | Patient Health Record ---
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 [employer] Section Notes: Nonsmoker; occasional drink on special occasions Problems Problem Type SNOMED Code ICD Code Onset Dates Problem Status W/U Status Risk Notes Problem Screening for malignant neoplasm of colon (489353232) Encounter for screening for malignant neoplasm of colon (Z12.11) Active confirmed Problem Preprocedural examination (697148338491775) Preprocedural examination (Z01.818) Active confirmed Plan Of Treatment Pending Test Test Name Order Date GI BIOPSY 08/07/2019 Future Test Test Name Order Date COLONOSCOPY 03/31/2019 Insurance Providers Payer Name Payer Address Payer Phone Subscriber Number Group Number Insured Name Patient Relationship to Insured Coverage Start Date Coverage End Date [facility] (NEEDS REFERRA L) [address] [place] [phone] [id number] WINNIE MCCORMICK Self - patient is the insured Medical (General) History Medical History History ICD Code Hypertension Allergic rhinitis Hyperlipidemia Arthritis IDDM Urinary incontinence Negative screening colonoscopy in 07/[address] Tomas Denies [place],CVA,Lung disease,renal disease Surgical History Surgery Date(Month/Year) 1989
== END 2025-11-13 09:20 | disposition home or self-care (01) ==
LOC: HO.HOS 08:38
PROVIDERS: PCP Physician Assistant
DX: L03.113 Cellulitis of right upper limb (principal); S66.901A Unspecified injury of unspecified muscle, fascia and tendon at wrist and hand level, right hand, initial encounter; S51.851D Open bite of right forearm, subsequent encounter; W55.01XD Bitten by cat, subsequent encounter; N18.31 Chronic kidney disease, stage 3a; E11.9 Type 2 diabetes mellitus without complications
CPT/HCPCS: 99213

== ENCOUNTER 2025-11-26 10:30 | Outpatient (REF) | payer OTHER, SELFPAY ==
--- NOTE | ~2025-11-26 | US_ITS ---
CLINICAL HISTORY: I65.23 - Occlusion and stenosis of bilateral carotid arteries US Bilateral Carotid Duplex Comparison: Carotid duplex Doppler ultrasound 09/28/2024 Findings: There is no significant change when compared to the prior exam. There are ycwj-xh-kaltaiwt bilateral atheromatous changes. There is mild elevation peak systolic velocity proximal right internal carotid artery 126 cm/sec. There is mild elevation peak systolic velocity measurements left mid and distal left internal carotid artery measuring 126 cm/sec and 125 cm/sec. There is normal antegrade flow within the vertebral arteries. There is borderline elevated velocity measurements within the left common carotid artery. Please see attached carotid duplex Doppler ultrasound exam for velocity measurements. There is 1.5 x 0.7 x 1 cm lymph node within the left neck.. Multiple thyroid nodules within the right and left lobes are again noted. Impression: No significant change when compared to prior exam Xvia-ti-abmeqjif atheromatous changes with approximately 50% diameter stenoses within the bilateral internal carotid arteries Multinodular goiter, thyroid ultrasound follow-up is recommended Nonspecific 1.5 x 0.7 x 1 cm left cervical lymph node, this could be further evaluated with CT neck with IV contrast This document has been electronically signed by: Destin Beal MD on 11/27/2025 08:55:57
--- OUTSIDE RECORDS SUMMARY | 2025-11-26 11:55 | XMS_ITS | Patient Health Record ---
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 [employer] Section Notes: Nonsmoker; occasional drink on special occasions Problems Problem Type SNOMED Code ICD Code Onset Dates Problem Status W/U Status Risk Notes Problem Screening for malignant neoplasm of colon (379030952) Encounter for screening for malignant neoplasm of colon (Z12.11) Active confirmed Problem Preprocedural examination (841074474391822) Preprocedural examination (Z01.818) Active confirmed Plan Of Treatment Pending Test Test Name Order Date GI BIOPSY 08/07/2019 Future Test Test Name Order Date COLONOSCOPY 03/31/2019 Insurance Providers Payer Name Payer Address Payer Phone Subscriber Number Group Number Insured Name Patient Relationship to Insured Coverage Start Date Coverage End Date [facility] (NEEDS REFERRA L) [address] [place] [phone] [id number] WINNIE MCCORMICK Self - patient is the insured Medical (General) History Medical History History ICD Code Hypertension Allergic rhinitis Hyperlipidemia Arthritis IDDM Urinary incontinence Negative screening colonoscopy in 07/[address] Tomas Denies [place],CVA,Lung disease,renal disease Surgical History Surgery Date(Month/Year) 1989
--- OUTSIDE RECORDS SUMMARY | 2025-11-26 11:55 | XMS_ITS | Patient Health Record ---
Author Organization [facility] Address [address] [place] [address] Care Team Providers Care Workers Compensation Consultant Name Role Phone Ness GALVEZ, Behzad Primary Care Provider Unavaila Edilson Ricketts Unavailable [phone] Allergies Allergen (clinical drug ingredient) Drug/Non Drug [...] Problem Acquired hammer toe of right foot (1093587647698205 ) Other hammer toe(s) (acquired), right foot (M20.41) Active confirmed Response to treatment, Improvemen t Problem Acquired hammer toe of left foot (4765681207982779 ) Other hammer toe(s) (acquired), left foot (M20.42) Active confirmed Response to treatment, Improvemen t Problem Polyneuropathy due to type 2 diabetes mellitus (853061519) Type 2 diabetes mellitus with diabetic polyneuropathy (E11.42) Active confirmed Vital Signs Blood pressure diastolic 70 mm Hg 09/05/2025 Height 5ft 6in in 09/05/2025 Blood pressure systolic 128 mm Hg 09/05/2025 Weight 254 lbs 09/05/2025 BMI 40.99 kg/m2 09/05/2025 Procedures Procedure Date Ordered Date Performed Result Body Sit e 67075-RIBWINC NAIL, 6 OR MORE 11/27/2024 N/A 95060-Jwhrtupv Plate 11/27/2024 N/A 75259-Dedtdsxj Plate Each Additional 11/27/2024 N/A 55943-AZKJ SKIN LESIONS, OVER 4 11/27/2024 N/A 01804-MVWRZQK NAIL, 6 OR MORE 03/05/2025 N/A 36777-Inlyohza Plate 03/05/2025 N/A 92833-Agtowxwc Plate Each Additional 03/05/2025 N/A 48057-ZASN SKIN LESIONS, OVER 4 03/05/2025 N/A 30602-IWJURYQ NAIL, 6 OR MORE 06/06/2025 N/A 24365-Svmjutvk Plate 06/06/2025 N/A 58604-EBNE SKIN LESIONS, OVER 4 06/06/2025 N/A 95628-GPRBQQI NAIL, 6 OR MORE 09/05/2025 N/A 82293-Vbfcasqf Plate 09/05/2025 N/A 70442-VIVA SKIN LESIONS, OVER 4 09/05/2025 N/A Encounters Encounter Location Date Provider Diagnosis [address] [address] 11/27/2024 Edilson Luis Pain in right toe(s) M79.674 ; Tinea unguium B35.1 ; Pain in left toe(s) M79.675 ; Type 1 diabetes mellitus without complication E10.9 ; Ingrown nail L60.0 and Xerosis of skin L85.[address] [address] 03/05/2025 Edilsonjanette Luis Tinea unguium B35.1 ; Type 2 diabetes mellitus with diabetic polyneuropathy E11.42 ; Ingrowing nail L60.0 ; Other hammer toe(s) (acquired), right foot M20.41 and Other hammer toe(s) (acquired), left foot M20.[address] [address] 06/06/2025 Edilsonjanette SainiJanelle Type 2 diabetes mellitus with diabetic polyneuropathy E11.42 ; Tinea unguium B35.1 ; Ingrown nail L60.0 ; Pain in right toe(s) M79.674 and Cellulitis of toe of right foot L03.[address] [address] 09/05/2025 Edilsonjanette SainiJanelle Type 2 diabetes mellitus [...] Foot, left 2V 04/04/2015 Glucose Fasting 04/04/2015 15821-QBCEFEN NAIL, 6 OR MORE 07/09/2015 31450-WEQIUAY NAIL, 6 OR MORE 09/27/2015 16530-UMPVROR NAIL, 6 OR MORE 01/03/2016 40740-TOICCAG NAIL, 6 OR MORE 04/15/2016 58702-DWXNDFC NAIL, 6 OR MORE 07/15/2016 15896-QFUANOM NAIL, 6 OR MORE 10/14/2016 46713-FFBFPWX NAIL, 6 OR MORE 01/25/2017 02684-YGWZOLX NAIL, 6 OR MORE 04/21/2017 41988-AQGHOJY NAIL, 6 OR MORE 04/04/2015 66350-RMBEVHM NAIL, 6 OR MORE 07/28/2017 02169-FFUSDNF NAIL, 6 OR MORE 10/27/2017 75843-YPOFBSR NAIL, 6 OR MORE 01/26/2018 48035-DEATCRK NAIL, 6 OR MORE 04/27/2018 18382-GYATSWM NAIL, 6 OR MORE 11/02/2018 53032-HWPQDHK NAIL, 6 OR MORE 2019 89831-ZQUUJWU NAIL, 6 OR MORE 08/03/2018 91462-PUCYJBL NAIL, 6 OR MORE 05/03/2019 37306-GOPEKYV NAIL, 6 OR MORE 08/16/2019 93107-EWHINMY NAIL, 6 OR MORE 11/15/2019 42840-QKDQAIH NAIL, 6 OR MORE 12/02/2020 27352-UXDSYGS NAIL, 6 OR MORE 04/21/2021 10480-FVFAQIG NAIL, 6 OR MORE 08/13/2021 82762-RLKAOZB NAIL, 6 OR MORE 11/10/2021 83316-QLPNORT NAIL, 6 OR MORE 09/02/2020 57556-NUGKHSR NAIL, 6 OR MORE 02/09/2022 50770-PLSMNDB NAIL, 6 OR MORE 05/11/2022 77454-XHBCGED NAIL, 6 OR MORE 09/24/2022 25010-FPEXGYR NAIL, 6 OR MORE 01/25/2023 84211-IGQEDTU NAIL, 6 OR MORE 07/14/2023 87351-HVCCJJP NAIL, 6 OR MORE 11/10/2023 51842-KAYPGKR NAIL, 6 OR MORE 02/16/2024 20857-KCHPIOO NAIL, 6 OR MORE 05/17/2024 05487-IDZVRHW NAIL, 6 OR MORE 08/17/2024 08278-THELLBX NAIL, 6 OR MORE 11/27/2024 15124-CJSGKIB NAIL, 6 OR MORE 03/05/2025 92466-IDCNOFO NAIL, 6 OR MORE 06/06/2025 61034-NRZVUJX NAIL, 6 OR MORE 09/05/2025 32911-Sebyjqia Plate 09/05/2025 48372-Eeytcrbp Plate 03/05/2025 77196-Bjcgwrjd Plate 11/02/2018 75567-Blbhndbv Plate 06/06/2025 11787-Cfuwxjvf Plate 11/27/2024 79251-Ilrhivuy Plate 08/17/2024 96180-Wcybtrwf Plate 05/17/2024 62628-Ffizydpl Plate 02/16/2024 89889-Vvxjievt Plate 11/10/2023 73098-Xxaqzpwf Plate 07/14/2023 14935-Evgucqom Plate 01/25/2023 85168-Ifynubhr Plate 09/24/2022 67352-Fbytpyfp Plate 05/11/2022 14545-Yfvaamvh Plate 02/09/2022 03841-Tncfaptx Plate 09/02/2020 03215-Aumrnizc Plate 11/10/2021 28796-Avayzcor Plate 08/13/2021 80288-Evfddliq Plate 04/21/2021 18113-Vjhqxvww Plate 12/02/2020 57401-Yjvggshu Plate 11/15/2019 92767-Eyyzofgh Plate 08/16/2019 54289-Xpxmwdmy Plate 05/03/2019 10174-Cwqjyedo Plate 2019 96035-Texdvudp Plate 10/27/2017 22521-Ctafzctd Plate 08/03/2018 62369-Palzdtjf Plate 04/27/2018 18612-Wfbfshwn Plate 01/26/2018 32191-Xpwrqjdr Plate 07/28/2017 67824-Hnrxfoiq Plate 01/25/2017 19135-Xxhicnei Plate 04/21/2017 95654-Ygifzqye Plate 10/14/2016 20181-Xndlusdz Plate 07/15/2016 05258-Dysqqueh Plate 04/15/2016 92377-Aeeqwzqz Plate 01/03/2016 55368-Woadmmbb Plate 09/27/2015 26880-Xqjpqzoi Plate 07/09/2015 50077-Uzqirbin Plate 04/04/2015 83647-Tfhnowoj Plate Each Additional 09/2015 64230-Bghyvezw Plate Each Additional 46434-Bjrhtvyy Plate Each Additional 03/2016 18052-Mhfvqbdq Plate Each Additional 07895-Hhkjyxmv Plate Each Additional 46821-Daorprjj Plate Each Additional 66600-Pgmvwsvh Plate Each Additional 04407-Uwhwszcd Plate Each Additional 23082-Hxexpdjj Plate Each Additional 03/2018 28917-Wmzimrdz Plate Each Additional 04/2019 14461-Qgrscemy Plate Each Additional 03/2019 95324-Gumwizxy Plate Each Additional 03/2018 45581-Jyjrwmxe Plate Each Additional 94437-Bdzuvdjy Plate Each Additional 18954-Caiuwrox Plate Each Additional 02/2021 75471-Okjerbwk Plate Each Additional 10053-Hwpbclox Plate Each Additional 08815-Mvqtlxtn Plate Each Additional 79103-Rvmktets Plate Each Additional 03/2020 88665-Zeesbqug Plate Each Additional 82080-Wswzolse Plate Each Additional 50386-Wlwakbsm Plate Each Additional 79304-Jttkbhrj Plate Each Additional 27798-Qckjmeyw Plate Each Additional 04912-Obahtvuk Plate Each Additional 76682-Ddsxknhb Plate Each Additional 84626-Abyvmsbv Plate Each Additional 22100-Hyhhvodm Plate Each Additional 31178-Zesjzdcd Plate Each Additional 24788-Hhqqmmjz Plate Each Additional 05/2025 13422-TFID SKIN LESIONS, OVER 4 03/05/20 66368-HKZZ SKIN LESIONS, OVER 4 09/05/20 25 06441-GDVF SKIN LESIONS, OVER 4 11/27/20 24 80636-HDTR SKIN LESIONS, OVER 4 06/06/20 52922-ADHH SKIN LESIONS, OVER 4 08/17/20 24 42858-RULY SKIN LESIONS, OVER 4 05/17/20 24 35930-GKWS SKIN LESIONS, OVER 4 02/16/20 24 42399-ZGPX SKIN LESIONS, OVER 4 11/10/20 23 74609-SGED SKIN LESIONS, OVER 4 07/14/20 23 20305-HODL SKIN LESIONS, OVER 4 01/25/20 23 04672-DYEP SKIN LESIONS, OVER 4 09/24/20 22 13760-GMKQ SKIN LESIONS, OVER 4 05/11/20 37396-DKTQ SKIN LESIONS, OVER 4 11/10/20 80430-RUPH SKIN LESIONS, OVER 4 08/13/20 21 78613-AJEL SKIN LESIONS, 2 TO 4 04/21/20 02794-VCUN SKIN LESIONS, 2 TO 4 12/02/19 21 09593-FGII SKIN LESIONS, 2 TO 4 04/04/20 15 36618,F6436-TQX TENDON SHEATH/LIGAMENT 0 06/14/2015 Next Appt Details Provider Name:Edilson Luis , 12/24/2025 08:30:00 AM, [address], [place], [address], Insurance Providers Payer Name Payer Address Payer Phone Subscriber Number Group Number Insured Name Patient Relationship to Insured Coverage Start Date Coverage End Date [facility] [address] [place] [address] [id number] Kathryn Arzola Self - patient is the insured Medical (General) History Medical History History ICD Code Diabetic Hypertension Allergic rhinitis Hypercholesterolemia Surgical History Surgery Date(Month/Year) section Hospitalization History Reason Date(Month/Year) Colonoscopy 08/07/19 [facility] [place] Stitches in head 02/2019
== END 2025-11-26 10:31 ==
LOC: HO.US 10:30
PROVIDERS: PCP Physician Assistant; Visit Provider Surgery Vascular Surgery
DX: I65.23 Occlusion and stenosis of bilateral carotid arteries (principal)
CPT/HCPCS: 93880

== ENCOUNTER → 2025-11-26 10:35 | Outpatient (BNV) | payer OTHER, SELFPAY | PROVIDERS: PCP Physician Assistant; Visit Provider Radiology Diagnostic Radiology | DX: I65.23 Occlusion and stenosis of bilateral carotid arteries (principal) | CPT/HCPCS: 93880 ==